=== PATIENT | male | born 1970 | race Caucasian/White ===

== ENCOUNTER 2022-01-27 13:01 | Outpatient (CLI) | payer OTHER, SELFPAY ==
--- NOTE | ~2022-01-27 | US_ITS ---
EXAMINATION:US venous doppler LE BI INDICATION:Bilateral leg swelling TECHNIQUE: Multiple grayscale, color flow and Doppler images of the right and left lower extremity de ep venous systems were obtained and reviewed. COMPARISON:No prior studies for comparison. FINDINGS: The common femoral, superficial femoral and popliteal veins demonstrate normal respiratory variation, augmentation and compressibility. Color flow is also seen within the posterior tibial, pe roneal, greater saphenous and profunda veins. IMPRESSION: 1: No lower extremity deep venous thrombosis. Reviewed, dictated and finalized at location A.
== END 2022-01-27 13:02 | disposition home or self-care (01) ==
PROVIDERS: PCP Internal Medicine Infectious Disease; Visit Provider Internal Medicine Infectious Disease
DX: M79.89 Other specified soft tissue disorders (principal)
CPT/HCPCS: 93970

== ENCOUNTER 2024-08-10 22:43 | Emergency (ER) | payer OTHER, SELFPAY ==
--- OUTSIDE RECORDS SUMMARY | 2024-08-10 22:46 | XMS_ITS | Clinical Summary ---
Author Organization [facility] Address [address] [place] [address] Care Team Providers Care Console Manager Name Role Phone Дмитрий Hennessy MD Primary Care Provider Stefano Sheikh MD Unavailable [phone] Source Comments [facility],non-owned Affiliates and Associated Physician Practices is amultiple site organization consisting of ambulatory clinics and hospital sitesin [place], [place], [place] and [place]. This disclosure is being madepursuant to the Care Everywhere program and may not contain all information available regarding this patient. Last updated 18.[facility] Allergies No known active allergies Medications * Be aware that medications may not be up to date on this document. Alwaysverify current medications with the patient. Medication Sig Dispensed Refills Start Date End Date Status Acetaminophen (TYLENOL EXTRA STRENGTH PO) Take 3 tablets by mouth once daily Active cetirizine (ZYRTEC) 10 MG tablet Take 1 (one) tablet by mouth once daily as needed for Allergies Active busPIRone (BUSPAR) 15 MG tablet Take 10 mg by mouth 2 times daily 02/23/2021 Active lamoTRIgine (LAMICTAL) 100 MG tablet Take 1 (one) tablet by mouth at bedtime 10/15/2020 Active omeprazole (PRILOSEC) 20 MG capsule Take 1 (one) capsule by mouth once daily As Directed. 05/25/2021 Active gemfibrozil (Lopid) 600 MG tablet Take 1 (one) tablet by mouth 2 times daily, before breakfast and supper Active chlorproMAZINE (Thorazine) 50 MG tablet Take 1 (one) tablet by mouth at bedtime Active traZODone (Desyrel) 100 MG tablet Take 1 (one) tablet by mouth at bedtime Active melatonin 3 MG tablet Take 10 mg by mouth at bedtime Active lactobacillus extra strength (Florajen) capsule Take 1 (one) capsule by mouth once daily Active DULoxetine (Cymbalta) 60 MG capsule Take 1 (one) capsule by mouth once daily Active glecaprevir-pibre ntasvir (Mavyret) 100-40 MG tablet Take 3 (three) tablets by mouth daily with food 84 tablet 1 05/20/2024 Active carvedilol (Coreg) 3.125 MG tablet Take 1 (one) tablet by mouth 2 times daily with morning and evening meal 05/16/2024 Active Magnesium Oxide -Mg Supplement 400 (240 Mg) MG Take 1 (one) tablet by mouth 2 times daily 05/17/2024 Active Invega Sustenna 234 MG/1.5ML injection Inject 234 (two hundred thirty four) mg into muscle every 30 days 06/20/2024 Active digoxin (LANOXIN) 0.125 MG tablet Take 0.125 mg by mouth once daily 07/18/2024 Discontinued (List Clean-Up) Active Problems Problem Noted Date Diagnosed Date Stage 2 chronic kidney disease 05/08/2024 Cellulitis of left lower limb 01/18/2024 Cellulitis of right lower limb 01/18/2024 Clostridioides difficile infection 01/18/2024 Colitis 01/18/2024 Diarrhea 01/18/2024 Edema 01/18/2024 History of total left hip replacement 10/22/2023 Erectile dysfunction 09/12/2023 Sensorineural hearing loss, bilateral 06/12/2023 Arthritis of hip 05/09/2023 Chronic depression 05/09/2023 Disorder of lipid metabolism 05/08/2023 Chest pain 03/16/2023 Cocaine adverse reaction 03/16/2023 Essential hypertension 03/16/2023 Gastroesophageal reflux disease 03/16/2023 Generalized anxiety disorder 03/16/2023 Intestinal obstruction 03/16/2023 Recurrent major depression 03/16/2023 Schizoaffective disorder, bipolar type 3 Suicidal thoughts 03/16/2023 Type 2 diabetes mellitus 03/16/2023 Head and neck cancer 02/10/2022 Lesion of tongue 02/07/2022 COVID-19 01/04/2022 Influenza due to unidentifie d influenza virus with other respiratory manifestations 01/04/2022 Solitary pulmonary nodule 01/04/2022 Oral cancer 12/02/2021 Overview (07/18/2024): Added automatically from request for surgery [id number] Paresis of lower extremity 02/24/2021 Exposure to SARS-associated coronavirus 12/09/19 21 Prediabetes 11/04/2020 Encounter for health-related screening Overview (07/18/2024): did not want breann socre, eng psa Psychostimulant dependence in remission 11/03/19 21 Primary osteoarthritis of left hip 10/28/2020 Overview (03/03/2021): Added automatically from request for surgery [id number] Fatty liver 10/09/2020 Renal cyst 10/09/2020 Hypotension 2020 Chronic obstructive pulmonary disease 09/02/2020 Methamphetamine abuse 08/06/2020 Obesity 08/05/2020 Overweight 08/05/2020 Degeneration of lumbar intervertebral disc 02/10 Chronic hepatitis C without hepatic coma 020 Overview (05/13/2024): Genotype 1 a Hepatitis B core antibody reactive No immunity to hepatitis B 06/21/21 Fibroscan CAP 314, LSM 8.3 kPa 05/13/24 Fibroscan CAP 285, LSM 6.6 kPa Impaired fasting glucose 12/17/2019 Poor short-term memory 12/17/2019 Anemia, iron deficiency 12/16/2019 Overview (07/18/2024): nml b12 Left foot drop 09/24/2019 Tobacco dependence in remission 09/24/2019 Hypertriglyceridemia 09/03/2019 Congestive heart failure 02/28/2016 Systolic CHF, chronic 12/02/2010 Personal history of nicotine dependence 01/22/20 09 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 08/13/2008 Overview (03/03/2021): Biotronik Lumax 340 Model # [id number] SER# [id number] implanted 08-12-08 in [place] per Dr. Abreu for dilated CM RV lead Biotronik Linox 65-18 SER# [id number] Biotronik Lumax 340 Model # [id number] SER# [id number] implanted 08-12-08 [address] [place] per Dr. Abreu for dilated CM RV lead Biotronik Linox 65-18 SER# [id number] Supraventricular tachycardia 05/18/2008 Other primary cardiomyopathies 12/20/1993 Overview (03/03/2021): lowest 20 no cad or ai lowest 20 no cad or ai Resolved Problems Problem Noted Date Diagnosed Date Resolved Date Dehydration 01/18/2024 08/01/2024 Acute upper respiratory infection 09/18/2023 08/01/2024 Encounters Date Type Department Care Team Description 07/21/2024 Telephone [facility] [address] [place] [phone] Pam Rain APRN-CNP Results 07/18/2024 2:00 PM RUBBER GOODS SUPERVISOR [facility] [address] [place] [phone] Pam Rain APRN-STAFF NURSE MIDWIFE Chronic hepatitis C without hepatic coma (HCC) (Primary Dx) 07/18/2024 Travel 07/07/2024 Orders Only [facility] [address] [place] [address] Pam Rain APRN-STAFF NURSE MIDWIFE Chronic hepatitis C without hepatic coma (HCC) 05/13/2024 1:35 PM RUBBER GOODS SUPERVISOR - 05/13/2024 11:59 PM RUBBER GOODS SUPERVISOR Hospital Encounter [facility] [address] [place] [address] Discharge Disposition: Home or Self Care 05/13/2024 1:00 PM RUBBER GOODS SUPERVISOR Office Visit [facility] - [address] [phone] Jason Willingham MD Campbell, Shirley M, MARKETING SUMMER INTERN-STAFF NURSE MIDWIFE Chronic hepatitis C without hepatic coma (HCC) (Primary Dx) 05/13/2024 11:30 AM RUBBER GOODS SUPERVISOR Procedure visit [facility] - [address] [phone] Jason Willingham MD Chronic hepatitis C without hepatic coma (HCC) 05/13/2024 Travel from Last 3 Months Family History Medical History Relation Name Comments CAD (Coronary Artery Disease) Father Bipolar Disorder Mother High Blood Pressure Mother Relation Name Status Comments Father Alive Mother Alive Social History Tobacco Use Types Packs/Day Years Used Date Smoking Tobacco: Never Smokeless Tobacco: Current Chew Tobacco Cessation:Ready to Q uit: Not Asked; Counseling Given: Not Answered Alcohol Use Standard Drinks/Week Comments Never 0 (1 standard drink = 0.6 oz pur e alcohol) Sex and Gender Information Value Date Recorded Sex Assigned at Male 06/27/2021 3:16 PM RU[employer]ER GOODS SUPERVISOR Gender Identity Male 06/27/2021 3:16 PM RU[employer]ER [employer] SUPERVISOR Sexual Orientation Not on file Last Filed Vital Signs Vital Sign Reading Time Taken Comments Blood Pressure 112/73 07/18/2024 2:34 PM RU[employer]ER [employer] SUPERVISOR Pulse 99 07/18/2024 2:34 PM RU[employer]ER [employer] SUPERVISOR Temperature 36.7 C (98 F) 07/18/2024 2:34 PM RU[employer]ER GOODS SUPERVISOR Respiratory Rate - - Oxygen Saturation 96% 07/18/2024 2:34 PM RUBBER GOODS SUPERVISOR Inhaled Oxygen Concentration - - Weight 92.8 kg (204 lb 9.6 oz) 07/18/2024 2:34 P M [employer]ER [employer] SUPERVISOR Height 175.3 cm (5' 9 ) 07/18/2024 2:34 PM RUBBER GOODS SUPERVISOR Body Mass Index 30.21 07/18/2024 2:34 PM RUBBER GOODS SUPERVISOR Plan of Treatment Health Maintenance Due Date Last Done Comments COLOGUARD (AGES 45-75) - COLON CA SCREENING 1971 COLON MONITORING 1971 COLONOSCOPY - COLON CA SCREENING 1971 CT COLONOGRAPHY - COLON CA SCREENING 1971 Colorectal Cancer Screening 1971 FIT - COLON CA SCREENING 1971 FLEX SIG - COLON CA SCREENING 1971 DTAP/TDAP/TD VACCINES (1 - Tdap) 10/07/1990 HEPATITIS B VACCINE (1 of 3 - 19+ 3-dose series) 10/07/1990 PNEUMOCOCCAL VACCINE 50+ (1 of 2 - PCV) 10/07/1990 PNEUMOCOCCAL VACCINE (1 of 2 - PCV) 10/07/1990 DIABETES-STATIN 2011 ZOSTER VACCINE (1 of 2) 10/07/2021 COVID-19 VACCINE (2 - season) 2024 09/07/2020 INFLUENZA VACCINE (#1) 2024 , 04/03/2023, 05/14/2022, Additional history exists DIABETES - URINE PROTEIN SCREENING 07/02/2024 DIABETES RETINOPATHY SCREENING 07/18/2024 DIABETES-FOOT EXAM WITH MONOFILAMENT 07/18/2024 DIABETES-HGB A1C 07/18/2024 08/06/2023 DIABETES-SERUM CREATININE 07/17/20252024, 07/17/2024, 05/13/2024, Additional history exists HIV SCREENING Completed 03/03/2021 HEPATITIS C SCREENING Completed 07/18/2024 , 07/17/2024, 07/17/2024, Additional history exists HIB VACCINE Aged Out No longer eligi ble based on patient's age to complete this topic HPV VACCINE Aged Out No longer eligi ble based on patient's age to complete this topic MENINGOCOCCAL (Group B) VACCINE Aged Out No longer eligible based on patient's age to complete this topic MENINGOCOCCAL VACCINE Aged Out No itz juan manuel eligible based on patient's age to complete this topic Goals Goal Patient Goal Type Associated Problems Recent Progress Patient-Stated? Author Medication Management General On track( 025 3:15 PM RUBBER GOODS SUPERVISOR) Jessica Young, RN Note: Expected end date: ongoing Interventions: Take all medications as prescribed Procedures Procedure Name Priority Date/Time Associated Diagnosis Comments HEPATITIS C RNA QUANTITATIVE Routine 07/17/2024 1:44 PM RU[employer]ER [employer] SUPERVISOR Chronic hepatitis C without hepatic coma (HCC) COMPREHENSIVE METABOLIC PANEL Routine 07/17/2024 1:44 PM RU[employer]ER [employer] SUPERVISOR Chronic hepatitis C without hepatic coma (HCC) CBC W AUTO DIFFERENTIAL Routine 07/17/2024 1:44 PM RU[employer]ER [employer] SUPERVISOR Chronic hepatitis C without hepatic coma (HCC) HEPATITIS C RNA QUANTITATIVE Routine 07/17/2024 1:44 PM RU[employer]ER [employer] SUPERVISOR Chronic hepatitis C without hepatic coma (HCC) COMPREHENSIVE METABOLIC PANEL Routine 07/17/2024 1:44 PM RU[employer]ER [employer] SUPERVISOR Chronic hepatitis C without hepatic coma (HCC) CBC W AUTO DIFFERENTIAL Routine 07/17/2024 1:44 PM RU[employer]ER [employer] SUPERVISOR Chronic hepatitis C without hepatic coma (HCC) HEPATITIS C RNA QUANTITATIVE Routine 05/13/2024 2:53 PM RU[employer]ER [employer] SUPERVISOR Chronic hepatitis C without hepatic coma (HCC) COMPREHENSIVE METABOLIC PANEL Routine 05/13/2024 2:53 PM RU[employer]ER [employer] SUPERVISOR Chronic hepatitis C without hepatic coma (HCC) CBC W AUTO DIFFERENTIAL Routine 05/13/2024 2:53 PM RU[employer]ER [employer] SUPERVISOR Chronic hepatitis C without hepatic coma (HCC) DIGOXIN LEVEL Routine 05/13/2024 2:53 PM RUBBER GOODS SUPERVISOR Chronic hepatitis C without hepatic coma (HCC) MN LIVER ELASTOGRAPHY Routine 05/13/2024 11:26 AM RU[employer]ER GOODS SUPERVISOR Chronic hepatitis C without hepatic coma (HCC) HIV-1 HIV-2 ANTIBODY + HIV P24 AG PANEL Routine 03/03/2021 1:12 PM CDT Chronic hepatitis C without hepatic coma (HCC) from Last 3 Months or Most Recently Relevant to Health Maintenance Results * HEPATITIS C RNA QUANTITATIVE (07/17/2024 1:44 PM RUBBER GOODS SUPERVISOR) Only the most recent of2 resultswithin the time period is included. Pathologist [facility] Hepatitis C Virus RNA, Quantitative Real Time PCR <15 NOT DETECTED NOT DETECTED IU/mL [facility] Hepatitis C Virus RNA, Quantitative Real Time PCR <1.18 NOT DETECTED NOT DETECTED Log IU/mL [facility] Comment: For additional information, please refer to [email or web address].[email or web address]/faq/[email or web address] (This link is being provided for informational/ educational purposes only.) Test Performed at: [facility] [address] [place] [address] TARIK NICHOLSON MD Blood BLOOD SPECIMEN / Unknown 07/17/2024 1:44 PM RUBBER GOODS SUPERVISOR 07/17/2024 1:44 PM RUBBER [employer] SUPERVISOR Pam Rain MARKETING SUMMER INTERN-STAFF NURSE MIDWIFE LAB - CHEMIS TRY ORDERABLES [facility] [address] [place] [address] * (ABNORMAL) CBC WITH DIFFERENTIAL (07/17/2024 1:44 PM RUBBER GOODS SUPERVISOR) Only the most recent of3 resultswithin the time period is included. [facility] White Blood Cell Count 8.0 3.8 - 10.8 Thousand/u L [facility] RBC 4.36 4.20 - 5.80 Million/uL [facility] Hemoglobin 13.1(L) 13.2 - 17.1 g/dL [facility] Hematocrit 39.6 38.5 - 50.0 % [facility] MCV 90.8 80.0 - 100.0 fL [facility] MCH 30.0 27.0 - 33.0 pg [facility] MCHC 33.1 32.0 - 36.0 g/dL [facility] Comment: For adults, a slight decrease in the calculated MCHC value (in the range of 30 to 32 g/dL) is most likely not clinically significant; however, it should be interpreted with caution in correlation with other red cell parameters and the patient's clinical condition. RDW 12.5 11.0 - 15.0 % [facility] Platelet Count 326 140 - 400 Thousand/u L [facility] MPV 9.2 7.5 - 12.5 fL [facility] Neutrophil Absolute 5928 1500 - 7800 cells/uL [facility] Lymphocytes Absolute 1352 850 - 3900 cells/uL [facility] Absolute Monocytes 472 200 - 950 cells/uL [facility] Eosinophils Absolute 208 15 - 500 cells/uL [facility] Basophils Absolute 40 0 - 200 cells/uL [facility] Granulocytes % 74.1 % [facility] Lymphocytes % 16.9 % [facility] Monocytes % 5.9 % [facility] Eosinophils % 2.6 % [facility] Basophils % 0.5 % [facility] Comment: Test Performed at: [facility] [address] [facility] [address] TARIK NICHOLSON MD Blood BLOOD SPECIMEN / Unknown 07/17/2024 1:44 PM RUBBER GOODS SUPERVISOR 07/17/2024 1:44 PM RUBBER GOODS SUPERVISOR Pam Rain MARKETING SUMMER INTERN-STAFF NURSE MIDWIFE LAB - HEMATO LOGY ORDERABLES [facility] [address] [place] [address] * (ABNORMAL) COMPREHENSIVE METABOLIC PANEL (07/17/2024 1:44 PM RUBBER GOODS SUPERVISOR) Only the most recent of3 resultswithin the time period is included. Glucose 118(H) 65 - 99 mg/dL [facility] Comment: Fasting reference interval For someone without known diabetes, a glucose value between 100 and 125 mg/dL is consistent with prediabetes and should be confirmed with a follow-up test. BUN 17 7 - 25 mg/dL [facility] Creatinine 1.16 0.70 - 1.30 mg/dL [facility] eGFR by Cystatin C 76 > OR = 60 mL/min/1. 73m2 [facility] BUN/Creatinine Ratio SEE NOTE: 6 - 22 (calc) [facility] Comment: Not Reported: BUN and Creatinine are within reference range. Sodium 135 135 - 146 mmol/L [facility] Potassium 4.2 3.5 - 5.3 mmol/L [facility] Chloride 101 98 - 110 mmol/L [facility] CO2 24 20 - 32 mmol/L [facility] Calcium 9.2 8.6 - 10.3 mg/dL [facility] Protein Total 7.5 6.1 - 8.1 g/dL [facility] Albumin 4.5 3.6 - 5.1 g/dL [facility] Globulin Total 3.0 1.9 - 3.7 g/dL (calc) [facility] Albumin/Globulin Ratio 1.5 1.0 - 2.5 (calc) [facility] Bilirubin Total 0.7 0.2 - 1.2 mg/dL [facility] Alkaline Phosphatase 98 35 - 144 U/L [facility] AST 17 10 - 35 U/L [facility] ALT 14 9 - 46 U/L [facility] Comment: Test Performed at: [facility] [address] [place] [address] TARIK NICHOLSON MD Blood BLOOD SPECIMEN / Unknown 07/17/2024 1:44 PM RUBBER GOODS SUPERVISOR 07/17/2024 1:44 PM RUBBER GOODS SUPERVISOR Pam Rain MARKETING SUMMER INTERN-STAFF NURSE MIDWIFE LAB - CHEMIS TRY ORDERABLES Performing Organization Address [facility] de Phone Number [facility] [address] [place] [address] * DIGOXIN LEVEL (05/13/2024 2:53 PM RUBBER GOODS SUPERVISOR) Digoxin 0.8 0.5 - 1.2 ng/mL 05/13/2024 3:36 PM RUBBER GOODS SUPERVISOR [facility] Blood BLOOD SPECIMEN / Unknown Lab Venipuncture / Unknown 05/13/2024 2:53 PM RUBBER GOODS SUPERVISOR 05/13/2024 3:23 PM RUBBER GOODS SUPERVISOR Narrative [facility] - 05/13/2024 3:36 PM RUBBER GOODS SUPERVISOR Therapeutic reference range for heart failure is 0.5-0.9 ng/mL. For atrial fibrillation, it is 0.8-1.2 ng/mL. The inspector packer of Digoxin Immune Jayesh has stated that no immunoassay technique is suitable for quantitating digoxin in plasma/serum from patients on antibody fragment therapy. Pam Rain APRN-STAFF NURSE MIDWIFE LAB - [place] [employer] TRY ORDERABLES Performing Organization Address [facility] de Phone Number [facility] [address] [place] [address], [facility] [phone] * [place] LIVER ELASTOGRAPHY (05/13/2024 11:26 AM RUBBER GOODS SUPERVISOR) Narrative Jason Gómez MD - 05/13/2024 11:26 AM RUBBER GOODS SUPERVISOR Jason Gómez MD 05/13/2024 12:12 PM Diagnosis: Chronic hepatitis C without hepatic coma (HCC) Patient confirms NPO 3 hours prior to procedure. Procedure explained. Date of Exam: 05/13/2024 Liver Stiffness: (LSM, kPa) median: 6.6 IQR/Median% (ideally < 30%): 5% CAP (controlled attenuation parameter): 285 Technical Difficulty: None Ordering Provider: Pam Rain APRN Fibroscan interpretation: I have personally reviewed the Fibroscan report and associated tracings. The calculated Liver Stiffness Measurement (LSM, kPa) indicates that: The probability of advanced liver fibrosis is: low. The loss of ultrasound signal, (controlled attenuation parameter, CAP [dB/m]), indicates that the probability of hepatic steatosis is: high. Jason Garrett MD The following criteria are used to indicate the probability of advanced (stage 3-4) fibrosis: < 7.0 kPa: low 7.0-8.9 kPa: low to moderate 9.0-14.9 kPa: moderate 15-20 kPa: high > 20 kPa: very high Liver stiffness > 20 kPa is also associated with a high probability of complications of portal hypertension including varices and ascites. Liver stiffness > 50 kPa is associated with a high risk of variceal bleeding. These interpretations are based on the following published data: Dafne PJ, Myla M, Lyla M, et al. Accuracy of FibroScan controlled attenuation parameter and liver stiffness measurement in assessing steatosis and fibrosis in patients with nonalcoholic fatty liver disease. Gastroenterology 2019;156:8103-1314. Alen MS, Jarad R, Van Natta ML, et al. Vibration-controlled transient elastography to assess fibrosis and steatosis in patients with nonalcoholic fatty liver disease. Clin Gastroenterol Hepatol 2019;17:156-163. Note that scores have been developed that incorporate the Fibroscan liver stiffness measurement from large cohorts of patients with liver biopsies to further refine the ability of Fibroscan to identify patients with MASH and advanced fibrosis. These include the FAST (Fibroscan-AST) score (Julio, 202) and the Agile3+ and Agile4 scores (Heather, 202). Julio TA, Van Natta ML, Kavya M, Lane A, et al. Validation of the accuracy of the FAST score for detecting patients with at-risk nonalcoholic steatohepatitis (JI) in a [place] cohort and comparison to other non-invasive algorithms. PLoS ONE (2021) 17: [id number]. Heather BUTTS, Nathalie J, Jack WINSTON, et al. Enhanced diagnosis of advanced fibrosis and cirrhosis in individuals with NAFLD using FibroScan-based Agile scores. J Hepatol (2022) 78: 247-259. Fibroscan LSM can also be used with laboratory parameters without formulas to assess prognosis. According to the Baveno-VII criteria (Moreno, 202), Fibroscan LSM <=15 kPa plus a platelet count of >=[id number]/L rules out clinically significant portal hypertension (sensitivity and negative predictive value >90%) in patients with compensated advanced chronic liver disease. Moreno R, Janak J, Riki G, Brody T, Mayda Hernandez on behalf of the Baveno VII Faculty. Baveno VII--Renewing consensus in portal hypertension. J Hepatol (2021) 76: 959-974 Assessing the likelihood of advanced fibrosis in patients with intermediate liver stiffness measurement (LSM) by Fibroscan (e.g., 8-15 kPa) can be improved by also calculating the FIB-4 score (Tim et al. Hepatology Communications 2019;3:6701-7813) or NAFLD Fibrosis score (Moya et al. Clinical Gastroenterology and Hepatology 2019;17:7301-6838 using routine clinical data. Note: 1. Fibroscan cannot reliably identify earlier stages of fibrosis (ie distinguish F0 from F1 and F2) and thus a histologic stage cannot be predicted from the Fibroscan reading. 2. Liver stiffness can be increased by factors other than fibrosis including passive congestion, infiltrative processes, active alcoholism, recent moderate alcohol consumption in the 2 weeks before the exam, biliary obstruction and marked inflammation. The interpretation of the Fibroscan result provided above may not have taken such clinical factors into account. Disease etiology also influences Fibroscan cutoff values for fibrosis stages and the following cutoffs have been proposed (Uriel et al, Clin Gastro Hepatol 2015; 13:27-36): Cutoffs for Stage 3 and Stage 4 fibrosis respectively: Hepatitis B: >9 and >11.7 kPa Hepatitis C: >9.5 and >12.5 kPa HCV-HIV: >11 and >14 kPa Cholestatic liver diseases: >10 and >17.9 kPa MASLD/MASH: >10 and >14 kPa CAP estimates of steatosis: normal <200 dB/m mild 200 to 250 dB/m moderate 250-290 dB/m substantial > 290 dB/m (Note that Fibroscan is not a quantitative measure of liver fat.) These criteria are estimates and may change as additional supporting data becomes available. (This additional interpretive data was last updated 11/04/22.) [email or web address] Pam Rain APRN-STAFF NURSE MIDWIFE PROCEDURE/KS NOR SURGICAL ORDERABLES * HIV-1 HIV-2 ANTIBODY + HIV P24 AG PANEL (03/03/2021 1:12 PM CDT) HIV Antigen/Antibod y 1 & 2 Non-reacti ve Non-react paris 03/03/2021 5:02 PM CDT [facility] Comment:Neither HIV-1 p24 An tigen nor HIV-1/HIV-2 Antibodies are detected. Blood BLOOD SPECIMEN / Unknown Lab Venipuncture / Unknown 03/03/2021 1:12 PM CDT 03/03/2021 1:39 PM CDT Pam Rain MARKETING SUMMER INTERN-STAFF NURSE MIDWIFE LAB - CHEMIS TRY ORDERABLES Performing Organization Address City/State/[facility] Co de Phone Number [facility] [address] [place] [address], [facility] [phone] from Last 3 Months or Most Recently Relevant to Health Maintenance Care Teams Console Manager Relationship Specialty Start Date End Date Дмитрий Hennessy MD [address] [place], [place] [id number] PCP - General 03/03/21 Stefano Sheikh MD [address] [facility] [address] [place] [address] [facility] 05/13/24
--- OUTSIDE RECORDS SUMMARY | 2024-08-10 22:46 | XMS_ITS ---
Author Organization [facility] Address [address] [place] [address] Support Name Relationship Address Phone [facility] Contact [address] [place] [address] Aashish Darby Guarantor Unknown [phone] Care Team Providers Care Appliance Assembler Name Role Phone Vikash Dodd Primary Care Provider [phone] REASON FOR VISIT Trazodone Social History Sex Assigned At : Social History Observation Description Sex Assigned At Male Encounters Encounter Location Date Provider Diagnosis [address], [place] [address] 08/05/2024 Vikash Dodd Plan Of Treatment Next Appt Details Provider Name:Vikash page, 08/29/2024 01:00:00 PM, [address] [facility] , [place], [address], Progress Notes * Talia DARBYOB:1970 (53 yo M)Acc No.[id number]:08/05/2024 Patient: Aashish AGUILERA :1970 A ge:53 Y S ex:Male Address:[address] [place] [address] * true * Date: Generated for Sanai min/Alexandra/eTransmitting on: 0 08/10/2024 10:45 PM PROGRAM ARCHITECT
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
--- OUTSIDE RECORDS SUMMARY | 2024-08-10 22:46 | XMS_ITS | Clinical Summary ---
Author Organization [facility] Address [address] [place] [address] Care Team Providers Care Derrick Hand Name Role Phone Дмитрий Hennessy MD Primary Care Provider Allergies No known active allergies Medications aspirin 325 MG PO TABS Take 81 Tabs by mouth daily. Active carvedilol 12.5 MG PO TABS Take 1 Tab by mouth 2 times daily. Active busPIRone (BUSPAR) 15 MG Tablet Take 15 mg by mouth 3 times daily. Active cyclobenzaprine (FLEXERIL) 5 MG Tablet Take 5 mg by mouth 3 times daily. Active gemfibrozil (LOPID) 600 MG Tablet Take 600 mg by mouth 2 times daily. Active lamoTRIgine (LAMICTAL) 100 MG Tablet Take 150 mg by mouth daily. Active lisinopril (PRINIVIL, ZESTRIL) 10 MG Tablet Take 10 mg by mouth daily. Active Active Problems Problem Noted Date Diagnosed Date Systolic CHF, chronic 12/02/2010 Cardiomyopathy, nonischemic 12/02/2010 Single implantable cardioverter-defibrillator (I CD) in situ 11/10/2010 Overview (11/10/2010): Biotronik Lumax 340 Model # [id number] SER# [id number] implanted 08-12-08 in [place] per Dr. Abreu for dilated CM RV lead Biotronik Linox 65-18 SER# [id number] Family History Medical History Relation Name Comments Heart Disease Father Heart Disease Paternal Grandmother Relation Name Status Comments Father Paternal Grandmother Social History Tobacco Use Types Packs/Day Years Used Date Smoking Tobacco: Former Cigarettes 0.5 15 0 07/04/1994 - 07/04/2009 Smokeless Tobacco: Current Alcohol Use Standard Drinks/Week Comments Not Currently 0 (1 standard drink = 0.6 oz pur e alcohol) Sex and Gender Information Value Date Recorded Sex Assigned at Not on file Legal Sex Male 3:58 AM NAIL PULLER Gender Identity Not on file Sexual Orientation Not on file Last Filed Vital Signs Vital Sign Reading Time Taken Comments Blood Pressure 116/76 07/19/2020 1:01 PM NAIL PULLER Pulse 105 07/19/2020 1:01 PM NAIL PULLER Temperature 36.1 C (97 F) 07/19/2020 1:01 PM NAIL PULLER Respiratory Rate 18 07/19/2020 1:01 PM NAIL PULLER Oxygen Saturation 95% 07/19/2020 1:01 PM NAIL PULLER Inhaled Oxygen Concentration - - Weight 99.5 kg (219 lb 6.4 oz) 07/19/2020 1:01 P M NAIL PULLER Height 175.3 cm (5' 9 ) 07/19/2020 1:01 PM NAIL PULLER Body Mass Index 32.4 07/19/2020 1:01 PM NAIL PULLER Plan of Treatment Health Maintenance Due Date Last Done Comments Pneumococcal Immunization Combined (1 of 2 - PCV) 10/07/1977 Hepatitis B Immunization (1 of 3 - 19+ 3-dose series) 10/07/1990 Pneumococcal Immunization (5 0+ years) (1 of 2 - PCV) 10/07/1990 Colonoscopy 10/07/2016 Colorectal Cancer Screening 10/07/2016 Cologuard 10/07/2021 Immunochemical Fecal Occult Blood 10/07/2021 Zoster Immunization (1 of 2) 10/07/2021 Influenza Immunization (#1) 2024 04/01/2019 SARS-COV-2 Immunization (3 - 2023- season) 2024 05/01/2021, 09/07/2020 Respiratory Syncytial Virus (RSV) Immunization (Adult) (1 - 1-dose 75+ series) 10/07/2046 DTaP/Tdap/Td Immunization Discontinued 09/24/2019 TdaP Immunization Completed 09/24/2019 Meningococcal Immunization (ACWY) Aged Out No longer eligible based on patient's age to complete this topic Rotavirus Immunization Aged Out No lo nger eligible based on patient's age to complete this topic Insurance MEDICAID [employer] [facility] Care Teams Derrick Hand Relationship Specialty Start Date End Date Дмитрий Hennessy MD [address] [place] [address] PCP - General Internal Medicine 01/09/20
--- OUTSIDE RECORDS SUMMARY | 2024-08-10 22:46 | XMS_ITS | Encounter Summary ---
Author Organization [facility] Address [address] [facility] [address] [place] [address] Phone Care Team Providers Care Project Manager Name Role Phone Дмитрий Hennessy MD Primary Care Provider Mireya Rubi NP Unavailable [phone] Vignesh Hoffmann MD Unavailable [phone] Encounter Details Date Type Department Care Team (Late st Contact Info) Description 01/30/2024 Telephone [facility] Otolaryngology [address] [place] [address] Juju Badillo MS Social History Tobacco Use Types Packs/Day Years Used Date Smoking Tobacco: Former Cigarettes 0.1 37 0 07/04/1986 - 07/04/2023 Smokeless Tobacco: Former Chew Quit: 07/10/2023 OASIS D0700: Social Isolation Answer Da te Recorded Frequency of experiencing loneliness or isolatio n Never 09/10/2023 OASIS A1250: Transportation Answer Date Recorded Lack of Transportation (Medical) No 09/10/2023 Lack of Transportation (Non-Medical) No 09/10/2023 Patient Unable or Declines to Respond No 09/10/2023 OASIS B1300: Health Literacy Answer Rex e Recorded Frequency of needing help to read materials from doctor or pharmacy Rarely 09/10/2023 AUDIT-C Answer Date Recorded Q1: How often do you have a drink containing alcohol? Never 08/21/2023 Q2: How many drinks containi ng alcohol do you have on a typical day when you are drinking? Patient does not drink Q3: How often do you have si x or more drinks on one occasion? Never 08/21/2023 Personal Safety Answer Date Recorded Have you ever been in or are you currently in a harmful physical or emotional relationship or is someone making you feel afraid or unsafe? Denies 08/21/2023 Sex and Gender Information Value Date Recorded Sex Assigned at Not on file Legal Sex Male 11:03 PM COOKER SUL[employer]ATE Gender Identity Male 05/12/2022 9:05 AM COOKER SULFATE Sexual Orientation Straight 10/27/2020 7: 55 PM CDT documented as of this encounter Plan of Treatment Not on file documented as of this encounter Visit Diagnoses Not on filedocumented in this encounter Care Teams Project Manager Relationship Specialty Start Date End Date Дмитрий Hennessy MD [address] [address] PCP - General Internal Medicine 08/11/20 Mireya Rubi NP [address] [place] [address] Nurse Practitioner Nurse Practitioner 03/15/22 Vignesh Hoffmann MD [address] [place] [address] Radiation Oncologist Radiation Oncology 03/30/22 documented as of this encounter
--- OUTSIDE RECORDS SUMMARY | 2024-08-10 22:46 | XMS_ITS | Data Portability ---
Author Organization [facility] Shoshana Knight Address [address] [place] [address] Care Team Providers Care Afternoon Nanny Name Role Phone KYLIE JUAREZ Manager Image [phone] [facility] Psychiatrist NICOLE CASTRO Orthopedic Surgeon Assessment Encounter Date Assessment Date Assessment LastModified by Organization Details LastModified Time 10/22/2023 10/22/2023 His TIMO may be from his recent surgery, but that would not explain the melanotic stools oajao Not available 10/22/2023 09:40:46 Plan of Treatment Reminders Order Date Submit Date Provider Last Modified By Organization Details Last Modified Time Details Appointments ANY 15 2024 02:15P Maite Hennessy MD Not available Not available Not available ANY 15 2024 02:00P Maite Hennessy MD Not available Not available Not available Lab urinalysi s, dipstick 2022 023 [facility]INO Gage, [address], [address], [place], [address], 04/19/2023 07:17:33 CBC w/ auto diff 2022 023 CHINO Gage, [address], [address], [place], [address], 04/19/2023 07:17:33 CMP, serum or plasma 2022 023 CHINO Gage, [address], [address], [place], [address], 04/19/2023 07:17:31 lipid panel, serum 2022 023 CHINO Gage, [address], [address], [place], [address], 04/19/2023 07:17:30 digoxin, serum 2022 [facility]23 [facility], [address], [place], [address], 05/10/2023 16:34:45 HbA1c (hemoglob in A1c), blood 2022 023 CHINO Gage, [address], [address], [place], [address], 04/19/2023 07:17:32 PSA, total, serum or plasma 2022 023 CHINO Gage, [address], [address], [place], [address], 08/01/2023 15:56:20 HbA1c (hemoglob in A1c), blood 2023 024 CHINO Gage, [address], [address], [place], [address], 10/24/2023 06:17:34 CBC w/ auto diff 2023 024 CHINO Gage, [address], [address], [place], [address], 10/24/2023 06:17:38 CMP, serum or plasma 2023 024 CHINO Gage, [address], [address], [place], [address], 10/24/2023 06:17:38 lipid panel, serum 2023 024 CHINO Gage, [address], [address], [place], [address], 10/24/2023 06:17:37 iron + TIBC + ferritin, serum 2023 024 [facility], [address], [address], [place], [address], 10/24/2023 06:17:35 C diff toxin A+B, qual IA, stool 2023 024 CHINO [facility], [address], [address], [place], [address], 01/28/2024 18:51:58 HbA1c (hemoglob in A1c), blood 2023 024 [facility], [address], [address], [place], [address], 05/08/2024 06:42:19 PSA, total, serum or plasma 2023 024 [facility], [address], [address], [place], [address], 05/08/2024 06:41:57 lipid panel, serum 2023 025 [email or web address] [facility], [address], [address], [place], [address], 08/01/2024 09:25:50 Referral nutrition ist/dieti kam referral 2022 023 [facility] Junior Marketing Associate Nutrition Dietitian, [address], [place], [address], 10/19/2023 11:52:58 gastroent erologist referral - Hx of Melana and TIMO 2023 024 CHINO Gómez MD, [address], [address], [place], [address], 01/22/2024 15:13:48 Procedures None recorded. Surgeries None recorded. Imaging CT, kidney, w/wo contrast - L. renal cystic lesion on the CT of the chest, abdomen and pelvis done at [facility] on 03/25/2022 . Approved [id number] for code [id number], expires 08/22/20222022 023 [facility] ([facility]), [address] [place], [address], 04/30/2023 16:50:20 Medication Orders None recorded. Patient TargetsNo targets recorded. Patient Instructions Encounter Date Encounter Id Patient Instructions Last Modified By Organization Details Last Modified Time 04/16/2023 [id number] A healthy lifestyle: care instructions oajao Not available 04/16/2023 13:56:39 hip arthritis: care instructions oajao Not available 04/16/2023 13:14:04 osteoarthritis: care instructions oajao Not available 04/16/2023 13:14:03 prediabetes: car e instructions oajao Not available 04/16/2023 13:21:06 Lab results from [facility] CT as previously ordered D/C summary from [facility] Gaspar as previously ordered Labs Follow up in 4 weeks Addendum PSA, Dig oajao Not available 04/16/2023 13:59:25 I am not willing to prescribe him controlled drugs oajao Not available 04/16/2023 13:59:11 05/09/2023 [id number] hip arthritis: care instructions oajao Not available 05/09/2023 14:32:28 osteoarthritis: care instructions oajao Not available 05/09/2023 14:32:28 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 Low CHO, low fat diet Avoid soda Follow up in 6 months and PRN oajao Not available 05/09/2023 14:53:54 10/22/2023 [id number] prediabetes: car e instructions oajao Not available 10/22/2023 09:42:37 high cholesterol : care instructions oajao Not available 10/22/2023 09:41:37 iron deficiency anemia: care instructions oajao Not available 10/22/2023 09:38:16 Labs GI EGD report D/C summary from [facility] Seasonal COVID vaccine Follow up as scheduled on 11/29/2023 oajao Not available 10/22/2023 09:44:20 01/22/2024 [id number] prediabetes: car e instructions oajao Not available 01/22/2024 15:26:19 diarrhea: care instructions oajao Not available 01/22/2024 15:17:19 Labs 12/04/2023, lab results from [place] Pt education on diarrhea Avoid caffeinated beverages and dairy products Conservative management of the diarrhea. GI as referred for possible capsule study Follow up in 6 weeks oajao Not available 01/22/2024 15:31:53 04/30/2024 [id number] prediabetes: car e instructions oajao Not available 04/30/2024 13:31:49 Pain management regarding Tramadol Stop chewing Tobacco Labs in July, Follow up in 6 month s and PRN oajao Not available 04/30/2024 14:11:33 Reason for Referral 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/dietitian Refer ral for Impaired fasting glycemia Referring Physician: Дмитрий Hennessy, Internal Medicine, Encounter Date: 05/09/2023 Neurosurgery Research Director Referral for History of melena Hx of Melana and TIMO Hx of Melana and TIMO Referring Physician: Дмитрий Hennessy Internal Medicine, Encounter Date: 10/22/2023 Results Created Date Observation Date Name Description Value Unit Range Abnormal Flag Note LastModifiedBy Organization Detail LastModifiedTime 03/14/2003/14/2023 COLOG UARD cologuard result CANCEL LED - ORDER D not applic able Not Available [facility] (Cologuard Orders Only) [address], [place], [address], 03/14/2023 10:36:12 04/18/2004/19/2023 LIPID PANEL cholesterol, total 184 mg/dL 100-19 9 Not Available [facility] ([facility]) [address] [facility], [place], [address], 04/19/2023 07:17:30 04/18/2004/19/2023 LIPID PANEL triglyceride s 752 mg/dL 0-149 alert high Not Available [facility] ([facility]) [address] [place], [address], 04/19/2023 07:17:30 04/18/2004/19/2023 LIPID PANEL HDL cholesterol 27 mg/dL >39 below low normal Not Available [facility] ([facility]) [address] [place], [address], 04/19/2023 07:17:30 04/18/20 23 04/19/2023 LIPID PANEL VLDL cholesterol breann 108 mg/dL 5-40 above high normal Not Available [facility] ([facility]) [address] [place], [address], 04/19/2023 07:17:30 04/18/2004/19/2023 LIPID PANEL LDL chol calc ([facility]) 49 mg/dL 0-99 Not Available [facility] ([facility]) [address] [place], [address], 04/19/2023 07:17:30 04/18/20 23 04/19/2023 COMP. METAB OLIC PANEL (14) glucose 108 mg/dL 70-99 above high normal Not Available [facility] ([facility]) [address] [place], [address], 04/19/2023 07:17:31 04/18/20 23 04/19/2023 COMP. METAB OLIC PANEL (14) BUN 11 mg/dL 6-24 Not Available [facility] ([facility]) [address] [place], [address], 04/19/2023 07:17:31 04/18/20 23 04/19/2023 COMP. METAB OLIC PANEL (14) creatinine 1.14 mg/dL 0.76-1 .27 Not Available [facility] ([facility]) [address] [place], [address], 04/19/2023 07:17:31 04/18/20 23 04/19/2023 COMP. METAB OLIC PANEL (14) eGFR 78 mL/mi n/1.7 3 >59 Not Available [facility] ([facility]) [address] [facility], [place], [address], 04/19/2023 07:17:31 04/18/20 23 04/19/2023 COMP. METAB OLIC PANEL (14) BUN/creatini ne ratio 10 9-20 Not Available [facility] ([facility]) [address] [facility], [place], [address], 04/19/2023 07:17:31 04/18/2004/19/2023 COMP. METAB OLIC PANEL (14) sodium 140 mmol/ L 134-14 4 Not Available [facility] ([facility]) [address] [facility], [place], [address], 04/19/2023 07:17:31 04/18/20 23 04/19/2023 COMP. METAB OLIC PANEL (14) potassium 4.4 mmol/ L 3.5-5. 2 Not Available [facility] ([facility]) [address] [facility], [place], [address], 04/19/2023 07:17:31 04/18/20 23 04/19/2023 COMP. METAB OLIC PANEL (14) chloride 101 mmol/ L 96-106 Not Available [facility] ([facility]) [address] [facility], [place], [address], 04/19/2023 07:17:31 04/18/20 23 04/19/2023 COMP. METAB OLIC PANEL (14) carbon dioxide, total 22 mmol/ L 20-29 Not Available [facility] ([facility]) [address] [facility], [place], [address], 04/19/2023 07:17:31 04/18/20 23 04/19/2023 COMP. METAB OLIC PANEL (14) calcium 9.4 mg/dL 8.7-10 .2 Not Available [facility] ([facility]) [address], [place], [address], 04/19/2023 07:17:31 04/18/20 23 04/19/2023 COMP. METAB OLIC PANEL (14) protein, total 7.4 g/dL 6.0-8. 5 Not Available [facility] ([facility]) [address] [place], [address], 04/19/2023 07:17:31 04/18/20 23 04/19/2023 COMP. METAB OLIC PANEL (14) albumin 4.3 g/dL 3.8-4. 9 Not Available [facility] ([facility]) [address] [place], [address], 04/19/2023 07:17:31 04/18/20 23 04/19/2023 COMP. METAB OLIC PANEL (14) globulin, total 3.1 g/dL 1.5-4. 5 Not Available [facility] ([facility]) [address] [place], [address], 04/19/2023 07:17:31 04/18/20 23 04/19/2023 COMP. METAB OLIC PANEL (14) A/G ratio 1.4 1.2-2. 2 Not Available [facility] ([facility]) [address] [place], [address], 04/19/2023 07:17:31 04/18/20 23 04/19/2023 COMP. METAB OLIC PANEL (14) bilirubin, total 0.5 mg/dL 0.0-1. 2 Not Available [facility] ([facility]) [address] [facility] [place], [address], 04/19/2023 07:17:31 04/18/20 23 04/19/2023 COMP. METAB OLIC PANEL (14) alkaline phosphatase 98 IU/L 44-121 Not Available [facility] ([facility]) [address] [facility], [place], [address], 04/19/2023 07:17:31 04/18/20 23 04/19/2023 COMP. METAB OLIC PANEL (14) AST (SGOT) 47 IU/L 0-40 above high normal Not Available [facility] ([facility]) [address] [facility], [place], [address], 04/19/2023 07:17:31 04/18/2004/19/2023 COMP. METAB OLIC PANEL (14) ALT (SGPT) 49 IU/L 0-44 above high normal Not Available [facility] ([facility]) [address] [facility], [place], [address], 04/19/2023 07:17:31 04/18/2004/19/2023 URINA LYSIS , ROUTI NE specific gravity 1.021 1.005- 1.030 Not Available [facility] ([facility]) [address] [facility], [place], [address], 04/19/2023 07:17:32 04/18/2004/19/2023 URINA LYSIS , ROUTI NE pH 5.5 5.0-7. 5 Not Available [facility] ([facility]) [address] [facility], [place], [address], 04/19/2023 07:17:32 04/18/2004/19/2023 URINA LYSIS , ROUTI NE urine-color YELLOW yellow Not Available [facility] ([facility]) [address] [facility], [place], [address], 04/19/2023 07:17:32 04/18/2004/19/2023 URINA LYSIS , ROUTI NE appearance CLEAR clear Not Available [facility] ([facility]) [address] [facility], [place], [address], 04/19/2023 07:17:32 04/18/2004/19/2023 URINA LYSIS , ROUTI NE WBC esterase NEGATI VE negati ve Not Available [facility] ([facility]) [address] [facility], [place], [address], 04/19/2023 07:17:32 04/18/2004/19/2023 URINA LYSIS , ROUTI NE protein NEGATI VE negati ve/tra ce Not Available [facility] ([facility]) [address] [place], [address], 04/19/2023 07:17:32 04/18/2004/19/2023 URINA LYSIS , ROUTI NE glucose NEGATI VE negati ve Not Available [facility] ([facility]) [address] [place], [address], 04/19/2023 07:17:32 04/18/2004/19/2023 URINA LYSIS , ROUTI NE ketones NEGATI VE negati ve Not Available [facility] ([facility]) [address] [place], [address], 04/19/2023 07:17:32 04/18/2004/19/2023 URINA LYSIS , ROUTI NE occult blood NEGATI VE negati ve Not Available [facility] ([facility]) [address] [place], [address], 04/19/2023 07:17:32 04/18/2004/19/2023 URINA LYSIS , ROUTI NE bilirubin NEGATI VE negati ve Not Available [facility] ([facility]) [address] [place], [address], 04/19/2023 07:17:32 04/18/2004/19/2023 URINA LYSIS , ROUTI NE urobilinogen ,semi-qn 0.2 mg/dL 0.2-1. 0 Not Available [facility] ([facility]) [address] [place], [address], 04/19/2023 07:17:32 04/18/2004/19/2023 URINA LYSIS , ROUTI NE nitrite, urine NEGATI VE negati ve Not Available [facility] ([facility]) [address] [facility], [place], [address], 04/19/2023 07:17:32 04/18/2004/19/2023 URINA LYSIS , ROUTI NE microscopic examination COMMEN T Micro scopi c not indic ated and not perfo rmed. Not Available [facility] ([facility]) [address] [facility], [place], [address], 04/19/2023 07:17:32 04/18/2004/19/2023 CBC WITH DIFFE RENTI AL/PL ATELE T WBC 6.0 x10e3 /uL 3.4-10 .8 Not Available [facility] ([facility]) [address] [facility], [place], [address], 04/19/2023 07:17:33 04/18/2004/19/2023 CBC WITH DIFFE RENTI AL/PL ATELE T RBC 4.60 x10e6 /uL 4.14-5 .80 Not Available [facility] ([facility]) [address] [facility], [place], [address], 04/19/2023 07:17:33 04/18/2004/19/2023 CBC WITH DIFFE RENTI AL/PL ATELE T hemoglobin 13.9 g/dL 13.0-1 7.7 Not Available [facility] ([facility]) [address] [place], [address], 04/19/2023 07:17:33 04/18/2004/19/2023 CBC WITH DIFFE RENTI AL/PL ATELE T hematocrit 41.9 % 37.5-5 1.0 Not Available [facility] ([facility]) [address] [place], [address], 04/19/2023 07:17:33 04/18/2004/19/2023 CBC WITH DIFFE RENTI AL/PL ATELE T MCV 91 fL 79-97 Not Available [facility] ([facility]) [address] [facility], [place], [address], 04/19/2023 07:17:33 04/18/2004/19/2023 CBC WITH DIFFE RENTI AL/PL ATELE T MCH 30.2 pg 26.6-3 3.0 Not Available [facility] ([facility]) [address] [facility], [place], [address], 04/19/2023 07:17:33 04/18/2004/19/2023 CBC WITH DIFFE RENTI AL/PL ATELE T MCHC 33.2 g/dL 31.5-3 5.7 Not Available [facility] ([facility]) [address] [facility], [place], [address], 04/19/2023 07:17:33 04/18/2004/19/2023 CBC WITH DIFFE RENTI AL/PL ATELE T RDW 13.0 % 11.6-1 5.4 Not Available [facility] ([facility]) [address] [facility], [place], [address], 04/19/2023 07:17:33 04/18/2004/19/2023 CBC WITH DIFFE RENTI AL/PL ATELE T platelets 290 x10e3 /uL 150-45 0 Not Available [facility] ([facility]) [address] [facility], [place], [address], 04/19/2023 07:17:33 04/18/2004/19/2023 CBC WITH DIFFE RENTI AL/PL ATELE T neutrophils 63 % notest ab. Not Available [facility] ([facility]) [address] [facility], [place], [address], 04/19/2023 07:17:33 04/18/20 23 04/19/2023 CBC WITH DIFFE RENTI AL/PL ATELE T lymphs 21 % notest ab. Not Available [facility] ([facility]) [address] [facility], [place], [address], 04/19/2023 07:17:33 04/18/20 23 04/19/2023 CBC WITH DIFFE RENTI AL/PL ATELE T monocytes 12 % notest ab. Not Available [facility] ([facility]) [address] [facility], [place], [address], 04/19/2023 07:17:33 04/18/2004/19/2023 CBC WITH DIFFE RENTI AL/PL ATELE T eos 3 % notest ab. Not Available [facility] ([facility]) [address] [facility], [place], [address], 04/19/2023 07:17:33 04/18/2004/19/2023 CBC WITH DIFFE RENTI AL/PL ATELE T basos 1 % notest ab. Not Available [facility] ([facility]) [address] [facility], [place], [address], 04/19/2023 07:17:33 04/18/2004/19/2023 CBC WITH DIFFE RENTI AL/PL ATELE T neutrophils (absolute) 3.8 x10e3 /uL 1.4-7. 0 Not Available [facility] ([facility]) [address] [facility], [place], [address], 04/19/2023 07:17:33 04/18/2004/19/2023 CBC WITH DIFFE RENTI AL/PL ATELE T lymphs (absolute) 1.2 x10e3 /uL 0.7-3. 1 Not Available [facility] ([facility]) [address] [facility], [place], [address], 04/19/2023 07:17:33 04/18/2004/19/2023 CBC WITH DIFFE RENTI AL/PL ATELE T monocytes(ab solute) 0.7 x10e3 /uL 0.1-0. 9 Not Available [facility] ([facility]) [address] [facility], [place], [address], 04/19/2023 07:17:33 04/18/20 23 04/19/2023 CBC WITH DIFFE RENTI AL/PL ATELE T eos (absolute) 0.2 x10e3 /uL 0.0-0. 4 Not Available [facility] ([facility]) [address] [facility], [place], [address], 04/19/2023 07:17:33 04/18/2004/19/2023 CBC WITH DIFFE RENTI AL/PL ATELE T baso (absolute) 0.1 x10e3 /uL 0.0-0. 2 Not Available [facility] ([facility]) [address] [facility], [place], [address], 04/19/2023 07:17:33 04/18/2004/19/2023 CBC WITH DIFFE RENTI AL/PL ATELE T immature granulocytes 0 % notest ab. Not Available [facility] ([facility]) [address] [facility], [place], [address], 04/19/2023 07:17:33 04/18/2004/19/2023 CBC WITH DIFFE RENTI AL/PL ATELE T immature grans (abs) 0.0 x10e3 /uL 0.0-0. 1 Not Available [facility] ([facility]) [address] [place], [address], 04/19/2023 07:17:33 04/18/2004/19/2023 HEMOG LOBIN A1C hemoglobin A1C 5.8 % 4.8-5. 6 above high normal Predi abete s: 5.7 - 6.4 Diabe wilfrido: >6.4 Glyce ciro contr ol for adult s with diabe wilfrido: <7.0 Not Available [facility] ([facility]) [address] [facility], [place], [address], 04/19/2023 07:17:32 04/27/2004/28/2023 LIPID PANEL cholesterol, total 129 mg/dL 100-19 9 Not Available [facility] ([facility]) [address] [facility], [place], [address], 04/28/2023 06:14:38 04/27/2004/28/2023 LIPID PANEL triglyceride s 310 mg/dL 0-149 above high normal Not Available [facility] ([facility]) [address] [facility], [place], [address], 04/28/2023 06:14:38 04/27/2004/28/2023 LIPID PANEL HDL cholesterol 28 mg/dL >39 below low normal Not Available [facility] ([facility]) [address] [facility], [place], [address], 04/28/2023 06:14:38 04/27/2004/28/2023 LIPID PANEL VLDL cholesterol breann 48 mg/dL 5-40 above high normal Not Available [facility] ([facility]) [address] [facility], [place], [address], 04/28/2023 06:14:38 04/27/2004/28/2023 LIPID PANEL LDL chol calc ([facility]) 53 mg/dL 0-99 Not Available [facility] ([facility]) [address] [place], [address], 04/28/2023 06:14:38 09/02/19 24 09/02/2023 COLOG UARD cologuard result reportable NEGATI VE negati ve normal NEGAT GEOFF TEST RESUL T. A negat geoff Colog uard resul t indic ates a low likel ihood that a color ectal cance r (CRC) or advan jodee adeno ma (piper omato us polyp s with more advan jodee pre-m align ant featu res) is prese nt. The [facility] e that a perso n with a negat geoff Colog uard test has a color ectal cance r is less than 1 in 1500 (nega tive predi ctive value >99.9 %) or has an advan jodee adeno ma is less than 5.3% (nega tive predi ctive value 94.7% ). These data are based on a prosp ectiv e cross -sect ional study of 10,00 0 indiv idual s at [place] ge risk for color ectal cance r who were scree anton with both Colog uard and colon oscop y. (Impe vic T. et al, N Engl J Med 2014; 370(1 4):12 86-12 97) The bethayn l value (refe rence range ) for this assay is negat geoff. COLOG UARD RE-SC REENI NG RECOM MENDA TION: Perio dic color ectal cance r scree santy is an impor tant part of preve ntive healt hcare for asymp tomat ic indiv idual s at [place] ge risk for color ectal cance r. Follo wing a negat geoff Colog uard resul t, the Ameri can Cance r Socie ty and U.S. Multi -Soci ety Task Force scree santy guide lines recom mend a Colog uard re-sc reeni ng inter barbara of 3 years . Refer ences : Ameri can Cance r Socie ty Guide line for Color ectal Cance r Scree santy: https ://donna w.can cer.o rg/ca ncer/ colon -rect al-ca ncer/ detec tion- diagn osis- stagi ng/ac s-rec ommen datio ns.ht ml.; Olaf LINARES, Tomas dupree CR, Camacho WHITING, Color ectal Cance r Scree santy: Recom menda tions for Physi cians and Patie nts from the U.S. Multi -Soci ety Task Force on Color ectal Cance r Scree santy , Jam Love oente rolog y 2017; 112:1 016-1 030. TEST DESCR IPTIO N: [place] site algor ithmi c caryl sis of stool DNA-b iofadumo kers with hemog lobin immun oassa y. Quant itati ve value s of indiv idual bioma rkers are not repor table and are not assoc iated with indiv idual bioma rker resul t refer ence range s. Colog uard is inten ded for color ectal cance r scree santy of adult s of eithe r sex, 45 years or older , who are at [facility] for color ectal cance r (CRC) . Colog uard has been appro masood for use by the U.[place]. FDA. The perfo rmanc e of Colog uard was estab lishe d in a cross secti onal study of [facility] adult s aged 50-84 . Colog uard perfo rmanc e in patie nts ages 45 to 49 years was estim ated by sub-g roup caryl sis of near- age group s. Colon oscop ies perfo rmed for a posit geoff resul t may find as the most clini darío signi fican t lesio n: color ectal cance r [4.0% ], advan jodee adeno ma (incl uding sessi le natalie anusha polyp s great er than or equal to 1cm diame ter) [20%] or non- advan jodee adeno ma [31%] ; or no color ectal neopl aidan [45%] . These estim ates are deriv ed from a prosp ectiv e cross -sect ional scree santy study of 10,00 0 indiv idual s at [facility] risk for color ectal cance r who were scree anton with both Colog uard and colon oscop y. (Joseph Macias et al, N Engl J Med 2014; 370(1 4):12 86-12 97.) Colog uard may produ ce a false negat geoff or false posit geoff resul t (no color ectal cance r or preca ncero us polyp prese nt at colon oscop y follo w up). A negat geoff Colog uard test resul t does not guara ntee the absen ce of CRC or advan jodee adeno ma (pre- cance r). The curre nt Colog uard scree santy inter barbara is every 3 years . ([employer] r Socie ty and [employer] Multi -Soci ety Task Force ). Colog uard perfo rmanc e data in a 10,00 0 patie nt pivot al study using colon oscop y as the refer ence metho d can be acces sed at the follo wing locat ion: www.e xactl abs.c om/re sults . Addit ional descr iptio n of the Colog uard test proce ss, warni ngs and preca ution s can be found at www.c ologu maura.c om. Not Available [facility] (Cologuard Orders Only) [address], [place], [address], 09/07/2023 20:50:23 10/23/19 24 10/23/2023 HEMOG LOBIN A1C hemoglobin A1C 5.3 % 4.8-5. 6 Predi abete s: 5.7 - 6.4 Diabe wilfrido: >6.4 Glyce ciro contr ol for adult s with diabe wilfrido: <7.0 Not Available [facility] ([facility]) [address] [place], [address], 10/24/2023 06:17:34 10/23/19 24 10/24/2023 FE+TI BC+FE R iron bind.cap.(TI BC) 481 ug/dL 250-45 0 above high normal Not Available [facility] ([facility]) [address] [facility], [place], [address], 10/24/2023 06:17:35 10/23/19 24 10/24/2023 FE+TI BC+FE R UIBC 451 ug/dL 111-34 3 above high normal Not Available [facility] ([facility]) [address] [place], [address], 10/24/2023 06:17:35 10/23/19 24 10/24/2023 FE+TI BC+FE R iron 30 ug/dL 38-169 below low normal Not Available [facility] ([facility]) [address] [place], [address], 10/24/2023 06:17:35 10/23/19 24 10/24/2023 FE+TI BC+FE R iron saturation 6 % 15-55 alert low Not Available [facility] ([facility]) [address] [place], [address], 10/24/2023 06:17:35 10/23/19 24 10/24/2023 FE+TI BC+FE R ferritin 34 NG/mL 30-400 Not Available [facility] ([facility]) [address] [place], [address], 10/24/2023 06:17:35 10/23/19 24 10/24/2023 LIPID PANEL cholesterol, total 143 mg/dL 100-19 9 Not Available [facility] ([facility]) [address] [place], [address], 10/24/2023 06:17:37 10/23/19 24 10/24/2023 LIPID PANEL triglyceride s 135 mg/dL 0-149 Not Available [facility] ([facility]) [address] [place], [address], 10/24/2023 06:17:37 10/23/1910/24/2023 LIPID PANEL HDL cholesterol 29 mg/dL >39 below low normal Not Available [facility] ([facility]) [address] [place], [address], 10/24/2023 06:17:37 10/23/19 24 10/24/2023 LIPID PANEL VLDL cholesterol breann 24 mg/dL 5-40 Not Available [facility] ([facility]) [address] [place], [address], 10/24/2023 06:17:37 10/23/19 24 10/24/2023 LIPID PANEL LDL chol calc ([facility]) 90 mg/dL 0-99 Not Available [facility] ([facility]) [address] [place], [address], 10/24/2023 06:17:37 10/23/19 24 10/24/2023 COMP. METAB OLIC PANEL (14) glucose 110 mg/dL 70-99 above high normal Not Available [facility] ([facility]) [address] [place], [address], 10/24/2023 06:17:37 10/23/19 24 10/24/2023 COMP. METAB OLIC PANEL (14) BUN 14 mg/dL 6-24 Not Available [facility] ([facility]) [address] [place], [address], 10/24/2023 06:17:37 10/23/19 24 10/24/2023 COMP. METAB OLIC PANEL (14) creatinine 1.14 mg/dL 0.76-1 .27 Not Available [facility] ([facility]) [address] [place], [address], 10/24/2023 06:17:37 10/23/19 24 10/24/2023 COMP. METAB OLIC PANEL (14) eGFR 77 mL/mi n/1.7 3 >59 Not Available [facility] ([facility]) [address] [place], [address], 10/24/2023 06:17:37 10/23/19 24 10/24/2023 COMP. METAB OLIC PANEL (14) BUN/creatini ne ratio 12 9-20 Not Available [facility] ([facility]) [address] [place], [address], 10/24/2023 06:17:37 10/23/19 24 10/24/2023 COMP. METAB OLIC PANEL (14) sodium 138 mmol/ L 134-14 4 Not Available [facility] ([facility]) [address] [place], [address], 10/24/2023 06:17:37 10/23/19 24 10/24/2023 COMP. METAB OLIC PANEL (14) potassium 4.4 mmol/ L 3.5-5. 2 Not Available [facility] ([facility]) [address] [facility], [place], [address], 10/24/2023 06:17:37 10/23/1910/24/2023 COMP. METAB OLIC PANEL (14) chloride 102 mmol/ L 96-106 Not Available [facility] ([facility]) [address] [facility], [place], [address], 10/24/2023 06:17:37 10/23/19 24 10/24/2023 COMP. METAB OLIC PANEL (14) carbon dioxide, total 20 mmol/ L 20-29 Not Available [facility] ([facility]) [address] [facility], [place], [address], 10/24/2023 06:17:37 10/23/19 24 10/24/2023 COMP. METAB OLIC PANEL (14) calcium 9.4 mg/dL 8.7-10 .2 Not Available [facility] ([facility]) [address] [facility], [place], [address], 10/24/2023 06:17:37 10/23/1910/24/2023 COMP. METAB OLIC PANEL (14) protein, total 7.3 g/dL 6.0-8. 5 Not Available [facility] ([facility]) [address] [facility] [place], [address], 10/24/2023 06:17:37 10/23/1910/24/2023 COMP. METAB OLIC PANEL (14) albumin 4.2 g/dL 3.8-4. 9 Not Available [facility] ([facility]) [address] [facility] [place], [address], 10/24/2023 06:17:37 10/23/19 24 10/24/2023 COMP. METAB OLIC PANEL (14) globulin, total 3.1 g/dL 1.5-4. 5 Not Available [facility] ([facility]) [address] [facility] [place], [address], 10/24/2023 06:17:37 10/23/19 24 10/24/2023 COMP. METAB OLIC PANEL (14) A/G ratio 1.4 1.2-2. 2 Not Available [facility] ([facility]) [address] [facility] [place], [address], 10/24/2023 06:17:37 10/23/19 24 10/24/2023 COMP. METAB OLIC PANEL (14) bilirubin, total 0.3 mg/dL 0.0-1. 2 Not Available [facility] ([facility]) [address] [facility] [place], [address], 10/24/2023 06:17:37 10/23/19 24 10/24/2023 COMP. METAB OLIC PANEL (14) alkaline phosphatase 129 IU/L 44-121 above high normal Not Available [facility] ([facility]) [address] [facility] [place], [address], 10/24/2023 06:17:37 10/23/19 24 10/24/2023 COMP. METAB OLIC PANEL (14) AST (SGOT) 51 IU/L 0-40 above high normal Not Available [facility] ([facility]) [address] [facility] [place], [address], 10/24/2023 06:17:37 10/23/19 24 10/24/2023 COMP. METAB OLIC PANEL (14) ALT (SGPT) 38 IU/L 0-44 Not Available [facility] ([facility]) [address] [facility] [place], [address], 10/24/2023 06:17:37 10/23/19 24 10/23/2023 CBC WITH DIFFE RENTI AL/PL ATELE T WBC 5.9 x10e3 /uL 3.4-10 .8 Not Available [facility] ([facility]) [address] [place], [address], 10/24/2023 06:17:38 10/23/19 24 10/23/2023 CBC WITH DIFFE RENTI AL/PL ATELE T RBC 4.35 x10e6 /uL 4.14-5 .80 Not Available [facility] ([facility]) [address] [place], [address], 10/24/2023 06:17:38 10/23/1910/23/2023 CBC WITH DIFFE RENTI AL/PL ATELE T hemoglobin 11.6 g/dL 13.0-1 7.7 below low normal Not Available [facility] ([facility]) [address] [place], [address], 10/24/2023 06:17:38 10/23/1910/23/2023 CBC WITH DIFFE RENTI AL/PL ATELE T hematocrit 36.7 % 37.5-5 1.0 below low normal Not Available [facility] ([facility]) [address] [place], [address], 10/24/2023 06:17:38 10/23/1910/23/2023 CBC WITH DIFFE RENTI AL/PL ATELE T MCV 84 fL 79-97 Not Available [facility] ([facility]) [address] [place], [address], 10/24/2023 06:17:38 10/23/1910/23/2023 CBC WITH DIFFE RENTI AL/PL ATELE T MCH 26.7 pg 26.6-3 3.0 Not Available [facility] ([facility]) [address] [place], [address], 10/24/2023 06:17:38 10/23/19 24 10/23/2023 CBC WITH DIFFE RENTI AL/PL ATELE T MCHC 31.6 g/dL 31.5-3 5.7 Not Available [facility] ([facility]) [address] [facility], [place], [address], 10/24/2023 06:17:38 10/23/19 24 10/23/2023 CBC WITH DIFFE RENTI AL/PL ATELE T RDW 13.2 % 11.6-1 5.4 Not Available [facility] ([facility]) [address] [facility], [place], [address], 10/24/2023 06:17:38 10/23/19 24 10/23/2023 CBC WITH DIFFE RENTI AL/PL ATELE T platelets 427 x10e3 /uL 150-45 0 Not Available [facility] ([facility]) [address] [facility], [place], [address], 10/24/2023 06:17:38 10/23/19 24 10/23/2023 CBC WITH DIFFE RENTI AL/PL ATELE T neutrophils 59 % notest ab. Not Available [facility] ([facility]) [address] [facility], [place], [address], 10/24/2023 06:17:38 10/23/19 24 10/23/2023 CBC WITH DIFFE RENTI AL/PL ATELE T lymphs 21 % notest ab. Not Available [facility] ([facility]) [address] [facility], [place], [address], 10/24/2023 06:17:38 10/23/19 24 10/23/2023 CBC WITH DIFFE RENTI AL/PL ATELE T monocytes 15 % notest ab. Not Available [facility] ([facility]) [address] [facility], [place], [address], 10/24/2023 06:17:38 10/23/19 24 10/23/2023 CBC WITH DIFFE RENTI AL/PL ATELE T eos 4 % notest ab. Not Available [facility] ([facility]) [address] [facility], [place], [address], 10/24/2023 06:17:38 10/23/19 24 10/23/2023 CBC WITH DIFFE RENTI AL/PL ATELE T basos 1 % notest ab. Not Available [facility] ([facility]) [address] [facility], [place], [address], 10/24/2023 06:17:38 10/23/19 24 10/23/2023 CBC WITH DIFFE RENTI AL/PL ATELE T neutrophils (absolute) 3.5 x10e3 /uL 1.4-7. 0 Not Available [facility] ([facility]) [address] [facility], [place], [address], 10/24/2023 06:17:38 10/23/19 24 10/23/2023 CBC WITH DIFFE RENTI AL/PL ATELE T lymphs (absolute) 1.2 x10e3 /uL 0.7-3. 1 Not Available [facility] ([facility]) [address] [place], [address], 10/24/2023 06:17:38 10/23/19 24 10/23/2023 CBC WITH DIFFE RENTI AL/PL ATELE T monocytes(ab solute) 0.9 x10e3 /uL 0.1-0. 9 Not Available [facility] ([facility]) [address] [place], [address], 10/24/2023 06:17:38 10/23/19 24 10/23/2023 CBC WITH DIFFE RENTI AL/PL ATELE T eos (absolute) 0.2 x10e3 /uL 0.0-0. 4 Not Available [facility] ([facility]) [address] [place], [address], 10/24/2023 06:17:38 10/23/19 24 10/23/2023 CBC WITH DIFFE RENTI AL/PL ATELE T baso (absolute) 0.0 x10e3 /uL 0.0-0. 2 Not Available [facility] ([facility]) [address] [facility], [place], [address], 10/24/2023 06:17:38 10/23/19 24 10/23/2023 CBC WITH DIFFE RENTI AL/PL ATELE T immature granulocytes 0 % notest ab. Not Available [facility] ([facility]) [address] [facility], [place], [address], 10/24/2023 06:17:38 10/23/19 24 10/23/2023 CBC WITH DIFFE RENTI AL/PL ATELE T immature grans (abs) 0.0 x10e3 /uL 0.0-0. 1 Not Available [facility] ([facility]) [address] [facility], [place], [address], 10/24/2023 06:17:38 04/27/20 23 04/27/2023 CT, kidne y, w/wo contr ast No observ ation record ed. [facility] [address] [place], [address], 05/09/2023 14:19:20 05/15/20 23 05/10/2023 rhyth m strip * No observ ation record ed. [facility] [address], [place], [address], 10/22/2023 09:22:47 02/27/20 24 02/27/2024 trans -thor acic echoc ardio gram (TTE) (PROC ) No observ ation record ed. [facility] [address], [place], [address], 04/30/2024 13:27:15 Result Notes None recorded. Problems Name Problem SNOMED Code Status Onset Date Resolution Date Notes Provider Name and Address Organization Details Recorded Time Tobacco dependence in remission 412429617 Active 2019 Дмитрий Hennessy MD Attn: Stephaniemikayla magaña,[address] [facility], [place], [address], [place] [facility] 3 13:56:49 Chronic hepatitis C 204677339 Active 2019 Дмитрий Hennessy MD Attn: Stephaniemikayla magaña,[address] [facility], [place], [address], [place] [facility] 3 13:56:49 History of supraventri cular tachycardia 9186753577951 4101 Active 2019 Дмитрий Hennessy MD Attn: Accountmikayla g,[address] [facility], [place], [address], [place] [facility] 3 13:56:49 History of atrial fibrillatio n 511220296 Active 2019 Дмитрий Hennessy MD Attn: Venkat gómez,[address] [place], [address], [place] [facility] 3 13:56:50 Left foot drop 6424527008668 05 Active 2019 Дмитрий Hennessy MD Attn: Stephaniemikayla magaña,[address] [place], [address], [place] [facility] 3 13:56:50 Hyperlipide ollie 64950223 Active 2019 Дмитрйи Hennessy MD Attn: Stephaniemikayla magaña,[address] [place], [address], [place] [facility] 3 13:56:50 Impaired fasting glycemia 661859777 Active 2019 Дмитрий Hennessy MD Attn: Venkat g,[address] [place], [address], [place] [facility] 3 13:56:50 Poor short-term memory 730976580 Active 2019 Дмитрий Hennessy MD Attn: Venkat g,[address] [place], [address], [place] [facility] 3 13:56:50 Degeneratio n of lumbar interverteb ral disc 56164887 Active 2019 Дмитрий Hennessy MD Attn: Stephaniein g,[address] [facility], [place], [address], [place] [facility] 3 13:56:50 Body mass index 30+ - obesity 880045264 Active 2020 Дмитрий Hennessy MD Attn: Accountin g,[address] [facility], [place], [address], [place] [facility] 3 13:56:49 Amphetamine or psychostimu lant dependence in remission 430493591 Active 2020 Дмитрий Hennessy MD Attn: Accountin g,[address] [facility], [place], [address], [place] [facility] 3 13:56:49 Steatosis of liver 621858483 Active 2020 Дмитрий Hennessy MD Attn: Accountin g,[address] [facility], [place], [address], [place] [facility] 3 13:56:49 Chronic obstructive pulmonary disease 80525116 Active 2020 Дмитрий Hennessy MD Attn: Venkat g,[address] [facility], [place], [address], [place] [facility] 3 13:56:49 Congestive heart failure 56462909 Active 2020 Дмитрий Hennessy MD Attn: Stephaniein g,[address] [facility], [place], [address], [place] [facility] 3 13:56:50 Paresis of lower extremity 018949353 Active 2020 Дмитрий Hennessy MD Attn: Venkat g,[address] [place], [address], [place] [facility] 13:56:49 Intestinal obstruction 46069430 Active Дмитрий Hennessy MD Attn: Venkat magaña,[address] [facility], [place], [address], [place] [facility] 3 13:56:50 Suicidal thoughts 2974157 Active Дмитрий Hennessy MD Attn: Stephaniemikayla g,[address] [facility], [place], [address], [place] [facility] 3 13:56:50 Recurrent major depression 95522528 Active Дмитрий Hennessy MD Attn: Venkat g,[address] [facility], [place], [address], [place] [facility] 3 13:56:50 COVID-19 911163827 Active Дмитрий Hennessy MD Attn: Venkat g,[address] [facility], [place], [place], [address] [place] [address], [place] [facility] 3 13:56:50 Schizoaffec tive disorder 72001723 Active Дмитрий Hennessy MD Attn: Venkat g,[address] [facility], [place], [place], [address] [place] [address] 2, [place] [facility] 3 13:56:50 Viral hepatitis C 80958252 Active Дмитрий Hennessy MD Attn: Venkat g,[address] [facility], [place], [place], [address] [place] [address], [place] [facility] 3 13:56:50 Substance abuse 42832557 Active Дмитрий Hennessy MD Attn: Venkat g,[address] [facility], [place], [place], [address] [place] [address] 2, [place] [facility] 3 13:56:50 Atrial fibrillatio n 03607013 Active Дмитрий Hennessy MD Attn: Venkat g,[address] [facility], [place], [address], [place] [facility] 3 13:56:50 Major depressive disorder 358940582 Active Дмитрий Hennessy MD Attn: Venkat g,[address] [facility], [place], [place], [address] [place] [address] 2, [place] [facility] 3 13:56:50 Systolic heart failure 386963019 Active Дмитрий Hennessy MD Attn: Accountin g,[address] [facility], [place], [address], [place] [facility] 13:56:50 Chest pain 89598333 Active Дмитрий Hennessy MD Attn: Accountin g,[address] [facility], [place], [address], [place] [facility] 3 13:56:50 Cocaine adverse reaction 397450653 Active Дмитрий Hennessy MD Attn: Accountin g,[address] [facility], [place], [address], [place] [facility] 3 13:56:50 Generalized anxiety disorder 35710673 Active Дмитрий Hennessy MD Attn: Accountin g,[address] [facility], [place], [address], [place] [facility] 3 13:56:49 Schizoaffec tive disorder, bipolar type 37389742 Active Дмитрий Hennessy MD Attn: Accountin g,[address] [facility], [place], [address], [place] [facility] 3 13:56:50 Lesion of tongue 435023473 Active 2021 Дмитрий Hennessy MD Attn: Accountin g,[address] [facility], [place], [address], [place] [facility] 3 13:56:50 Squamous cell carcinoma of tongue 172530843 Active 2021 Дмитрий Hennessy MD Attn: Accountin g,[address] [facility], [place], [address], [place] [facility] 3 13:56:50 Osteoarthri tis of hip 950271545 Active 2022 Дмитрий Hennessy MD Attn: Accountin g,[address] [facility], [place], [address], [place] [facility] 3 13:56:50 Acute upper respiratory infection 82301018 Active Дмитрий Hennessy MD Attn: Accountin g,[address] [facility], [place], [address], [place] [facility] 3 13:56:50 Disorder of lipid metabolism 106087149 Active 3 Дмитрий Hennessy MD Attn: Accountin g,[address] [facility], [place], [address], [place] [facility] 3 14:19:43 Clostridioi jose cruz difficile infection 812336658 Active Дмитрий Hennessy MD Attn: Accountin g,[address] [facility], [place], [address], [place] [facility] 4 09:19:41 Dehydration 12994422 Active Дмитрий Hennessy MD Attn: Accountin g,[address] [facility], [place], [address], [place] [facility] 4 09:19:41 Diarrhea 25167193 Active Дмитрий Hennessy MD Attn: Accountin g,[address] [facility], [place], [address], [place] [facility] 4 09:19:41 Colitis 55364953 Active Дмитрий Hennessy MD Attn: Accountin g,[address] [facility], [place], [address], [place] [facility] 4 09:19:41 Cellulitis of left lower limb 1456711385594 9109 Active Дмитрий Hennessy MD Attn: Accountin g,[address] [facility], [place], [address], [place] [facility] 4 09:20:19 Cellulitis of right lower limb 6933733262133 9104 Active Дмитрий Hennessy MD Attn: Accountin g,[address] [facility], [place], [address], [place] [facility] 4 09:20:19 Edema 208174621 Active Дмитрий Hennessy MD Attn: Accountin g,[address] [facility], [place], [address], [place] [facility] 4 09:20:19 History of total replacement of left hip joint 9194575825291 105 Active 2023 Дмитрий Hennessy MD Attn: Venkat magaña,[address] [facility], [place], [address], [place] [facility] 4 09:50:46 Pain in right hip joint 3543113329748 02 Active 2023 Дмитрий Hennessy MD Attn: Venkat magaña,[address] [facility], [place], [address], [place] [facility] 4 14:09:51 Notes:Some problems listed i n Document: #[id number] could not be added to this patient's chart. Please review this document and add these problems to the patient's chart manually as needed. Problem Notes None recorded. Procedures Surgical History Date Name Laterality Status Provider Name and Address Organization Details Recorded Time 10/02/19 24 colonoscopy completed Дмитрий Hennessy MD Attn: Accounting,[address] [facility], [place], [address], [place] [facility] 10/05/2023 12:34:44 08/21/19 24 total replacement of hip completed Дмитрий Hennessy MD Attn: Accounting,[address] [facility], [place], [address], [place] [facility] 08/22/2023 17:30:46 02/11/20 20 Generic Procedure completed Дмитрий Hennessy MD Attn: Accounting,[address] [facility], [place], [address], [place] [facility] 02/11/2020 15:29:13 07/02/18 91 Appendectomy completed [place] Turcios [place] [facility] 09/24/2019 14:11:43 Pacemaker completed [place] Turcios [place] [facility] 09/24/2019 14:12:45 automatic defibrillator procedure completed Дмитрий Hennessy MD Attn: Accounting,[address] [facility], [place], [address], [place] [facility] 09/24/2019 14:18:05 excision of bunion completed Дмитрий Hennessy MD Attn: Accounting,[address], [place], [address], [facility] - [facility] 09/24/2019 14:25:35 Imaging Results Imaging Date Name Status LastModified by Organization Details LastModified Time 04/27/2023 CT, kidney, w/wo contrast completed [facility] [address], [place], [address], 05/09/2023 14:19:20 05/10/2023 rhythm strip* completed [facility] [address], [place], [address], 10/22/2023 09:22:47 02/27/2024 trans-thoracic echocardiogram (TTE) (PROC) completed [facility] [address], [place], [address], 04/30/2024 13:27:15 Procedure Notes None recorded. Medical Equipment None Reported. Allergies Allergen ID Allergen Name Allergen Category Reaction Reaction Severity Criticality Documentation Date Start Date Code Code System Note Provider Name and Address Organization Details Recorded Time 859493 No known allergy (situatio n) Not available Not available Not available Not available 01/27/2022 10150 6003 SNOMED Not Available Not Available Not Available No known drug allergies Medications Name Sig Start Date Stop Date Status Note LastModified by Organization Details LastModified Time lidocaine 2%/antacid/ diphen 111 SWISH AND SPIT FOR 2 MINUTES 5ML FOUR TO SIX TIMES A DAY 06/19 completed Not Available Not Available Not Available celecoxib 200 mg capsule 06/19 completed Not Available Not Available Not Available cyclobenzap rine 10 mg tablet TAKE 1 TABLET BY MOUTH THREE TIMES DAILY FOR 14 DAYS NEEDED 06/19 completed Not Available Not Available Not Available amoxicillin 500 mg capsule TAKE ONE CAPSULE BY MOUTH EVERY 8 HOURS UNTIL ALL TAKEN 06/19 completed Not Available Not Available Not Available atorvastati n 40 mg tablet 40 mg by oral route. active Not Available Not Available No t Available lamotrigine 150 mg tablet TAKE 1 TABLET BY MOUTH DAILY AT BEDTIME active Not Available Not Available No t Available diphenhydra mine 12.5 mg/5 mL oral liquid 06/19 completed Not Available Not Available Not Available bupropion HCl SR 150 mg tablet,12 hr sustained-r elease 150 mg by oral route. active Not Available Not Available No t Available carvedilol 25 mg tablet TAKE 1 TABLET BY MOUTH AT BEDTIME 04/16 completed Not Available Not Available Not Available carvedilol 12.5 mg tablet TAKE 1 TABLET BY MOUTH TWICE DAILY 04/30 completed Not Available Not Available Not Available trazodone 50 mg tablet 50 mg by oral route. 11/05 completed Not Available Not Available Not Available Lidocaine Viscous 2 % mucosal solution APPLY SMALL AMOUNT TO THE AFFECTED AREA DIRECTED 04/16 completed Not Available Not Available Not Available benzonatate 200 mg capsule TAKE ONE CAPSULE BY MOUTH UP TO THREE TIMES DAILY NEEDED FOR COUGH 06/19 completed Not Available Not Available Not Available hydrocodone 5 mg-acetamin ophen 325 mg tablet TAKE 1 TO 2 TABLETS BY MOUTH EVERY 4 TO 6 HOURS NEEDED FOR PAIN 10/21 completed Not Available Not Available Not Available chlorpromaz ine 100 mg tablet 04/30 completed Not Available Not Available Not Available lorazepam 2 mg/mL injection solution 2 mg by injection route. 01/28 completed Not Available Not Available Not Available meloxicam 15 mg tablet 10/21 completed Not Available Not Available Not Available prednisone 20 mg tablet TAKE 2 TABLETS BY MOUTH EVERY DAY FOR 5 DAYS 02/07 completed Not Available Not Available Not Available olanzapine 5 mg tablet TAKE 1 TABLET BY MOUTH AT BEDTIME 04/16 completed Not Available Not Available Not Available Milk of Magnesia 400 mg/5 mL oral suspension 2400 mg by oral route. 11/05 completed Not Available Not Available Not Available permethrin 5 % topical cream APPLY (THOROUGH LY MASSAGE INTO SKIN FROM HEAD TO SOLES OF FEET) BY TOPICAL ROUTE ONCE LEAVE ON FOR 8-14 HR, THEN REMOVE BY THOROUGH WASHING 04/16 completed Not Available Not Available Not Available olanzapine 10 mg tablet TAKE 1 TABLET BY MOUTH ONCE A DAY AT BEDTIME FOR 16 DAYS 01/21 completed Not Available Not Available Not Available Zyrtec 10 mg tablet Take 1 tablet every day by oral route as needed. active Not Available Not Available No t Available sulfamethox azole 800 mg-trimetho prim 160 mg tablet TAKE 1 TABLET BY MOUTH TWICE DAILY FOR 10 DAYS 02/07 completed Not Available Not Available Not Available olanzapine 2.5 mg tablet TAKE 1 TABLET BY MOUTH TWICE DAILY 06/19 completed Not Available Not Available Not Available aspirin 81 mg tablet,leah yed release Take 1 tablet every day by oral route as directed for 30 days. 10/21 completed Not Available Not Available Not Available tramadol 50 mg tablet 10/21 completed Not Available Not Available Not Available digoxin 250 mcg/mL (0.25 mg/mL) injection solution 0.5 mg by injection route. 01/28 completed Not Available Not Available Not Available acetaminoph en 500 mg tablet active Not Available Not Available Not Available spironolact one 25 mg tablet 25 mg by oral route. active Not Available Not Available No t Available vancomycin 125 mg capsule TAKE 1 CAPSULE BY MOUTH FOUR TIMES DAILY FOR 10 DAYS 06/19 completed Not Available Not Available Not Available simvastatin 40 mg tablet TAKE 1 TABLET BY MOUTH EVERY DAY 04/16 completed Not Available Not Available Not Available lamotrigine 25 mg tablet TAKE 1 TABLET BY MOUTH EVERY DAY 11/02 completed Not Available Not Available Not Available oxycodone 15 mg tablet 04/16 completed Not Available Not Available Not Available cefadroxil 500 mg capsule 10/21 completed Not Available Not Available Not Available risperidone 2 mg tablet 10/21 completed Not Available Not Available Not Available magnesium oxide 400 mg (241.3 mg magnesium) tablet TAKE 1 TABLET BY MOUTH TWICE DAILY 06/19 completed Not Available Not Available Not Available Protonix 40 mg intravenous solution 40 mg by intraven. route. 01/29 completed Not Available Not Available Not Available PreviDent 1.1 % gel APPLY A RIBBON OF PASTE IN THE TRAY AND APPLY FOR 5 MINUTES TWICE DAILY FOR 30 DAYS active Not Available Not Available No t Available trazodone 100 mg tablet TAKE 1 TABLET BY MOUTH EVERY NIGHT AT BEDTIME active Not Available Not Available No t Available nicotine (polacrilex ) 4 mg gum 04/30 completed Not Available Not Available Not Available Ear Wax Removal Drops 6.5 % INSTILL 5 DROPS INTO AFFECTED EAR(S) BY OTIC ROUTE 2 TIMES PER DAY 04/30 completed Not Available Not Available Not Available piperacilli n-tazobacta m 3.375 gram intravenous solution 3.375 g by intraven. route. 07/14 completed Not Available Not Available Not Available benzonatate 100 mg capsule TAKE 1 CAPSULE BY MOUTH EVERY 8 HOURS NEEDED 06/19 completed Not Available Not Available Not Available gemfibrozil 600 mg tablet TAKE 1 TABLET BY MOUTH TWICE DAILY active Not Available Not Available No t Available pantoprazol e 40 mg tablet,leah yed release Take 40 mg by oral route. 04/30 completed Not Available Not Available Not Available chlorpromaz ine 25 mg tablet 04/30 completed Not Available Not Available Not Available buspirone 10 mg tablet 04/30 completed Not Available Not Available Not Available lisinopril 10 mg tablet TAKE 1 TABLET BY MOUTH EVERY DAY 11/02 completed Not Available Not Available Not Available lidocaine 5 % topical patch 06/19 completed Not Available Not Available Not Available promethazin e 25 mg tablet 06/19 completed Not Available Not Available Not Available bupropion HCl 75 mg tablet TAKE 1 TABLET BY MOUTH EVERY DAY 10/21 completed Not Available Not Available Not Available nicotine 21 mg/24 hr daily transdermal patch UNWRAP AND APPLY 1 PATCH TO DRY INTACT SKIN ONCE A DAY 04/30 completed Not Available Not Available Not Available Mapap (acetaminop hen) 325 mg tablet 650 mg by oral route. 11/05 completed Not Available Not Available Not Available omeprazole 20 mg capsule,del ayed release TAKE 1 CAPSULE BY MOUTH EVERY DAY DIRECTED active Not Available Not Available No t Available aspirin 81 mg chewable tablet 81 mg by oral route. active Not Available Not Available No t Available olanzapine 15 mg tablet TAKE 1 TABLET BY MOUTH AT BEDTIME 01/21 completed Not Available Not Available Not Available lisinopril 5 mg tablet TAKE 1 TABLET BY MOUTH DAILY 02/24 completed Not Available Not Available Not Available mupirocin 2 % topical ointment APPLY TOPICALLY TO NOSTRILS TWICE DAILY FOR 5 DAYS PRIOR TO SURGERY 10/21 completed Not Available Not Available Not Available digoxin 125 mcg (0.125 mg) tablet TAKE 1 TABLET BY MOUTH EVERY DAY active Not Available Not Available No t Available sodium chloride 0.9 % intravenous solution 1000 mL by intraven. route. 07/14 completed Not Available Not Available Not Available clobetasol 0.05 % topical ointment APPLY SPARINGLY TO AFFECTED AREA FOR 4-6 TIMES A DAY 06/19 completed Not Available Not Available Not Available lorazepam 1 mg tablet TAKE 1 TABLET BY MOUTH DIRECTED PRIOR TO RADIATION TREATMENT S 04/16 completed Not Available Not Available Not Available ibuprofen 600 mg tablet TAKE 1 TABLET BY MOUTH EVERY 6 HOURS NEEDED FOR PAIN 06/19 completed Not Available Not Available Not Available fluoxetine 20 mg capsule TAKE 3 CAPSULES BY MOUTH EVERY DAY 04/16 completed Not Available Not Available Not Available olanzapine 20 mg tablet TAKE 1 TABLET BY MOUTH EVERY NIGHT AT BEDTIME 10/21 completed Not Available Not Available Not Available lamotrigine 100 mg tablet TAKE 1 TABLET BY MOUTH DAILY AT BEDTIME active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 14:54:52 10/22/2023 text/html Here with his au nt He had his hip replaced, August 21 He is anemic, they say he had hemorrhagic anemia Recent use of Meloxicam and Aspirin after his hip replacement. Admitted ~ 10/01/2023 to the psychiatric unit where he developed hematochezia. He was transferred to the medical kwon where he had an EGD and a colonoscopy that were reported to be negative. Labs suggest TIMO and he remains asymptomatic with no further black stools. Дмитрий Hennessy MD Attn: Accounting,[address] [facility], [place], [address], [facility] 10/22/2023 10:05:00 01/22/2024 text/html DiarrheaReported bypatient.Quality:freq uent;watery Severity:severe Duration:present for 1-2 weeks Onset/Timing:no nocturnal symptoms; 1-3 times a day;worse with meals Context:no one else with similar symptoms; no recent camping; no recent picnic; no possible food sources; no recent travel Aggravating Factors:eating Associated Symptoms:no abdominal pain; no excess gas; no fever; no rash; no joint pain; no weight loss; no nausea; no vomiting; no heartburn; no blood in stool; no mucus in stool; no black or tarry stools; no weakness; no nutrient deficiency; no fecal incontinence Before I forget, I need something for diarrhea Blood work that I had from where I live I was told that I need to see a upper GI doctor, they won't take my insurance He had labs done at [place] on 12/05/2023 with a Hb of 11.7, AST of 56, ALT 45 and a HBA1C of 6..0%.'He presents with watery stools for the last few weeks, they are not bloody, he did not complain of a fever or abdominal pain, he has not had any foreign travel and he does not wake up at night. He thinks that the diarrhea is worsened by dairy products and coffee. In the interim, he was readmitted to [facility] and he also had a relapse. He has since stopped using Cocaine and he is attending sessions with his mental health provider. He has had an EGD and colonoscopy and he was referred to GI, apparently the provider is out of network. 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 I had surgery on my left, I need surgery on my left I have Hepatitis C, I need treatment Mr Darby returns, he needs treatment of his chronic Hep C before he will be able to get his right hip replaced. Дмитрий Hennessy MD Attn: Accounting, [facility], [place], [address], [facility] 04/30/2024 14:11:51
--- OUTSIDE RECORDS SUMMARY | 2024-08-10 22:46 | XMS_ITS | Clinical Summary ---
Author Organization [facility] Address [address] [place] [address] Care Team Providers Care Manager Helpdesk Name Role Phone Suresh Gay MD Unavailable Unavailable Дмитрий Hennessy MD Primary Care Provider [phone] Allergies No known active allergies Medications aspirin 325 MG tablet Aspirin 325 mg; 1 by mouth every day ; 0; 0; 31-Oct-2006; Active 7 Active ATENOLOL OR Atenolol 25 mg; 1 by mouth twice a day ; 60; 0; 31-Oct-2006; Active 7 Active DIGOXIN OR Digoxin 0.125 mg; 1 by mouth every day ; 30; 0; 31-Oct-2006; Active 7 Active lisinopril 5 MG tablet Lisinopril 5 mg; 1 by mouth every day ; 30; 2; 26-Oct-2006; Active 7 Active Active Problems Problem Noted Date Diagnosed Date Nonischemic cardiomyopathy ([facility]) Atrial fibrillation ([facility]) Family History Medical History Relation Comments No heart disease Father Hypertension Mother CVA Paternal Grandfather Heart Disease Paternal Grandfather CABG Paternal Grandmother Relation Status Comments Father Mother Paternal Grandfather (Age 79) Paternal Grandmother (Age 64) Social History Tobacco Use Types Packs/Day Years Used Date Smoking Tobacco: Every Day Cigarettes Comments:21+ year history of smoking Alcohol Use Standard Drinks/Week Comments No 0 (1 standard drink = 0.6 oz pure alcohol) Previous ETOH abuse, 3+ years since last drink Sex and Gender Information Value Date Recorded Sex Assigned at Not on file Legal Sex Male 9:34 PM CDT Gender Identity Not on file Sexual Orientation Not on file 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 Not on file Not on file Last Filed Vital Signs Vital Sign Reading Time Taken Comments Blood Pressure 134/83 03/26/2022 2:00 AM CDT Pulse 96 03/26/2022 2:00 AM CDT Temperature 37.1 C (98.8 F) 03/25/2022 8:01 PM CDT Respiratory Rate 19 03/26/2022 2:00 AM CDT Oxygen Saturation 98% 03/26/2022 2:00 AM CDT Inhaled Oxygen Concentration - - Weight 93 kg (205 lb 0.4 oz) 03/25/2022 8:01 PM CDT Height 175.3 cm (5' 9 ) 03/25/2022 8:01 PM CDT Body Mass Index 30.28 03/25/2022 8:01 PM CDT Plan of Treatment Health Maintenance Due Date Last Done Comments Colorectal Cancer Screening Colonoscopy (10 Years) 1971 Annual Physical 10/07/1974 Pneumococcal Vaccine: Pediatrics (0 to 5 Years) and At-Risk Patients (6 to 64 Years) (1 of 2 - PCV) 10/07/1977 Hepatitis C 10/07/1989 Hepatitis B Vaccines (1 of 3 - 19+ 3-dose series) 10/07/1990 Zoster Vaccines (1 of 2) 10/07/2021 COVID-19 Vaccine ( - 2023-2 5 season) 2024 05/01/2021, 09/07/2020, 08/31/2020 Influenza Adult (#1) 2024 04/20/2021, 05/03/2020, 04/01/2019 DTaP, Tdap and Td Vaccines ( 2 - Td or Tdap) 09/23/2029 09/24/2019 Meningococcal B Vaccine Aged Out No l onger eligible based on patient's age to complete this topic Meningococcal Vaccine Aged Out No itz juan manuel eligible based on patient's age to complete this topic RSV Immunizations Under 20 Months Aged Out No longer eligible b ased on patient's age to complete this topic Insurance [employer] MEDICAID [employer] Care Teams Manager Helpdesk Relationship Specialty Start Date End Date Дмитрий Hennessy MD [address] [place] [address] [phone] PCP - General INTERNAL MEDICINE 03/25/22 Suresh Gay MD [employer] Black Belt Engineer CARDIOVASCULAR DISEASE 12/01/15
--- OUTSIDE RECORDS SUMMARY | 2024-08-10 22:47 | XMS_ITS | Patient Health Summary ---
Author Organization [facility] Address [address] [place] [address] Care Team Providers Care Laser Printing Operator Name Role Phone Дмитрий Hennessy MD Primary Care Provider Stefano Sheikh MD Unavailable [phone] Note from [facility],non-owned Affiliates and Associated Physician Practices is amultiple site organization consisting of ambulatory clinics and hospital sitesin [place], [place], [place] and [place]. This disclosure is being madepursuant to the Care Everywhere program and may not contain all information available regarding this patient. Last updated 18.[facility] Allergies No known active allergies Medications * Be aware that medications may not be up to date on this document. Alwaysverify current medications with the patient. * Acetaminophen (TYLENOL EXTRA STRENGTH PO) Take 3 tablets by mouth once daily * cetirizine (ZYRTEC) 10 MG tablet Take 1 (one) tablet by mouth once daily as needed for Allergies * busPIRone (BUSPAR) 15 MG tablet(Started 02/23/2021) Take 10 mg by mouth 2 times daily * lamoTRIgine (LAMICTAL) 100 MG tablet(Started 10/15/2020) Take 1 (one) tablet by mouth at bedtime * omeprazole (PRILOSEC) 20 MG capsule(Started 05/25/2021) Take 1 (one) capsule by mouth once daily As Directed. * gemfibrozil (Lopid) 600 MG tablet Take 1 (one) tablet by mouth 2 times daily, before breakfast and supper * chlorproMAZINE (Thorazine) 50 MG tablet Take 1 (one) tablet by mouth at bedtime * traZODone (Desyrel) 100 MG tablet Take 1 (one) tablet by mouth at bedtime * melatonin 3 MG tablet Take 10 mg by mouth at bedtime * lactobacillus extra strength (Florajen) capsule Take 1 (one) capsule by mouth once daily * DULoxetine (Cymbalta) 60 MG capsule Take 1 (one) capsule by mouth once daily * glecaprevir-pibrentasvir (Mavyret) 100-40 MG tablet(Started 05/20/2024) Take 3 (three) tablets by mouth daily with food 1 refill by 05/20/2025 * carvedilol (Coreg) 3.125 MG tablet(Started 05/16/2024) Take 1 (one) tablet by mouth 2 times daily with morning and evening meal * Magnesium Oxide -Mg Supplement 400 (240 Mg) MG(Started 05/17/2024) Take 1 (one) tablet by mouth 2 times daily * Invega Sustenna 234 MG/1.5ML injection(Started 06/20/2024) Inject 234 (two hundred thirty four) mg into muscle every 30 days Ended Medications* digoxin (LANOXIN) 0.125 MG tablet(Discontinued) Take 0.125 mg by mouth once daily Active Problems Problem Noted Date Diagnosed Date [...] major depression 03/16/2023 Schizoaffective disorder, bipolar type Suicidal thoughts 03/16/2023 Type 2 diabetes mellitus 03/16/2023 Head and neck cancer 02/10/2022 Lesion of tongue 02/07/2022 COVID-19 01/04/2022 Influenza due to unidentifie d influenza virus with other respiratory manifestations 01/04/2022 Solitary pulmonary nodule 01/04/2022 Oral cancer 12/02/2021 Paresis of lower extremity 02/24/2021 Exposure to SARS-associated coronavirus 12/09/19 Prediabetes 11/04/2020 Encounter for health-related screening Psychostimulant dependence in remission 11/03/19 Primary osteoarthritis of left hip 10/28/2020 Fatty liver 10/09/2020 Renal cyst 10/09/2020 Hypotension 2020 Chronic obstructive pulmonary disease 09/02/2020 Methamphetamine abuse 08/06/2020 Obesity 08/05/2020 Overweight 08/05/2020 Degeneration of lumbar intervertebral disc 02/10 Chronic hepatitis C without hepatic coma 020 Impaired fasting glucose 12/17/2019 Poor short-term memory 12/17/2019 Anemia, iron deficiency 12/16/2019 Left foot drop 09/24/2019 Tobacco dependence in remission 09/24/2019 Hypertriglyceridemia 09/03/2019 Congestive heart failure 02/28/2016 Systolic CHF, chronic 12/02/2010 Personal history of nicotine dependence 01/22/20 09 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 08/13/2008 Supraventricular tachycardia 05/18/2008 Other primary cardiomyopathies 12/20/1993 Resolved Problems Problem Noted Date Diagnosed Date Resolved Date Dehydration 01/18/2024 08/01/2024 Acute upper respiratory infection 09/18/2023 08/01/2024 Social History Tobacco Use Types Packs/Day Years Used Date Smoking Tobacco: Never Smokeless Tobacco: Current Chew Tobacco Cessation:Ready to Q uit: Not Asked; Counseling Given: Not Answered Alcohol Use Standard Drinks/Week Comments Never 0 (1 standard drink = 0.6 oz pur e alcohol) Sex and Gender Information Value Date Recorded Sex Assigned at Male 06/27/2021 3:16 PM PIT HOIST OPERATOR Gender Identity Male 06/27/2021 3:16 PM PIT HOIST OPERATOR Sexual Orientation Not on file Last Filed Vital Signs Vital Sign Reading Time Taken Comments Blood Pressure 112/73 07/18/2024 2:34 PM PIT HOIST OPERATOR Pulse 99 07/18/2024 2:34 PM PIT HOIST OPERATOR Temperature 36.7 C (98 F) 07/18/2024 2:34 PM PIT HOIST OPERATOR Respiratory Rate - - Oxygen Saturation 96% 07/18/2024 2:34 PM PIT HOIST OPERATOR Inhaled Oxygen Concentration - - Weight 92.8 kg (204 lb 9.6 oz) 07/18/2024 2:34 P M PIT HOIST OPERATOR Height 175.3 cm (5' 9 ) 07/18/2024 2:34 PM PIT HOIST OPERATOR Body Mass Index 30.21 07/18/2024 2:34 PM PIT HOIST OPERATOR Procedures * HEPATITIS C RNA QUANTITATIVE(Performed 07/17/2024) Performed for Chronic hepatitis C without hepatic coma (HCC) * COMPREHENSIVE METABOLIC PANEL(Performed 07/17/2024) Performed for Chronic hepatitis C without hepatic coma (HCC) * CBC W AUTO DIFFERENTIAL(Performed 07/17/2024) Performed for Chronic hepatitis C without hepatic coma (HCC) * HEPATITIS C RNA QUANTITATIVE(Performed 07/17/2024) Performed for Chronic hepatitis C without hepatic coma (HCC) * COMPREHENSIVE METABOLIC PANEL(Performed 07/17/2024) Performed for Chronic hepatitis C without hepatic coma (HCC) * CBC W AUTO DIFFERENTIAL(Performed 07/17/2024) Performed for Chronic hepatitis C without hepatic coma (HCC) * HEPATITIS C RNA QUANTITATIVE(Performed 05/13/2024) Performed for Chronic hepatitis C without hepatic coma (HCC) * COMPREHENSIVE METABOLIC PANEL(Performed 05/13/2024) Performed for Chronic hepatitis C without hepatic coma (HCC) * CBC W AUTO DIFFERENTIAL(Performed 05/13/2024) Performed for Chronic hepatitis C without hepatic coma (HCC) * DIGOXIN LEVEL(Performed 05/13/2024) Performed for Chronic hepatitis C without hepatic coma (HCC) * MO LIVER ELASTOGRAPHY(Performed 05/13/2024) Performed for Chronic hepatitis C without hepatic coma (HCC) * LIPID PROFILE (EXTERAL RESULT ENTRY)(Performed 05/07/2024) * CHEM PROFILE (EXTERNAL RESULT ENTRY)(Performed 05/07/2024) * CBC W DIFF (EXTERNAL RESULT ENTRY)(Performed 05/07/2024) * LIPID PROFILE (EXTERAL RESULT ENTRY)(Performed 05/07/2024) * MO LIVER ELASTOGRAPHY(Performed 06/23/2021) Performed for Chronic hepatitis C without hepatic coma (HCC) * HIV-1 HIV-2 ANTIBODY + HIV P24 AG PANEL(Performed 03/03/2021) Performed for Chronic hepatitis C without hepatic coma (HCC) * HEPATITIS B SURFACE ANTIGEN W RFLX CONFIRMATION(Performed 03/03/2021) Performed for Chronic hepatitis C without hepatic coma (HCC) * HEPATITIS B SURFACE ANTIBODY(Performed 03/03/2021) Performed for Chronic hepatitis C without hepatic coma (HCC) * HEPATITIS B CORE ANTIBODY TOTAL(Performed 03/03/2021) Performed for Chronic hepatitis C without hepatic coma (HCC) * HEPATITIS C RNA QUANTITATIVE(Performed 03/03/2021) Performed for Chronic hepatitis C without hepatic coma (HCC) * PT-INR [facility](Performed 03/03/2021) Performed for Chronic hepatitis C without hepatic coma (HCC) * COMPREHENSIVE METABOLIC PANEL(Performed 03/03/2021) Performed for Chronic hepatitis C without hepatic coma (HCC) * CBC W AUTO DIFFERENTIAL(Performed 03/03/2021) Performed for Chronic hepatitis C without hepatic coma (HCC) Results * HEPATITIS C RNA QUANTITATIVE (07/17/2024 1:44 PM PIT HOIST OPERATOR) Only the most recent of3 resultswithin the time period is included. Hepatitis C Virus RNA, Quantitative Real Time PCR <15 NOT DETECTED NOT DETECTED IU/mL [employer] Hepatitis C Virus RNA, Quantitative Real Time PCR <1.18 NOT DETECTED NOT DETECTED Log IU/mL [employer] Comment: For additional information, please refer to http://education.[employer]/faq/SER12v3 (This link is being provided for informational/ educational purposes only.) Test Performed at: [facility] [address] [facility] [address] TARIK NICHOLSON MD Blood BLOOD SPECIMEN / Unknown 07/17/2024 1:44 PM PIT HOIST OPERATOR 07/17/2024 1:44 PM PIT HOIST OPERATOR Pam Rain BUZZSAW OPERATOR HELPER-STRINGED INSTRUMENT REPAIRER LAB - CHEMIS TRY ORDERABLES [facility] [address] [place] [address] * (ABNORMAL) CBC WITH DIFFERENTIAL (07/17/2024 1:44 PM PIT HOIST OPERATOR) Only the most recent of4 resultswithin the time period is included. White Blood Cell Count 8.0 3.8 - [...] 0.5 % [facility] Comment: Test Performed at: [facility] [address] [place] [address] TARIK NICHOLSON MD Blood BLOOD SPECIMEN / Unknown 07/17/2024 1:44 PM PIT HOIST OPERATOR 07/17/2024 1:44 PM PIT HOIST OPERATOR Pam Rain BUZZSAW OPERATOR HELPER-STRINGED INSTRUMENT REPAIRER LAB - HEMATO LOGY ORDERABLES [facility] [address] [place] [address] * (ABNORMAL) COMPREHENSIVE METABOLIC PANEL (07/17/2024 1:44 PM PIT HOIST OPERATOR) Only the most recent of4 resultswithin the time period is included. Glucose [...] [facility] BUN/Creatinine Ratio SEE NOTE: 6 - (calc) [facility] Comment: Not Reported: BUN and [...] 46 U/L [facility] Comment: Test Performed at: [facility] [address] [place] [address] TARIK NICHOLSON MD Blood BLOOD SPECIMEN / Unknown 07/17/2024 1:44 PM PIT HOIST OPERATOR 07/17/2024 1:44 PM PIT HOIST OPERATOR Pam Rain BUZZSAW OPERATOR HELPER-STRINGED INSTRUMENT REPAIRER LAB - CHEMIS TRY ORDERABLES [facility] [address] [place] [address] * DIGOXIN LEVEL (05/13/2024 2:53 PM PIT HOIST OPERATOR) Pathologist [facility] Digoxin 0.8 0.5 - 1.2 ng/mL 05/13/2024 3:36 PM PIT HOIST OPERATOR [facility] Blood BLOOD SPECIMEN / Unknown Lab Venipuncture / Unknown 05/13/2024 2:53 PM PIT HOIST OPERATOR 05/13/2024 3:23 PM PIT HOIST OPERATOR Narrative [facility] - 05/13/2024 3:36 PM PIT HOIST OPERATOR Therapeutic reference range for heart failure is 0.5-0.9 ng/mL. For atrial fibrillation, it is 0.8-1.2 ng/mL. The bridge inspector of Digoxin Immune Jayesh has stated that no immunoassay technique is suitable for quantitating digoxin in plasma/serum from patients on antibody fragment therapy. Pam Rain APRN-STRINGED INSTRUMENT REPAIRER LAB - CHEMIS TRY ORDERABLES [facility] [address] [place] [address], [facility] [phone] * [place] LIVER ELASTOGRAPHY (05/13/2024 11:26 AM PIT HOIST OPERATOR) Narrative Jason Gómez MD - 05/13/2024 11:26 AM PIT HOIST OPERATOR Jason Gómez MD 05/13/2024 12:12 PM Diagnosis: [...] patients with nonalcoholic fatty liver disease. Gastroenterology 2019;156:6144-9054. Aeln MS, Jarad R, Van Natta ML, et [...] These include the FAST (Fibroscan-AST) score (Julio, 2021) and the Agile3+ and Agile4 scores (Heather, 202). Julio TA, Van Natta ML, Kavya Arora, Lane A, et al. Validation of the accuracy of the FAST score for detecting patients with at-risk nonalcoholic steatohepatitis (JI) in a [facility] cohort and comparison to other non-invasive algorithms. PLoS ONE (2021) 17: [id number]. Heather AJ, Nathalie J, Younnery ZM, et al. Enhanced diagnosis of advanced fibrosis and cirrhosis in individuals with NAFLD using FibroScan-based Agile scores. J Hepatol (2022) 78: 247-259. Fibroscan LSM can also be used with laboratory parameters without formulas to assess prognosis. According to the Baveno-VII criteria (Moreno, 2021), Fibroscan LSM <=15 kPa plus a platelet count of >=275d575/L rules out clinically significant portal hypertension (sensitivity and negative predictive value >90%) in patients with compensated advanced chronic liver disease. Moreno R, Janak J, Leland-Manda G, Remaxwell T, Mayda C on behalf of the Baveno VII Faculty. Baveno VII--Renewing consensus in portal hypertension. J Hepatol (2021) 76: 959-974 Assessing the likelihood of advanced fibrosis in patients with intermediate liver stiffness measurement (LSM) by Fibroscan (e.g., 8-15 kPa) can be improved by also calculating the FIB-4 score (Tim et al. Hepatology Communications 2019;3:8148-4626) or NAFLD Fibrosis score (Moya et al. Clinical Gastroenterology and Hepatology 2019;17:6748-2226 using routine clinical data. Note: 1. Fibroscan [...] additional interpretive data was last updated 11/04/22.) [email or web address] Pam Rain BUZZSAW OPERATOR HELPER-STRINGED INSTRUMENT REPAIRER PROCEDURE/VT NOR SURGICAL ORDERABLES * CBC W DIFF (EXTERNAL RESULT ENTRY) (05/07/2024) WBC (EXTERNAL RESULT) 4.6 10^3/ul Hemoglobin (EXTERNAL RESULT) 14.2 g/dl Hematocrit (EXTERNAL RESULT) 42.9 % Platelets (EXTERNAL RESULT) 314 10^3/ul Neutrophil Absolute (EXTERNAL RESULT) 2.91 10^3/ul Blood BLOOD SPECIMEN / Unknown 05/07/2024 Historical Provider LAB - HEMATOLOGY ORDERABLES * CHEM PROFILE (EXTERNAL RESULT ENTRY) (05/07/2024) Glucose (EXTERNAL RESULT) 106 mg/dl BUN (EXTERNAL RESULT) 17 mg/dl Creatinine (EXTERNAL RESULT) 1.18 mg/dl Sodium (EXTERNAL RESULT) 141 mmol/L Potassium (EXTERNAL RESULT) 4.2 mmol/L Chloride (EXTERNAL RESULT) 102 mmol/L Carbon Dioxide (EXTERNAL RESULT) 27 mmol/L Calcium (EXTERNAL RESULT) 9.8 mg/dl Phosphorus (EXTERNAL RESULT) Total Protein (EXTERNAL RESULT) Albumin (EXTERNAL RESULT) Alkaline Phosphatase (EXTERNAL RESULT) ALT (EXTERNAL RESULT) AST (EXTERNAL RESULT) Bilirubin Total (EXTERNAL RESULT) Bilirubin Direct (EXTERNAL RESULT) Bilirubin Indirect (EXTERNAL RESULT) Magnesium (EXTERNAL RESULT) Blood BLOOD SPECIMEN / Unknown 05/07/2024 Historical Provider LAB - CHEMISTRY O RDERABLES * LIPID PROFILE (EXTERAL RESULT ENTRY) (05/07/2024) Only the most recent of2 resultswithin the time period is included. Cholesterol (EXTERNAL RESULT) 241 mg/dL Triglycerides (EXTERNAL RESULT) 179 mg/dL HDL (EXTERNAL RESULT) 45 mg/dL LDL (EXTERNAL RESULT) 160 mg/dL VLDL (EXTERNAL RESULT) Chol HDL Ratio (External Result) Blood BLOOD SPECIMEN / Unknown 05/07/2024 Historical Provider LAB - CHEMISTRY O RDERABLES * [place] LIVER ELASTOGRAPHY (06/23/2021 1:09 PM PIT HOIST OPERATOR) Narrative Jason Garrett MD - 06/23/2021 1:09 PM PIT HOIST OPERATOR Jason Garrett MD 06/27/2021 1:49 PM Diagnosis: Hepatitis C RN verified patient has a pacemaker and defibrillator and is OK to proceed per Dr. Garrett and NPO for prior 3 hours. Procedure explained and consent signed. Date of Exam: 06/23/2021 Liver Stiffness: (LSM, kPa) median: 8.3 IQR (interquartile range): 0.6 IQR/Median% (ideally < 30%): 7 CAP (controlled attenuation parameter): 314 Technical Difficulty: None Ordering Provider: Pam Rain PLASTICS PLATER Phone Fax Fibroscan interpretation: I have personally reviewed the Fibroscan report and associated tracings. The calculated Liver Stiffness Measurement (LSM, kPa) indicates that: The probability of advanced liver fibrosis is: low to moderate. The loss of ultrasound signal, (controlled attenuation [...] based on the following published data: [place] PARMAR, Myla M, Lyla M, et al. Accuracy of FibroScan controlled attenuation parameter and liver stiffness measurement in assessing steatosis and fibrosis in patients with nonalcoholic fatty liver disease. Gastroenterology 2019;156:7302-9460. Alen MS, Jarad R, Van Sydnee ML, et al. Vibration-controlled transient elastography to assess fibrosis and steatosis in patients with nonalcoholic fatty liver disease. Clin Gastroenterol Hepatol 2019;17:156-163. Note: 1. Fibroscan cannot reliably identify earlier stages of fibrosis (ie distinguish F0 from F1 and F2) and thus a histologic stage cannot be predicted from the Fibroscan reading. 2. Assessing the likelihood of advanced fibrosis in patients with indeterminate liver stiffness measurement (LSM) by Fibroscan (e.g., 8-15 kPa) can be improved by also calculating the FIB4 score (Pjyduke et al. Hepatology Communications 2019;3:7213-0186) or NAFLD Fibrosis score (Moya et al. Clinical Gastroenterology and Hepatology 2019;17:9895-9410. from routine clinical data. 3. Liver stiffness can be increased by factors other than fibrosis including passive congestion, infiltrative processes, active alcoholism, biliary obstruction and marked inflammation. The interpretation [...] Cholestatic liver diseases: >10 and >17.9 kPa NAFLD/JI: >10 and >14 kPa CAP estimates of steatosis: normal <200 dB/m mild 200 to 250 dB/m moderate 250-290 dB/m substantial > 290 dB/m (Note that Fibroscan is not a quantitative measure of liver fat.) These criteria are estimates and may change as additional supporting data becomes available. http://[email or web address].com/[email or web address] Pam SALES PROCEDURE/VT NOR SURGICAL ORDERABLES * PT-INR [facility] (03/03/2021 1:12 PM CDT) PT 12.1 12.1 - 14.8 Seconds 03/03/2021 2:00 PM CDT [facility] INR 0.9 See Comment 03/03/2021 2:00 PM CDT [facility] Comment:The suggested therap eutic range for standard coumadin (warfarin) therapy is an INR of 2.0-3.0. For high-risk patients (Mechanical Mitral Valve Prosthesis, etc.), the suggested prophylactic therapeutic range is an INR of 2.5-3.5. Blood BLOOD SPECIMEN / Unknown Lab Venipuncture / Unknown 03/03/2021 1:12 PM CDT 03/03/2021 1:39 PM CDT Pam Rain APRN-STRINGED INSTRUMENT REPAIRER LAB - COAGUL ATION ORDERABLES [facility] [address] [place] [phone], [facility] [phone] * HIV-1 HIV-2 ANTIBODY + HIV P24 AG PANEL (03/03/2021 1:12 PM CDT) HIV Antigen/Antibod y 1 & 2 Non-reacti ve Non-react paris 03/03/2021 5:02 PM CDT [facility] Comment:Neither HIV-1 p24 An tigen nor HIV-1/HIV-2 Antibodies are detected. Blood BLOOD SPECIMEN / Unknown Lab Venipuncture / Unknown 03/03/2021 1:12 PM CDT 03/03/2021 1:39 PM CDT Pam Rain BUZZSAW OPERATOR HELPER-STRINGED INSTRUMENT REPAIRER LAB - CHEMIS TRY ORDERABLES Performing Organization Address [facility]/ZIP Co de Phone Number [address] [address], [facility] [phone] * HEPATITIS B SURFACE ANTIBODY (03/03/2021 1:12 PM CDT) Hepatitis B Virus Surface Antibody Non-react paris Non-react paris 03/03/2021 5:02 PM CDT [facility] Comment: < 8 mIU/mL Hepatitis B surface Antibody (HBsAb). Nonreactive for HBsAb - individual is considered not immune to Hepatitis B Virus infection. Hepatitis B Surface Antibody Quantitative 1.8 <8.0 mIU/mL 03/03/2021 5:02 PM CDT [facility] Comment: Hepatitis B Surface Antibody Numeric Result Interpretation: Nonreactive: <8.0 mIU/mL Indeterminate: 8.0 - 12.0 mIU/mL Reactive: >12.0 mIU/mL Blood BLOOD SPECIMEN / Unknown Lab Venipuncture / Unknown 03/03/2021 1:12 PM CDT 03/03/2021 1:39 PM CDT Pam Rain BUZZSAW OPERATOR HELPER-STRINGED INSTRUMENT REPAIRER LAB - [place] TRY ORDERABLES Performing Organization Address City/[facility]/ZIP Co de Phone Number [address] [address], [facility] [phone] * (ABNORMAL) HEPATITIS B CORE ANTIBODY (03/03/2021 1:12 PM CDT) HBc Antibody Total Reactive(A ) Non-reacti ve 03/03/2021 4:06 PM CDT [facility] Blood BLOOD SPECIMEN / Unknown Lab Venipuncture / Unknown 03/03/2021 1:12 PM CDT 03/03/2021 1:39 PM CDT Pam Rain BUZZSAW OPERATOR HELPER-STRINGED INSTRUMENT REPAIRER LAB - CHEMIS TRY ORDERABLES Performing Organization Address City/[facility]/ZIP Co de Phone Number [address] [address], [place] [phone] * HEPATITIS B SURFACE ANTIGEN W RFLX CONFIRMATION (03/03/2021 1:12 PM CDT) Hepatitis B Virus Surface Antigen Non-reacti ve Non-reacti ve 03/03/2021 5:02 PM CDT [facility] Blood BLOOD SPECIMEN / Unknown Lab Venipuncture / Unknown 03/03/2021 1:12 PM CDT 03/03/2021 1:39 PM CDT Pam Rain APRN-STRINGED INSTRUMENT REPAIRER LAB - CHEMIS TRY ORDERABLES Performing Organization Address City/[facility]/ZIP Co de Phone Number [address] [address], [place] [phone] Care Teams Laser Printing Operator Relationship Specialty Start Date End Date Дмитрий Hennessy MD [address] [place], [place] [phone] PCP - General 03/03/21 Stefano Sheikh MD [address] [address] Automatic Cigar Wrapper Tender Cardiology 05/13/24
--- OUTSIDE RECORDS SUMMARY | 2024-08-10 22:47 | XMS_ITS | Clinical Summary ---
Author Organization [facility] Address [address] [place] [address] Care Team Providers Care Salesforce Administrator Name Role Phone Дмитрий Hennessy MD Primary Care Provider Mireya Rubi NP Unavailable [phone] Vignesh Hoffmann MD Unavailable [phone] Allergies No known active allergies Medications busPIRone (BUSPAR) 15 mg tabletIndications: Generalized Anxiety Disorder Take 1 tablet (15 mg total) by mouth 2 (two) times a day 10/28/19 21 Active cetirizine (ZyrTEC) 10 mg tabletIndications: Allergic Conjunctivitis Take 1 tablet (10 mg total) by mouth every morning Active digoxin (LANOXIN) 125 mcg (0.125 mg) tabletIndications: chronic heart failure Take 1 tablet (125 mcg total) by mouth every morning 10/16/19 21 Active lamoTRIgine (LaMICtal) 100 mg tabletIndications: Bipolar Disorder in Remission Take 1 tablet (100 mg total) by mouth nightly 10/16/19 21 Active omeprazole (PriLOSEC) 20 mg capsuleIndications :Treatment of Non-Bleeding Gastric Disorder Take 1 capsule (20 mg total) by mouth nightly as needed 04/28/20 21 Active gemfibroziL (LOPID) 600 mg tabletIndications: hypertriglyceridem ia Take 1 tablet (600 mg total) by mouth 2 (two) times a day before breakfast and lunch Active DULoxetine DR (CYMBALTA) 60 mg capsule Take 1 capsule (60 mg total) by mouth every morning 07/19/19 24 Active PreviDent 1.1 % gel Take 1 Application by mouth daily as needed 06/01/20 23 Active Invega Sustenna 156 mg/mL syringeIndications :Schizoaffective Disorder Inject 1 mL (156 mg total) into the muscle as instructed every 30 (thirty) days 08/06/19 24 Active acetaminophen 500 mg capsuleIndications :Pain Take 2 capsules (1,000 mg total) by mouth every 8 (eight) hours 90 tablet 08/22/19 24 Active carvediloL (Coreg) 12.5 mg tablet 09/12/19 24 Active sotagliflozin (Inpefa) 200 mg tablet 09/14/19 24 Active OLANZapine (ZyPREXA) 10 mg tablet TAKE 1 TABLET BY MOUTH ONCE A DAY AT BEDTIME 09/18/19 24 Active FeroSuL 325 mg (65 mg iron) tablet Take 1 tablet (325 mg total) by mouth 2 (two) times a day 10/24/19 24 Active tadalafiL (CIALIS) 20 mg tablet Take 1 tablet (20 mg total) by mouth daily 10/19/19 24 Active rosuvastatin (CRESTOR) 20 mg tablet 11/19/19 24 Active nicotine polacrilex (NICORETTE) 4 mg gum 11/14/19 24 Active nicotine (NICODERM CQ) 21 mg 01/02/20 24 Active Ear Wax Removal Drops 6.5 % otic solution 11/14/19 24 Active buPROPion XL (WELLBUTRIN XL) 150 mg 24 hr tablet 11/27/19 24 Active chlorproMAZINE (THORAZINE) 50 mg tablet 01/14/20 24 Active Active Problems Problem Noted Date Diagnosed Date Edema 01/18/2024 Diarrhea 01/18/2024 Dehydration 01/18/2024 Colitis 01/18/2024 Clostridioides difficile infection 01/18/2024 Cellulitis of right lower limb 01/18/2024 Cellulitis of left lower limb 01/18/2024 History of total left hip replacement 10/22/2023 Acute upper respiratory infection 09/18/2023 Erectile dysfunction 09/12/2023 Osteoarthritis of left hip, unspecified osteoart hritis type 08/21/2023 Sensorineural hearing loss, bilateral 06/12/2023 Arthritis of hip 05/09/2023 Chronic depression 05/09/2023 Disorder of lipid metabolism 05/08/2023 Chest pain 03/16/2023 Cocaine adverse reaction 03/16/2023 Essential hypertension 03/16/2023 Gastroesophageal reflux disease 03/16/2023 Generalized anxiety disorder 03/16/2023 Intestinal obstruction (CMS/HCC) 03/16/2023 Recurrent major depression 03/16/2023 Schizoaffective disorder, bipolar type (CMS/HCC) 03/16/2023 Type 2 diabetes mellitus 03/16/2023 Substance abuse (CMS/HCC) 03/16/2023 Suicidal thoughts 03/16/2023 Head and neck cancer 02/10/2022 Lesion of tongue 02/07/2022 COVID-19 01/04/2022 Solitary pulmonary nodule 01/04/2022 Influenza due to unidentifie d influenza virus with other respiratory manifestations 01/04/2022 Squamous cell carcinoma of ventral tongue 2021 Cancer Staging:Pathologic stage from 02/10/2022: pT2, pN0 - Signed by Mireya Rubi NP on 03/15/2022 Oral cancer 12/02/2021 Overview (12/27/2021): Added automatically from request for surgery [id number] Paresis of lower extremity (CMS/HCC) 02/24/2021 Contact with and (suspected) exposure to other communicable diseases 12/08/2020 Encounter for health-related screening Prediabetes 11/04/2020 Psychostimulant dependence in remission 11/03/19 21 Obesity with body mass index 30 or greater 11/02 Primary osteoarthritis of left hip 10/28/2020 Overview (10/28/2020): Added automatically from request for surgery [id number] Renal cyst 10/09/2020 Fatty liver 10/09/2020 Hypotension 2020 Chronic obstructive pulmonary disease 09/02/2020 Methamphetamine abuse (CMS/HCC) 08/06/2020 Obesity 08/05/2020 Overweight 08/05/2020 Ventricular tachycardia 07/30/2020 Degeneration of lumbar intervertebral disc 02/10 Hepatitis C 01/19/2020 Impaired fasting glucose 12/17/2019 Poor short-term memory 12/17/2019 Left foot drop 09/24/2019 Tobacco dependence in remission 09/24/2019 Hypertriglyceridemia 09/03/2019 Hyperlipidemia 09/03/2019 Congestive heart failure ([facility]) 02/28/2016 Systolic CHF, chronic ([facility]) 12/02/2010 Single implantable cardioverter-defibrillator (I CD) in situ 11/10/2010 Overview (10/28/2020): Biotronik Lumax 340 Model # [id number] SER# [id number] implanted 08-12-[address] [place] per Dr. Abreu for dilated CM RV lead Biotronik Linox 65-18 SER# [id number] Supraventricular tachycardia 06/03/2009 Personal history of nicotine dependence 01/22/20 09 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 08/13/2008 Unspecified atrial fibrillation 05/18/2008 Cardiomyopathy 12/20/1993 Overview (10/28/2020): lowest 20 no cad or ai Resolved Problems Problem Noted Date Diagnosed Date Resolved Date Oral cancer 12/02/2021 12/13/2021 Overview (12/02/2021): Added automatically from request for surgery [id number] Encounters Date Type Department Care Team Description 06/09/2024 12:45 PM EMBROIDERER Office Visit [facility] [address] [facility] [address] [place] [phone] Brijesh Vizcaino MD Encounter for post surgical wound check (Primary Dx); Basal cell carcinoma of skin of nose from Last 3 Months Immunizations Name Administration Dates Next Due Influenza, Quadrivalent, Spl it, Intramuscular 04/20/2021,05/03/2020,04/01/2019 Influenza, Quadrivalent, Spl it, Preservative Free, Intramuscular 06/26/2023,04/03/2023,05/14/2022 Resonergy (J&J) SARS-CoV-2 Vaccination 09/07/2020 Tdap 04/03/2023,09/24/2019 ZOSTER Recombinant 04/03/2023 Surgical History Surgery Date Site/Laterality Comments INSERT / REPLACE AICD LEAD 07/02/2008 - 07/01/2009 Biotronik Lumax 340 VR-T with serial #[id number]. COLECTOMY 07/02/1990 - 07/01/1991 Colon resection for Crohn's TENDON REPAIR 07/02/1990 - 07/01/1991 Right hand SUBDURAL HEMATOMA EVACUATION VIA CRANIOTOMY 01/30/1990 - 03/01/1990 Evacuation of subdural hematoma FOOT SURGERY CARDIAC DEFIBRILLATOR PLACEMENT 07/02/2013 - 07/01/2014 Jiankongbao ICD E141 BIOPSY 10/30/2021 - 11/29/2021 Tongue APPENDECTOMY 07/02/1990 - 07/01/1991 Medical History Medical History Date Comments Obesity Tongue cancer (HCC) SCCA Tongue dxd 10/2021 Chewing tobacco use History of hepatitis C Dxd 2003- - Followed by [facility] hepatology History of methamphetamine use l ast smoked/snorted meth 04/2021 History of Crohn's disease Dxd 1 991 s/p colectomy-- pt denies any further flare ups Heart failure (HCC) s/p Biotroni k ICD 2008 and changed to Jiankongbao ICD 2013 Allergic rhinitis GERD (gastroesophageal reflux disease) 2,yr Coronary artery disease Hypertension 5 yr ? COPD (chronic obstructive pu lmonary disease) (HCC) Influenza due to unidentifie d influenza virus with other respiratory manifestations 01/04/2022 Family History Medical History Relation Name Comments Hypertension Father Enmanuel Cancer Maternal Grandmother Bess Anesthesia problems Neg Hx Relation Name Status Comments Father Enmanuel Alive Pacemaker / AIC D, CAD Maternal Grandmother Bess Mother Other HTN Social History Tobacco Use Types Packs/Day Years Used Date Smoking Tobacco: Former Cigarettes 0.1 37 0 07/04/1986 - 07/04/2023 Smokeless Tobacco: Former Chew Quit: 07/10/2023 Tobacco Cessation:Counseling Given: Not Answered OASIS D0700: Social Isolation Answer Da te [...] on file Legal Sex Male 11:03 PM EMBROIDERER Gender Identity Male 05/12/2022 9:05 AM EMBROIDERER Sexual Orientation Straight 10/27/2020 7: 55 PM CDT Obstetrics History Last Filed Vital Signs Vital Sign Reading Time Taken Comments Blood Pressure 110/89 09/10/2023 3:21 PM CDT Pulse 123 09/10/2023 3:21 PM CDT Temperature 35.9 C (96.7 F) 09/10/2023 3:21 PM CDT Respiratory Rate 18 09/10/2023 3:21 PM CDT Oxygen Saturation 96% 09/10/2023 3:21 PM CDT Inhaled Oxygen Concentration - - Weight 88.6 kg (195 lb 6.4 oz) 05/07/2024 1:55 P M EMBROIDERER Height 175.3 cm (5' 9 ) 08/29/2023 10:33 AM EMBROIDERER Body Mass Index 28.86 08/29/2023 10:33 AM EMBROIDERER Plan of Treatment Health Maintenance Due Date Last Done Comments Albumin Creatinine Ratio, Urine 1971 Colon Cancer Screening-Colonoscopy 1971 Depression Screening 1971 Prostate Cancer Screening-PSA 1971 Dilated Eye Exam 1971 Foot Exam 1971 Lipid Panel 1971 Pneumococcal vaccine <65 (1 of 2 - PCV) 10/07/1977 Hepatitis B Screening 10/07/1989 Regular Well Visit/Exam 18-64 10/07/1989 Zoster Vaccine (2 of 2) 05/29/2023 04/03/2023 Hemoglobin A1C 02/04/2024 08/06/2023, 11/02/2020 Covid-19 Vaccine ( - 2023-2 5 season) 2024 05/01/2021, 09/07/2020, 08/31/2020 Influenza Vaccine (#1) 2024 , 04/03/2023, 05/14/2022, Additional history exists eGFR 08/21/2024 08/21/2023, 0210/2023, 12/23/2021 DTaP/Tdap/Td Vaccine (3 - Td or Tdap) 04/03/2033 04/03/2023, 09/24/2019 Hepatitis C Screening Completed 01/19/2020 Medical Devices Implanted Type Area Edi Analyst Device Identifier Shelf Expiration Date Model / Serial / Lot Icd Implanted:10/22 by Matthew Hoffmann MD (Quantity not on file) Pacemaker Heart [employer] [employer] [id number] / [id number] / [employer] Graft Tissue Accelular Matrix Dermis Regn Medium Alloderm Select 4x7cm Rtu [id number] - [id number] Implanted:Qty: 1 on 02/10/2022 by Roland Christensen MD PhD at [facility] Right: Neck [employer] 10/30/2023 [id number] / / [id number] Depuy Orthopaed[employer] Cup 55mm Acetabular Bi Mentum Femoral Proximal Press Fit [id number] - [id number] Implanted:Qty: 1 on 08/21/2023 by Lalit Orta MD at [facility] Left: Hip [employer]opaed[employer] 08/29/2024 [id number] / / [id number] Dep[employer] Liner Acet Hip Size 28 Poly Bi Mentum Altrx 55mm [id number] - [id number] Implanted:Qty: 1 on 08/21/2023 by Lalit Orta MD at [facility] Left: Hip [employer] [id number] 09/29/2026 [id number] / / [id number] Depuy [employer] Actis Collar Hip 4 High Offset Stem Femoral [id number] - [id number] Implanted:Qty: 1 on 08/21/2023 by Lalit Orta MD at [facility] Left: Hip [employer] [id number] 03/31/2033 [id number] / / [id number] [employer] Articul/Cameron 28mm Cementless Hip +8.5mm 06/14 Taper Head Femoral Latex Free [id number] - [id number] Implanted:Qty: 1 on 08/21/2023 by Lalit Orta MD at [facility] Left: Hip [employer] [id number] 01/30/2028 [id number] / / [id number] Procedures Procedure Name Priority Date/Time Associated Diagnosis Comments EGFR Timed 08/21/2023 2:42 PM EMBROIDERER POCT HEMOGLOBIN A1C Routine 08/06/2023 2 :12 PM EMBROIDERER from Last 3 Months or Most Recently Relevant to Health Maintenance Results * eGFR (08/21/2023 2:42 PM EMBROIDERER) eGFR 77 >=60 mL/min/1. 73 m2 [facility] Comment: Interpretive Data Reference Interval Normal >/= 90 mL/min/1.73m2 Mildly decreased* 60 - 89 mL/min/1.73m2 Mildly to moderately decreased 45 - 59 mL/min/1.73m2 Moderately to severely decreased 30 - 44 mL/min/1.73m2 Severely decreased 15 - 29 mL/min/1.73m2 Kidney Failure < 15 mL/min/1.73m2 *Relative to young adult level Estimated glomerular filtration rate is determined by the 2020 CKD-EPI equation recommended by the National Kidney Foundation (A Unifying Approach to GFR Estimation: Recommendations of the NKF-ASK Task Force on Reassessing the Inclusion of Race in Diagnosing Kidney Disease, JASN 2020). The CKD-EPI equation should not be used for patients with unstable renal function and has not been validated in children and those over 70. Current interpretive data was last reviewed 2021. Blood 08/21/2023 2:42 PM EMBROIDERER 08/21/2023 2:59 PM EMBROIDERER Garfield Bowman MD LAB BLOOD ORDERABLES Erika l Result [facility] [place] [address] * (ABNORMAL) POCT hemoglobin A1c (08/06/2023 2:12 PM EMBROIDERER) Hgb A1C, POC 5.9(H) 4.0 - 5.6 % [facility] Est Average Gluc POC 123 mg/dL [facility] Comment: The ADA recommends reporting an estimated Average Glucose (eAG) with all Hemoglobin A1c results using the equation derived from a study of 507 normal and diabetic adults. Minority populations were underrepresented and children were not included. (Diabetes Care 31:0456-5683, 2008). The eAG is not equivalent to a fasting glucose. Blood 08/06/2023 2:12 PM EMBROIDERER 08/06/2023 2:12 PM EMBROIDERER Lalit Orta MD POINT OF CARE TEST ORDERABLES nal Result [facility] Department [place] [address] from Last 3 Months or Most Recently Relevant to [place] [address] [facility] UHC CHOICE PLUS [facility] Advance Directives For more information, please contact: [phone] Documents on File Type Date Recorded Patient Litigation Legal Secretary Expl anation ADVANCE DIRECTIVE 02/10/2022 1:24 PM Power of Storage Battery Inspector And Tester-Medical ADVANCE DIRECTIVE 11/05/2020 10:02 AM Power of Storage Battery Inspector And Tester-Medical * Full Code (Latest Code Status on File) Date Activated Date Inactivated Comments 08/21/2023 11:18 AM 08/22/2023 6:04 PM * Full Code Date Activated Date Inactivated Comments 02/10/2022 5:21 PM 02/11/2022 7:46 PM Care Teams Salesforce Administrator Relationship Specialty Start Date End Date Дмитрий Hennessy MD [address] [address] PCP - General Internal Medicine 08/11/20 Mireya Rubi NP [address] [facility] [address] [place] [address] Nurse Practitioner Nurse Practitioner 03/15/22 Vignesh Hoffmann MD [address] [facility] [address] [place] [address] Radiation Oncologist Radiation Oncology 03/30/22
--- OUTSIDE RECORDS SUMMARY | 2024-08-10 22:47 | XMS_ITS | Referral Summary ---
Author Organization [facility] Address [address] [place] [address] Care Team Providers Care Field Scout Name Role Phone Дмитрий Hennessy MD Primary Care Provider Mireya Rubi NP Unavailable [phone] Vignesh Hoffmann MD Unavailable [phone] Encounters Date Type Department Care Team Description 06/09/2024 12:45 PM MENTAL TELEPATHIST Office Visit [facility] [address] [place] [phone] Brijesh Vizcaino MD Encounter for post surgical wound check (Primary Dx); Basal cell carcinoma of skin of nose from Last 3 Months Allergies No known active allergies Medications busPIRone [...] major depression 03/16/2023 Schizoaffective disorder, bipolar type ([facility]/HCC) 03/16/2023 Type 2 diabetes mellitus 03/16/2023 Substance abuse ([facility]) 03/16/2023 Suicidal thoughts 03/16/2023 Head and neck [...] (12/27/2021): Added automatically from request for surgery [id number] Paresis of lower extremity (CMS/HCC) 02/24/2021 Contact with and (suspected) exposure to other communicable diseases 12/08/2020 Encounter for health-related screening Prediabetes 11/04/2020 Psychostimulant dependence in remission 11/03/19 21 Obesity with body mass index 30 or greater 11/02 Primary osteoarthritis of left hip 10/28/2020 Overview (10/28/2020): Added automatically from request for surgery [id number] Renal cyst 10/09/2020 Fatty liver 10/09/2020 Hypotension 2020 Chronic obstructive pulmonary disease 09/02/2020 Methamphetamine abuse ([facility]) 08/06/2020 Obesity 08/05/2020 Overweight 08/05/2020 Ventricular tachycardia 07/30/2020 Degeneration of lumbar intervertebral disc 02/10 Hepatitis C 01/19/2020 Impaired fasting glucose 12/17/2019 Poor short-term memory 12/17/2019 Left foot drop 09/24/2019 Tobacco dependence in remission 09/24/2019 Hypertriglyceridemia 09/03/2019 Hyperlipidemia 09/03/2019 Congestive heart failure ([facility]) 02/28/2016 Systolic CHF, chronic ([facility]) 12/02/2010 Single implantable cardioverter-defibrillator (I CD) in situ 11/10/2010 Overview (10/28/2020): Biotronik Lumax 340 Model # [id number] SER# [id number] implanted 08-12-[address] [place] [address] Abreu for dilated CM RV lead Biotronik Linox 65-18 SER# [id number] Supraventricular tachycardia 06/03/2009 Personal history of nicotine dependence 01/22/20 09 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 08/13/2008 Unspecified atrial fibrillation 05/18/2008 Cardiomyopathy 12/20/1993 Overview (10/28/2020): lowest 20 no cad or ai Resolved Problems Problem Noted Date Diagnosed Date Resolved Date Oral cancer 12/02/2021 12/13/2021 Overview (12/02/2021): Added automatically from request for surgery [id number] Immunizations Name Administration Dates Next Due Influenza, Quadrivalent, Spl it, Intramuscular 04/20/2021,05/03/2020,04/01/2019 Influenza, Quadrivalent, Spl it, Preservative Free, Intramuscular 06/26/2023,04/03/2023,05/14/2022 Pipefish (J&J) SARS-CoV-2 Vaccination 09/07/2020 Tdap 04/03/2023,09/24/2019 ZOSTER Recombinant 04/03/2023 Social History Tobacco Use Types Packs/Day Years [...] on file Legal Sex Male 11:03 PM MENTAL TELEPATHIST Gender Identity Male 05/12/2022 9:05 AM MENTAL TELEPATHIST Sexual Orientation Straight 10/27/2020 7: 55 PM CDT Last Filed Vital Signs Vital Sign Reading Time Taken Comments Blood Pressure 110/89 09/10/2023 3:21 PM CDT Pulse 123 09/10/2023 3:21 PM CDT Temperature 35.9 C (96.7 F) 09/10/2023 3:21 PM CDT Respiratory Rate 18 09/10/2023 3:21 PM CDT Oxygen Saturation 96% 09/10/2023 3:21 PM CDT Inhaled Oxygen Concentration - - Weight 88.6 kg (195 lb 6.4 oz) 05/07/2024 1:55 P M MENTAL TELEPATHIST Height 175.3 cm (5' 9 ) 08/29/2023 10:33 AM MENTAL TELEPATHIST Body Mass Index 28.86 08/29/2023 10:33 AM MENTAL TELEPATHIST Plan of Treatment Not on file Medical Devices Implanted Type Area Hand Miter Operator Device Identifier Shelf Expiration Date Model / Serial / Lot Icd Implanted:10/22 by Matthew Hoffmann MD (Quantity not on file) Pacemaker Heart [place] [employer] [id number] / [id number] / [employer] Graft Tissue Accelular Matrix Dermis Regn Medium Alloderm Select 4x7cm Rtu [id number] - [id number] Implanted:Qty: 1 on 02/10/2022 by Roland Christensen MD PhD at [facility] Right: Neck [employer] 10/30/2023 [id number] / / [id number] Depuy Orthopa[employer] Cup 55mm Acetabular Bi Mentum Femoral Proximal Press Fit [id number] - [id number] Implanted:Qty: 1 on 08/21/2023 by Lalit Orta MD at [facility] Left: Hip [employer] 08/29/2024 [id number] / / [id number] [employer] Liner Acet Hip Size 28 Poly Bi Mentum Altrx 55mm [id number] - [id number] Implanted:Qty: 1 on 08/21/2023 by Lalit Orta MD at [facility] Left: Hip [employer] [id number] 09/29/2026 [id number] / / [id number] Dep[employer] Actis Collar Hip 4 High Offset Stem Femoral [id number] - [id number] Implanted:Qty: 1 on 08/21/2023 by Lalit Orta MD at [facility] Left: Hip [employer] [id number] 03/31/2033 [id number] / / [id number] [employer] Articul/Cameron 28mm Cementless Hip +8.5mm 06/14 Taper Head Femoral Latex Free [id number] - [id number] Implanted:Qty: 1 on 08/21/2023 by Lalit Orta MD at [facility] Left: Hip [employer] [id number] 01/30/2028 [id number] / / [id number] Procedures Procedure Name Priority Date/Time Associated Diagnosis Comments EGFR Timed 08/21/2023 2:42 PM MENTAL TELEPATHIST POCT HEMOGLOBIN A1C Routine 08/06/2023 2 :12 PM MENTAL TELEPATHIST from Last 3 Months or Most Recently Relevant to Health Maintenance Results * eGFR (08/21/2023 2:42 PM MENTAL TELEPATHIST) eGFR 77 >=60 mL/min/1. 73 m2 [facility] Comment: Interpretive Data Reference Interval Normal >/= [...] last reviewed 2021. Blood 08/21/2023 2:42 PM MENTAL TELEPATHIST 08/21/2023 2:59 PM MENTAL TELEPATHIST Garfield Bowman MD LAB BLOOD ORDERABLES Erika guajardo Result [facility] [address] [facility] Department [place] [address] * (ABNORMAL) POCT hemoglobin A1c (08/06/2023 2:12 PM MENTAL TELEPATHIST) Hgb A1C, POC 5.9(H) 4.0 - 5.6 % [facility] Est Average Gluc POC 123 mg/dL [facility] Comment: The ADA recommends reporting an estimated Average Glucose (eAG) with all Hemoglobin A1c results using the equation derived from a study of 507 normal and diabetic adults. Minority populations were underrepresented and children were not included. (Diabetes Care 31:7304-3548, 2008). The eAG is not equivalent to a fasting glucose. Blood 08/06/2023 2:12 PM MENTAL TELEPATHIST 08/06/2023 2:12 PM MENTAL TELEPATHIST us Lalit Orta MD POINT OF CARE TEST ORDERABLES Fi nal Result [facility] [address] [facility] Department [place] [address] from Last 3 Months or Most Recently Relevant to Health Maintenance Insurance [facility] [place]ICE [place] [address] [facility] Advance Directives For more information, please contact: [phone] Documents on File Type Date Recorded Patient Mail Censor Expl anation ADVANCE DIRECTIVE 02/10/2022 1:24 PM Power of Career Placement Specialist-Medical ADVANCE DIRECTIVE 11/05/2020 10:02 AM Power of Career Placement Specialist-Medical * Full Code (Latest Code Status on File) Date Activated Date Inactivated Comments 08/21/2023 11:18 AM 08/22/2023 6:04 PM * Full Code Date Activated Date Inactivated Comments 02/10/2022 5:21 PM 02/11/2022 7:46 PM Care Teams Field Scout Relationship Specialty Start Date End Date Дмитрий Hennessy MD [address] [address] PCP - General Internal Medicine 08/11/20 Mireya Rubi NP [address] [facility] [address] [place] [address] Nurse Practitioner Nurse Practitioner 9/14/22 Vignesh Hoffmann MD [address] [facility] [address] [place] [address] Radiation Oncologist Radiation Oncology 03/30/22
--- OUTSIDE RECORDS SUMMARY | 2024-08-10 22:47 | XMS_ITS | Referral Summary ---
Author Organization [facility] Address [address] [place] [address] Care Team Providers Care Site Safety Coordinator Name Role Phone Дмитрий Hennessy MD Primary Care Provider Stefano Shekih MD Unavailable Source Comments [facility],non-owned Affiliates and Associated Physician Practices is amultiple site organization consisting of ambulatory clinics and hospital sitesin [place], [place], [place] and [place]. This disclosure is being madepursuant to the Care Everywhere program and may not contain all information available regarding this patient. Last updated 18.[facility] Encounters Date Type Department Care Team Description 07/21/2024 Telephone [facility] [address] [place] [address] Pam Rain, SALAD BAR CLERK-ELECTRONIC FIELD SERVICE ENGINEER Results 07/18/2024 Travel 07/18/2024 2:00 PM COMPRESSION MOLDING MACHINE OPERATOR Office Visit [facility] [address] [place] [address] Pam Rain, SALAD BAR CLERK-ELECTRONIC FIELD SERVICE ENGINEER Chronic hepatitis C without hepatic coma (HCC) (Primary Dx) 07/07/2024 Orders Only [facility] [address] [place] [address] Pam Rain, SALAD BAR CLERK-ELECTRONIC FIELD SERVICE ENGINEER Chronic hepatitis C without hepatic coma (HCC) 05/13/2024 1:35 PM COMPRESSION MOLDING MACHINE OPERATOR - 05/13/2024 11:59 PM COMPRESSION MOLDING MACHINE OPERATOR Hospital Encounter [facility] [address] [place] [address] Discharge Disposition: Home or Self Care 05/13/2024 Travel 05/13/2024 11:30 AM COMPRESSION MOLDING MACHINE OPERATOR Procedure visit [facility] - [address] [address] Jason Willingham MD Chronic hepatitis C without hepatic coma (HCC) 05/13/2024 1:00 PM COMPRESSION MOLDING MACHINE OPERATOR Office Visit [facility] - [address] [address] Jason Willingham MD Campbell, Shirley M, SALAD BAR CLERK-ELECTRONIC FIELD SERVICE ENGINEER Chronic hepatitis C without hepatic coma (HCC) (Primary Dx) from Last 3 Months Allergies No known active allergies Medications * [...] (07/18/2024): Added automatically from request for surgery [id number] Paresis of lower extremity 02/24/2021 Exposure to SARS-associated coronavirus 12/09/19 Prediabetes 11/04/2020 Encounter for health-related screening Overview (07/18/2024): did not want breann socre, eng psa Psychostimulant dependence in remission 11/03/19 Primary osteoarthritis of left hip 10/28/2020 Overview (03/03/2021): Added automatically from request for surgery [id number] Fatty liver 10/09/2020 Renal cyst 10/09/2020 Hypotension [...] (implantable) cardiac defi brillator 08/13/2008 Overview (03/03/2021): Urbitaronik Lumax 340 Model # [id number] SER# [id number] implanted 08-12-08 in [place] per Dr. Abreu for dilated CM RV lead Biotronik Linox 65-18 SER# [id number] Biotronik Lumax 340 Model # [id number] SER# [id number] implanted 08-12-08 in [place] per Dr. Abreu for dilated CM RV lead Biotronik Linox 65-18 SER# [id number] Supraventricular tachycardia 05/18/2008 Other primary cardiomyopathies 12/20/1993 [...] Sex Assigned at Male 06/27/2021 3:16 PM COMPRESSION MOLDING MACHINE OPERATOR Gender Identity Male 06/27/2021 3:16 PM COMPRESSION MOLDING MACHINE OPERATOR Sexual Orientation Not on file Last Filed Vital Signs Vital Sign Reading Time Taken Comments Blood Pressure 112/73 07/18/2024 2:34 PM COMPRESSION MOLDING MACHINE OPERATOR Pulse 99 07/18/2024 2:34 PM COMPRESSION MOLDING MACHINE OPERATOR Temperature 36.7 C (98 F) 07/18/2024 2:34 PM COMPRESSION MOLDING MACHINE OPERATOR Respiratory Rate - - Oxygen Saturation 96% 07/18/2024 2:34 PM COMPRESSION MOLDING MACHINE OPERATOR Inhaled Oxygen Concentration - - Weight 92.8 kg (204 lb 9.6 oz) 07/18/2024 2:34 P M COMPRESSION MOLDING MACHINE OPERATOR Height 175.3 cm (5' 9 ) 07/18/2024 2:34 PM COMPRESSION MOLDING MACHINE OPERATOR Body Mass Index 30.21 07/18/2024 2:34 PM COMPRESSION MOLDING MACHINE OPERATOR Plan of Treatment Not on file Goals Goal Patient Goal Type Associated Problems Recent Progress Patient-Stated? Author Medication Management General On track( 025 3:15 PM COMPRESSION MOLDING MACHINE OPERATOR) No Fanning, Jessica D., RN Note: Expected end date: ongoing Interventions: Take all medications as prescribed Procedures Procedure Name Priority Date/Time Associated Diagnosis Comments HEPATITIS C RNA QUANTITATIVE Routine 07/17/2024 1:44 PM COMPRESSION MOLDING MACHINE OPERATOR Chronic hepatitis C without hepatic coma (HCC) COMPREHENSIVE METABOLIC PANEL Routine 07/17/2024 1:44 PM COMPRESSION MOLDING MACHINE OPERATOR Chronic hepatitis C without hepatic coma (HCC) CBC W AUTO DIFFERENTIAL Routine 07/17/2024 1:44 PM COMPRESSION MOLDING MACHINE OPERATOR Chronic hepatitis C without hepatic coma (HCC) HEPATITIS C RNA QUANTITATIVE Routine 07/17/2024 1:44 PM COMPRESSION MOLDING MACHINE OPERATOR Chronic hepatitis C without hepatic coma (HCC) COMPREHENSIVE METABOLIC PANEL Routine 07/17/2024 1:44 PM COMPRESSION MOLDING MACHINE OPERATOR Chronic hepatitis C without hepatic coma (HCC) CBC W AUTO DIFFERENTIAL Routine 07/17/2024 1:44 PM COMPRESSION MOLDING MACHINE OPERATOR Chronic hepatitis C without hepatic coma (HCC) HEPATITIS C RNA QUANTITATIVE Routine 05/13/2024 2:53 PM COMPRESSION MOLDING MACHINE OPERATOR Chronic hepatitis C without hepatic coma (HCC) COMPREHENSIVE METABOLIC PANEL Routine 05/13/2024 2:53 PM COMPRESSION MOLDING MACHINE OPERATOR Chronic hepatitis C without hepatic coma (HCC) CBC W AUTO DIFFERENTIAL Routine 05/13/2024 2:53 PM COMPRESSION MOLDING MACHINE OPERATOR Chronic hepatitis C without hepatic coma (HCC) DIGOXIN LEVEL Routine 05/13/2024 2:53 PM COMPRESSION MOLDING MACHINE OPERATOR Chronic hepatitis C without hepatic coma (HCC) ND LIVER ELASTOGRAPHY Routine 05/13/2024 11:26 AM COMPRESSION MOLDING MACHINE OPERATOR Chronic hepatitis C without hepatic coma (HCC) HIV-1 HIV-2 ANTIBODY + HIV P24 AG PANEL Routine 03/03/2021 1:12 PM CDT Chronic hepatitis C without hepatic coma (HCC) from Last 3 Months or Most Recently Relevant to Health Maintenance Results * HEPATITIS C RNA QUANTITATIVE (07/17/2024 1:44 PM COMPRESSION MOLDING MACHINE OPERATOR) Only the most recent of2 resultswithin the time period is included. [facility] Hepatitis C Virus RNA, Quantitative Real Time PCR <15 NOT DETECTED NOT DETECTED IU/mL [facility] Hepatitis C Virus RNA, Quantitative Real Time PCR <1.18 NOT DETECTED NOT DETECTED Log IU/mL [facility] Comment: For additional information, please refer to http://education.[employer]/faq/NEM49o9 (This link is being provided for informational/ educational purposes only.) Test Performed at: [facility] [id number] [place] [address] TARIK NICHOLSON MD Blood BLOOD SPECIMEN / Unknown 07/17/2024 1:44 PM COMPRESSION MOLDING MACHINE OPERATOR 07/17/2024 1:44 PM COMPRESSION MOLDING MACHINE OPERATOR Pam Rain SALAD BAR CLERK-ELECTRONIC FIELD SERVICE ENGINEER LAB - CHEMIS TRY ORDERABLES Performing Organization Address City/State/[facility] Co de Phone Number [facility] [address] [place] [address] * (ABNORMAL) CBC WITH DIFFERENTIAL (07/17/2024 1:44 PM COMPRESSION MOLDING MACHINE OPERATOR) Only the most recent of3 resultswithin the time period is included. [facility] White Blood Cell Count 8.0 3.8 - [...] 0.5 % [facility] Comment: Test Performed at: [facility] [id number] [place] [address] TARIK NICHOLSON MD Blood BLOOD SPECIMEN / Unknown 07/17/2024 1:44 PM COMPRESSION MOLDING MACHINE OPERATOR 07/17/2024 1:44 PM COMPRESSION MOLDING MACHINE OPERATOR Pam Rain SALAD BAR CLERK-ELECTRONIC FIELD SERVICE ENGINEER LAB - HEMATO LOGY ORDERABLES [facility] [address] [place] [address] * (ABNORMAL) COMPREHENSIVE METABOLIC PANEL (07/17/2024 1:44 PM COMPRESSION MOLDING MACHINE OPERATOR) Only the most recent of3 resultswithin [...] 46 U/L [facility] Comment: Test Performed at: [facility] [address] [place] [address] TARIK NICHOLSON MD Blood BLOOD SPECIMEN / Unknown 07/17/2024 1:44 PM COMPRESSION MOLDING MACHINE OPERATOR 07/17/2024 1:44 PM COMPRESSION MOLDING MACHINE OPERATOR Pam Rain SALAD BAR CLERK-ELECTRONIC FIELD SERVICE ENGINEER LAB - CHEMIS TRY ORDERABLES Performing Organization Address [facility] Co de Phone Number [facility] [id number] [place] [phone] * DIGOXIN LEVEL (05/13/2024 2:53 PM COMPRESSION MOLDING MACHINE OPERATOR) Digoxin 0.8 0.5 - 1.2 ng/mL 05/13/2024 3:36 PM COMPRESSION MOLDING MACHINE OPERATOR [facility] Blood BLOOD SPECIMEN / Unknown Lab Venipuncture / Unknown 05/13/2024 2:53 PM COMPRESSION MOLDING MACHINE OPERATOR 05/13/2024 3:23 PM COMPRESSION MOLDING MACHINE OPERATOR Narrative [facility] - 05/13/2024 3:36 PM COMPRESSION MOLDING MACHINE OPERATOR Therapeutic reference range for heart failure is 0.5-0.9 ng/mL. For atrial fibrillation, it is 0.8-1.2 ng/mL. The field artillery radar operator of Digoxin Immune Jayesh has stated that no immunoassay technique is suitable for quantitating digoxin in plasma/serum from patients on antibody fragment therapy. Pam Rain SALAD BAR CLERK-ELECTRONIC FIELD SERVICE ENGINEER LAB - CHEMIS TRY ORDERABLES Performing Organization Address City/[facility]/ZIP Co de Phone Number [facility] [address] [place] [address], [facility] [phone] * ND LIVER ELASTOGRAPHY (05/13/2024 11:26 AM COMPRESSION MOLDING MACHINE OPERATOR) Narrative Jason Gómez MD - 05/13/2024 11:26 AM COMPRESSION MOLDING MACHINE OPERATOR Jason Gómez MD 05/13/2024 12:12 PM [...] patients with nonalcoholic fatty liver disease. Gastroenterology 2019;156:2629-4473. Alen SNYDER, Jarad R, Miguel MONTERROSO, et al. Vibration-controlled transient elastography to assess [...] These include the FAST (Fibroscan-AST) score (Julio, 2022) and the Agile3+ and Agile4 scores (Heather, 202). Julio HATCH, Miguel MONTERROSO, Kavya Arora, Lane Delatorre, et al. Validation of the accuracy of the FAST score for detecting patients with at-risk nonalcoholic steatohepatitis (JI) in a [place] cohort and comparison to other non-invasive algorithms. PLoS ONE (2022) 17: a0853377. Heather AJ, Nathalie J, Jack ZM, et al. Enhanced diagnosis of advanced fibrosis and cirrhosis in individuals with NAFLD using FibroScan-based Agile scores. J Hepatol (2022) 78: 247-259. Fibroscan LSM can also be used with laboratory parameters without formulas to assess prognosis. According to the Baveno-VII criteria (Moreno, 2021), Fibroscan LSM <=15 kPa plus a platelet count of >=300p189/L rules out clinically significant portal hypertension (sensitivity and negative predictive value >90%) in patients with compensated advanced chronic liver disease. Moreno R, Janak J, Leland-Manda G, Brody T, Mayda C on behalf of the Baveno VII Faculty. Baveno VII--Renewing consensus in portal hypertension. J Hepatol (2021) 76: 959-974 Assessing the likelihood of advanced fibrosis in patients with intermediate liver stiffness measurement (LSM) by Fibroscan (e.g., 8-15 kPa) can be improved by also calculating the FIB-4 score (Tim et al. Hepatology Communications 2019;3:5209-2258) or NAFLD Fibrosis score (Moya et al. Clinical Gastroenterology and Hepatology 2019;17:4961-0096 using routine clinical data. Note: 1. Fibroscan [...] additional interpretive data was last updated 11/04/22.) http://www.saint luke's health systemAgilys/rec-jvhfnxxc-ddftxsvtex Pam Rain SALAD BAR CLERK-ELECTRONIC FIELD SERVICE ENGINEER PROCEDURE/TX NOR SURGICAL ORDERABLES * HIV-1 HIV-2 ANTIBODY + HIV P24 AG PANEL (03/03/2021 1:12 PM CDT) HIV Antigen/Antibod y 1 & 2 Non-reacti ve Non-react paris 03/03/2021 5:[address] [facility] Comment:Neither HIV-1 p24 An tigen nor HIV-1/HIV-2 Antibodies are detected. Blood BLOOD SPECIMEN / Unknown Lab Venipuncture / Unknown 03/03/2021 1:12 PM CDT 03/03/2021 1:39 PM CDT Pam Rain SALAD BAR CLERK-ELECTRONIC FIELD SERVICE ENGINEER LAB - CHEMIS TRY ORDERABLES [facility] [address] [place] [address], [facility] [phone] from Last 3 Months or Most Recently Relevant to Health Maintenance Care Teams Site Safety Coordinator Relationship Specialty Start Date End Date Дмитрий Hennessy MD [address] [place], [place] [id number] PCP - General 03/03/21 Stefano Sheikh MD [address] [facility] [address] [place] [address] Rib Trim Separator Cardiology 05/13/24
--- OUTSIDE RECORDS SUMMARY | 2024-08-10 22:47 | XMS_ITS ---
Author Organization [facility] Address [address] [place] [address] Support Name Relationship Address Phone [facility] [address] [place] [address] Aashish Darby Guarantor Unknown [phone] Care Team Providers Care Mammography Tech Name Role Phone Vikash Dodd Primary Care Provider [phone] REASON FOR VISIT r/s injection Social History Sex Assigned At : Social History Observation Description Sex Assigned At Male Encounters Encounter Location Date Provider Diagnosis [facility] [address] [address] 08/01/2024 Vikash Dodd Plan Of Treatment Next Appt Details Provider Name:Vikash page, 08/29/2024 01:00:00 PM, [address] [facility] , [place], [address], Progress Notes * Talia DARBYOB:1970 (53 yo M)Acc No.[id number]:08/01/2024 Patient: Aashish AGUILERA :1970 A ge:53 Y S ex:Male Address:[address] [place] [address] * true * Date: Generated for Sanai min/Faannabelg/eTransmitting on: 0 08/10/2024 10:46 PM PROFESSIONAL SERVICES SPECIALIST
--- OUTSIDE RECORDS SUMMARY | 2024-08-10 22:47 | XMS_ITS ---
Author Organization [facility] Address [address] [place] [address] Care Team Providers Care Vacuum Conditioner Operator Name Role Phone Дмитрий Hennessy MD Primary Care Provider Mireya Rubi DOCK SUPERVISOR Unavailable [phone] Vignesh Hoffmann MD Unavailable [phone] Active Problems Problem Noted Date Diagnosed Date [...] (12/27/2021): Added automatically from request for surgery [id number] Paresis of lower extremity (CMS/HCC) 02/24/2021 Contact with and (suspected) exposure to other communicable diseases 12/08/2020 Encounter for health-related screening Prediabetes 11/04/2020 Psychostimulant dependence in remission 11/03/19 21 Obesity with body mass index 30 or greater 11/02 Primary osteoarthritis of left hip 10/28/2020 Overview (10/28/2020): Added automatically from request for surgery [id number] Renal cyst 10/09/2020 Fatty liver 10/09/2020 Hypotension 2020 Chronic obstructive pulmonary disease 09/02/2020 Methamphetamine abuse (CMS/HCC) 08/06/2020 Obesity 08/05/2020 Overweight 08/05/2020 Ventricular tachycardia 07/30/2020 Degeneration of lumbar intervertebral disc 02/10 Hepatitis C 01/19/2020 Impaired fasting glucose 12/17/2019 Poor short-term memory 12/17/2019 Left foot drop 09/24/2019 Tobacco dependence in remission 09/24/2019 Hypertriglyceridemia 09/03/2019 Hyperlipidemia 09/03/2019 Congestive heart failure (CMS/HCC) 02/28/2016 Systolic CHF, chronic (CMS/HCC) 12/02/2010 Single implantable cardioverter-defibrillator (I CD) in situ 11/10/2010 Overview (10/28/2020): SentiOne Lumax 340 Model # [id number] SER# [id number] implanted 08-12-08 in [place] per Dr. 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 Past Plans No past plan information found. Radiation Treatments * Plan Last Treated On Elapsed Days Fractions Treated Prescribed Fraction Dose Prescribed Total Dose HEAD_NECK 06/02/2022 49 33 200 cGy 6,600 cGy Reference Point Last Treated On Elapsed Days Session Dose Total Dose [id number] 06/02/2022 49 200 cGy 6,600 cGy Lifetime Dose Tracking * Chemical Lifetime Dose Automatic Entry Manual Entr y DLP 1,807 mGycm 1,807 mGycm 0 mGycm Resolved Problems Problem Noted Date Diagnosed Date Resolved Date Oral cancer 12/02/2021 12/13/2021 Overview (12/02/2021): Added automatically from request for surgery [id number]
--- OUTSIDE RECORDS SUMMARY | 2024-08-10 22:47 | XMS_ITS | CONTINUITY OF CARE DOCUMENT ---
Author Name amanda amanda Address Unknown Organization [facility] Address [address] [place] [address] Phone [phone] Care Team Providers Care Land Measurer Name Role Phone Aguilar OWENS, Stefano Unavailable GILBERTO GEORGE MD Unavailable GILBERTO GEORGE MD Unavailable PROBLEMS Condition Status Date Provider Notes Lacunar stroke active Stefano Sheikh MD PREDIABETES active Stefano Sheikh MD Renal cyst active Stefano Sheikh MD fatty liver active Stefano Sheikh MD Diastolic CHF;did not want rpm active Stefano Sheikh MD lowest 20, no cad, canont afford entresto and verquov, or inpdfa Shortness of breath completed - Stefano Sheikh MD RBBB active Stefano Sheikh MD Pulmonary nodules active Stefano Sheikh MD Renal disease, chronic, mild completed 10/10/06 - Stefano Sheikh MD Ventricular tachycardia, unspecified active Stefano Sheikh MD Sinus tachycardia completed - Stefano Sheikh MD Erectile dysfunction active Shiela Parada NP S/P ICD Gen change [employer] 10/22/13 ( NOT MRI SAFE/ [employer]otronik Lead) active Stefano Sheikh MD Depression, chronic active Stefano Sheikh MD Arthritis of hip active Stefano Sheikh MD Pre op cardiovascular exam completed 12/14 - Stefano Sheikh MD covid 19;22 after vaccine active Stefano swenson MD Tongue cancer active Shiela Parada [employer]INE[employer] 2021 Exposure to SARS-associated coronavirus;had vaccine and neg swab completed - Stefano Sheikh MD Screening active Stefano Sheikh MD did not want breann socre, Hypotension completed - Stefano Sheikh MD COPD active Stefano Sheikh MD did notw atn pft Dyspnea on exertion completed - Stefano Sheikh MD Abnormal liver function tests completed 22/08/04 - Stefano Sheikh MD Methamphetamine abuse completed - Stefano Sheikh MD Overweight active Stefano Sheikh MD did not watn zeptound Mitral insufficiency, mild completed 08/05 - Stefano Sheikh MD Ventricular tachycardia completed - Stefano Sheikh MD Preop exam completed - Stefano Sheikh MD Chest pain completed - Nikolas Sernaberg Anemia, iron deficiency active Stefano duncan MD nml b12 Hepatitis C active Stefano Sheikh MD cured b y rx Hypertriglyceridemia active Misael Sanford MD Hyperlipidemia;with high crp and low lpa active Stefano Sheikh MD CAD;NEG ANGIO 07 completed - Misael Sanford MD SVT;DURING A BRAWL 05/10 active Stefano guzman MD Tobacco use chewing. Stopped smoking. active Maryann Hoffmann MITRAL VALVE PROLAPSE active - Stefano Sheikh MD CARDIOMYOPATHY completed - Stefano Sheikh MD lowest 20 no cad or ai HTN completed - Stefano Sheikh MD CARDIOMYOPATHY-10/06 ECHO SEV DECREASE GLOBAL LVF active - Stefano Sheikh MD ATRIAL FIB PAROXSMAL:AFRAID OF COUMIDIN, NML T7 active Stefano Sheikh MD ENCOUNTERS Date Type Provider Location Encounter Diag nosis - In-person encounter Office Visit Stefano Sheikh MD [facility] Hepatitis COverweightScreeningS/P ICD Gen change [employer] 10/22/13 ( NOT MRI SAFE/ [employer] Lead)Renal disease, chronic, mildSinus tachycardiaVentricular tachycardia, unspecified - In-person encounter Office Visit Coral Fernando MD [facility] - In-person encounter Office Visit Coral Fernando MD [facility] - In-person encounter Office Visit Stefano Sheikh MD [facility] - In-person encounter Office Visit Stefano Sheikh MD [facility] Diastolic CHF;did not want rpm - In-person encounter Office Visit Stefano Sheikh MD [facility] Erectile dysfunction - In-person encounter Office Visit Stefano Sheikh MD [facility] ScreeningExposure to SARS-associated coronavirus;had vaccine and neg swabcovid 19;22 after vaccine - In-person encounter Office Visit Stefano Sheikh MD [facility] Hyperlipidemia;with high crp and low lpaVentricular tachycardiaPre op cardiovascular examArthritis of hipDepression, chronic - In-person encounter Office Visit Stefano Sheikh MD [facility] Tongue cancer - In-person encounter Office Visit Stefano Sheikh MD [facility] Diastolic CHF;did not want rpmHyperlipidemia;with high crp and low lpa - In-person encounter Office Visit Stefano Sheikh MD [facility] Diastolic CHF;did not want rpmScreening - In-person encounter Office Visit Stefano Sheikh MD [facility] CARDIOMYOPATHYOverweightCOPDExposure to SARS-associated coronavirus;had vaccine and neg swabcovid 19;22 after vaccinePulmonary nodules - In-person encounter Office Visit Stefano Sheikh MD [facility] Methamphetamine abuseRBBB - In-person encounter Office Visit Stefano Sheikh MD [facility] Office - In-person encounter Office Visit Stefano Sheikh MD [facility] - In-person encounter Office Visit Stefano Sheikh MD [facility] Office - In-person encounter Office Visit Stefano Sheikh MD [facility] - In-person encounter Office Visit Stefano Sheikh MD [facility] Hepatitis CHypotensionExposure to SARS-associated coronavirus;had vaccine and neg swab - In-person encounter Office Visit Stefano Sheikh MD [facility] - In-person encounter Office Visit Juancarlos Mcduffie MD [facility] - In-person encounter Office Visit Stefano Sheikh MD [facility] Hyperlipidemia;with high crp and low lpaPreop examMitral insufficiency, mildAbnormal liver function testsDyspnea on exertionCOPD - In-person encounter Office Visit Coral Fernando MD [facility] - In-person encounter Office Visit Stefano Sheikh MD [facility] HTNHyperlipidemia;with high crp and low lpaShortness of breathAnemia, iron deficiencyOverweight - In-person encounter Office Visit Coral Fernando MD [facility] Tobacco use chewing. Stopped smoking. - In-person encounter Office Visit Misael Sanford MD [facility] Chest pain - In-person encounter Office Visit Misael Sanford MD [facility] Hepatitis C - In-person encounter Office Visit Misael Sanford MD [facility] Hypertriglyceridemia - In-person encounter Office Visit Misael Sanford MD [facility] - In-person encounter Office Visit Misael Sanford MD [facility] CARDIOMYOPATHYTobacco use chewing. Stopped smoking.CAD;NEG ANGIO 07Diastolic CHF;did not want rpm - In-person encounter Office Visit Stefano Sheikh MD [facility] HTNTobacco use chewing. Stopped smoking.SVT;DURING A BRAWL 05/10 - In-person encounter Office Visit Stefano Sheikh MD [facility] ATRIAL FIB PAROXSMAL:AFRAID OF COUMIDIN, NML T7SVT;DURING A BRAWL 05/10 - In-person encounter Office Visit Stefano Sheikh MD [facility] ATRIAL FIB PAROXSMAL:AFRAID OF COUMIDIN, NML [id number] VALVE PROLAPSETobacco use chewing. Stopped smoking. - In-person encounter Office Visit Stefano Sheikh MD [facility] CARDIOMYOPATHY-10/06 ECHO SEV DECREASE GLOBAL LVFCARDIOMYOPATHY - In-person encounter Office Visit Stefano Sheikh MD [facility] ATRIAL FIB PAROXSMAL:AFRAID OF COUMIDIN, NML T7 VITAL SIGNS Date Observation Value Provider Body Mass Index (Ratio) 29.55 kg/m2 Juan Daniel Sheikh MD blood pressure, diastolic 87 mm[Hg] Lynn Damon blood pressure, systolic 118 mm[Hg] Nazia Damon oxygen saturation, oximetry 96 % Genesis Damon pulse rate 88 /min Genesis Damon respiratory rate E&M 12 /min Genesis Damon weight E&M 206 [lb_av] [facility] [in_i] [facility] blood [facility], cuff size regular Lynn narayan Damon Body Mass Index (Ratio) 28.84 kg/m2 Patricio as Shahid blood pressure, cuff size regular Ke rri Gruenenfelder blood pressure, diastolic 84 mm[Hg] Ke rri Gruenenfelder blood pressure, systolic 130 mm[Hg] Ker ri Gruenenfelder pulse rate 98 /min Katy Gruenenfe lder oxygen saturation, oximetry 96 % Katy Gruenenfelder weight E&M 201 [lb_av] Katy Gruenenfe lder height E&M 70 [in_i] Katy Gruenenfe lder Body Mass Index (Ratio) 28.41 kg/m2 Moisés Butcher blood pressure, cuff size regular Ke rri Gruenenfelder blood pressure, diastolic 86 mm[Hg] Ke rri Gruenenfelder blood pressure, systolic 114 mm[Hg] Ker ri Gruenenfelder oxygen saturation, oximetry 95 % Katy Gruenenfelder pulse rate 99 /min Katy Gruenenfe lder weight E&M 198 [lb_av] Katy Gruenenfe lder height E&M 70 [in_i] Katy Gruenenfe lder Body Mass Index (Ratio) 28.12 kg/m2 Juan Daniel Sheikh MD blood pressure, cuff size regular Amol Garza blood pressure, diastolic 81 mm[Hg] [facility], systolic 107 mm[Hg] [facility], oximetry 95 % [facility] pulse rate 100 /min [facility] weight E&M 196 [lb_av] Mikayla [facility] height E&M 70 [in_i] Mikayla [facility] Body Mass Index (Ratio) 28.64 kg/m2 Juan Daniel Sheikh MD blood pressure, cuff size regular [facility], diastolic 84 mm[Hg] Ta [facility]El[facility] blood pressure, systolic 116 mm[Hg] Tab brennona [place] oxygen saturation, oximetry 96 % Reena [place] pulse rate 85 /min Reena [place] weight E&M 199.6 [lb_av] Reena [place] respiratory rate E&M 12 /min Reena [place] height E&M 70 [in_i] Reena [place] blood pressure, diastolic 64 mm[Hg] nkLog blood pressure, systolic 94 mm[Hg] Lenore kLog pulse rate 130 /min [facility] blood pressure, cuff size regular [facility] blood pressure, diastolic 64 mm[Hg] [facility] blood pressure, systolic 94 mm[Hg] [facility] oxygen saturation, oximetry 97 % [facility] respiratory rate E&M 14 /min Maty connorr Body Mass Index (Ratio) 27.26 kg/m2 [facility] weight in kilograms E&M 86.18 kg [facility]&M 190 [lb_av] Maty [place] height E&M 70 [in_i] Maty [place] height in centimeters E&M 177.80 cm Harley brennon Graham Body Mass Index (Ratio) 28.98 kg/m2 Juan Daniel Sheikh MD blood pressure, cuff size regular Ja rret blood pressure, diastolic 93 mm[Hg] Ja rret blood pressure, systolic 135 mm[Hg] Jar ret pulse rate 94 /min Deshaun respiratory rate E&M 12 /min oxygen saturation, oximetry 98 % weight E&M 202 [lb_av] Deshaun height E&M 70 [in_i] Deshaun y Body Mass Index (Ratio) 29.27 kg/m2 Juan Daniel Sheikh MD blood pressure, diastolic 86 mm[Hg] Any nkLogic blood pressure, systolic 118 mm[Hg] Lenore kLogic pulse rate 98 /min Deshaun blood pressure, cuff size regular Ja rret blood pressure, diastolic 86 mm[Hg] Ja rr blood pressure, systolic 118 mm[Hg] Jar respiratory rate E&M 12 /min oxygen saturation, oximetry 97 % weight E&M 204 [lb_av] Deshaun y height E&M 70 [in_i] Deshaun y Body Mass Index (Ratio) 27.98 kg/m2 Juan Daniel Sheikh MD blood pressure, cuff size regular Ke rri Gruenenfeldbalwinder blood pressure, diastolic 80 mm[Hg] Ke rri Gruenenfeldbalwinder blood pressure, systolic 140 mm[Hg] Ker ri Gruenenfeldbalwinder oxygen saturation, oximetry 96 % Katy Casealaner respiratory rate E&M 12 /min Katy ariaser pulse rate 72 /min Katy Crowley lder weight E&M 195 [lb_av] Katy Casee lder height E&M 70 [in_i] Katy Crowley lder Body Mass Index (Ratio) 26.54 kg/m2 Juan Daniel Sheikh MD weight E&M 185 [lb_av] Stefano Arora D Body Mass Index (Ratio) 29.27 kg/m2 Juan Daniel Sheikh MD blood pressure, diastolic 69 mm[Hg] Ri nestor Schneider blood pressure, systolic 118 mm[Hg] Jerson hossein Schneider blood pressure, cuff size large Ri nestor Schneider oxygen saturation, oximetry 98 % Danay Schneider pulse rate 86 /min Danay Fuentes son respiratory rate E&M 14 /min Charis Schneider weight E&M 204 [lb_av] Danay Fuentes son height E&M 70 [in_i] Danay Fuentes son Body Mass Index (Ratio) 29.41 kg/m2 Juan Daniel Sheikh MD blood pressure, diastolic 66 mm[Hg] Ca therine Delta blood pressure, systolic 111 mm[Hg] Cat herine Valders oxygen saturation, oximetry 95 % Elba Valders respiratory rate E&M 16 /min Catheri ne Delta pulse rate 85 /min Elba Delta weight E&M 205 [lb_av] Elba Delta blood pressure, cuff size regular Ca therine Valders height E&M 70 [in_i] Elba Otis Body Mass Index (Ratio) 31.85 kg/m2 Juan Daniel Sheikh MD blood pressure, diastolic 75 mm[Hg] Any nkLogic blood pressure, systolic 125 mm[Hg] Lenore kLogjareth blood pressure, diastolic 75 mm[Hg] Tamar Neal blood pressure, systolic 125 mm[Hg] Peg Neal respiratory rate E&M 18 /min Monik Neal blood pressure, cuff size regular Tamar Neal oxygen saturation, oximetry 98 % Jesse Neal pulse rate 73 /min Jesse bedoya weight E&M 222 [lb_av] Jesse bedoya height E&M 70 [in_i] Jesse bedoya Body Mass Index (Ratio) 30.13 kg/m2 Juan Daniel Sheikh MD pulse rate 74 /min Stefano Monae weight E&M 210 [lb_av] Stefano Monae blood pressure, diastolic 71 mm[Hg] Caprice Sheikh MD blood pressure, systolic 97 mm[Hg] Howard Sheikh MD Body Mass Index (Ratio) 31.13 kg/m2 Juan Daniel Sheikh MD blood pressure, cuff size regular Pa ris [place] blood pressure, diastolic 87 mm[Hg] Pa ris Oli blood pressure, systolic 132 mm[Hg] Par is [place] oxygen saturation, oximetry 98 % Elisha Oli respiratory rate E&M 18 /min Elisha H latisha pulse rate 107 /min Elisha Oli weight E&M 217 [lb_av] Elisha [place] height E&M 70 [in_i] Elisha [place] Body Mass Index (Ratio) 31.56 kg/m2 Juan Daniel Sheikh MD blood pressure, resting Yes [place] blood pressure, diastolic 70 mm[Hg] Carrie Paredes blood pressure, systolic 114 mm[Hg] She jenaro Paredes pulse rate 80 /min Deborah momin oxygen saturation, oximetry 96 % Deborah Paredes respiratory rate E&M 18 /min Wilber Paredes weight E&M 220 [lb_av] Deborah nanced height E&M 70 [in_i] Deborah momin height E&M 70 [in_i] Cordelia Pitts Body Mass Index (Ratio) 31.42 kg/m2 Juan Daniel Sheikh MD blood pressure, cuff size regular Cy nthia Rain blood pressure, diastolic 82 mm[Hg] Cy nthia Rain blood pressure, systolic 128 mm[Hg] Yris arianna Rain pulse rate 86 /min Demetrice Campbel l oxygen saturation, oximetry 95 % Demetrice Rain respiratory rate E&M 16 /min Demetrice Rain weight E&M 219 [lb_av] Demetrice Campbel l height E&M 70 [in_i] Demetrice Campbel l Body Mass Index (Ratio) 31.13 kg/m2 Juan Daniel Sheikh MD blood pressure, cuff size large Ke rri Shengnesara blood pressure, diastolic 80 mm[Hg] Ke rri Rohithuenenfeldbalwinder blood pressure, systolic 140 mm[Hg] Ting Roche oxygen saturation, oximetry 97 % Katy Roche respiratory rate E&M 16 /min Katy G ruenenfelder pulse rate 100 /min Katy Gruenenfe lder weight E&M 217 [lb_av] Ktay Gruenenfe lder height E&M 70 [in_i] Katy Gruenenfe lder Body Mass Index (Ratio) 31.13 kg/m2 Hugh Mcduffie MD blood pressure, cuff size large Ke rri Gruenenfelder blood pressure, diastolic 60 mm[Hg] Ke rri Gruenenfelder blood pressure, systolic 96 mm[Hg] Ker ri Gruenenfelder oxygen saturation, oximetry 99 % Katy Gruenenfelder respiratory rate E&M 16 /min Katy G ruenenfelder pulse rate 78 /min Katy Gruenenfe lder weight E&M 217 [lb_av] Katy Gruenenfe lder height E&M 70 [in_i] Katy Gruenenfe lder Body Mass Index (Ratio) 32.14 kg/m2 Juan Daniel Sheikh MD blood pressure, cuff size large Ke rri Gruenenfelder blood pressure, diastolic 80 mm[Hg] Ke rri Gruenenfelder blood pressure, systolic 130 mm[Hg] Ker ri Gruenenfelder oxygen saturation, oximetry 96 % Katy Gruenenfelder respiratory rate E&M 16 /min Katy G ruenenfelder pulse rate 86 /min Katy Gruenenfe lder weight E&M 224 [lb_av] Katy Gruenenfe lder height E&M 70 [in_i] Katy Gruenenfe lder Body Mass Index (Ratio) 32.28 kg/m2 Juan Daniel Sheikh MD blood pressure, cuff size large Ke rri Gruenenfelder blood pressure, diastolic 70 mm[Hg] Ke rri Gruenenfelder blood pressure, systolic 104 mm[Hg] Ting ri Gruenenfelder oxygen saturation, oximetry 96 % Katy Gruenenfelder respiratory rate E&M 16 /min Katy G ruenenfelder pulse rate 114 /min Katy Gruenenfe [facility] weight E&M 225 [lb_av] Katy Gruenenfe [facility] height E&M 70 [in_i] Katy Gruenenfe [facility] Body Mass Index (Ratio) 31.99 kg/m2 Taraleigh anna marie Hoffmann blood pressure, cuff size large Ke rri Gruenenfelder blood pressure, diastolic 80 mm[Hg] Ke rri Gruenenfelder blood pressure, systolic 102 mm[Hg] Ker ri Gruenenfelder oxygen saturation, oximetry 97 % Katy Grueneyolandaelder respiratory rate E&M 16 /min Katy G ruenenfelder pulse rate 94 /min Katy Grrolannenfe [facility] weight E&M 223 [lb_av] Katy Gruenenfe [facility] height E&M 70 [in_i] Katy Gruenenfe [facility] Body Mass Index (Ratio) 31.42 kg/m2 Leocnio Johnson blood pressure, resting Yes Leoncio Johnson blood pressure, cuff size regular Durga Garza RN blood pressure, diastolic 74 mm[Hg] Durga Garza RN blood pressure, systolic 101 mm[Hg] Tanner Garza RN oxygen saturation, oximetry 97 % Tanner Garza RN respiratory rate E&M 20 /min Tanner Mckeon jenny RN pulse rate 102 /min Tanner Garza RN weight E&M 219 [lb_av] Tanner Garza RN Body Mass Index (Ratio) 29.70 kg/m2 Leoncio Sernaberg blood pressure, diastolic, left arm 81 mm [Hg] Tonsha Valle blood pressure, systolic, left arm 117 mm [Hg] Tonsha Valle blood pressure, diastolic, right arm 75 m m[Hg] Tonsha Valle blood pressure, systolic, right arm 114 m m[Hg] Tonsha Valle blood pressure, diastolic 81 mm[Hg] To nsha Valle blood pressure, systolic 117 mm[Hg] Ton sha Valle oxygen saturation, oximetry 98 % Tonsha Valle respiratory rate E&M 18 /min Tonsha Valle pulse rate 93 /min Tonsha Valle weight E&M 207 [lb_av] Tonsha Valle height E&M 70 [in_i] Tonsha Valle Body Mass Index (Ratio) 30.56 kg/m2 Leoncio grullon [facility] blood pressure, diastolic, left arm 81 mm [Hg] Tonsha Valle blood pressure, systolic, left arm 118 mm [Hg] Tonsha Valle blood pressure, diastolic, right arm 79 m m[Hg] Tonsha Valle blood pressure, systolic, right arm 113 m m[Hg] Tonsha Valle blood pressure, diastolic 81 mm[Hg] To nsha Valle blood pressure, systolic 118 mm[Hg] Ton sha Valle oxygen saturation, oximetry 97 % Tonsha Valle respiratory rate E&M 16 /min Tonsha Valle pulse rate 90 /min Tonsha Valle weight E&M 213 [lb_av] Tonsha Valle height E&M 70 [in_i] Tonsha Valle Body Mass Index (Ratio) 3.64 kg/m2 Alfredo Maguirejay blood pressure, diastolic, left arm 86 mm [Hg] [facility] blood pressure, systolic, left arm 130 mm [Hg] [facility] blood pressure, diastolic, right arm 89 m m[Hg] [facility] blood pressure, systolic, right arm 117 m m[Hg] [facility] blood pressure, diastolic 86 mm[Hg] To [facility] blood pressure, systolic 130 mm[Hg] Ton [facility] oxygen saturation, oximetry 97 % [facility] respiratory rate E&M 18 /min [facility] pulse rate 76 /min [facility] weight E&M 25.38 [lb_av] [facility] blood pressure, resting Yes [facility] height E&M 70 [in_i] [facility] blood pressure, diastolic 64 mm[Hg] Tawnya Martinezshaun Tong blood pressure, systolic 104 mm[Hg] Amelia Albameenu Tong pulse rate 89 /min Jamey kwan oxygen saturation, oximetry 98 % Jamey Tong respiratory rate E&M 16 /min Marc Tong Body Mass Index (Ratio) 27.86 kg/m2 Reena Tong weight E&M 194.2 [lb_av] Jamey barajas height E&M 70 [in_i] Jamey kwan blood pressure, diastolic, left arm 68 mm [Hg] Tanner Garza RN blood pressure, systolic, left arm 124 mm [Hg] Tanner Garza RN blood pressure, diastolic, right arm 65 m m[Hg] Tanner Garza RN blood pressure, systolic, right arm 118 m m[Hg] Tanner Garza RN blood pressure, diastolic 68 mm[Hg] Durga Garza RN blood pressure, systolic 124 mm[Hg] Tanner Sorensons RN pulse rate 72 /min Tanner Sorensons RN oxygen saturation, oximetry 97 % Tanner Sorensons RN respiratory rate E&M 18 /min Tanner Linda alvarado RN weight E&M 176 [lb_av] Tanner Garza RN blood pressure, diastolic, left arm 71 mm [Hg] Lázaro [place] blood pressure, systolic, left arm 105 mm [Hg] Lázaro [place] blood pressure, diastolic, right arm 65 m m[Hg] Lázaro [place] blood pressure, systolic, right arm 100 m m[Hg] Lázaro [place] blood pressure, diastolic 65 mm[Hg] Ramona seph [place] blood pressure, systolic 100 mm[Hg] Masoud eph [place] pulse rate 87 /min Lázaro [place] oxygen saturation, oximetry 98 % Lázaro [place] respiratory rate E&M 16 /min Lázaro [place] weight E&M 177 [lb_av] Lázaro [place] blood pressure, diastolic 84 mm[Hg] Iam Hauseron blood pressure, systolic 113 mm[Hg] Sandra Hauseron pulse rate 94 /min Yvrose Jimenez oxygen saturation, oximetry 99 % Yvrose Jimenez respiratory rate E&M 16 /min Yvrose D ixon weight E&M 171 [lb_av] Yvrose Jimenez blood pressure, diastolic 68 mm[Hg] Ramona seph [place] blood pressure, systolic 110 mm[Hg] Masoud eph [place] pulse rate 84 /min Lázaro [place] oxygen saturation, oximetry 98 % Lázaro [place] respiratory rate E&M 16 /min Lázaro [place] weight E&M 175 [lb_av] Lázaro [place] blood pressure, diastolic 86 mm[Hg] Ramona seph [place] blood pressure, systolic 102 mm[Hg] Masoud samaniego [facility] pulse rate 60 /min [facility] oxygen saturation, oximetry 96 % [facility] respiratory rate E&M 16 /min [facility] weight E&M 183 [lb_av] [facility] ALLERGIES No Known Drug Allergies RESULTS Date Observation Value Provider Reference Range Interpretation Location c-reactive protein, quantitative, serum 5.96 mg/L [facility] 0.00-3.00 High lipoprotein, beta, serum, point, quantitative, calculated 134 mg/dL [facility] 0-99 High HDL cholesterol, serum 36 mg/dL [facility] >39 Low triglyceride, serum, random 254 mg/dL [facility] 0-149 High cholesterol, serum 216 mg/dL [facility] 100-199 High c-reactive protein, quantitative, serum 3.36 mg/L [facility] 0.00-3.00 High pro brain natriuretic peptide 103 pg/mL [facility] 0-121 free thyroxine index 2.3 [facility] 1.2-4.9 triiodothyronine resin uptake 22 % [facility] 24-39 Low thyroxine, serum, total 10.3 ug/dL [facility] 4.5-12.0 thyroid stimulating hormone, serum 1.190 u[IU]/mL [facility] 0.450-4.500 lipoprotein, beta, serum, point, quantitative, calculated 90 mg/dL [facility] 0-99 HDL cholesterol, serum 36 mg/dL [facility] >39 Low triglyceride, serum, random 185 mg/dL [facility] 0-149 High cholesterol, serum 158 mg/dL [facility] [phone]/01/ 30 platelet count 329 X10E3/UL [facility] 091-222 7861/01/ 30 red blood cell distribution width 12.2 % [facility] 11.6-15.4 mean corpuscular hemoglobin concentration, RBC 34.7 G/DL [facility] 31.5-35.7 mean corpuscular hemoglobin, RBC 32.2 pg [facility] 26.6-33.0 mean corpuscular volume, RBC 93 fL [facility] 79-97 hematocrit, blood 42.6 % [facility] 37.5-51.0 hemoglobin, blood 14.8 g/dL [facility] 13.0-17.7 erythrocyte (RBC) count 4.59 X10E6/UL [facility] 4.14-5.80 leukocyte count, blood 5.8 X10E3/UL [facility] 3.4-10.8 alanine aminotransferase (SGPT), serum 74 1/L [facility] 0-44 High aspartate aminotransferase (SGOT), serum 72 1/L [facility] 0-40 High alkaline phosphatase, serum 96 1/L [facility] 39-117 bilirubin, serum, total 0.8 mg/dL [facility] 0.0-1.2 albumin/globulin ratio, serum 1.3 [facility] 1.2-2.2 globulin, serum 3.6 [facility] 1.5-4.5 albumin, serum 4.5 g/dL [facility] 4.0-5.0 protein, total, serum 8.1 g/dL [facility] 6.0-8.5 calcium, serum 10.0 mg/dL [facility] 8.7-10.2 carbon dioxide, venous blood 25 mmol/L [facility] 20-29 chloride, serum 101 mmol/L [facility] 96-106 potassium, serum 5.2 mmol/L [facility] 3.5-5.2 sodium, serum 142 mmol/L [facility] [phone]/01/ 30 urea nitrogen/creatinine ratio, serum 9 [facility] e[facility] if 62 mL/min/{1 .73_m2} [facility] e[facility] if not 54 mL/min/{1 .73_m2} [facility]59 Low creatinine, serum 1.51 mg/dL Link[facility] 0.76-1.27 High urea nitrogen, blood 14 mg/dL [facility] 6-24 blood glucose, random 57 mg/dL [facility] 65-99 Low ferritin, serum 612 ng/mL [facility] 30-400 High pro brain natriuretic peptide 187 pg/mL [facility] 0-121 High iron saturation percent, serum 43 % [facility] 15-55 iron, serum 191 ug/dL [facility] 38-169 High iron binding capacity, unsaturated 250 ug/dL [facility] [phone]/07/ 25 iron binding capacity, total 441 ug/dL [facility] [phone]/06/ 16 LDL cholesterol, serum 75 mg/dL [facility] LDL cholesterol, serum 94 mg/dL [facility] lipoprotein, beta, serum, point, quantitative, calculated 94 mg/dL [facility] 0-99 very low density lipoproteins 52 mg/dL [facility] 5-40 High [facility], [facility] Low triglyceride, serum, random 258 mg/dL [facility] 0-149 High cholesterol, serum 181 mg/dL [facility] [phone]/02/ 29 LDL cholesterol, serum 103 mg/dL [facility] pro brain natriuretic peptide 104 pg/mL [facility] 0-121 digoxin level, serum 1.7 ng/mL [facility] 0.5-0.9 High lipoprotein, beta, serum, point, quantitative, calculated 103 mg/dL [facility] 0-99 High very low density lipoproteins 28 mg/dL [facility] 5-40 HDL cholesterol, serum 32 mg/dL [facility] >39 Low triglyceride, serum, random 138 mg/dL [facility] 0-149 cholesterol, serum 163 mg/dL [facility] [phone]/02/ 29 basophil count, absolute 0.0 x10E3/uL [facility] 0.0-0.2 Eosinophil Absolute Count 0.2 X10E3/UL [facility] 0.0-0.4 monocyte count, blood, automated 0.9 X10E3/UL [facility] 0.1-0.9 lymphocyte count, blood, automated 2.6 X10E3/UL [facility] 0.7-3.1 Absolute Neutrophils 4.8 X10E3/UL [facility] 1.4-7.0 basophils as percent of blood leukocytes 1 % [facility] Not Estab. eosinophils as percent of blood leukocytes 2 % [facility] Not Estab. monocytes as percent of blood leukocytes 11 % [facility] Not Estab. lymphocytes as percent of blood leukocytes 30 % [facility] Not Estab. neutrophils as percent of blood leukocytes 56 % [facility] Not Estab. platelet count 312 X10E3/UL [facility] [phone]/02/ 29 red blood cell distribution width 12.6 % [facility] 11.6-15.4 mean corpuscular hemoglobin concentration, RBC 34.4 G/DL [facility] 31.5-35.7 mean corpuscular hemoglobin, RBC 31.3 pg [facility] 26.6-33.0 mean corpuscular volume, RBC 91 fL [facility] 79-97 hematocrit, blood 41.0 % [facility] 37.5-51.0 hemoglobin, blood 14.1 g/dL [facility] 13.0-17.7 erythrocyte (RBC) count 4.51 X10E6/UL [facility] 4.14-5.80 leukocyte count, blood 8.5 X10E3/UL [facility] 3.4-10.8 HISTORY OF MEDICATION USE Medication Status Instructions Dates Provider Indications Com ments omeprazole 20 mg capsule,delayed release(/EC) active TAKE 1 CAPSULE BY MOUTH EVERY DAY Sherrie Dowell Altace 1.25 mg capsule completed 1 capsule by mouth once a day - Stefano Sheikh MD Jardiance 10 mg tablet completed TAKE 1 TABLET BY MOUTH DAILY - Stefano Sheikh MD magnesium oxide 400 mg magnesium tablet active Take 1 tablet by mouth twice a day Moisés Butcher carvedilol 3.125 mg tablet active TAKE 1 TABLET BY MOUTH TWICE DAILY Moisés Butcher carvedilol 12.5 mg tablet completed TAKE 1 TABLET BY MOUTH TWICE DAILY - Moisés Butcher gemfibrozil 600 mg tablet active TAKE 1 TABLET BY MOUTH TWICE DAILY Carina Biswas Coreg 12.5 mg tablet completed Take 1/2 tablet by mouth twice a day - Tanner Garza RN lamotrigine 100 mg tablet completed - Moisés Butcher olanzapine 15 mg tablet active Mela Ventimiglia [employer] chlorpromazine 50 mg tablet active take one tab PO BID Reena Graham FeroSul 325 mg (65 mg iron) tablet active TAKE 1 TABLET BY MOUTH EVERY DAY Stefano Sheikh MD Cialis 20 mg tablet active TAKE 1 TABLET BY MOUTH DAILY Stefano Sheikh MD Coreg 12.5 mg tablet completed Take 1 tablet by mouth twice a day - Mela SALASP Inpefa 200 mg tablet completed Take 1 tablet by mouth once a day - Tanner Garza RN Cialis 5 mg tablet completed TAKE 1 TABLET BY MOUTH DAILY - Stefano Sheikh MD Coreg 12.5 mg tablet completed Take 1 tablet by mouth twice a day - Stefano Sheikh MD Invega Sustenna 156 mg/mL syringe active Shiela Parada NP duloxetine 60 mg capsule,delayed release(DR/EC) active Shiela Parada NP aspirin 81 mg tablet,delayed release (DR/EC) completed Take 1 tablet by mouth once daily - Mela Shaikh [employer] Lopid 600 mg tablet completed 1 tablet by mouth twice a day - Carina Biswas hydrocodone-aceta minophen 5-325 mg tablet completed TAKE 1 TO 2 TABLETS BY MOUTH EVERY 4 TO 6 HOURS NEEDED FOR PAIN - Stefano Sheikh MD rosuvastatin 20 mg tablet completed Take 1 tablet by mouth every evening TAKE 1 TABLET BY MOUTH EVERY DAY - Stefano Sheikh MD carvedilol 25 mg tablet completed TAKE 1 TABLET BY MOUTH AT BEDTIME - Stefano Sheikh MD rosuvastatin 20 mg tablet completed TAKE 1 TABLET BY MOUTH EVERY DAY - Shiela Parada NP Verquvo 10 mg tablet completed Take 1 tablet by mouth once a day TAKE 1 TABLET BY MOUTH DAILY - Sherrie Dowell Verquvo 10 mg tablet completed TAKE 1 TABLET BY MOUTH DAILY - Sisi Burdick simvastatin 40 mg tablet completed tablet once a day - Stefano Sheikh MD Zocor 40 mg tablet completed TAKE 1 TABLET BY MOUTH ONCE A DAY - Stefano Sheikh MD Corlanor 5 mg tablet completed TAKE 1 TABLET BY MOUTH TWICE DAILY - Stefano Sheikh MD digoxin 125 mcg (0.125 mg) tablet completed TAKE 1 TABLET BY MOUTH EVERY DAY - Moisés Butcher bupropion HCl 150 mg tablet extended release 24 hr completed TAKE 1 TABLET BY MOUTH EVERY DAY - Shiela Parada NP cyclobenzaprine 10 mg tablet completed TAKE 1 TABLET BY MOUTH UP TO THREE TIMES DAILY NEEDED - Stefano Sheikh MD trazodone 100 mg tablet completed TAKE 1 TABLET BY MOUTH AT BEDTIME - Stefano Sheikh MD lamotrigine 100 mg tablet active TAKE 1 TABLET BY MOUTH EVERY DAY Stefano Sheikh MD omeprazole 20 mg capsule,delayed release(DR/EC) completed TAKE 1 CAPSULE BY MOUTH EVERY DAY DIRECTED - Sherrie Dowell olanzapine 5 mg tablet completed - Shiela Parada NP Crestor 20 mg tablet completed TAKE 1 TABLET BY MOUTH EVERY DAY - Stefano Sheikh MD Entresto 49-51 mg tablet completed TAKE 1 TABLET TWICE A DAY - Stefano Sheikh MD Farxiga 10 mg tablet completed TAKE 1 TABLET BY MOUTH ONCE A DAY DIRECTED (REDUCES CARDIOVASCULAR AND HEART FAILURE HOSPITALIZATIONS ) - Stefano Sheikh MD magnesium oxide 400 mg (241.3 mg magnesium) tablet completed TAKE 1 TABLET BY MOUTH TWICE DAILY - Stefano Sheikh MD Verquvo 10 mg tablet completed Take 1 tablet by mouth once a day - Stefano Sheikh MD Crestor 20 mg tablet completed 1 tablet by mouth once a day - Stefano Sheikh MD Verquvo 10 mg tablet completed not paid by insurance, can't afford - Karmen Suazo NP Corlanor 5 mg tablet completed 1 tablet by mouth twice a day - Katy Roche refill sent per faxed request from pharmacy Entresto 49-51 mg tablet completed 1 tablet by mouth twice a day - Stefano Sheikh MD spironolactone 25 mg tablet completed Take 1 tablet by mouth once a day - Stefano Sheikh MD Farxiga 10 mg tablet completed 1 tablet by mouth once a day - Stefano Sheikh MD SPIRONOLACTONE 25 MG ORAL TABLET completed ONE TAB. DAILY - Katy Roche magnesium oxide 400 mg (241.3 mg magnesium) tablet completed 1 tablet by mouth twice a day - Maryann Shun digoxin 125 mcg (0.125 mg) tablet completed Take 1 tablet by mouth once a day - Elba Sorenson ATORVASTATIN CALCIUM 40 MG ORAL TABLET completed one tab daily - Coral Fernando MD TRAZODONE HCL TABLET completed one pill at bedtime - Katy Roche cyclobenzaprine 10 mg tablet completed Take 1 tablet by mouth as needed - Tanner Garza RN LOPID 600 MG ORAL TABLET completed one tab twice daily - Katy Roche Lamictal XR 100 mg tablet extended release 24hr completed tablet by mouth once a day - Tanner Garza RN buspirone 15 mg tablet active 1 tablet by mouth twice a day Tanner Garza RN CORLANOR 5 MG ORAL TABLET completed one tab by mouth twice daily - Katy Roche DIGOXIN 250 MCG ORAL TABLET completed one tab daily - Tonsha Valle LISINOPRIL 5 MG ORAL TABLET completed ONE TAB. DAILY - Stefano Sheikh MD Coreg 25 mg tablet completed 1/2 tablet by mouth at bedtime - Meseret Griffith WELLBUTRIN TABLET completed 100mg one tab. three times daily - Lázaro Young ATENOLOL 25 MG ORAL TABLET completed ONE TAB. TWICE DAILY - Lázaro Young LISINOPRIL 5 MG ORAL TABLET completed ONE TAB. DAILY - Lázaro Young ASPIRIN ADULT LOW DOSE 81 MG ORAL TABLET DELAYED RELEASE completed One Tab By Mouth Daily - Stefano Sheikh MD SOCIAL HISTORY Date Observation Value Provider personal history of marijuana use no Stefano Sheikh MD drug use no Stefano Monae alcohol use no Stefano Monae smoking/tobacco cess ation, patient education and counseling yes Stefano Sheikh MD chewing tobacco use Current Stefano reza MD smoking status Former smoker Stefano duncan MD personal history of marijuana use no Gomez Lutzty drug use no Gomez Key alcohol use no Gomez Key smoking/tobacco cess ation, patient education and counseling yes Gomez Key chewing tobacco use Current Gomez soriabrent smoking status Former smoker Gomez Phan y personal history of marijuana use no Moisés Astudillozai drug use no Moisés Wellsmedzai alcohol use no Moisés Ahmedzai smoking/tobacco cess ation, patient education and counseling yes Moisés Astudillozai chewing tobacco use Current Moisés Wellstod hebertzaimelda smoking status Former smoker Moisés Astudilloza i personal history of marijuana use no Tanner Garza RN drug use no Tanner Garza RN alcohol use no Tanner Garza RN smoking/tobacco cess ation, patient education and counseling yes Tanner Garza RN chewing tobacco use Current Tanner aranda RN smoking status Former smoker Tanner Johnson N personal history of marijuana use no Mela Ventimiglia [facility] drug use no Mela Ventimig adams [employer] alcohol use no Mela Ventimig adams [employer] smoking/tobacco cess ation, patient education and counseling yes Mela Ventimiglia [facility] chewing tobacco use Current Mela avelargljose [facility] smoking status Former smoker Mela mckenzie [facility] personal history of marijuana use no Shiela Henrykings [employer] drug use no [facility] alcohol use no [facility] smoking/tobacco cess ation, patient education and counseling yes [facility] chewing tobacco use Current [facility] smoking status Former smoker [facility] drug use yes Stefano Monae alcohol use no Stefano Monae smoking/tobacco cess ation, patient education and counseling yes Stefano Sheikh MD chewing tobacco use Current Stefano reza MD smoking status Former smoker Stefano duncan MD quit smoking, stage quit Stefano reza MD social history reviewed E&M revi ewed - no changes required Stefano Sheikh MD social history reviewed E&M revi ewed - no changes required Shiela Parada NP social history E&M Marital Statu s: Single L josias with family/friends E thnicity: Smoking History: P atberonica is a former smoker. Shiela Parada NP alcohol use no Shiela Parada NP smoking status Former smoker Phunatasha Alfredito farnsworth NP social history reviewed E&M revi ewed - no changes required Stefano Sheihk MD social history E&M Marital Statu s: Single L josias with family/friends E thnicity: Smoking History: P atient is a former smoker. Stefano Sheikh MD social history reviewed E&M revi ewed - no changes required Stefano Sheikh MD Exercise counseling yes Danay Schneider caffeine use, averag e drinks per day yes Danay Schneider chewing tobacco use Current Danay Schneider smoking status Former smoker Danay cline social history E&M Marital Statu s: Single L josias with family/friends E thnicity: Smoking History: P tiera is a former smoker. Stefano Sheikh MD social history reviewed E&M revi ewed - no changes required Stefano Sheikh MD caffeine use, averag e drinks per day yes Elba Valders chewing tobacco use Current [place] smoking status Former smoker Elba Ot is social history reviewed E&M revi ewed - no changes required Stefano Sheikh MD Exercise counseling yes Deejay Neal social history reviewed E&M revi ewed - no changes required Stefano Sheikh MD smoking/tobacco cess ation, patient education and counseling yes Karmen Suazo NP caffeine use, averag e drinks per day yes Elisha Baird chewing tobacco use Current Elisha bangura smoking status Former smoker Elisha Barid social history reviewed E&M revi ewed - no changes required Pema Luis NP caffeine use, averag e drinks per day yes Deborah Paredes chewing tobacco use Current [place] caprice Paredes smoking status Former smoker Deborah David daniel caffeine use, averag e drinks per day yes Cordelia O'Flavio smoking/tobacco cess ation, patient education and counseling yes Cordelia O'Flavio chewing tobacco use Current Cordelia O 'Flavio smoking status Former smoker Cordelia Storm'Yamilka casandra social history E&M Marital Statu s: Single L josias with family/friends E thnicity: Smoking History: Juanis mott is a former smoker. Stefano Sheikh MD social history reviewed E&M revi ewed - no changes required Stefano Sheikh MD quit smoking, stage quit Stefano reza MD caffeine use, averag e drinks per day yes [place] Rain chewing tobacco use Current Demetrice Rain smoking status Former smoker Demetrice Major andres number of grandchildren Stefano Luis NP social history reviewed E&M revi ewed - no changes required Pema Luis NP caffeine use, averag e drinks per day yes Katy Kaley chewing tobacco use Current Katy Gr kadienenfhany smoking status Former smoker Katy Perkins nfelder number of grandchildren Juancarlos Mcduffie MD drug use yes Juancarlos Mcduffie MD social history E&M Marital Statu s: Single L josias with family/friends E thnicity: Smoking History: P atient is a former smoker. Juancarlos Mcduffie MD social history reviewed E&M revi ewed - no changes required Juancalros Mcduffie MD caffeine use, averag e drinks per day yes Katy Kaley chewing tobacco use Current Katy Gr kadienenfhany smoking status Former smoker Katy Perkins nfelder social history E&M Marital Statu s: Single L josias with family/friends E thnicity: Smoking History: P atient is a former smoker. Stefano Sheikh MD social history reviewed E&M revi ewed - no changes required Stefano Sheikh MD caffeine use, averag e drinks per day yes Katy Shengnesara chewing tobacco use Current Katy Gr kadienenfhany smoking status Former smoker Katy Maddie nfelder number of grandchildren Coral Hoffmann caffeine use, averag e drinks per day yes Maryann Shun chewing tobacco use Current Maryann Casandra sweet smoking status Former smoker Maryann Shun social history reviewed E&M revi ewed - no changes required Ayazraleighanna marie Hoffmann quit smoking, stage quit Stefano reza MD drug use yes Katy Crowley lder chewing tobacco use Current Katy ortegaer social history E&M Marital Statu s: Single L josias with family/friends E thnicity: Smoking History: P tiera is a former smoker. Maryann Hoffmann social history reviewed E&M revi ewed - no changes required Maryann Hoffmann caffeine use, averag e drinks per day yes Katy Caseeldbalwinder chewing tobacco use Current Katy saavedra smoking status Former smoker Katy Perkins nfelder caffeine use, averag e drinks per day yes Nikolas Johnson smoking/tobacco cess ation, patient education and counseling yes Nikolas Johnson chewing tobacco use Current Elda Johnson smoking status Former smoker Nikolas phelps social history reviewed E&M revi ewed - no changes required Nikolas Johnson social history reviewed E&M revi ewed - no changes required Nikolas Johnson caffeine use, averag e drinks per day yes Tonsha Valle chewing tobacco use Current Tonsha M oss smoking status Former smoker Tonsha Valle social history reviewed E&M revi ewed - no changes required Nikolas Johnson social history E&M Marital Statu s: Single L josias with family/friends E thnicity: Smoking History: P atberonica is a former smoker. Nikolas Johnson Underweight no Nikolas gomez caffeine use, averag e drinks per day yes Tonsha Valle chewing tobacco use Current Tonsha M oss smoking status Former smoker Tonsha Valle Underweight yes Julio russell social history E&M Marital Statu s: Single L josias with family/friends E thnicity: S moking History: S moking History: Juanis mott is a former smoker. Misael Sanford MD social history reviewed E&M revimelda ewed - no changes required Misael Sanford MD number of grandchildren Misael Sanford MD caffeine use, averag e drinks per day yes Tonsha Valle chewing tobacco use Current Tonsha M oss smoking status Former smoker Tonsha Valle social history reviewed E&M yemi storeyed - no changes required Misael Sanford MD social history E&M Marital Statu s: Single L josias with family/friends E thnicity: Smoking History: Patient is a former smoker. Misael Sanford MD chewing tobacco use Current Yossi Tong alcohol use, average drinks per day social basis only Jamey Tong caffeine use, averag e drinks per day yes Jamey Tong smoking status Former smoker Misael Sanford MD quit smoking, stage quit Stefano reza MD social history reviewed E&M reviewed Stefano Sheikh MD smoking/tobacco cess ation, patient education and counseling yes Tanner Garza RN social history reviewed E&M reviewed Tanner Garza RN smoking/tobacco cess ation, patient education and counseling yes Stefano Sheikh MD social history reviewed E&M reviewed Stefano Sheikh MD social history reviewed E&M reviewed Tanner Garza RN social history E&M Marital Statu s: Single L josias with family/friends E thnicity: Tanner Garza RN social history reviewed E&M reviewed Tanner Garza RN caffeine use, averag e drinks per day yes [facility] alcohol use, average drinks per day social basis only [facility] number of years as a smoker 10 years or m ore [facility] smoking status Quit [facility] MENTAL STATUS Date Observation Value Provider assessment of judgme nt and insight E&M Alert and oriented to time, place and person. Mood and affect are normal. Stefano Sheikh MD assessment of judgme nt and insight E&M Alert and oriented to time, place and person. Mood and affect are normal. Tanner Garza RN assessment of judgme nt and insight E&M Alert and oriented to time, place and person. Mood and affect are normal. Stefano Sheikh MD assessment of judgme nt and insight E&M Alert and oriented to time, place and person. Mood and affect are normal. Tanner Garza RN assessment of judgme nt and insight E&M Alert and oriented to time, place and person. Mood and affect are normal. Tanner Garza RN FAMILY HISTORY Family Member Condition Mother Family History of Hy pertension: Mother Family History of Hy pertension: Mother Family History of Hy pertension: Father Family History of Co ronary Artery Disease: INSURANCE PROVIDERS Payer name Policy type / Coverage type [place] republic[employer] [place] [employer] MED[place] Medicaid [id number] ADVANCE DIRECTIVES Name Date DISCUSSED - NO DECISION MADE TREATMENT PLAN Date Name Performer [id number],C,elevated lft Stefano Sheikh MD [id number],C,5.8 Stefano aguirre MD [id number],B, h ad surgery and rad rx Stefano Sheikh MD [id number],C,stable Stefano Sheikh MD [id number],S, p ro 103, ef 55% Stefano Sheikh MD [id number],S, L ast A1c 5.9. Will recheck A1c. Stefano Sheikh MD [id number],B, Stefano duncan MD [id number],S, Stefanoriley Olivares dakota OWENS [id number],B, Stefanoriley Olivares dakota OWENS [id number],S, e fgr 85 n eg carotid n eg b 12 n eg rpr, nml d n eg vd n ormal coronaries cath 2008 Stefano Sheikh MD [id number],S, Stefano duncan MD [id number],S, Stefano Marshall duncan MD [id number],S, N ormal functioning v vi 40 Stefano Sheikh MD [id number],SJuan Danieley Marshall duncan MD [id number],C,P atient is set to get L hip replacement. He is cleared for [facility] surgery. Phunatasha Tal SILVA [id number],C,P atient states strugglin to quit tobacco chewing T he patient is between 55-77 years old and has smoked at least 30 pack years. The patient is either a current smoker or has quit within the past 15 years. T he patient is between 55-77 years old and has smoked at least 30 pack years. The patient is either a current smoker or has quit within the past 15 years. Shiela Parada NP [id number],C,S sanam for low dose CT lung this weeekend at [place]. Shiela Parada NP [id number],C, L ast A1c 5.9. Will recheck A1c. Shiela Parada NP [id number],C, H is updated medication list for this problem includes: Rosuvastatin 20 Mg Tablet (Rosuvastatin) ..... Take 1 tablet by mouth every day Shiela Parada NP [id number],C, H is updated medication list for this problem includes: Digoxin 125 Mcg (0.125 Mg) Tablet (Digoxin) ..... Take 1 tablet by mouth every day Carvedilol 25 Mg Tablet (Carvedilol) ..... Take 1 tablet by mouth at bedtime Shiela Parada RICARDO [id number],C,Normal functi oning Shiela Parada RICARDO [id number],C, p ro 103, ef 55% H ad repeat echo today. Will follow up on results. H is updated medication list for this problem includes: Carvedilol 25 Mg Tablet (Carvedilol) ..... Take 1 tablet by mouth at bedtime Digoxin 125 Mcg (0.125 Mg) Tablet (Digoxin) ..... Take 1 tablet by mouth every day Shiela Henrykings SILVA [id number],S, Stefano duncan MD [id number],S, Stefano duncan MD [id number],S, T he patient is between 55-77 years old and has smoked at least 30 pack years. The patient is either a current smoker or has quit within the past 15 years. T he patient is recommended to have low dose CT scan for lung cancer screening. Has been counseled regarding the importance of tobacco cessation and abstinence. Shared decision making during this office visit included discussion of the benefits and harms of screening, possible future recommendations of follow-up diagnostic testing, and total amount of radiation exposure. The patient was recommended to have annual low dose CT scan for lung cancer screening and is willing to undergo diagnosis and treatment. Stefano Sheikh MD [id number],S, h ad surgery and rad rx Stefano Sheikh MD [id number],S, Stefano duncan MD [id number],S, 5 .9 Stefano Sheikh MD [id number],B, Stefano duncan MD [id number],S, H is updated medication list for this problem includes: Simvastatin 40 Mg Tablet (Simvastatin) C HOL: 216 (01/14/2021) HDL: 36 (01/14/2021) Stefano Sheikh MD [id number],S, p ro 103, ef 55% Stefano Sheikh MD [id number],S,e fgr 84 n eg carotid n eg b 12 n eg rpr, nml d n eg vd n ormal coronaries cath 2008 Stefano Sheikh MD [id number],S, w as shocked severl jaleesa n ot pacing vvi Stefano Sheikh MD [id number],B, Stefano Sheikh MD [id number],S, T he patient is between 55-77 years old and has smoked at least 30 pack years. The patient is either a current smoker or has quit within the past 15 years. T he patient is recommended to have low dose CT scan for lung cancer screening. Has been counseled regarding the importance of tobacco cessation and abstinence. Shared decision making during this office visit included discussion of the benefits and harms of screening, possible future recommendations of follow-up diagnostic testing, and total amount of radiation exposure. The patient was recommended to have annual low dose CT scan for lung cancer screening and is willing to undergo diagnosis and treatment. Stefano Sheikh MD [id number],BStefano MD [id number],S, H is updated medication list for this problem includes: Simvastatin 40 Mg Tablet (Simvastatin) C HOL: 216 (01/14/2021) HDL: 36 (01/14/2021) Stefano Sheikh MD [id number],SStefano MD [id number],SStefano MD [id number],S, h ad surgery and rad rx Stefano Sheikh MD [id number],SStefano MD [id number],S, 5 .9 Stefano Sheikh MD [id number],S, p ro 103, ef 55% Stefano Serota [id number],S, Stefano Serota [id number],S,e fgr 85 n eg carotid n eg b 12 n eg rpr, nml d n eg vd n ormal coronaries cath 2008 Stefano Serota [id number],S, w as shocked severl jaleesa n ot pacing vvi Stefano Serota [id number],S, Stefano Serot a [id number],S, Stefano Serot a [id number],B, Stefano Serot a [id number],S, Stefano Serot a [id number],S, 5 .9 Stefano Serota [id number],S, Stefano Serot a [id number],C,w as shocked severl jaleesa n ot pacing vvi Stefano Serota [id number],S, p ro 103, ef 55% Stefano Serota [id number],S, n eg carotid n eg b 12 n eg rpr, nml d n eg vd n ormal coronaries cath 2008 Stefano Serota [id number],S, Stefano Serot a [id number],S,had surgery t o get rad rx Stefano Serota [id number],C,not treated y et Stefano Serota [id number],B, Stefano Serot a [id number],S, Stefano Serot a [id number],S,T he patient is between 55-77 years old and has smoked at least 30 pack years. The patient is either a current smoker or has quit within the past 15 years. T he patient is recommended to have low dose CT scan for lung cancer screening. Has been counseled regarding the importance of tobacco cessation and abstinence. Shared decision making during this office visit included discussion of the benefits and harms of screening, possible future recommendations of follow-up diagnostic testing, and total amount of radiation exposure. The patient was recommended to have annual low dose CT scan for lung cancer screening and is willing to undergo diagnosis and treatment. Stefano Sheikh MD [id number],S, n eg carotid n eg b 12 n eg rpr, nml d normal coronaries cath 2008 Stefano Sheikh MD [id number],SStefano MD [id number],SStefano MD [id number],S, Stefano duncan MD [id number],B, p ro 103, ef 55% Stefano Sheikh MD [id number],S,not pacing Vasques alexis Sheikh MD [id number],C,pro 103, ef 5 5% Stefano Sheikh MD [id number],S, BNP 103 2 0 on echo 08/2020, s /p AICD Stefano Sheikh MD [id number],SStefano MD [id number],BStefano MD [id number],SStefano MD [id number],B, H is updated medication list for this problem includes: Crestor 20 Mg Tablet (Rosuvastatin) ..... Take 1 tablet by mouth every day C HOL: 216 (01/14/2021) HDL: 36 (01/14/2021) Stefano Sheikh MD [id number],SStefano MD [id number],S, Stefano Serot a [id number],S, 5 .9 Stefano Serota [id number],S, n eg carotid n eg rpr, nml d n ml b12 n ormal coronaries cath 2008 Stefano Sheikh MD [id number],S, Stefano Serot a [id number],S, 1 03 Stefano Serotdakota OWENS [id number],N, Stefano Serot a [id number],S, Steafno Serot a [id number],B, Stefano Serot a [id number],B, Stefano Serot a [id number],B, l ast remote ICD check: 04/27/21 chowed 04/26/21 VT at 221 with ATP x1. 04/20/21 NSVT at 202. no shocks. continue bb and digoxin Stefano Sheikh MD [id number],S, Stefano Serot a [id number],S,103 Stefano Se rota [id number],S, BNP 103 2 0 on echo 08/2020, was up to 40% in 2019 s /p AICD Stefano Sheikh MD [id number],S, Stefano Serot a [id number],C,5.9 Stefano Se rota [id number],S, n eg carotid n eg rpr, nml d n ml b12 n ormal coronaries cath 2008 Stefano Sheikh MD [id number],B,C HOL: 216 (01/14/2021) HDL: 36 (01/14/2021) H is updated medication list for this problem includes: Crestor 20 Mg Tablet (Rosuvastatin) ..... Take 1 tablet by mouth every day Stefano Sheikh MD [id number],S, 1 1 VF zone event ( duration 20sec - Ventricular rate 221bpm/ ATP x 1 was successful) 1 1 NS -V events ( longest duration 15sec - fastest Ventricular rate 202bpm) , 3 E GM available Respiratory rate is stable at 17rpm b [id number] and 6 months. 6 years remaining 1 1 NSVT epiosdes, ICM stable 0 % pacing Stefano Sheikh MD [id number],C,1 1 VF zone event ( duration 20sec - Ventricular rate 221bpm/ ATP x 1 was successful) 1 1 NS -V events ( longest duration 15sec - fastest Ventricular rate 202bpm) , 3 E GM available Respiratory rate is stable at 17rpm b [id number] and 6 months. 6 years remaining 1 1 NSVT epiosdes, ICM stable 0 % pacing Karmen Lakeisha SILVA [id number],C, E CHO 08/2020 EF 20%m NICMP, normal coronaries cath 2008. has ICD. Karmen Lakeisha SILVA [id number],C,l ast remote ICD check: 04/27/21 chowed 04/26/21 VT at 221 with ATP x1. 04/20/21 NSVT at 202. no shocks. continue bb and digoxin Karmen Suazo NP [id number],C, o n crestor, cannot afford calcium score, normal coronaries on cath 2008 Karmen Suazo NP [id number],S, n ot on statin, cannot afford calcium score, normal coronaries on cath 2008 Pema Luis NP [id number],S,no Afib on de vice interrogation Pema Luis NP [id number],S,6 years remaining 1 1 NSVT epiosdes, ICM stable 0 % pacing Pema Luis NP [id number],S,1 1 NSVT on device interrogation, ICM trend stable continue BB, digoxin Pema Luis LEAD PROJECT ENGINEER [id number],S, BNP 103 2 0 on echo 08/2020, was up to 40% in 2019 s /p AICD r ecently started on verquvo, continue corlanor, entrsto, farxiga, aldactone, coreg Pema Luis LEAD PROJECT ENGINEER [id number],S, n eg carotid n eg rpr, nml d n ml b12 n ormal coronaries cath 2008 Pema Luis LEAD PROJECT ENGINEER [id number],S,n eg carotid n eg rpr, nml d n ml b12 n ormal coronaries cath 2008 Stfeano Sheikh MD Cardiology Stefano Sheikh MD Cardiology Stefano Sheikh MD Cardiology: s table Stefano Sheikh MD Cardiology Stefano Sheikh MD Cardiology:iron stil l low but not anemiac had colon Stefano Sheikh MD Cardiology:pro 65 e f 50 Stefano Sheikh MD Cardiology: n eg urac and egfr n eg carotid n eg b 12 n eg psa n eg rpr, nml d n eg vd n ormal coronaries cath 2008 Stefano Sheikh MD Cardiology:50 Stefano Sheikh MD Cardiology Stefano Sheikh MD Cardiology Stefano Sheikh MD Cardiology Stefano Sheikh MD Electrophysiology:im proved with BB His updated medication list for this problem includes: Carvedilol 3.125 Mg Tablet (Carvedilol) ..... Take 1 tablet by mouth twice daily Gomez Key Electrophysiology:He is essentially having sinus tach with pacs and pvcs, has not recieved any shocks, will send in coreg 3.125 mg BID and Magnesium 400 mg BID, will follow up in one month. Moisés Butcher Electrophysiology Moisés Aranda Electrophysiology:He is to undergo treatment for this, was advised to stop Digoxin, we will stop this for now. Moisés Butcher Electrophysiology:Ec ho 01/2024 C ONCLUSIONS: 1 . Left ventricular systolic function is lower limits of normal. Normal left ventricular size. Normal left ventricular wall t hickness. There is E to A wave reversal consistent with impaired LV relaxation. E/E': 6.8 Left ventricular ejection fraction is m easured at 50 %. 2 . Normal right ventricular size. Normal right ventricular systolic function. Linear artifact seen in the right ventricle is s uggestive of a catheter, pacer lead, or ICD lead. 3 . The right atrium is normal in size. Linear artifact in right atrium suggestive of catheter, pacer lead, or ICD lead. 4 . No significant valvular abnormalities. Moisés Butcher Electrophysiology: His updated medication list for this problem includes: Carvedilol 3.125 Mg Tablet (Carvedilol) ..... Take 1 tablet by mouth twice daily Moisés Butcher Electrophysiology: H is updated medication list for this problem includes: Carvedilol 3.125 Mg Tablet (Carvedilol) ..... Take 1 tablet by mouth twice daily Moisés Butcher :ef 50, neg pro Stefano Sheikh MD Cardiology: H is updated medication list for this problem includes: Gemfibrozil 600 Mg Tablet (Gemfibrozil) ..... Take 1 tablet by mouth twice daily Tanner Garza RN Cardiology:cessation of chewing encouraged Tanner Garza RN Cardiology:will upda te iron studies e ncouraged him to resume treatment Tanner Garza RN Cardiology:EF 50% w ill update pBNP I f normal will hold no Inpefa T he following medications were removed from the medication list: Coreg 12.5 Mg Tablet (Carvedilol) ..... Take 1/2 tablet by mouth twice a day His updated medication list for this problem includes: Digoxin 125 Mcg (0.125 Mg) Tablet (Digoxin) ..... Take 1 tablet by mouth every day Tanner Garza RN Cardiology:rate regu lar on exam today W ill interrogate device H e cannot tolerate BB d/t dizziness and hypotension O n digoxin w ill update iron studies as concern may be contributing to elevated HR T he following medications were removed from the medication list: Coreg 12.5 Mg Tablet (Carvedilol) ..... Take 1/2 tablet by mouth twice a day His updated medication list for this problem includes: Digoxin 125 Mcg (0.125 Mg) Tablet (Digoxin) ..... Take 1 tablet by mouth every day Tanner Garza RN :ef 50, pro 82 Stefano Sheikh MD Cardiology:[address] albs H is updated medication list for this problem includes: Lopid 600 Mg Tablet (Gemfibrozil) ..... 1 tablet by mouth twice a day [facility] Cardiology:device ch patrizia will be done in office today l ow afib burden on previous checks not on AC o n low dose BB and digoxin W ill decrase BB as dizziness and orthostatic changes on exam today. BP 118/62 sitting and 110/60 standing T he following medications were removed from the medication list: Coreg 12.5 Mg Tablet (Carvedilol) ..... Take 1 tablet by mouth twice a day Aspirin 81 Mg Tablet,delayed Release (dr/ec) (Aspirin) ..... Take 1 tablet by mouth once daily His updated medication list for this problem includes: Coreg 12.5 Mg Tablet (Carvedilol) ..... Take 1/2 tablet by mouth twice a day Digoxin 125 Mcg (0.125 Mg) Tablet (Digoxin) ..... Take 1 tablet by mouth every day [facility] Cardiology:LDL 90 on last labs H is updated medication list for this problem includes: Lopid 600 Mg Tablet (Gemfibrozil) ..... 1 tablet by mouth twice a day [facility] Cardiology:Last know n EF normal. No new chest pain or SOB f ollow up echo pending as vetricular arrhythmia on last device check T he following medications were removed from the medication list: Coreg 12.5 Mg Tablet (Carvedilol) ..... Take 1 tablet by mouth twice a day Aspirin 81 Mg Tablet,delayed Release (dr/ec) (Aspirin) ..... Take 1 tablet by mouth once daily His updated medication list for this problem includes: Coreg 12.5 Mg Tablet (Carvedilol) ..... Take 1/2 tablet by mouth twice a day Digoxin 125 Mcg (0.125 Mg) Tablet (Digoxin) ..... Take 1 tablet by mouth every day [facility] Cardiology:up to armaan e on upper and lower GI c ontinues on oral replacement therapy [facility] :nml b12 Stefano Sheikh MD Cardiology: W ill start Cialis Shiela Parada NP Cardiology: S T on EKG today W ill restart Coreg. Shiela Parada NP Cardiology Shiela Mandujano P Cardiology: L ast A1C 5.8 Shiela Parada NP Cardiology: p ro 82, ef 55 c linically appears compensated w ill trial inpefa Shiela Parada NP Cardiology: H is updated medication list for this problem includes: Lopid 600 Mg Tablet (Gemfibrozil) ..... 1 tablet by mouth twice a day Shiela Parada NP Cardiology Stefano Sheikh MD Cardiology Stefano Sheikh MD Cardiology:to be treated Stefano Sheikh MD Cardiology Stefano Sheikh MD Cardiology: h ad surgery and rad rx Stefano Sheikh MD Cardiology: e fgr 84 neg uacr n eg carotid n eg b 12 n eg rpr, nml d n eg vd n ormal coronaries cath 2009 Stefano Sheikh MD Cardiology: r o 82, ef 55 Stefano Sheikh MD Cardiology: H is updated medication list for this problem includes: Lopid 600 Mg Tablet (Gemfibrozil) ..... 1 tablet by mouth twice a day C HOL: 216 (01/14/2021) LDL: 134 (01/14/2021) HDL: 36 (01/14/2021) T (01/14/2021) Steafno Sheikh MD Cardiology Stefano Sheikh MD Cardiology: s table Stefano Sheikh MD Cardiology Stefano Sheikh MD Cardiology Stefano Sheikh MD Cardiology Stefano Sheikh MD :ro 82, ef 55 Stefano Sheikh MD :elevated lft Stefano Sheikh MD :5.8 Stefano Sheikh MD Cardiology: h ad surgery and rad rx Stefano Sheikh MD Cardiology:stable Stefano Sheikh MD Cardiology: p ro 103, ef 55% Stefano Sheikh MD Cardiology: L ast A1c 5.9. Will recheck A1c. Stefano Sheikh MD Cardiology Stefano Sheikh MD Cardiology Stefano Sheikh MD Cardiology Stefano Sheikh MD Cardiology: e fgr 84 n eg carotid n eg b 12 n eg rpr, nml d n eg vd n ormal coronaries cath 2008 Stefano Sheikh MD Cardiology Stefano Sheikh MD Cardiology Stefano Sheikh MD Cardiology: N ormal functioning v vi 40 Stefano Sheikh MD Cardiology Stefano Sheikh MD Cardiology-seen with LEAD PROJECT ENGINEER:Patient is set to get L hip replacement. He is cleared for nathalia surgery. Shiela Parada NP Cardiology-seen with LEAD PROJECT ENGINEER:Patient states strugglin to quit tobacco chewing T he patient is between 55-78 years old and has smoked at least 30 pack years. The patient is either a current smoker or has quit within the past 15 years. T he patient is between [age] years old and has smoked at least 30 pack years. The patient is either a current smoker or has quit within the past 15 years. Shiela Glaserjavad SILVA Cardiology-seen with LEAD PROJECT ENGINEER:Schedule for low dose CT lung this weeekend at [place]. Shiela Glaserjavad SILVA Cardiology-seen with LEAD PROJECT ENGINEER: L ast A1c 5.9. Will recheck A1c. Shiela Parada RICARDO Cardiology-seen with LEAD PROJECT ENGINEER: H is updated medication list for this problem includes: Rosuvastatin 20 Mg Tablet (Rosuvastatin) ..... Take 1 tablet by mouth every day Shiela Parada RICARDO Cardiology-seen with LEAD PROJECT ENGINEER: H is updated medication list for this problem includes: Digoxin 125 Mcg (0.125 Mg) Tablet (Digoxin) ..... Take 1 tablet by mouth every day Carvedilol 25 Mg Tablet (Carvedilol) ..... Take 1 tablet by mouth at bedtime Shiela Glaserks RICARDO Cardiology-seen with LEAD PROJECT ENGINEER:Normal f unctioning Shiela Glaserks RICARDO Cardiology-seen with LEAD PROJECT ENGINEER: p ro 103, ef 55% H ad repeat echo today. Will follow up on results. H is updated medication list for this problem includes: Carvedilol 25 Mg Tablet (Carvedilol) ..... Take 1 tablet by mouth at bedtime Digoxin 125 Mcg (0.125 Mg) Tablet (Digoxin) ..... Take 1 tablet by mouth every day Shiela Henrykings SILVA TeleHealth;call malou aguirre MD TeleHealth;call malou aguirre MD TeleHealth;call late re: T he patient is between 55-78 years old and has smoked at least 30 pack years. The patient is either a current smoker or has quit within the past 15 years. T he patient is recommended to have low dose CT scan for lung cancer screening. Has been counseled regarding the importance of tobacco cessation and abstinence. Shared decision making during this office visit included discussion of the benefits and harms of screening, possible future recommendations of follow-up diagnostic testing, and total amount of radiation exposure. The patient was recommended to have annual low dose CT scan for lung cancer screening and is willing to undergo diagnosis and treatment. Stefano Sheikh MD TeleHealth;call late re: h ad surgery and rad rx Stefano Sheikh MD TeleHealth;call malou aguirre MD TeleHealth;call late re: 5 .9 Stefano Sheikh MD TeleHealth;call malou aguirre MD TeleHealth;call late re: H is updated medication list for this problem includes: Simvastatin 40 Mg Tablet (Simvastatin) C HOL: 216 (01/14/2021) HDL: 36 (01/14/2021) Stefano Sheikh MD TeleHealth;call late re: p ro 103, ef 55% Stefano Sheikh MD TeleHealth;call late re:efgr 84 n eg carotid n eg b 12 n eg rpr, nml d n eg vd n ormal coronaries cath 2008 Stefano Sheikh MD TeleHealth;call late re: w as shocked severl jaleesa n ot pacing vvi Stefano Sheikh MD TeleHealth;call laterbrittany aguirre MD TeleHealth;call late re: T he patient is between 55-77 years old and has smoked at least 30 pack years. The patient is either a current smoker or has quit within the past 15 years. T he patient is recommended to have low dose CT scan for lung cancer screening. Has been counseled regarding the importance of tobacco cessation and abstinence. Shared decision making during this office visit included discussion of the benefits and harms of screening, possible future recommendations of follow-up diagnostic testing, and total amount of radiation exposure. The patient was recommended to have annual low dose CT scan for lung cancer screening and is willing to undergo diagnosis and treatment. Stefano Sheikh MD TeleHealth;call malou aguirre MD TeleHealth;call late re: H is updated medication list for this problem includes: Simvastatin 40 Mg Tablet (Simvastatin) C HOL: 216 (01/14/2021) HDL: 36 (01/14/2021) Stefano Sheikh MD TeleHealth;call laterbrittany aguirre MD TeleHealth;call laterbrittany aguirre MD TeleHealth;call late re: h ad surgery and rad rx Stefano Sheikh MD TeleHealth;call latere Stefano aguirre MD TeleHealth;call late re: 5 .9 Stefano Sheikh MD TeleHealth;call late re: p ro 103, ef 55% Stefano Sheikh MD TeleHealth;call latere Stefano aguirre MD TeleHealth;call late re:efgr 84 n eg carotid n eg b 12 n eg rpr, nml d n eg vd n ormal coronaries cath 2008 Stefano Sheikh MD TeleHealth;call late re: w as shocked severl jaleesa n ot pacing vvi Stefano Sheikh MD Cardiology Stefano Sheikh MD Cardiology Stefano Sheikh MD Cardiology Stefano Sheikh MD Cardiology Stefano Sheikh MD Cardiology: 5 .9 Stefano Sheikh MD Cardiology Stefano Sheikh MD Cardiology:was shock ed severl jaleesa n ot pacing vvi Stefano Sheikh MD Cardiology: p ro 103, ef 55% Stefano Sheikh MD Cardiology: n eg carotid n eg b 12 n eg rpr, nml d n eg vd n ormal coronaries cath 2008 Stefano Sheikh MD Cardiology Stefano Sheikh MD Cardiology:had surgery to get ra d rx Stefano Sheikh MD Cardiology:not treated yet Mykel Sheikh MD Cardiology Stefano Sheikh MD Cardiology Stefano Sheikh MD Cardiology:The patie nt is between 55-77 years old and has smoked at least 30 pack years. The patient is either a current smoker or has quit within the past 15 years. T he patient is recommended to have low dose CT scan for lung cancer screening. Has been counseled regarding the importance of tobacco cessation and abstinence. Shared decision making during this office visit included discussion of the benefits and harms of screening, possible future recommendations of follow-up diagnostic testing, and total amount of radiation exposure. The patient was recommended to have annual low dose CT scan for lung cancer screening and is willing to undergo diagnosis and treatment. Stefano Sheikh MD Cardiology: n eg carotid n eg b 12 n eg rpr, nml d normal coronaries cath 2008 Stefano Sheikh MD Cardiology Stefano Sheikh MD Cardiology Stefano Sheikh MD Cardiology Stefano Sheikh MD Cardiology: p ro 103, ef 55% Stefano Sheikh MD Cardiology:not pacing Stefano swenson MD :pro 103, ef 55% Stefano Monae Cardiology;holer félix nding: BNP 103 2 0 on echo 08/2020, s /p AICD Stefano Sheikh MD Cardiology;brannon peigrazyna Sheikh MD Cardiology;aaliyahr peichadwicking Stefano Sheikh MD Cardiology;aaliyahr peigrazyna Sheikh MD Cardiology;holer félix nding: H is updated medication list for this problem includes: Crestor 20 Mg Tablet (Rosuvastatin) ..... Take 1 tablet by mouth every day C HOL: 216 (01/14/2021) HDL: 36 (01/14/2021) Stefano Sheikh MD Cardiology;brannon peigrazyna Sheikh MD Cardiology;aaliyahr peigrazyna Sheikh MD Cardiology;holer félix ndin .9 Stefano Sheikh MD Cardiology;holer félix nding: n eg carotid n eg rpr, nml d n ml b12 n ormal coronaries cath 2008 Stefano Sheikh MD Cardiology;brannon Sheikh MD Cardiology;holer félix ndin 03 Stefano Sheikh MD Cardiology;brannon Sheikh MD TeleHealth Stefano Sheikh MD TeleHealth Stefano Sheikh MD TeleHealth Stefano Sheikh MD TeleHealth: l ast remote ICD check: 04/27/21 chowed 04/26/21 VT at 221 with ATP x1. 04/20/21 NSVT at 202. no shocks. continue bb and digoxin Stefano Sheikh MD TeleHealth Stefano Sheikh MD TeleHealth:103 Stefano Sheikh MD TeleHealth: BNP 103 2 0 on echo 08/2020, was up to 40% in 2019 s /p AICD Stefano Sheikh MD TeleHealth Stefano Sheikh MD TeleHealth:5.9 Stefano Sheikh MD TeleHealth: n eg carotid n eg rpr, nml d n ml b12 n ormal coronaries cath 2008 Stefano Sheikh MD TeleHealth:CHOL: 216 (01/14/2021) HDL: 36 (01/14/2021) H is updated medication list for this problem includes: Crestor 20 Mg Tablet (Rosuvastatin) ..... Take 1 tablet by mouth every day Stefano Sheikh MD TeleHealth: 1 1 VF zone event ( duration 20sec - Ventricular rate 221bpm/ ATP x 1 was successful) 1 1 NS -V events ( longest duration 15sec - fastest Ventricular rate 202bpm) , 3 E GM available Respiratory rate is stable at 17rpm b [id number] and 6 months. 6 years remaining 1 1 NSVT epiosdes, ICM stable 0 % pacing Stefano Sheikh MD Cardiology:04/27/21 1 VF zone event ( duration 20sec - Ventricular rate 221bpm/ ATP x 1 was successful) 1 1 NS -V events ( longest duration 15sec - fastest Ventricular rate 202bpm) , 3 E GM available Respiratory rate is stable at 17rpm b [id number] and 6 months. 6 years remaining 1 1 NSVT epiosdes, ICM stable 0 % pacing Karmen Suazo NP Cardiology: E CHO 08/2020 EF 20%m NICMP, normal coronaries cath 2008. has ICD. Karmen De La Cruzmoo LEAD PROJECT ENGINEER Cardiology:last mirza te ICD check: 04/27/21 chowed 04/26/21 VT at 221 with ATP x1. 04/20/21 NSVT at 202. no shocks. continue bb and digoxin Karmen De La Cruzmoo LEAD PROJECT ENGINEER Cardiology: o n crestor, cannot afford calcium score, normal coronaries on cath 2008 Karmen Caputocarl LEAD PROJECT ENGINEER Cardiology: n ot on statin, cannot afford calcium score, normal coronaries on cath 2008 Pematerrance Ruizwv LEAD PROJECT ENGINEER Cardiology:no Afib on device int errogation Pema Sarawv LEAD PROJECT ENGINEER Cardiology:6 years r emaining 1 1 NSVT epiosdes, ICM stable 0 % pacing Pema Sarawv LEAD PROJECT ENGINEER Cardiology:11 NSVT o n device interrogation, ICM trend stable continue BB, digoxin Pema Sarawv LEAD PROJECT ENGINEER Cardiology: BNP 103 2 0 on echo 08/2020, was up to 40% in 2019 s /p AICD r ecently started on verquvo, continue corlanor, entrsto, farxiga, aldactone, coreg Pema Sarawv LEAD PROJECT ENGINEER Cardiology: n eg carotid n eg rpr, nml d n ml b12 n ormal coronaries cath 2008 Pema Sarawv LEAD PROJECT ENGINEER Cardiology:neg carot id n eg rpr, nml d n ml b12 n ormal coronaries cath 2008 Stefano Sheikh MD Cardiology follow up :neg rpr, nml d n ml b12 n ormal coronaries cath 2008 Stefano Sheikh MD Cardiology follow up Stefano guzman MD Cardiology follow up Stefano guzman MD Cardiology follow up :CHOL: 158 (07/31/2020) HDL: 36 (07/31/2020) Stefano Sheikh MD Cardiology follow up Stefano guzman MD Cardiology follow up Stefano guzman MD Cardiology follow up Stefano guzman MD Cardiology follow up :neg rpr n ml b12 n ormal coronaries cath 2008 Stefano Sheikh MD Cardiology follow up Stefano guzman MD Cardiology follow up :cannot zach coreg higher B N 103 2 0 on echo 08/2020, was up to 40% in 2019 Stefano Sheikh MD Cardiology follow up : N SVT on device interrogation, frequent o n Mag oxide, digoxin, BB Stefano Sheikh MD Cardiology follow up : 5 .9 Stefano Sheikh MD Cardiology follow up :not pacint v vi 40 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 Stefano Sheikh MD Cardiology Follow up :NSVT on device interrogation, frequent o n Mag oxide, digoxin, BB Pema Luis NP Cardiology Follow up : C HOL: 158 (07/31/2020) HDL: 36 (07/31/2020) Pema Luis NP Cardiology Follow up : v vi 40 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 Pema Luis NP Cardiology Follow up :BN 103 2 0 on echo 08/2020, was up to 40% in 2019 a dd entresto and corlanor c ontinue coreg, farxiga, aldactone A ICD Pema Luis NP Cardiology Follow up : n ml b12 n ormal coronaries cath 2008 Pema Luis NP :nml b12 Stefano Sheikh MD :5.9 Stefano Sheikh MD Cardiology Follow up :Reduced lisinopril from 10mg to 5mg per day as he is experiencing lightheadedness and dizziness Juancarlos Mcduffie MD Cardiology Follow up Stefano guzman MD Cardiology Follow up Stefano guzman MD Cardiology Follow up Stefano guzman MD Cardiology Follow up Stefano guzman MD Cardiology Follow up :CHOL: 158 (07/31/2020) HDL: 36 (07/31/2020) Stefano Sheikh MD Cardiology Follow up :20 Stefano Sheikh MD Cardiology Follow up Stefano guzman MD Cardiology Follow up :vvi 40 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 after meth Stefano Sheikh MD TeleHealth - rx sent :PFT: T he FVC, FEV1, FEV1/FVC ratio and BTO99-43% are reduced indicating airway obstruction. The MVV is reduced.Following administration of bronchodilators, there is no significant response. The reduced diffusing capacity indicates a minimal loss of functional alveolar capillary surface. Order Note: Order Note: Conclusions: Moderate airway obstruction is present. The low normal lung volumes, in combination with significant obstruction suggest a probable concurrent restrictive process. Order Note: Order Note: Pulmonary Function Diagnosis: Order Note: Moderate Obstructive Airways Disease [facility] - rx sent : CONCLUSIONS: 1 . Abnormal septal motion consistent with pacemaker or ICD implant . Severe global left ventricular systolic hypokinesis. Normal left ventricular size. Normal left ventricular wall thickness. Unable to determine diastolic function due to cardiac arrhythmia. E/E': 4.7. Left ventricular ejection fraction is measured at 20 %. 2 . Normal right ventricular size. Normal right ventricular systolic function. Linear artifact seen in the right ventricle is s uggestive of a catheter, pacer lead, or ICD lead. 3 . No significant valvular abnormalities. previous EF 40%. s/p icd. His updated medication list for this problem includes: Spironolactone 25 Mg Oral Tablet (Spironolactone) ..... One tab. daily Digoxin 125 Mcg Oral Tablet (Digoxin) ..... One tab. once a day except on sundays. do not take on sunday. Coreg 12.5 Mg Oral Tablet (Carvedilol) ..... One tab. twice daily Lisinopril 10mg Tablets (Lisinopril) ..... Take 1 tablet by mouth every day [facility] - rx sent : VT event on 08/04/2020 @ 02:44 AM,duration 16 min 22 sec treated with ATP x 1 unsuccessful, 8 shocks @ 41 Joules. VF alert for 08/04/2020 @ 06:39 AM ATP x1, unsuccessful 1 shock @ 41 joules - duration of event 48 sec - avg ventricular rate 263 bpm. S amaya remote on 07/29/2020 patient has had 46 VT events, no therapy (longest duration 1 hour 4 minues on 08/04/2020 @11:08 AM), and 57 NS-VT events. reviewed risks of illicit drug use and patient strongly encouraged to stop, resources reviewed. His updated medication list for this problem includes: Coreg 12.5 Mg Oral Tablet (Carvedilol) ..... One tab. twice daily Lisinopril 10mg Tablets (Lisinopril) ..... Take 1 tablet by mouth every day [facility] - rx sent : AST 72 ALT 74 s topped lipitor, lopid [facility] - rx sent [facility] follow up ;.echopieng s:does not want rx Stefano Sheikh MD Cardiology follow up ;.echopiengs:did meth and aicd wnet off Stefano Sheikh MD Cardiology follow up ;.echopieng s:40 Stefano Sheikh MD Cardiology follow up ;.echopieng s:nml pro Stefano Sheikh MD Electrophysiology: O rders: T obacco cessation counseling, 3-10minutes ([id number]) [facility]: O rders: F VC - 71349 ([id number]) F RC - 23174 ([id number]) D LCO - 59096 ([id number]) His updated medication list for this problem includes: Digoxin 125 Mcg Oral Tablet (Digoxin) ..... One tab. once a day except on sundays. do not take on sunday. Coreg 12.5 Mg Oral Tablet (Carvedilol) ..... One tab. twice daily Lisinopril 10mg Tablets (Lisinopril) ..... Take 1 tablet by mouth every day Aspirin Adult Low Dose 81 Mg Oral Tablet Delayed Release (Aspirin) ..... One tab by mouth daily [facility] Electrophysiology: H is updated medication list for this problem includes: Digoxin 125 Mcg Oral Tablet (Digoxin) ..... One tab. once a day except on sundays. do not take on sunday. Coreg 12.5 Mg Oral Tablet (Carvedilol) ..... One tab. twice daily Lisinopril 10mg Tablets (Lisinopril) ..... Take 1 tablet by mouth every day Aspirin Adult Low Dose 81 Mg Oral Tablet Delayed Release (Aspirin) ..... One tab by mouth daily Orders: C omplete Echo (CPT-45013) P ISAI, N TERMINAL ([id number]) [facility] Electrophysiology: H is updated medication list for this problem includes: Coreg 12.5 Mg Oral Tablet (Carvedilol) ..... One tab. twice daily Lisinopril 10mg Tablets (Lisinopril) ..... Take 1 tablet by mouth every day Aspirin Adult Low Dose 81 Mg Oral Tablet Delayed Release (Aspirin) ..... One tab by mouth daily [facility] Electrophysiology: H is updated medication list for this problem includes: Digoxin 125 Mcg Oral Tablet (Digoxin) ..... One tab. once a day except on sundays. do not take on sunday. Coreg 12.5 Mg Oral Tablet (Carvedilol) ..... One tab. twice daily Lisinopril 10mg Tablets (Lisinopril) ..... Take 1 tablet by mouth every day Aspirin Adult Low Dose 81 Mg Oral Tablet Delayed Release (Aspirin) ..... One tab by mouth daily Orders: C omplete Echo (CPT-23234) P ISAI, N TERMINAL (79549) C OMPREHENSIVE METABOLIC PANEL, W/EGFR (16449) C BC (H/H, RBC, INDICES, WBC, PLT) (4356) 9 9215 HIGH 40-54min (CPT-16411) Echo 08/2019: C ONCLUSIONS: 1 . Frequent premature ventricular contractions. Mild global left ventricular systolic hypokinesis. Normal left ventricular size. N ormal left ventricular wall thickness. There is E to A wave reversal consistent with impaired LV relaxation. E/E': 6.0. Left v entricular ejection fraction is measured at 40 %. 2 . Normal right ventricular size. Normal right ventricular systolic function. Linear artifact seen in the right ventricle is s uggestive of a catheter, pacer lead, or ICD lead. 3 . There is non-specific thickening of the mitral valve leaflets. Mild mitral valve regurgitation. [facility]: H is updated medication list for this problem includes: Digoxin 125 Mcg Oral Tablet (Digoxin) ..... One tab. once a day except on sundays. do not take on sunday. Coreg 12.5 Mg Oral Tablet (Carvedilol) ..... One tab. twice daily Lisinopril 10mg Tablets (Lisinopril) ..... Take 1 tablet by mouth every day Aspirin Adult Low Dose 81 Mg Oral Tablet Delayed Release (Aspirin) ..... One tab by mouth daily Hgb: 14.1 (08/30/2019) HCT: 41.0 (08/30/2019) Platelets: 312 X10E3/UL (08/30/2019) R BC: 4.51 X10E6/UL (08/30/2019) WBC: 8.5 X10E3/UL (08/30/2019) [facility]ann Shun [facility]iology:Being mon itored remotely. His updated medication list for this problem includes: Coreg 12.5 Mg Oral Tablet (Carvedilol) ..... One tab. twice daily Aspirin Adult Low Dose 81 Mg Oral Tablet Delayed Release (Aspirin) ..... One tab by mouth daily [facility] Cardiology:His updat ed medication list for this problem includes: Lopid 600 Mg Oral Tablet (Gemfibrozil) ..... One tab twice daily [facility] Cardiology:His updat ed medication list for this problem includes: Lopid 600 Mg Oral Tablet (Gemfibrozil) ..... One tab twice daily [facility] Cardiology:BP today: 101/74 P rior BP: 117/81 (01/19/2020) His updated medication list for this problem includes: Coreg 12.5 Mg Oral Tablet (Carvedilol) ..... One tab. twice daily Lisinopril 10mg Tablets (Lisinopril) ..... Take 1 tablet by mouth every day [facility] Cardiology:Being monitored [place]. [facility] Cardiology:Pt is a c andidate for hip surgery. His last echo in August 2019 showed EF of 40%. Overall feeling well now. He can proceed to surgery from cardiovascular perspective. [facility]olas [facility] Cardiology:His last echo in August 2019 showed EF of 40%. Overall feeling well now. Labwork showed proBNP of 187 and iron was not low. His updated medication list for this problem includes: Coreg 12.5 Mg Oral Tablet (Carvedilol) ..... One tab. twice daily Lisinopril 10mg Tablets (Lisinopril) ..... Take 1 tablet by mouth every day Corlanor 5 Mg Oral Tablet (Ivabradine hcl) .... One tab by mouth twice daily [facility] Cardiology:His last echo in August 2019 showed EF of 40%. Overall feeling well now. Labwork showed proBNP of 187 and iron was not low. He felt better with Corlanor but his insurance would not cover it. We will provide him with more samples. His updated medication list for this problem includes: Coreg 12.5 Mg Oral Tablet (Carvedilol) ..... One tab. twice daily Lisinopril 10mg Tablets (Lisinopril) ..... Take 1 tablet by mouth every day Corlanor 5 Mg Oral Tablet (Ivabradine hcl) .... One tab by mouth twice daily [facility] Cardiology:Most rece nt triglycerides from [facility] in November were 91. [facility] Cardiology:CHOL: 137 (12/16/2019) HDL: 44 (12/16/2019) LDL: 75 (12/16/2019) TRI (12/16/2019) [facility] Cardiology:He had an admission to [facility] last month for chest pain related to methamphetamine use. [facility] Cardiology:He says h e got shocked last month. We will schedule a device check and re-connect his home monitoring. [facility] Cardiology:He compla ins of dizziness upon standing up (BP today is 117/81). HR is 93. We will keep him on the current doses of Coreg and Lisinopril. BP today: 117/81 P rior BP: 118/81 (09/03/2019) His updated medication list for this problem includes: Coreg 12.5 Mg Oral Tablet (Carvedilol) ..... One tab. twice daily Lisinopril 10mg Tablets (Lisinopril) ..... Take 1 tablet by mouth every day [facility] Cardiology:Orders: F ERRITIN (457) I MO AND TOTAL IRON BINDING CAPACITY (7573) [facility] Cardiology:Pt compla ins of SOB. HR is 93. We will keep him on the current doses of Coreg and Lisinopril and start Corlanor 5mg BID. Will check proBNP, iron studies and PFT's. His updated medication list for this problem includes: Coreg 12.5 Mg Oral Tablet (Carvedilol) ..... One tab. twice daily Lisinopril 10mg Tablets (Lisinopril) ..... Take 1 tablet by mouth every day Corlanor 5 Mg Oral Tablet (Ivabradine hcl) .... One tab by mouth twice daily [facility] Cardiology:Pt compla ins of SOB. He also says he got shocked last month. We will schedule a device check and re-connect his home monitoring. He also had an admission to [facility] last month for chest pain related to methamphetamine use. He complains of dizziness upon standing up (BP today is 117/81). HR is 93. We will keep him on the current doses of Coreg and Lisinopril and start Corlanor 5mg BID. Will check proBNP, iron studies and PFT's. His updated medication list for this problem includes: Coreg 12.5 Mg Oral Tablet (Carvedilol) ..... One tab. twice daily Lisinopril 10mg Tablets (Lisinopril) ..... Take 1 tablet by mouth every day Corlanor 5 Mg Oral Tablet (Ivabradine hcl) .... One tab by mouth twice daily [facility] Cardiology:Pt compla ins of SOB. He also says he got shocked last month. He also had an admission to [facility] last month for chest pain related to methamphetamine use. He complains of dizziness upon standing up (BP today is 117/81). HR is 93. We will keep him on the current doses of Coreg and Lisinopril and start Corlanor 5mg BID. Will check proBNP, iron studies and PFT's. [facility] Cardiology:BP today: 118/81 P rior BP: 130/86 (08/18/2019) His updated medication list for this problem includes: Coreg 12.5 Mg Oral Tablet (Carvedilol) ..... One tab. twice daily Lisinopril 10 Mg Oral Tablet (Lisinopril) ..... One tab. daily [facility] Cardiology:Triglycer ides were down to 138 however pt states they used to be >700 and used to be on Lopid which was stopped just before the bloodwork. Recommending to check lipid panel in a month. C HOL: 163 (08/30/2019) HDL: 32 (08/30/2019) LDL: 103 (08/30/2019) TRI (08/30/2019) [facility] Cardiology:Triglycer ides were down to 138 however pt states they used to be >700 and used to be on Lopid which was stopped just before the bloodwork. Recommending to check lipid panel in a month. [facility] Cardiology:Echo show ed EF of 40%. The following medications were stopped: Digoxin 250 Mcg Oral Tablet (Digoxin) ..... One tab daily His updated medication list for this problem includes: Coreg 12.5 Mg Oral Tablet (Carvedilol) ..... One tab. twice daily Lisinopril 10 Mg Oral Tablet (Lisinopril) ..... One tab. daily [facility] Cardiology:Continues to have SOB with minimal exertion, CHF Class 3. Echo showed EF of 40%. The following medications were stopped: Digoxin 250 Mcg Oral Tablet (Digoxin) ..... One tab daily His updated medication list for this problem includes: Coreg 12.5 Mg Oral Tablet (Carvedilol) ..... One tab. twice daily Lisinopril 10 Mg Oral Tablet (Lisinopril) ..... One tab. daily Nikolas [facility] Cardiology:Pt will n eed to be set up with home monitoring, but per pt he would like to wait until he solidifies his living situation, states he is currently in a half way house. [facility]io Maguirejay Cardiology: B P today: 130/86 P rior BP: 104/64 (02/28/2016) His updated medication list for this problem includes: Coreg 12.5 Mg Oral Tablet (Carvedilol) ..... One tab. twice daily Lisinopril 10 Mg Oral Tablet (Lisinopril) ..... One tab. daily Aspirin Adult Low Dose 81 Mg Oral Tablet Delayed Release (Aspirin) ..... One tab by mouth daily Julio Lambjay Cardiology:The pt vasques s a hx of non-ischemic cardiomyopathy. He has a [employer] AICD. Echo in 06/2011 showed EF of 50%. Julio Garay Cardiology:The patie nt was not under medical care with our group since he was incarcerated. Reports ELLISON with mild exertion no Sx at rest. His lisinopril was stopped, unsure why, will resume at 10 mg daily. Will obtain an echo, CBC, fasting lipid panel, pro BNP, and dig level. The patient comes in today for CONGESTIVE HEART FAILURE EVALUATION. The patient complains of exertional dyspnea, but denies dyspnea at rest, peripheral edema, orthopnea, PND, cough, wheezing, fatigue, chest pain, palpitations, dizziness, syncope, near-syncope, headache, abdominal swelling and side effect from medications. The patient is performing ADL's without symptoms. Since the last visit the patient notes worsening of symptoms. Review of recent evaluations shows the patients last LV EF is 20%. Based on current evaluation, the patient meets the criteria for NYHA Class III. His updated medication list for this problem includes: Coreg 12.5 Mg Oral Tablet (Carvedilol) ..... One tab. twice daily Lisinopril 10 Mg Oral Tablet (Lisinopril) ..... One tab. daily Aspirin Adult Low Dose 81 Mg Oral Tablet Delayed Release (Aspirin) ..... One tab by mouth daily Digoxin 250 Mcg Oral Tablet (Digoxin) ..... One tab daily [facility]io Garay [facility]iology:BP today: 104/64 P rior BP: 124/68 (06/01/2011) His updated medication list for this problem includes: Coreg 12.5 Mg Tabs (Carvedilol) ..... One tab. twice daily Lisinopril 10 Mg Tabs (Lisinopril) ..... One tab. daily Aspirin Adult Low Dose 81 Mg Oral Tbec (Aspirin) ..... One tab by mouth daily Misael Sanford MD Cardiology:History of paroxysmal Afib. Not on AC. Misael Sanford MD Cardiology:The pt vasques s a hx of non-ischemic cardiomyopathy. He has SOB only with unusual exertion. Class 2. Misael Sanford MD Cardiology:The pt vasques s a hx of non-ischemic cardiomyopathy. He has a [employer] AICD. Echo in 2010 showed EF of 50%. Misael Sanford MD : O rders: C omplete Echo (CPT-88627) H olter Monitor 24 Hr (CPT-16098) Stefano Sheikh MD : H is updated medication list for this problem includes: Coreg 12.5 Mg Tabs (Carvedilol) ..... One tab. twice daily Vasotec 5 Mg Tabs (Enalapril maleate) ..... One tab.twice daily Aspirin 325 Mg Tabs (Aspirin) ..... One tab daily Digoxin 0.25 Mg Tabs (Digoxin) ..... One tab daily Orders: C omplete Echo (CPT-43202) H olter Monitor 24 Hr (CPT-79622) Stefano Sheikh MD : H is updated medication list for this problem includes: Coreg 12.5 Mg Tabs (Carvedilol) ..... One tab. twice daily Vasotec 5 Mg Tabs (Enalapril maleate) ..... One tab.twice daily Aspirin 325 Mg Tabs (Aspirin) ..... One tab daily Orders: C omplete Echo (CPT-88895) H olter Monitor 24 Hr (CPT-54960) Stefano Sheikh MD : H is updated medication list for this problem includes: Coreg 12.5 Mg Tabs (Carvedilol) ..... One tab. twice daily Vasotec 5 Mg Tabs (Enalapril maleate) ..... One tab.twice daily Aspirin 325 Mg Tabs (Aspirin) ..... One tab daily Digoxin 0.25 Mg Tabs (Digoxin) ..... One tab daily Orders: C omplete Echo (CPT-92842) H olter Monitor 24 Hr (CPT-81200) Stefano Sheikh MD : H is updated medication list for this problem includes: Coreg 12.5 Mg Tabs (Carvedilol) ..... One tab. twice daily Vasotec 5 Mg Tabs (Enalapril maleate) ..... One tab.twice daily Aspirin 325 Mg Tabs (Aspirin) ..... One tab daily Orders: C omplete Echo (CPT-21477) H olter Monitor 24 Hr (CPT-89641) Stefano Sheikh MD : O rders: C omplete Echo (CPT-93215) H olter Monitor 24 Hr (CPT-61502) Stefano Sheikh MD stable nicm: H is updated medication list for this problem includes: Coreg 12.5 Mg Tabs (Carvedilol) ..... (higher dose) one tab. twice daily Vasotec 5 Mg Tabs (Enalapril maleate) ..... One tab.twice daily Aspirin 325 Mg Tabs (Aspirin) ..... One tab daily Digitek 0.25 Mg Tabs (Digoxin) ..... One tab. daily BP today: 100/65 Prior BP: 113/84 (01/21/2009) E chocardiogram: The left ventricular chamber size is normal. Normal left ventricular wall thickness.LV EF is estimated at 30%. T he right ventricle is normal in size. N ormal left atrium. Normal right atrium. T he mitral valve leaflets appear (sclerotic) thickened. T he aortic valve appears structurally normal. T he tricuspid valve is structurally normal. The right ventricular systolic pressure (RSVP) is estimated to be less than 3 0 mmHg and is within normal limits. N ormal pulmonic valve. N ormal pericardium with no significant pericardial effusion. No pleural effusion noted. Normal aortic root. M inimal mitral regurgitation. N o evidence of aortic valve regurgitation. M inimal tricuspid regurgitation. M inimal pulmonic regurgitation. [facility] (07/16/2008) C ardiac Cath: EF - 20% N ormal coronary arteries. N ormal aorta without regurgitation. N ormal left heart hemodynamics. M itral valve prolapse without regurgitation. S evere nonischemic cardiiomyopathy. [facility] (08/06/2008) Orders: S pirometry (CPT-71289) Stefano Sheikh MD stable nicm Stefano Sheikh MD stable nicm: H is updated medication list for this problem includes: Coreg 12.5 Mg Tabs (Carvedilol) ..... (higher dose) one tab. twice daily Vasotec 5 Mg Tabs (Enalapril maleate) ..... One tab.twice daily Aspirin 325 Mg Tabs (Aspirin) ..... One tab daily BP today: 100/65 P rior BP: 113/84 (01/21/2009) Orders: C omplete Echo (CPT-26235) S pirometry (CPT-68566) Stefano Sheikh MD stable nicm: O rders: C omplete Echo (CPT-99136) S pirometry (CPT-54524) Stefano Sheikh MD stable nicm: H is updated medication list for this problem includes: Coreg 12.5 Mg Tabs (Carvedilol) ..... (higher dose) one tab. twice daily Vasotec 5 Mg Tabs (Enalapril maleate) ..... One tab.twice daily Aspirin 325 Mg Tabs (Aspirin) ..... One tab daily Digitek 0.25 Mg Tabs (Digoxin) ..... One tab. daily BP today: 100/65 Prior BP: 113/84 (01/21/2009) C ardiac Cath: EF - 20% N ormal coronary arteries. N ormal aorta without regurgitation. N ormal left heart hemodynamics. M itral valve prolapse without regurgitation. S evere nonischemic cardiiomyopathy. [facility] (08/06/2008) Orders: C omplete Echo (CPT-09290) S pirometry (CPT-63171) Stefano Sheikh MD wiil increase coref for cm, no cad: H is updated medication list for this problem includes: Coreg 12.5 Mg Tabs (Carvedilol) ..... (higher dose) one tab. twice daily Vasotec 5 Mg Tabs (Enalapril maleate) ..... One tab.twice daily Aspirin 325 Mg Tabs (Aspirin) ..... One tab daily BP today: 113/84 P rior BP: 110/68 (09/17/2008) Stefano Sheikh MD wiil increase coref for cm, no c ad Stefano Sheikh MD wiil increase coref for cm, no cad: H is updated medication list for this problem includes: Coreg 12.5 Mg Tabs (Carvedilol) ..... (higher dose) one tab. twice daily Vasotec 5 Mg Tabs (Enalapril maleate) ..... One tab.twice daily Aspirin 325 Mg Tabs (Aspirin) ..... One tab daily Digitek 0.25 Mg Tabs (Digoxin) ..... One tab. daily Orders: C omplete Echo (CPT-09703) BP today: 113/84 Prior BP: 110/68 (09/17/2008) C ardiac Cath: EF - 20% N ormal coronary arteries. N ormal aorta without regurgitation. N ormal left heart hemodynamics. M itral valve prolapse without regurgitation. S evere nonischemic cardiiomyopathy. [facility] (08/06/2008) Stefano Sheikh MD severe nicm, coreg i ncreased: H is updated medication list for this problem includes: Coreg 6.25 Mg Tabs (Carvedilol) ..... One tab. twice daily (higher dose) Vasotec 5 Mg Tabs (Enalapril maleate) ..... One tab.twice daily instead of calan Digitek 0.25 Mg Tabs (Digoxin) ..... One tab. daily BP today: 110/68 Prior BP: 102/86 (07/16/2008) C ardiac Cath: EF - 20% N ormal coronary arteries. N ormal aorta without regurgitation. N ormal left heart hemodynamics. M itral valve prolapse without regurgitation. S evere nonischemic cardiiomyopathy. [facility] (08/06/2008) Stefano Sheikh MD severe nicm, coreg i ncreased: H is updated medication list for this problem includes: Coreg 6.25 Mg Tabs (Carvedilol) ..... One tab. twice daily (higher dose) Vasotec 5 Mg Tabs (Enalapril maleate) ..... One tab.twice daily instead of calan Aspirin 325 Mg Tabs (Aspirin) ..... One tab daily BP today: 110/68 P rior BP: 102/86 (07/16/2008) Stefano Sheikh MD severe nicm, coreg increased Howard Sheikh MD severe nicm, coreg i ncreased: H is updated medication list for this problem includes: Coreg 6.25 Mg Tabs (Carvedilol) ..... One tab. twice daily (higher dose) Vasotec 5 Mg Tabs (Enalapril maleate) ..... One tab.twice daily instead of calan Aspirin 325 Mg Tabs (Aspirin) ..... One tab daily Digitek 0.25 Mg Tabs (Digoxin) ..... One tab. daily BP today: 110/68 Prior BP: 102/86 (07/16/2008) C ardiac Cath: EF - 20% N ormal coronary arteries. N ormal aorta without regurgitation. N ormal left heart hemodynamics. M itral valve prolapse without regurgitation. S evere nonischemic cardiiomyopathy. [facility] (08/06/2008) Stefano Sheikh MD routine follow-up\: T he following medications were removed from the medication list: Atenolol 25 Mg Tabs (Atenolol) ..... One tab. twice daily His updated medication list for this problem includes: Coreg 3.125 Mg Tabs (Carvedilol) ..... 1 tablet by mouth once daily Aspirin 325 Mg Tabs (Aspirin) ..... One tab daily BP today: 102/86 Prior BP: / () E chocardiogram: Severely decreased global left ventricular function. M oderately reduced global right ventricular function. T race mitral regurgitation. T race tricuspid regurgitation. (10/24/2006) Stefano Sheikh MD routine follow-up\: T he following medications were removed from the medication list: Lisinopril 5 Mg Tabs (Lisinopril) ..... One tab. daily Atenolol 25 Mg Tabs (Atenolol) ..... One tab. twice daily His updated medication list for this problem includes: Coreg 3.125 Mg Tabs (Carvedilol) ..... 1 tablet by mouth once daily Verapamil Hcl 120 Mg Tabs (Verapamil hcl) ..... 1 tablet by mouth twice daily Aspirin 325 Mg Tabs (Aspirin) ..... One tab daily BP today: 102/86 Prior BP: / () Stefano Sheikh MD Date Name BASIC METABOLIC PANE L W/EGFR TSH, free T4, total T3 IRON AND TOTAL IRON BINDING CAPACITY FERRITIN CBC (INCLUDES DIFF/P LT) PROBNP, N TERMINAL Complete Echo Complete Echo Holter Monitor 24 Hr Holter Monitor 24 Hr Lipoprotein (a) BASIC METABOLIC PANE L W/EGFR PROBNP, N TERMINAL HEMOGLOBIN A1c Microalb/Creatinine Urine, Random Complete Echo Complete Echo HEMOGLOBIN A1c Microalb/Creatinine Urine, Random PROBNP, N TERMINAL BASIC METABOLIC PANE L W/EGFR Lipoprotein (a) LIPID PANEL HEMOGLOBIN A1c Low Dose Lung CT Complete Echo Holter Monitor 24 Hr Complete Echo Low Dose Lung CT Low Dose Lung CT CT, Coronary Calcium Score Complete Echo RPM (remote patient monitoring) DLCO - 61277 FRC - 37943 FVC - [address], Coronary Calcium Score CT, Coronary Calcium Score DLCO - 26944 FRC - 73687 FVC - 46094 Holter Monitor 24 Hr Complete Echo Complete Echo PROBNP, N TERMINAL BASIC METABOLIC PANE L W/EGFR Carotid Duplex Bilat eral CT, Coronary Calcium Score DLCO - 47458 FRC - 71891 FVC - 13302 Complete Echo Holter Monitor 24 Hr Holter Monitor 24 Hr Complete Echo C-REACTIVE PROTEIN C-REACTIVE PROTEIN LIPID PANEL Abdominal US Holter Monitor [address], Coronary Calcium Score Complete Echo DLCO - 27123 FRC - 62587 FVC - 15487 CT, Coronary Calcium Score HEPATIC FUNCTION DEVI EL DLCO - 95243 FRC - 33529 FVC - 57793 LIPID PANEL TSH, free T4, total T3 CBC (H/H, RBC, INDIC ES, WBC, PLT) COMPREHENSIVE METABO LIC PANEL, W/EGFR PROBNP, N TERMINAL Complete Echo DLCO - 27354 FRC - 92902 FVC - 85853 IRON AND TOTAL IRON BINDING CAPACITY FERRITIN PROBNP, N TERMINAL LIPID PANEL CBC (INCLUDES DIFF/P LT) PROBNP, N TERMINAL LIPID PANEL DIGOXIN Digoxin, Serum PROBNP, N TERMINAL CBC (INCLUDES DIFF/P LT) LIPID PANEL Complete Echo Complete Echo Complete Echo Spirometry Complete Echo Complete Echo Complete Echo Cardiac Cath - GC HISTORY OF PROCEDURES Procedure Date Procedure Name Provider Procedure Notes S tatus Complex e/m visit ad d on Stefano Sheikh MD completed Complex e/m visit ad d on Coral Fernando MD completed EKG Coral russell MD completed EKG Stefano Sheikh MD complete d Counseling LDCT Stefano Sheikh MD november pleted Counseling LDCT Stefano Sheikh MD november pleted Counseling LDCT Stefano Sheikh MD mona com pleted EKG Stefano Sheikh MD complete d Holter, 24 or 48 Stefano Sheikh MD co mpleted FVC / MVV with bronchodilator - 48230 Coral Fernando MD completed BLOOD COUNT HEMOGLOBIN Coral barnes MD completed FRC - 29823 Coral russell MD completed SpO2 w/o 6min walk/titration Coral Fernando MD completed DLCO - 30993 Coral russell MD completed Schedule Followup ulius Dylan chawla MD s/p testing completed EKG Coral russell MD completed EKG Misael Sanford MD completed EKG Misael Sanford MD completed EKG Misael Sanford MD completed AICD Interrogation, Remote (Tech) Misael Sanford MD INTERROGATION REMOTE </90 D 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 completed AICD Interrogation, Remote (Prof) Misael Sanford MD INTERROGATION EVAL REMOTE </90 D 1/2/> LD CVDFB completed AICD Interrogation, Remote (Tech) Misael Sanford MD INTERROGATION REMOTE </90 D 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 completed AICD Interrogation, Remote (Prof) Misael Sanford MD INTERROGATION EVAL REMOTE </90 D 1/2/> LD CVDFB completed AICD Interrogation, Remote (Tech) Misael Sanford MD INTERROGATION REMOTE </90 D 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 completed AICD Interrogation, Remote (Prof) Misael Sanford MD INTERROGATION EVAL REMOTE </90 D 1/2/> LD CVDFB completed Schedule ICD Check Misael Sanford MD co mpleted EKG Misael Sanford MD completed SNOMED-CT: [id number] Current Medications Documented Misael Sanford MD completed EKG Stefano Sheikh MD complete d
[2024-08-10 22:50] VITALS: BP 136/90; PULSE 80; RESP 20; TEMP 36.9; O2SAT 97
--- NOTE | 2024-08-10 23:01 | ED_ITS ---
HPI - General Adult General Chief complaint: Unspecified Stated complaint: needs drug test Time Seen by Provider: 08/10/24 22:55 History of Present Illness HPI narrative: 53-year-old male presents with friend at bedside for a urine drug screen. Patient states he lives at [facility] [facility] and had a random drug test today which was positive for fentanyl. Patient adamantly states he does not use final and her house in his life. He presents today so he can have his repeat drug test repeated to prove to the [place] [facility] that he is not using fentanyl. No other complaints. Related Data Home Medications ?Medication ?Instructions ?Recorded ?Confirmed ?Last Taken ?Type acetaminophen 325 mg tablet 325 mg PO ONCE 08/09/20 08/09/20 Unknown History (Tylenol) buspirone 15 mg tablet 15 mg PO BID 08/09/20 08/09/20 Unknown History carvedilol 12.5 mg tablet 12.5 mg PO BID 08/09/20 08/09/20 Unknown History cyclobenzaprine 10 mg tablet 10 mg PO HS 08/09/20 08/09/20 Unknown History digoxin 125 mcg (0.125 mg) tablet 125 mcg PO DAILY 08/09/20 08/09/20 Unknown History lamotrigine 100 mg tablet 100 mg PO DAILY 08/09/20 08/09/20 Unknown History (Lamictal) lisinopril 10 mg tablet 10 mg PO DAILY 08/09/20 08/09/20 Unknown History magnesium 200 mg tablet 400 mg PO DAILY 08/09/20 08/09/20 Unknown History spironolactone 25 mg tablet 25 mg PO DAILY 08/09/20 08/09/20 Unknown History (Aldactone) trazodone 50 mg tablet 50 mg PO HS PRN Pain 08/09/20 08/09/20 Unknown History Allergies Allergy/AdvReac Type Severity Reaction Status Date / Time No Known Allergies Allergy Verified 08/10/24 22:54 Review of Systems Review of Systems: All systems reviewed & are unremarkable except as noted in HPI and below PMFSH Past Medical History Medical History Pacemaker Cardiomyopathy HTN (hypertension) Bipolar 1 disorder Schizophrenia Family History Family History Father Heart disease Hypertension Social History Social History Smokeless tobacco user: chewing tobacco Additional smoking assessment comments: 1 can per day Alcohol intake: current Substance use type: methamphetamine Spiritual care concerns: No Exam Narrative: GENERAL: Well-appearing, well-nourished, and in no acute distress. HEAD: Normocephalic, atraumatic. ENT: Nares clear NECK: Supple. CHEST: Clear to auscultation. No respiratory distress. HEART: Regular rate and rhythm. No murmur heard. Normal peripheral pulses. EXTREMITIES: Normal range of motion. No edema. SKIN: Warm, dry, no rash. NEURO: No focal deficits. Alert and oriented x3 Course Vital Signs Vital signs: Vital Signs Temperature 98.4 F 08/10/24 22:50 Pulse Rate 80 08/10/24 22:50 Respiratory Rate 20 08/10/24 22:50 Blood Pressure 136/90 08/10/24 22:50 Pulse Oximetry 97 08/10/24 22:50 Oxygen Delivery Room Air 08/10/24 22:50 Temperature 98.4 F 08/10/24 22:50 Pulse Rate 80 08/10/24 22:50 Respiratory Rate 20 08/10/24 22:50 Blood Pressure 136/90 08/10/24 22:50 Pulse Oximetry 97 08/10/24 22:50 Oxygen Delivery Room Air 08/10/24 22:50 Medical Decision Making MDM Narrative Medical decision making narrative: 53 y/o old male presents to the ED with friend at bedside for a urine drug screen. Patient lives in [facility] and had a random drug screening today which tested positive for final. Patient denies use of fentanyl and would like a drug screen in the ER to prove to the [place] [facility] that he is not been using it. His vitals are stable. He has no other complaints. I discussed with the patient that we do not typically perform electove drug screens in the ED, additionally our drug screens are not sensitive to synthetic opioids and therefore could not be used to test for fentanyl. Advised him to follow-up with his [place] [facility] facility or obtain [id number] screen as needed. Return precautions provided. Vital Signs Vital Signs: Vital Signs Temperature 98.4 F 08/10/24 22:50 Pulse Rate 80 08/10/24 22:50 Respiratory Rate 20 08/10/24 22:50 Blood Pressure 136/90 08/10/24 22:50 Pulse Oximetry 97 08/10/24 22:50 Oxygen Delivery Room Air 08/10/24 22:50 Temperature 98.4 F 08/10/24 22:50 Pulse Rate 80 08/10/24 22:50 Respiratory Rate 20 08/10/24 22:50 Blood Pressure 136/90 08/10/24 22:50 Pulse Oximetry 97 08/10/24 22:50 Oxygen Delivery Room Air 08/10/24 22:50 Discharge Plan Discharge Clinical Impression: Encounter for drug screening Patient Disposition: Home, Self-Care Condition: Stable Instructions: Antibiotic Form, Normal Exam (ED) Additional Instructions: as discussed, we do not perform drug screens for fentanyl in the ER. Return to the emergency department if develop chest pain, shortness of breath or other concerning symptoms. Patient Language: Panamanian Prescriptions: No Action cyclobenzaprine [Flexeril] 10 mg Tablet 10 mg PO HS acetaminophen [Tylenol] 325 mg Tablet 325 mg PO ONCE carvedilol 12.5 mg Tablet 12.5 mg PO BID trazodone 50 mg Tablet 50 mg PO HS PRN (Reason: Pain) spironolactone [Aldactone] 25 mg Tablet 25 mg PO DAILY lisinopril 10 mg Tablet 10 mg PO DAILY lamotrigine [Lamictal] 100 mg Tablet 100 mg PO DAILY buspirone [BuSpar] 15 mg Tablet 15 mg PO BID magnesium 200 mg Tablet 400 mg PO DAILY digoxin 125 mcg (0.125 mg) Tablet 125 mcg PO DAILY Follow-up/Referrals: Gerhard,Pastora Choe [Primary Care Provider] -
--- OUTSIDE RECORDS SUMMARY | 2024-08-10 23:21 | XMS_ITS | Clinical Summary ---
Author Organization [facility] Address [address] [place] [address] Care Team Providers Care Produce Team Lead Name Role Phone Дмитрий Hennessy MD Primary [...] Overview (11/10/2010): Biotronik Lumax 340 Model # [id number] SER# [id number] implanted 08-12-08 in [place] per Dr. Abreu for dilated CM RV lead Biotronik Linox 65-18 SER# [id number] Family History Medical History Relation Name Comments [...] on file Legal Sex Male 3:58 AM WAX CUTTER Gender Identity Not on file Sexual Orientation Not on file Last Filed Vital Signs Vital Sign Reading Time Taken Comments Blood Pressure 116/76 07/19/2020 1:01 PM WAX CUTTER Pulse 105 07/19/2020 1:01 PM WAX CUTTER Temperature 36.1 C (97 F) 07/19/2020 1:01 PM WAX CUTTER Respiratory Rate 18 07/19/2020 1:01 PM WAX CUTTER Oxygen Saturation 95% 07/19/2020 1:01 PM WAX CUTTER Inhaled Oxygen Concentration - - Weight 99.5 kg (219 lb 6.4 oz) 07/19/2020 1:01 P M WAX CUTTER Height 175.3 cm (5' 9 ) 07/19/2020 1:01 PM WAX CUTTER Body Mass Index 32.4 07/19/2020 1:01 PM WAX CUTTER Plan of Treatment Health Maintenance Due Date [...] to complete this topic Insurance MEDICAID [place] [facility] Care Teams Produce Team Lead Relationship Specialty Start Date End Date Дмитрий Hennessy MD [address] [place] [address] PCP - General Internal Medicine 01/09/20
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
--- OUTSIDE RECORDS SUMMARY | 2024-08-10 23:22 | XMS_ITS | Referral Summary ---
Author Organization [facility] Address [address] [place] [address] Care Team Providers Care Watch Manufacturing Supervisor Name Role Phone Дмитрий Hennessy MD Primary Care Provider Stefano Sheikh MD Unavailable [phone] Source Comments [facility],non-owned Affiliates and Associated Physician Practices is amultiple site organization consisting of ambulatory clinics and hospital sitesin [place], [place], [place] and [place]. This disclosure is being madepursuant to the Care Everywhere program and may not contain all information available regarding this patient. Last updated 18.[facility] Encounters Date Type Department Care Team Description 07/21/2024 Telephone [facility] [address] [place] [address] Pam Rain, HIGH SCHOOL ASSISTANT FOOTBALL COACH-MEDICAL MANAGEMENT TRAINER Results 07/18/2024 Travel 07/18/2024 2:00 PM ALUMNI RELATIONS OFFICER Office Visit [facility] [address] [place] [address] Pam Rain, HIGH SCHOOL ASSISTANT FOOTBALL COACH-MEDICAL MANAGEMENT TRAINER Chronic hepatitis C without hepatic coma (HCC) (Primary Dx) 07/07/2024 Orders Only [facility] [address] [place] [address] Pam Rain, HIGH SCHOOL ASSISTANT FOOTBALL COACH-MEDICAL MANAGEMENT TRAINER Chronic hepatitis C without hepatic coma (HCC) 05/13/2024 1:35 PM ALUMNI RELATIONS OFFICER - 05/13/2024 11:59 PM ALUMNI RELATIONS OFFICER Hospital Encounter [facility] [address] [place] [address] Discharge Disposition: Home or Self Care 05/13/2024 Travel 05/13/2024 11:30 AM ALUMNI RELATIONS OFFICER Procedure visit [facility] - [address] [address] Jason Willingham MD Chronic hepatitis C without hepatic coma (HCC) 05/13/2024 1:00 PM ALUMNI RELATIONS OFFICER Office Visit [facility] - [address] [address] Jason Willingham MD Campbell, Shirley M, HIGH SCHOOL ASSISTANT FOOTBALL COACH-MEDICAL MANAGEMENT TRAINER Chronic hepatitis C without hepatic coma (HCC) [...] (07/18/2024): Added automatically from request for surgery [id number] Paresis of lower extremity 02/24/2021 Exposure to SARS-associated coronavirus 12/09/19 Prediabetes 11/04/2020 Encounter for health-related screening Overview (07/18/2024): did not want breann socre, eng psa Psychostimulant dependence in remission 11/03/19 Primary osteoarthritis of left hip 10/28/2020 Overview (03/03/2021): Added automatically from request for surgery [id number] Fatty liver 10/09/2020 Renal cyst 10/09/2020 Hypotension [...] (implantable) cardiac defi brillator 08/13/2008 Overview (03/03/2021): [employer] Swedenronik Lumax 340 Model # [id number] SER# [id number] implanted 08-12-08 in [place] per Dr. Abreu for dilated CM RV lead Biotronik Linox 65-18 SER# [id number] Biotronik Lumax 340 Model # [id number] SER# [id number] implanted 08-12-08 in [place] per Dr. Abreu for dilated CM RV lead Biotronik Linox 65-18 SER# [id number] Supraventricular tachycardia 05/18/2008 Other primary cardiomyopathies 12/20/1993 [...] Sex Assigned at Male 06/27/2021 3:16 PM ALUMNI RELATIONS OFFICER Gender Identity Male 06/27/2021 3:16 PM ALUMNI RELATIONS OFFICER Sexual Orientation Not on file Last Filed Vital Signs Vital Sign Reading Time Taken Comments Blood Pressure 112/73 07/18/2024 2:34 PM ALUMNI RELATIONS OFFICER Pulse 99 07/18/2024 2:34 PM ALUMNI RELATIONS OFFICER Temperature 36.7 C (98 F) 07/18/2024 2:34 PM ALUMNI RELATIONS OFFICER Respiratory Rate - - Oxygen Saturation 96% 07/18/2024 2:34 PM ALUMNI RELATIONS OFFICER Inhaled Oxygen Concentration - - Weight 92.8 kg (204 lb 9.6 oz) 07/18/2024 2:34 P M ALUMNI RELATIONS OFFICER Height 175.3 cm (5' 9 ) 07/18/2024 2:34 PM ALUMNI RELATIONS OFFICER Body Mass Index 30.21 07/18/2024 2:34 PM ALUMNI RELATIONS OFFICER Plan of Treatment Not on file Goals Goal Patient Goal Type Associated Problems Recent Progress Patient-Stated? Author Medication Management General On track( 025 3:15 PM ALUMNI RELATIONS OFFICER) No Fanning, Jessica D., RN Note: Expected end date: ongoing Interventions: Take all medications as prescribed Procedures Procedure Name Priority Date/Time Associated Diagnosis Comments HEPATITIS C RNA QUANTITATIVE Routine 07/17/2024 1:44 PM ALUMNI RELATIONS OFFICER Chronic hepatitis C without hepatic coma (HCC) COMPREHENSIVE METABOLIC PANEL Routine 07/17/2024 1:44 PM ALUMNI RELATIONS OFFICER Chronic hepatitis C without hepatic coma (HCC) CBC W AUTO DIFFERENTIAL Routine 07/17/2024 1:44 PM ALUMNI RELATIONS OFFICER Chronic hepatitis C without hepatic coma (HCC) HEPATITIS C RNA QUANTITATIVE Routine 07/17/2024 1:44 PM ALUMNI RELATIONS OFFICER Chronic hepatitis C without hepatic coma (HCC) COMPREHENSIVE METABOLIC PANEL Routine 07/17/2024 1:44 PM ALUMNI RELATIONS OFFICER Chronic hepatitis C without hepatic coma (HCC) CBC W AUTO DIFFERENTIAL Routine 07/17/2024 1:44 PM ALUMNI RELATIONS OFFICER Chronic hepatitis C without hepatic coma (HCC) HEPATITIS C RNA QUANTITATIVE Routine 05/13/2024 2:53 PM ALUMNI RELATIONS OFFICER Chronic hepatitis C without hepatic coma (HCC) COMPREHENSIVE METABOLIC PANEL Routine 05/13/2024 2:53 PM ALUMNI RELATIONS OFFICER Chronic hepatitis C without hepatic coma (HCC) CBC W AUTO DIFFERENTIAL Routine 05/13/2024 2:53 PM ALUMNI RELATIONS OFFICER Chronic hepatitis C without hepatic coma (HCC) DIGOXIN LEVEL Routine 05/13/2024 2:53 PM ALUMNI RELATIONS OFFICER Chronic hepatitis C without hepatic coma (HCC) ND LIVER ELASTOGRAPHY Routine 05/13/2024 11:26 AM ALUMNI RELATIONS OFFICER Chronic hepatitis C without hepatic coma (HCC) HIV-1 HIV-2 ANTIBODY + HIV P24 AG PANEL Routine 03/03/2021 1:12 PM CDT Chronic hepatitis C without hepatic coma (HCC) from Last 3 Months or Most Recently Relevant to Health Maintenance Results * HEPATITIS C RNA QUANTITATIVE (07/17/2024 1:44 PM ALUMNI RELATIONS OFFICER) Only the most recent of2 resultswithin the time period is included. [facility] Hepatitis C Virus RNA, Quantitative Real Time PCR <15 NOT DETECTED NOT DETECTED IU/mL [facility] Hepatitis C Virus RNA, Quantitative Real Time PCR <1.18 NOT DETECTED NOT DETECTED Log IU/mL [facility] Comment: For additional information, please refer to http://education.Disqus/faq/IAX35d2 (This link is being provided for informational/ educational purposes only.) Test Performed at: [facility] [id number] [place] [address] TARIK NICHOLSON MD Blood BLOOD SPECIMEN / Unknown 07/17/2024 1:44 PM ALUMNI RELATIONS OFFICER 07/17/2024 1:44 PM ALUMNI RELATIONS OFFICER Pam Rain HIGH SCHOOL ASSISTANT FOOTBALL COACH-MEDICAL MANAGEMENT TRAINER LAB - CHEMIS TRY ORDERABLES Performing Organization Address City/State/[facility] Co de Phone Number [facility] [address] [place] [address] * (ABNORMAL) CBC WITH DIFFERENTIAL (07/17/2024 1:44 PM ALUMNI RELATIONS OFFICER) Only the most recent of3 resultswithin the time period is included. [facility] White Blood Cell Count 8.0 3.8 [...] 0.5 % [facility] Comment: Test Performed at: [facility] [address] [place] [address] TARIK NICHOLSON MD Blood BLOOD SPECIMEN / Unknown 07/17/2024 1:44 PM ALUMNI RELATIONS OFFICER 07/17/2024 1:44 PM ALUMNI RELATIONS OFFICER Pam Rain HIGH SCHOOL ASSISTANT FOOTBALL COACH-MEDICAL MANAGEMENT TRAINER LAB - HEMATO LOGY ORDERABLES [facility] [address] [place] [address] * (ABNORMAL) COMPREHENSIVE METABOLIC PANEL (07/17/2024 1:44 PM ALUMNI RELATIONS OFFICER) Only the most recent of3 resultswithin the [...] 46 U/L [facility] Comment: Test Performed at: [facility] [address] [place] [address] TARIK NICHOLSON MD Blood BLOOD SPECIMEN / Unknown 07/17/2024 1:44 PM ALUMNI RELATIONS OFFICER 07/17/2024 1:44 PM ALUMNI RELATIONS OFFICER Pam Rain HIGH SCHOOL ASSISTANT FOOTBALL COACH-MEDICAL MANAGEMENT TRAINER LAB - CHEMIS TRY ORDERABLES Performing Organization Address [facility] Co de Phone Number [facility] [phone] [place] [address] * DIGOXIN LEVEL (05/13/2024 2:53 PM ALUMNI RELATIONS OFFICER) Digoxin 0.8 0.5 - 1.2 ng/mL 05/13/2024 3:36 PM ALUMNI RELATIONS OFFICER [facility] Blood BLOOD SPECIMEN / Unknown Lab Venipuncture / Unknown 05/13/2024 2:53 PM ALUMNI RELATIONS OFFICER 05/13/2024 3:23 PM ALUMNI RELATIONS OFFICER Narrative [facility] - 05/13/2024 3:36 PM ALUMNI RELATIONS OFFICER Therapeutic reference range for heart failure is 0.5-0.9 ng/mL. For atrial fibrillation, it is 0.8-1.2 ng/mL. The rolling up machine operator of Digoxin Immune Jayesh has stated that no immunoassay technique is suitable for quantitating digoxin in plasma/serum from patients on antibody fragment therapy. Pam Rain HIGH SCHOOL ASSISTANT FOOTBALL COACH-MEDICAL MANAGEMENT TRAINER LAB - CHEMIS TRY ORDERABLES Performing Organization Address City/[facility]/ZIP Co de Phone Number [facility] [address] [place] [address], [facility] [phone] * ND LIVER ELASTOGRAPHY (05/13/2024 11:26 AM ALUMNI RELATIONS OFFICER) Narrative Jason Gómez MD - 05/13/2024 11:26 AM ALUMNI RELATIONS OFFICER Jason Gómez MD 05/13/2024 12:12 PM Diagnosis: [...] patients with nonalcoholic fatty liver disease. Gastroenterology 2019;156:5937-3379. Alen SNYDER, Jarad R, Miguel MONTERROSO, et [...] at-risk nonalcoholic steatohepatitis (JI) in a [place] cohort and comparison to other non-invasive algorithms. PLoS ONE (2022) 17: r3715889. Heather AJ, Nathalie J, Jack ZM, et al. Enhanced diagnosis of advanced fibrosis and cirrhosis in individuals with NAFLD using FibroScan-based Agile scores. J Hepatol (2022) 78: 247-259. Fibroscan LSM can also be used with laboratory parameters without formulas to assess prognosis. According to the Baveno-VII criteria (Moreon, 2021), Fibroscan LSM <=15 kPa plus a platelet count of >=948l766/L rules out clinically significant portal hypertension (sensitivity [...] FIB-4 score (Tim et al. Hepatology Communications 2019;3:7699-8146) or NAFLD Fibrosis score (Moya et al. Clinical Gastroenterology and Hepatology 2019;17:4276-1521 using routine clinical data. Note: 1. Fibroscan [...] additional interpretive data was last updated 11/04/22.) [email or web address] county memorial hospitalAmicus Therapeutics/var-vgwixpdi-xgcrvlxaju Pam Rain HIGH SCHOOL ASSISTANT FOOTBALL COACH-MEDICAL MANAGEMENT TRAINER PROCEDURE/LA NOR SURGICAL ORDERABLES * HIV-1 HIV-2 ANTIBODY + HIV P24 AG PANEL (03/03/2021 1:12 PM CDT) HIV Antigen/Antibod y 1 & 2 Non-reacti ve Non-react paris 03/03/2021 5:02 PM CDT [facility] Comment:Neither HIV-1 p24 An tigen nor HIV-1/HIV-2 Antibodies are detected. Blood BLOOD SPECIMEN / Unknown Lab Venipuncture / Unknown 03/03/2021 1:12 PM CDT 03/03/2021 1:39 PM CDT Pam Rain HIGH SCHOOL ASSISTANT FOOTBALL COACH-MEDICAL MANAGEMENT TRAINER LAB - CHEMIS TRY ORDERABLES [facility] [address] [place] [address], [facility] [phone] from Last 3 Months or Most Recently Relevant to Health Maintenance Care Teams Watch Manufacturing Supervisor Relationship Specialty Start Date End Date Дмитрий Hennessy MD [address] [place], [place] [id number] PCP - General 03/03/21 Stefano Sheikh MD [address] [facility] [address] [place] [address] Sales Appointment Coordinator Cardiology 05/13/24
--- OUTSIDE RECORDS SUMMARY | 2024-08-10 23:22 | XMS_ITS | Referral Summary ---
Author Organization [facility] Address [address] [place] [address] Care Team Providers Care Bingo Attendant Name Role Phone Дмитрий Hennessy MD Primary Care Provider Mireya Rubi NP Unavailable [phone] Vignesh Hoffmann MD Unavailable [phone] Encounters Date Type Department Care Team Description 06/09/2024 12:45 PM BOWLING TEACHER Office Visit [facility] Dermatology [facility] [facility] [address] [place] [address] Brijesh Vizcaino MD Encounter for post surgical [...] major depression 03/16/2023 Schizoaffective disorder, bipolar type ([facility]/HCC) 03/16/2023 Type 2 diabetes mellitus 03/16/2023 Substance abuse ([facility]) 03/16/2023 Suicidal thoughts 03/16/2023 Head and [...] (12/27/2021): Added automatically from request for surgery [id number] Paresis of lower extremity (CMS/HCC) 02/24/2021 Contact with and (suspected) exposure to other communicable diseases 12/08/2020 Encounter for health-related screening Prediabetes 11/04/2020 Psychostimulant dependence in remission 11/03/19 21 Obesity with body mass index 30 or greater 11/02 Primary osteoarthritis of left hip 10/28/2020 Overview (10/28/2020): Added automatically from request for surgery [id number] Renal cyst 10/09/2020 Fatty liver 10/09/2020 Hypotension 2020 Chronic obstructive pulmonary disease 09/02/2020 Methamphetamine abuse ([facility]) 08/06/2020 Obesity 08/05/2020 Overweight 08/05/2020 Ventricular tachycardia 07/30/2020 Degeneration of lumbar intervertebral disc 02/10 Hepatitis C 01/19/2020 Impaired fasting glucose 12/17/2019 Poor short-term memory 12/17/2019 Left foot drop 09/24/2019 Tobacco dependence in remission 09/24/2019 Hypertriglyceridemia 09/03/2019 Hyperlipidemia 09/03/2019 Congestive heart failure ([facility]) 02/28/2016 Systolic CHF, chronic ([facility]) 12/02/2010 Single implantable cardioverter-defibrillator (I CD) in situ 11/10/2010 Overview (10/28/2020): Biotronik Lumax 340 Model # [id number] SER# [id number] implanted 08-12-08 in [place] per Dr. Abreu for dilated CM RV lead Biotronik Linox 65-18 SER# [id number] Supraventricular tachycardia 06/03/2009 Personal history of nicotine dependence 01/22/20 09 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 08/13/2008 Unspecified atrial fibrillation 05/18/2008 Cardiomyopathy 12/20/1993 Overview (10/28/2020): lowest 20 no cad or ai Resolved Problems Problem Noted Date Diagnosed Date Resolved Date Oral cancer 12/02/2021 12/13/2021 Overview (12/02/2021): Added automatically from request for surgery [id number] Immunizations Name Administration Dates Next Due Influenza, Quadrivalent, Spl it, Intramuscular 04/20/2021,05/03/2020,04/01/2019 Influenza, Quadrivalent, Spl it, Preservative Free, Intramuscular 06/26/2023,04/03/2023,05/14/2022 140Fire (J&J) SARS-CoV-2 Vaccination 09/07/2020 Tdap 04/03/2023,09/24/2019 ZOSTER [...] on file Legal Sex Male 11:03 PM BOWLING TEACHER Gender Identity Male 05/12/2022 9:05 AM BOWLING TEACHER Sexual Orientation Straight 10/27/2020 7: 55 PM [...] lb 6.4 oz) 05/07/2024 1:55 P M BOWLING TEACHER Height 175.3 cm (5' 9 ) 08/29/2023 10:33 AM BOWLING TEACHER Body Mass Index 28.86 08/29/2023 10:33 AM BOWLING TEACHER Plan of Treatment Not on file Medical Devices Implanted Type Area Advertising Agent Device Identifier Shelf Expiration Date Model / Serial / Lot Icd Implanted:10/22 by Matthew Hoffmann MD (Quantity not on file) Pacemaker Heart [employer] [id number] / [id number] / [employer] Graft Tissue Accelular Matrix Dermis Regn Medium Alloderm Select 4x7cm Rtu [id number] - [id number] Implanted:Qty: 1 on 02/10/2022 by Roland Christensen MD PhD at [facility] Right: Neck [employer] 10/30/2023 [id number] / / [id number] Depuy Orthopaed[employer] Cup 55mm Acetabular Bi Mentum Femoral Proximal Press Fit [id number] - [id number] Implanted:Qty: 1 on 08/21/2023 by Lalit Orta MD at [facility] Left: Hip [employer] Orthopaed[employer] Inc 08/29/2024 [id number] / / [id number] [employer] Liner Acet Hip Size 28 Poly Bi Mentum Altrx 55mm [id number] - [id number] Implanted:Qty: 1 on 08/21/2023 by Lalit Orta MD at [facility] Left: Hip [employer]opaed[employer] [id number] 09/29/2026 [id number] / / [id number] Dep[employer] Orth[employer] Actis Collar Hip 4 High Offset Stem Femoral [id number] - [id number] Implanted:Qty: 1 on 08/21/2023 by Lalit Orta MD at [facility] Left: Hip [employer] [id number] 03/31/2033 [id number] / / [id number] [employer] Articul/Cameron 28mm Cementless Hip +8.5mm 06/14 Taper Head Femoral Latex Free [id number] - [id number] Implanted:Qty: 1 on 08/21/2023 by Lalti Orta MD at [facility] Left: Hip [employer] [id number] 01/30/2028 [id number] / / [id number] Procedures Procedure Name Priority Date/Time Associated Diagnosis Comments EGFR Timed 08/21/2023 2:42 PM BOWLING TEACHER POCT HEMOGLOBIN A1C Routine 08/06/2023 2 :12 PM BOWLING TEACHER from Last 3 Months or Most Recently Relevant to Health Maintenance Results * eGFR (08/21/2023 2:42 PM BOWLING TEACHER) eGFR 77 >=60 mL/min/1. [address] [facility] Comment: Interpretive Data Reference Interval Normal >/= [...] last reviewed 2021. Blood 08/21/2023 2:42 PM BOWLING TEACHER 08/21/2023 2:59 PM BOWLING TEACHER Garfield Bowman MD LAB BLOOD ORDERABLES Erika guajardo Result [facility] Department [place] [address] * (ABNORMAL) POCT hemoglobin A1c (08/06/2023 2:12 PM BOWLING TEACHER) Hgb A1C, POC 5.9(H) 4.0 - 5.6 % [facility] Est Average Gluc POC 123 mg/dL [facility] Comment: The ADA recommends reporting an estimated Average Glucose (eAG) with all Hemoglobin A1c results using the equation derived from a study of 507 normal and diabetic adults. Minority populations were underrepresented and children were not included. (Diabetes Care 31:0836-4453, 2008). The eAG is not equivalent to a fasting glucose. Blood 08/06/2023 2:12 PM BOWLING TEACHER 08/06/2023 2:12 PM BOWLING TEACHER us Lalit Orta MD POINT OF CARE TEST ORDERABLES Fi nal Result [facility] Department [place] [address] from Last 3 Months or Most Recently Relevant to Health Maintenance Insurance [facility] CHOICE PLUS [facility] HMO/PPO Address: [facility] [address] [place] [address] [facility] [place] [address] [facility] Advance Directives For more information, please contact: [phone] Documents on File Type Date Recorded Patient Flying Teacher Expl anation ADVANCE DIRECTIVE 02/10/2022 1:24 PM Power of Attending Ambulatory Care-Medical ADVANCE DIRECTIVE 11/05/2020 10:02 AM Power of Attending Ambulatory Care-Medical * Full Code (Latest Code Status on File) Date Activated Date Inactivated Comments 08/21/2023 11:18 AM 08/22/2023 6:04 PM * Full Code Date Activated Date Inactivated Comments 02/10/2022 5:21 PM 02/11/2022 7:46 PM Care Teams Bingo Attendant Relationship Specialty Start Date End Date Дмитрий Hennessy MD [address] [address] PCP - General Internal Medicine 08/11/20 Mireya Rubi NP [address] [facility] [address] [place] [address] Nurse Practitioner Nurse Practitioner 9/14/22 Vignesh Hoffmann MD [address] [facility] [address] [place] [address] Radiation Oncologist Radiation Oncology 03/30/22
--- OUTSIDE RECORDS SUMMARY | 2024-08-10 23:22 | XMS_ITS ---
Author Organization [facility] Address [address] [place] [address] Support Name Relationship Address Phone [facility] [address] [place] [address] Aashish Darby Guarantor Unknown [phone] Care Team Providers Care Personal Health Coach Name Role Phone Vikash Dodd Primary Care Provider [phone] REASON FOR VISIT Trazodone Social History Sex Assigned At : Social History Observation Description Sex Assigned At Male Encounters Encounter Location Date Provider Diagnosis [facility] [address], [place] [address] 08/05/2024 Vikash Dodd Plan Of Treatment Next Appt Details Provider Name:Vikash page, 08/29/2024 01:00:00 PM, [address] [facility] , [place], [address], Progress Notes * Talia DARBYOB:1970 (53 yo M)Acc No.[id number]:08/05/2024 Patient: Aashish AGUILERA :1970 A ge:53 Y S ex:Male Address[address] [place] [address] * true * Date: Generated for Sanai min/Faannabelg/eTransmitting on: 0 08/10/2024 11:21 PM UNDERWRITING DIRECTOR
--- OUTSIDE RECORDS SUMMARY | 2024-08-10 23:22 | XMS_ITS | Encounter Summary ---
Author Organization [facility] Address [address] [facility] [address] [place] [address] Phone Care Team Providers Care Securities Attorney Name Role Phone Дмитрий Hennessy MD Primary Care Provider Mireya Rubi NP Unavailable [phone] Vignesh Hoffmann MD Unavailable [phone] Encounter Details Date Type Department Care Team (Late st Contact Info) Description 01/30/2024 Telephone [facility] Otolaryngology [address] [facility] [address] [place] [address] Juju Badillo MS Social History Tobacco Use [...] on file Legal Sex Male 11:03 PM CORPORATE CONCIERGE Gender Identity Male 05/12/2022 9:05 AM CORPORATE CONCIERGE Sexual Orientation Straight 10/27/2020 7: 55 PM CDT documented as of this encounter Plan of Treatment Not on file documented as of this encounter Visit Diagnoses Not on filedocumented in this encounter Care Teams Securities Attorney Relationship Specialty Start Date End Date Дмитрий Hennessy MD [address] [address] PCP - General Internal Medicine 08/11/20 Mireya Rubi NP [address] [place] [address] Nurse Practitioner Nurse Practitioner 03/15/22 Vignesh Hoffmann MD [address] [facility] [address] [place] [address] Radiation Oncologist Radiation Oncology 03/30/22 documented as of this encounter
--- OUTSIDE RECORDS SUMMARY | 2024-08-10 23:22 | XMS_ITS | Clinical Summary ---
Author Organization [facility] Address [address] [place] [address] Care Team Providers Care Solar Energy System Installer Helper Name Role Phone Дмитрий Hennessy MD Primary Care Provider Mireya Rubi NP Unavailable [phone] Vignseh Hoffmann MD Unavailable [phone] Allergies No known active allergies Medications [...] (12/27/2021): Added automatically from request for surgery [id number] Paresis of lower extremity (CMS/HCC) 02/24/2021 Contact with and (suspected) exposure to other communicable diseases 12/08/2020 Encounter for health-related screening Prediabetes 11/04/2020 Psychostimulant dependence in remission 11/03/19 21 Obesity with body mass index 30 or greater 11/02 Primary osteoarthritis of left hip 10/28/2020 Overview (10/28/2020): Added automatically from request for surgery [id number] Renal cyst 10/09/2020 Fatty liver 10/09/2020 Hypotension 2020 Chronic obstructive pulmonary disease 09/02/2020 Methamphetamine abuse (CMS/HCC) 08/06/2020 Obesity 08/05/2020 Overweight 08/05/2020 Ventricular tachycardia 07/30/2020 Degeneration of lumbar intervertebral disc 02/10 Hepatitis C 01/19/2020 Impaired fasting glucose 12/17/2019 Poor short-term memory 12/17/2019 Left foot drop 09/24/2019 Tobacco dependence in remission 09/24/2019 Hypertriglyceridemia 09/03/2019 Hyperlipidemia 09/03/2019 Congestive heart failure ([facility]) 02/28/2016 Systolic CHF, chronic ([facility]) 12/02/2010 Single implantable cardioverter-defibrillator (I CD) in situ 11/10/2010 Overview (10/28/2020): Biotronik Lumax 340 Model # [id number] SER# [id number] implanted 08-12-08 in [place] per Dr. Abreu for dilated CM RV lead Biotronik Linox 65-18 SER# [id number] Supraventricular tachycardia 06/03/2009 Personal history of nicotine dependence 01/22/20 09 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 08/13/2008 Unspecified atrial fibrillation 05/18/2008 Cardiomyopathy 12/20/1993 Overview (10/28/2020): lowest 20 no cad or ai Resolved Problems Problem Noted Date Diagnosed Date Resolved Date Oral cancer 12/02/2021 12/13/2021 Overview (12/02/2021): Added automatically from request for surgery [id number] Encounters Date Type Department Care Team Description 06/09/2024 12:45 PM TANNING WHEEL OPERATOR Office Visit [facility] [address] [facility] [address] [place] [phone] Brijesh Vizcaino MD Encounter for post surgical wound check (Primary Dx); Basal cell carcinoma of skin of nose from Last 3 Months Immunizations Name Administration Dates Next Due Influenza, Quadrivalent, Spl it, Intramuscular 04/20/2021,05/03/2020,04/01/2019 Influenza, Quadrivalent, Spl it, Preservative Free, Intramuscular 06/26/2023,04/03/2023,05/14/2022 Nolio (J&J) SARS-CoV-2 Vaccination 09/07/2020 Tdap 04/03/2023,09/24/2019 ZOSTER Recombinant 04/03/2023 Surgical History Surgery Date Site/Laterality Comments INSERT / REPLACE AICD LEAD 07/02/2008 - 07/01/2009 Biotronik Lumax 340 VR-T with serial #[id number]. COLECTOMY 07/02/1990 - 07/01/1991 Colon resection for Crohn's TENDON REPAIR 07/02/1990 - 07/01/1991 Right hand SUBDURAL HEMATOMA EVACUATION VIA CRANIOTOMY 01/30/1990 - 03/01/1990 Evacuation of subdural hematoma FOOT SURGERY CARDIAC DEFIBRILLATOR PLACEMENT 07/02/2013 - 07/01/2014 Stylewhile ICD E141 BIOPSY 10/30/2021 - 11/29/2021 Tongue APPENDECTOMY 07/02/1990 - 07/01/1991 Medical History Medical History Date Comments Obesity Tongue cancer (HCC) SCCA Tongue dxd 10/2021 Chewing tobacco use History of hepatitis C Dxd 2003- - Followed by [facility] hepatology History of methamphetamine use l ast smoked/snorted meth 04/2021 History of Crohn's disease Dxd 1 991 s/p colectomy-- pt denies any further flare ups Heart failure (HCC) s/p Biotroni k ICD 2008 and changed to Stylewhile ICD 2013 Allergic rhinitis GERD (gastroesophageal reflux [...] on file Legal Sex Male 11:03 PM TANNING WHEEL OPERATOR Gender Identity Male 05/12/2022 9:05 AM TANNING WHEEL OPERATOR Sexual Orientation Straight 10/27/2020 7: 55 PM [...] lb 6.4 oz) 05/07/2024 1:55 P M TANNING WHEEL OPERATOR Height 175.3 cm (5' 9 ) 08/29/2023 10:33 AM TANNING WHEEL OPERATOR Body Mass Index 28.86 08/29/2023 10:33 AM TANNING WHEEL OPERATOR Plan of Treatment Health Maintenance Due Date [...] Completed 01/19/2020 Medical Devices Implanted Type Area Converter Supervisor Device Identifier Shelf Expiration Date Model / Serial / Lot Icd Implanted:10/22 by Matthew Hoffmann MD (Quantity not on file) Pacemaker Heart [place] [employer] [id number] / [id number] / [employer] Graft Tissue Accelular Matrix Dermis Regn Medium Alloderm Select 4x7cm Rtu [id number] - [id number] Implanted:Qty: 1 on 02/10/2022 by Roland Christensen MD PhD at [facility] Right: Neck [employer]ergan [employer] 10/30/2023 [id number] / / [id number] Depuy Orthopaed[employer] Cup 55mm Acetabular Bi Mentum Femoral Proximal Press Fit [id number] - [id number] Implanted:Qty: 1 on 08/21/2023 by Lalit Orta MD at [facility] Left: Hip Depuy Orthopaedics Inc 08/29/2024 [id number] / / [id number] [employer]uy Orth[employer] Liner Acet Hip Size 28 Poly Bi Mentum Altrx 55mm [id number] - [id number] Implanted:Qty: 1 on 08/21/2023 by Lalit Orta MD at [facility] Left: Hip [employer] Orthopaed[employer] Inc [id number] 09/29/2026 [id number] / / [id number] Depuy Orthopaed[employer] Actis Collar Hip 4 High Offset Stem Femoral [id number] - [id number] Implanted:Qty: 1 on 08/21/2023 by Lalit Orta MD at [facility] Left: Hip [employer] Orthopaed[employer] Inc [id number] 03/31/2033 [id number] / / [id number] [employer]uy Orth[employer]ed[employer] Articul/Cameron 28mm Cementless Hip +8.5mm 06/14 Taper Head Femoral Latex Free [id number] - [id number] Implanted:Qty: 1 on 08/21/2023 by Lalit Orta MD at [facility] Left: Hip [employer]opa[employer] [id number] 01/30/2028 [id number] / / [id number] Procedures Procedure Name Priority Date/Time Associated Diagnosis Comments EGFR Timed 08/21/2023 2:42 PM TANNING WHEEL OPERATOR POCT HEMOGLOBIN A1C Routine 08/06/2023 2 :12 PM TANNING WHEEL OPERATOR from Last 3 Months or Most Recently Relevant to Health Maintenance Results * eGFR (08/21/2023 2:42 PM TANNING WHEEL OPERATOR) eGFR 77 >=60 mL/min/1. 73 m2 FADY [...] last reviewed 2021. Blood 08/21/2023 2:42 PM TANNING WHEEL OPERATOR 08/21/2023 2:59 PM TANNING WHEEL OPERATOR Garfield Bowman MD LAB BLOOD ORDERABLES Erika l Result [facility] [place] [address] * (ABNORMAL) POCT hemoglobin A1c (08/06/2023 2:12 PM TANNING WHEEL OPERATOR) Hgb A1C, POC 5.9(H) 4.0 - 5.6 % [facility] Est Average Gluc POC 123 mg/dL [facility] Comment: The ADA recommends reporting an estimated Average Glucose (eAG) with all Hemoglobin A1c results using the equation derived from a study of 507 normal and diabetic adults. Minority populations were underrepresented and children were not included. (Diabetes Care 31:0592-2575, 2008). The eAG is not equivalent to a fasting glucose. Blood 08/06/2023 2:12 PM TANNING WHEEL OPERATOR 08/06/2023 2:12 PM TANNING WHEEL OPERATOR Lalit Orta MD POINT OF CARE TEST ORDERABLES nal Result [facility] Department [place] [address] from Last 3 Months or Most Recently Relevant to Health [place] [address] [facility] UHC CHOICE PLUS [facility] H[facility]/PPO Address: [address] [address] [place] [address] [facility] Advance Directives For more information, please contact: [phone] Documents on File Type Date Recorded Patient Site Controller Expl anation ADVANCE DIRECTIVE 02/10/2022 1:24 PM Power of Equipment Technician-Medical ADVANCE DIRECTIVE 11/05/2020 10:02 AM Power of Equipment Technician-Medical * Full Code (Latest Code Status on File) Date Activated Date Inactivated Comments 08/21/2023 11:18 AM 08/22/2023 6:04 PM * Full Code Date Activated Date Inactivated Comments 02/10/2022 5:21 PM 02/11/2022 7:46 PM Care Teams Solar Energy System Installer Helper Relationship Specialty Start Date End Date Дмитрий Hennessy MD [address] [address] PCP - General Internal Medicine 08/11/20 Mireya Rubi NP [address] [facility] [address] [place] [address] Nurse Practitioner Nurse Practitioner 03/15/22 Vignesh Hoffmann MD [address] [facility] [address] [place] [address] Radiation Oncologist Radiation Oncology 03/30/22
--- OUTSIDE RECORDS SUMMARY | 2024-08-10 23:22 | XMS_ITS | Clinical Summary ---
Author Organization [facility] Address [address] [place] [address] Care Team Providers Care Library Manager Name Role Phone Suresh Gay MD Unavailable Unavailable Дмитрий Hennessy MD Primary Care Provider [phone] Allergies No known active allergies Medications aspirin [...] Problem Noted Date Diagnosed Date Nonischemic cardiomyopathy ([facility]) Atrial fibrillation ([facility]) Family History Medical History Relation Comments No [...] REIMBURSEMENTS OF [place] MED[employer] UHC Care Teams Library Manager Relationship Specialty Start Date End Date Дмитрий Hennessy MD [address] [place] [phone] PCP - General INTERNAL MEDICINE 03/25/22 Suresh Gay MD [place] Labour Market Economist CARDIOVASCULAR DISEASE 12/01/15
--- OUTSIDE RECORDS SUMMARY | 2024-08-10 23:22 | XMS_ITS | Clinical Summary ---
Author Organization [facility] Address [address] [place] [address] Care Team Providers Care Automatic Thread Winder Name Role Phone Дмитрий Hennessy MD Primary Care Provider Stefano Sheikh MD Unavailable [phone] Source Comments [facility],non-owned Affiliates and Associated Physician Practices is amultiple site organization consisting of ambulatory clinics and hospital sitesin [place], [place], [place] and [place]. This disclosure is being madepursuant to the Care Everywhere program and may not contain all information available regarding this patient. Last updated 18.[facility] Allergies No known active allergies Medications * [...] (07/18/2024): Added automatically from request for surgery [id number] Paresis of lower extremity 02/24/2021 Exposure to SARS-associated coronavirus 12/09/19 21 Prediabetes 11/04/2020 Encounter for health-related screening Overview (07/18/2024): did not want breann socre, eng psa Psychostimulant dependence in remission 11/03/19 21 Primary osteoarthritis of left hip 10/28/2020 Overview (03/03/2021): Added automatically from request for surgery [id number] Fatty liver 10/09/2020 Renal cyst 10/09/2020 Hypotension [...] Overview (03/03/2021): Biotronik Lumax 340 Model # [id number] SER# [id number] implanted 08-12-08 in [place] per Dr. Abreu for dilated CM RV lead Biotronik Linox 65-18 SER# [id number] Biotronik Lumax 340 Model # [id number] SER# [id number] implanted 08-12-08 in [place] per Dr. Abreu for dilated CM RV lead Biotronik Linox 65-18 SER# [id number] Supraventricular tachycardia 05/18/2008 Other primary cardiomyopathies 12/20/1993 Overview (03/03/2021): lowest 20 no cad or ai lowest 20 no cad or ai Resolved Problems Problem Noted Date Diagnosed Date Resolved Date Dehydration 01/18/2024 08/01/2024 Acute upper respiratory infection 09/18/2023 08/01/2024 Encounters Date Type Department Care Team Description 07/21/2024 Telephone [facility] [address] [place] [phone] Pam Rain APRN-CNP Results 07/18/2024 2:00 PM LOAN CLERK [facility] [address] [place] [phone] Pam Rain APRN-BAG FILLER MACHINE OPERATOR Chronic hepatitis C without hepatic coma (HCC) (Primary Dx) 07/18/2024 Travel 07/07/2024 Orders Only [facility] [address] [place] [address] Pam Rain APRN-BAG FILLER MACHINE OPERATOR Chronic hepatitis C without hepatic coma (HCC) 05/13/2024 1:35 PM LOAN CLERK - 05/13/2024 11:59 PM LOAN CLERK Hospital Encounter [facility] OP DRAW STATION [address] [place] [address] Discharge Disposition: Home or Self Care 05/13/2024 1:00 PM LOAN CLERK Office Visit [facility] - [address] [phone] Jason Willingham MD Campbell, Shirley M, TOOL MAINTENANCE TECHNICIAN-BAG FILLER MACHINE OPERATOR Chronic hepatitis C without hepatic coma (HCC) (Primary Dx) 05/13/2024 11:30 AM LOAN CLERK Procedure visit [facility] - [address] [phone] Jason Willingham MD Chronic hepatitis C without [...] Sex Assigned at Male 06/27/2021 3:16 PM LOAN CLERK Gender Identity Male 06/27/2021 3:16 PM LOAN CLERK Sexual Orientation Not on file Last Filed Vital Signs Vital Sign Reading Time Taken Comments Blood Pressure 112/73 07/18/2024 2:34 PM LOAN CLERK Pulse 99 07/18/2024 2:34 PM LOAN CLERK Temperature 36.7 C (98 F) 07/18/2024 2:34 PM LOAN CLERK Respiratory Rate - - Oxygen Saturation 96% 07/18/2024 2:34 PM LOAN CLERK Inhaled Oxygen Concentration - - Weight 92.8 kg (204 lb 9.6 oz) 07/18/2024 2:34 P M LOAN CLERK Height 175.3 cm (5' 9 ) 07/18/2024 2:34 PM LOAN CLERK Body Mass Index 30.21 07/18/2024 2:34 PM LOAN CLERK Plan of Treatment Health Maintenance Due Date [...] Management General On track( 025 3:15 PM LOAN CLERK) Jessica Young, RN Note: Expected end date: ongoing Interventions: Take all medications as prescribed Procedures Procedure Name Priority Date/Time Associated Diagnosis Comments HEPATITIS C RNA QUANTITATIVE Routine 07/17/2024 1:44 PM LOAN CLERK Chronic hepatitis C without hepatic coma (HCC) COMPREHENSIVE METABOLIC PANEL Routine 07/17/2024 1:44 PM LOAN CLERK Chronic hepatitis C without hepatic coma (HCC) CBC W AUTO DIFFERENTIAL Routine 07/17/2024 1:44 PM LOAN CLERK Chronic hepatitis C without hepatic coma (HCC) HEPATITIS C RNA QUANTITATIVE Routine 07/17/2024 1:44 PM LOAN CLERK Chronic hepatitis C without hepatic coma (HCC) COMPREHENSIVE METABOLIC PANEL Routine 07/17/2024 1:44 PM LOAN CLERK Chronic hepatitis C without hepatic coma (HCC) CBC W AUTO DIFFERENTIAL Routine 07/17/2024 1:44 PM LOAN CLERK Chronic hepatitis C without hepatic coma (HCC) HEPATITIS C RNA QUANTITATIVE Routine 05/13/2024 2:53 PM LOAN CLERK Chronic hepatitis C without hepatic coma (HCC) COMPREHENSIVE METABOLIC PANEL Routine 05/13/2024 2:53 PM LOAN CLERK Chronic hepatitis C without hepatic coma (HCC) CBC W AUTO DIFFERENTIAL Routine 05/13/2024 2:53 PM LOAN CLERK Chronic hepatitis C without hepatic coma (HCC) DIGOXIN LEVEL Routine 05/13/2024 2:53 PM LOAN CLERK Chronic hepatitis C without hepatic coma (HCC) WA LIVER ELASTOGRAPHY Routine 05/13/2024 11:26 AM LOAN CLERK Chronic hepatitis C without hepatic coma (HCC) HIV-1 HIV-2 ANTIBODY + HIV P24 AG PANEL Routine 03/03/2021 1:12 PM CDT Chronic hepatitis C without hepatic coma (HCC) from Last 3 Months or Most Recently Relevant to Health Maintenance Results * HEPATITIS C RNA QUANTITATIVE (07/17/2024 1:44 PM LOAN CLERK) Only the most recent of2 resultswithin the time period is included. Pathologist [facility] Hepatitis C Virus RNA, Quantitative Real Time PCR <15 NOT DETECTED NOT DETECTED IU/mL [facility] Hepatitis C Virus RNA, Quantitative Real Time PCR <1.18 NOT DETECTED NOT DETECTED Log IU/mL [facility] Comment: For additional information, please refer to http://education.[employer]/faq/TYW54i4 (This link is being provided for informational/ educational purposes only.) Test Performed at: [facility] [address] [place] [address] TARIK NICHOLSON MD Blood BLOOD SPECIMEN / Unknown 07/17/2024 1:44 PM LOAN CLERK 07/17/2024 1:44 PM LOAN CLERK Pam Rain TOOL MAINTENANCE TECHNICIAN-BAG FILLER MACHINE OPERATOR LAB - CHEMIS TRY ORDERABLES [facility] [address] [place] [address] * (ABNORMAL) CBC WITH DIFFERENTIAL (07/17/2024 1:44 PM LOAN CLERK) Only the most recent of3 resultswithin the time period is included. [facility] White Blood Cell Count 8.0 3.8 - [...] 0.5 % [facility] Comment: Test Performed at: [facility] [address] [facility] [place] [address] TARIK NICHOLSON MD Blood BLOOD SPECIMEN / Unknown 07/17/2024 1:44 PM LOAN CLERK 07/17/2024 1:44 PM LOAN CLERK Pam Rain TOOL MAINTENANCE TECHNICIAN-BAG FILLER MACHINE OPERATOR LAB - HEMATO LOGY ORDERABLES [facility] [address] [place] [address] * (ABNORMAL) COMPREHENSIVE METABOLIC PANEL (07/17/2024 1:44 PM LOAN CLERK) Only the most recent of3 resultswithin the [...] 46 U/L [facility] Comment: Test Performed at: [facility] [address] [place] [address] TARIK NICHOLSON MD Blood BLOOD SPECIMEN / Unknown 07/17/2024 1:44 PM LOAN CLERK 07/17/2024 1:44 PM LOAN CLERK Pam Rain TOOL MAINTENANCE TECHNICIAN-BAG FILLER MACHINE OPERATOR LAB - CHEMIS TRY ORDERABLES Performing Organization Address [facility] de Phone Number [facility] [address] [place] [address] * DIGOXIN LEVEL (05/13/2024 2:53 PM LOAN CLERK) Digoxin 0.8 0.5 - 1.2 ng/mL 05/13/2024 3:36 PM LOAN CLERK [facility] Blood BLOOD SPECIMEN / Unknown Lab Venipuncture / Unknown 05/13/2024 2:53 PM LOAN CLERK 05/13/2024 3:23 PM LOAN CLERK Narrative [facility] - 05/13/2024 3:36 PM LOAN CLERK Therapeutic reference range for heart failure is 0.5-0.9 ng/mL. For atrial fibrillation, it is 0.8-1.2 ng/mL. The gang mower operator of Digoxin Immune Jayesh has stated that no immunoassay technique is suitable for quantitating digoxin in plasma/serum from patients on antibody fragment therapy. Pam Rain APRN-BAG FILLER MACHINE OPERATOR LAB - CHEMPromosome TRY ORDERABLES Performing Organization Address [facility] de Phone Number [facility] [address] [place] [address], [facility] [phone] * [place] LIVER ELASTOGRAPHY (05/13/2024 11:26 AM LOAN CLERK) Narrative Jason Gómez MD - 05/13/2024 11:26 AM LOAN CLERK Jason Gómez MD 05/13/2024 12:12 PM Diagnosis: [...] patients with nonalcoholic fatty liver disease. Gastroenterology 2019;156:3598-1593. Alen MS, Jarad R, Van Natta ML, [...] at-risk nonalcoholic steatohepatitis (JI) in a [place] cohort and comparison to other non-invasive algorithms. PLoS ONE (2021) 17: o1135216. Heather BUTTS, Nathalie J, Jack WINSTON, et al. Enhanced diagnosis of advanced fibrosis and cirrhosis in individuals with NAFLD using FibroScan-based Agile scores. J Hepatol (2022) 78: 247-259. Fibroscan LSM can also be used with laboratory parameters without formulas to assess prognosis. According to the Baveno-VII criteria (Moreno, 202), Fibroscan LSM <=15 kPa plus a platelet count of >=721k959/L rules out clinically significant portal hypertension (sensitivity [...] FIB-4 score (Tim et al. Hepatology Communications 2019;3:3705-1863) or NAFLD Fibrosis score (Moya et al. Clinical Gastroenterology and Hepatology 2019;17:7018-4386 using routine clinical data. Note: 1. Fibroscan [...] additional interpretive data was last updated 11/04/22.) [email or web address] Pam Rain APRN-BAG FILLER MACHINE OPERATOR PROCEDURE/MT NOR SURGICAL ORDERABLES * HIV-1 HIV-2 ANTIBODY + HIV P24 AG PANEL (03/03/2021 1:12 PM CDT) HIV Antigen/Antibod y 1 & 2 Non-reacti ve Non-react paris 03/03/2021 5:02 PM CDT [facility] Comment:Neither HIV-1 p24 An tigen nor HIV-1/HIV-2 Antibodies are detected. Blood BLOOD SPECIMEN / Unknown Lab Venipuncture / Unknown 03/03/2021 1:12 PM CDT 03/03/2021 1:39 PM CDT Pam Rain TOOL MAINTENANCE TECHNICIAN-BAG FILLER MACHINE OPERATOR LAB - CHEMIS TRY ORDERABLES Performing Organization Address City/State/[facility] Co de Phone Number [facility] [address] [place] [address], [facility] [phone] from Last 3 Months or Most Recently Relevant to Health Maintenance Care Teams Automatic Thread Winder Relationship Specialty Start Date End Date Дмитрий Hennessy MD [address] [place], [place] [phone] PCP - General 03/03/21 Stefano Sheikh MD [address] [facility] [address] [place] [address] Antique Repairer Cardiology 05/13/24
--- OUTSIDE RECORDS SUMMARY | 2024-08-10 23:22 | XMS_ITS ---
Author Organization [facility] Address [address] [place] [address] Care Team Providers Care Hand Former Helper Name Role Phone Дмитрий Hennessy MD Primary Care Provider Mireya Rubi TUFT MACHINE OPERATOR Unavailable [phone] Vignesh Hoffmann MD Unavailable [phone] Active Problems Problem Noted Date Diagnosed [...] (12/27/2021): Added automatically from request for surgery [id number] Paresis of lower extremity (CMS/HCC) 02/24/2021 Contact with and (suspected) exposure to other communicable diseases 12/08/2020 Encounter for health-related screening Prediabetes 11/04/2020 Psychostimulant dependence in remission 11/03/19 21 Obesity with body mass index 30 or greater 11/02 Primary osteoarthritis of left hip 10/28/2020 Overview (10/28/2020): Added automatically from request for surgery [id number] Renal cyst 10/09/2020 Fatty liver 10/09/2020 Hypotension [...] (I CD) in situ 11/10/2010 Overview (10/28/2020): [email or web address] Lumax 340 Model # [id number] SER# [id number] implanted 08-12-08 [address] [place] per Dr. Abreu for dilated CM RV lead Biotronik Linox 65-18 SER# [id number] Supraventricular tachycardia 06/03/2009 Personal history of nicotine [...] (12/02/2021): Added automatically from request for surgery [id number]
--- OUTSIDE RECORDS SUMMARY | 2024-08-10 23:22 | XMS_ITS | Patient Health Summary ---
Author Organization [facility] Address [address] [place] [address] Care Team Providers Care Systems Integration Analyst Name Role Phone Дмитрий Hennessy MD Primary Care Provider Stefano Sheikh MD Unavailable [phone] Note from [facility],non-owned Affiliates and Associated Physician Practices is amultiple site organization consisting of ambulatory clinics and hospital sitesin [place], [place], [place] and [place]. This disclosure is being madepursuant to the Care Everywhere program and may not contain all information available regarding this patient. Last updated 18.[facility] Allergies No known active allergies Medications [...] Sex Assigned at Male 06/27/2021 3:16 PM P 3 ARMAMENT/ORDNANCE IMA TECHNICIAN Gender Identity Male 06/27/2021 3:16 PM P 3 ARMAMENT/ORDNANCE IMA TECHNICIAN Sexual Orientation Not on file Last Filed Vital Signs Vital Sign Reading Time Taken Comments Blood Pressure 112/73 07/18/2024 2:34 PM P 3 ARMAMENT/ORDNANCE IMA TECHNICIAN Pulse 99 07/18/2024 2:34 PM P 3 ARMAMENT/ORDNANCE IMA TECHNICIAN Temperature 36.7 C (98 F) 07/18/2024 2:34 PM P 3 ARMAMENT/ORDNANCE IMA TECHNICIAN Respiratory Rate - - Oxygen Saturation 96% 07/18/2024 2:34 PM P 3 ARMAMENT/ORDNANCE IMA TECHNICIAN Inhaled Oxygen Concentration - - Weight 92.8 kg (204 lb 9.6 oz) 07/18/2024 2:34 P M P 3 ARMAMENT/ORDNANCE IMA TECHNICIAN Height 175.3 cm (5' 9 ) 07/18/2024 2:34 PM P 3 ARMAMENT/ORDNANCE IMA TECHNICIAN Body Mass Index 30.21 07/18/2024 2:34 PM P 3 ARMAMENT/ORDNANCE IMA TECHNICIAN Procedures * HEPATITIS C RNA QUANTITATIVE(Performed 07/17/2024) [...] hepatitis C without hepatic coma (HCC) * ME LIVER ELASTOGRAPHY(Performed 05/13/2024) Performed for Chronic hepatitis C without hepatic coma (HCC) * LIPID PROFILE (EXTERAL RESULT ENTRY)(Performed 05/07/2024) * CHEM PROFILE (EXTERNAL RESULT ENTRY)(Performed 05/07/2024) * CBC W DIFF (EXTERNAL RESULT ENTRY)(Performed 05/07/2024) * LIPID PROFILE (EXTERAL RESULT ENTRY)(Performed 05/07/2024) * ME LIVER ELASTOGRAPHY(Performed 06/23/2021) Performed for Chronic hepatitis [...] HEPATITIS C RNA QUANTITATIVE (07/17/2024 1:44 PM P 3 ARMAMENT/ORDNANCE IMA TECHNICIAN) Only the most recent of3 resultswithin the time period is included. Hepatitis C Virus RNA, Quantitative Real Time PCR <15 NOT DETECTED NOT DETECTED IU/mL [facility] Hepatitis C Virus RNA, Quantitative Real Time PCR <1.18 NOT DETECTED NOT DETECTED Log IU/mL [facility] Comment: For additional information, please refer to http://education.dough/faq/RWV08m4 (This link is being provided for informational/ educational purposes only.) Test Performed at: [facility] [address] [facility] [address] TARIK NICHOLSON MD Blood BLOOD SPECIMEN / Unknown 07/17/2024 1:44 PM P 3 ARMAMENT/ORDNANCE IMA TECHNICIAN 07/17/2024 1:44 PM P 3 ARMAMENT/ORDNANCE IMA TECHNICIAN Pam Rain THEATRICAL VARIETY AGENT-WATER CARTER LAB - CHEMIS TRY ORDERABLES [facility] [address] [place] [address] * (ABNORMAL) CBC WITH DIFFERENTIAL (07/17/2024 1:44 PM P 3 ARMAMENT/ORDNANCE IMA TECHNICIAN) Only the most recent of4 resultswithin the [...] 0.5 % [facility] Comment: Test Performed at: [facility] [address] [place] [address] TARIK NICHOLSON MD Blood BLOOD SPECIMEN / Unknown 07/17/2024 1:44 PM P 3 ARMAMENT/ORDNANCE IMA TECHNICIAN 07/17/2024 1:44 PM P 3 ARMAMENT/ORDNANCE IMA TECHNICIAN Pam Rain THEATRICAL VARIETY AGENT-WATER CARTER LAB - HEMATO LOGY ORDERABLES [facility] [address] [place] [address] * (ABNORMAL) COMPREHENSIVE METABOLIC PANEL (07/17/2024 1:44 PM P 3 ARMAMENT/ORDNANCE IMA TECHNICIAN) Only the most recent of4 resultswithin the [...] 46 U/L [facility] Comment: Test Performed at: [facility] [address] [place] [address] TARIK NICHOLSON MD Blood BLOOD SPECIMEN / Unknown 07/17/2024 1:44 PM P 3 ARMAMENT/ORDNANCE IMA TECHNICIAN 07/17/2024 1:44 PM P 3 ARMAMENT/ORDNANCE IMA TECHNICIAN Pam Rain THEATRICAL VARIETY AGENT-WATER CARTER LAB - CHEMIS TRY ORDERABLES [facility] [address] [place] [address] * DIGOXIN LEVEL (05/13/2024 2:53 PM P 3 ARMAMENT/ORDNANCE IMA TECHNICIAN) Pathologist [facility] Digoxin 0.8 0.5 - 1.2 ng/mL 05/13/2024 3:36 PM P 3 ARMAMENT/ORDNANCE IMA TECHNICIAN [facility] Blood BLOOD SPECIMEN / Unknown Lab Venipuncture / Unknown 05/13/2024 2:53 PM P 3 ARMAMENT/ORDNANCE IMA TECHNICIAN 05/13/2024 3:23 PM P 3 ARMAMENT/ORDNANCE IMA TECHNICIAN Narrative [facility] - 05/13/2024 3:36 PM P 3 ARMAMENT/ORDNANCE IMA TECHNICIAN Therapeutic reference range for heart failure is 0.5-0.9 ng/mL. For atrial fibrillation, it is 0.8-1.2 ng/mL. The retail performance specialist of Digoxin Immune Jayesh has stated that no immunoassay technique is suitable for quantitating digoxin in plasma/serum from patients on antibody fragment therapy. Pam Rain APRN-WATER CARTER LAB - CHEMIS TRY ORDERABLES [facility] [address] [place] [address], [facility] [phone] * ME LIVER ELASTOGRAPHY (05/13/2024 11:26 AM P 3 ARMAMENT/ORDNANCE IMA TECHNICIAN) Narrative Jason Gómez MD - 05/13/2024 11:26 AM P 3 ARMAMENT/ORDNANCE IMA TECHNICIAN Jason Gómez MD 05/13/2024 12:12 PM Diagnosis: [...] patients with nonalcoholic fatty liver disease. Gastroenterology 2019;156:3863-6980. Alen MS, Jarad R, Van Natta ML, [...] with at-risk nonalcoholic steatohepatitis (JI) in a [facility] cohort and comparison to other non-invasive algorithms. PLoS ONE (2021) 17: y0738607. Heather AJ, Nathalie J, Younnery ZM, et al. Enhanced diagnosis of advanced fibrosis and cirrhosis in individuals with NAFLD using FibroScan-based Agile scores. J Hepatol (2022) 78: 247-259. Fibroscan LSM can also be used with laboratory parameters without formulas to assess prognosis. According to the Baveno-VII criteria (Moreno, 2021), Fibroscan LSM <=15 kPa plus a platelet count of >=155h006/L rules out clinically significant portal hypertension (sensitivity [...] FIB-4 score (Tim et al. Hepatology Communications 2019;3:3746-8751) or NAFLD Fibrosis score (Moya et al. Clinical Gastroenterology and Hepatology 2019;17:7651-7272 using routine clinical data. Note: 1. Fibroscan [...] additional interpretive data was last updated 11/04/22.) [email or web address]/[email or web address]-[email or web address]-oglzdnlxha Pam Rain THEATRICAL VARIETY AGENT-WATER CARTER PROCEDURE/TN NOR SURGICAL ORDERABLES * CBC W DIFF [...] Provider LAB - CHEMISTRY O RDERABLES * ME LIVER ELASTOGRAPHY (06/23/2021 1:09 PM P 3 ARMAMENT/ORDNANCE IMA TECHNICIAN) Narrative Jason Garrett MD - 06/23/2021 1:09 PM P 3 ARMAMENT/ORDNANCE IMA TECHNICIAN Jason Garrett MD 06/27/2021 1:49 PM Diagnosis: [...] Technical Difficulty: None Ordering Provider: Pam Rain MEMORY CARE PROGRAM RESIDENT Phone Fax Fibroscan interpretation: I have personally [...] patients with nonalcoholic fatty liver disease. Gastroenterology 2019;156:3770-4481. Alen MS, Jarad R, Van Sydnee ML, [...] FIB4 score (Pjyduke et al. Hepatology Communications 2019;3:7995-3377) or NAFLD Fibrosis score (Moya et al. Clinical Gastroenterology and Hepatology 2019;17:6665-9019. from routine clinical data. 3. Liver stiffness [...] change as additional supporting data becomes available. [email or web address]-lnmzitst-[email or web address] Pam SALES PROCEDURE/TN NOR SURGICAL ORDERABLES * PT-INR [facility] (03/03/2021 1:12 PM CDT) PT 12.1 12.1 - 14.8 Seconds 03/03/2021 2:00 PM CDT [facility] INR 0.9 See Comment 03/03/2021 2:00 PM CDT [facility] Comment:The suggested therap eutic range for standard coumadin (warfarin) therapy is an INR of 2.0-3.0. For high-risk patients (Mechanical Mitral Valve Prosthesis, etc.), the suggested prophylactic therapeutic range is an INR of 2.5-3.5. Blood BLOOD SPECIMEN / Unknown Lab Venipuncture / Unknown 03/03/2021 1:12 PM CDT 03/03/2021 1:39 PM CDT Pam Rain APRN-WATER CARTER LAB - COAGUL ATION ORDERABLES [facility] [address] [place] [phone], [facility] [phone] * HIV-1 HIV-2 ANTIBODY + HIV P24 AG PANEL (03/03/2021 1:12 PM CDT) HIV Antigen/Antibod y 1 & 2 Non-reacti ve Non-react paris 03/03/2021 5:02 PM CDT [facility] Comment:Neither HIV-1 p24 An tigen nor HIV-1/HIV-2 Antibodies are detected. Blood BLOOD SPECIMEN / Unknown Lab Venipuncture / Unknown 03/03/2021 1:12 PM CDT 03/03/2021 1:39 PM CDT Pam Rain THEATRICAL VARIETY AGENT-WATER CARTER LAB - CHEMIS TRY ORDERABLES Performing Organization Address [facility]/ZIP Co de Phone Number [address] [address], [facility] [phone] * HEPATITIS B SURFACE ANTIBODY (03/03/2021 1:12 PM CDT) Hepatitis B Virus Surface Antibody Non-react paris Non-react paris 03/03/2021 5:02 PM CDT [facility] Comment: < 8 mIU/mL Hepatitis B surface Antibody (HBsAb). Nonreactive for HBsAb - individual is considered not immune to Hepatitis B Virus infection. Hepatitis B Surface Antibody Quantitative 1.8 <8.0 mIU/mL 03/03/2021 5:02 PM CDT [facility] Comment: Hepatitis B Surface Antibody Numeric Result Interpretation: Nonreactive: <8.0 mIU/mL Indeterminate: 8.0 - 12.0 mIU/mL Reactive: >12.0 mIU/mL Blood BLOOD SPECIMEN / Unknown Lab Venipuncture / Unknown 03/03/2021 1:12 PM CDT 03/03/2021 1:39 PM CDT Pam Rain THEATRICAL VARIETY AGENT-WATER CARTER LAB - [employer] TRY ORDERABLES Performing Organization Address City/[facility]/ZIP Co de Phone Number [address] [address], [facility] [phone] * (ABNORMAL) HEPATITIS B CORE ANTIBODY (03/03/2021 1:12 PM CDT) HBc Antibody Total Reactive(A ) Non-reacti ve 03/03/2021 4:06 PM CDT [facility] Blood BLOOD SPECIMEN / Unknown Lab Venipuncture / Unknown 03/03/2021 1:12 PM CDT 03/03/2021 1:39 PM CDT Pam Rain THEATRICAL VARIETY AGENT-WATER CARTER LAB - CHEMIS TRY ORDERABLES Performing Organization Address City/[facility]/ZIP Co de Phone Number [address] [address], [place] [phone] * HEPATITIS B SURFACE ANTIGEN W RFLX CONFIRMATION (03/03/2021 1:12 PM CDT) Hepatitis B Virus Surface Antigen Non-reacti ve Non-reacti ve 03/03/2021 5:02 PM CDT [facility] Blood BLOOD SPECIMEN / Unknown Lab Venipuncture / Unknown 03/03/2021 1:12 PM CDT 03/03/2021 1:39 PM CDT Pam Rain APRN-WATER CARTER LAB - CHEMIS TRY ORDERABLES Performing Organization Address City/[facility]/ZIP Co de Phone Number [address] [address], [place] [phone] Care Teams Systems Integration Analyst Relationship Specialty Start Date End Date Дмитрий Hennessy MD [address] [place], [place] [phone] PCP - General 03/03/21 Stefano Sheikh MD [address] [address] [employer] [facility] 05/13/24
--- OUTSIDE RECORDS SUMMARY | 2024-08-10 23:22 | XMS_ITS ---
Author Organization [facility] Address [address] [place] [address] Support Name Relationship Address Phone [facility] [address] [place] [address] Aashish Darby Guarantor Unknown [phone] Care Team Providers Care Technology Education Teacher Name Role Phone Vikash Dodd Primary Care Provider [phone] REASON FOR VISIT r/s injection Social History Sex Assigned At : Social History Observation Description Sex Assigned At Male Encounters Encounter Location Date Provider Diagnosis [facility] [address] [address] 08/01/2024 Vikash Dodd Plan Of Treatment Next Appt Details Provider Name:Vikash page, 08/29/2024 01:00:00 PM, [address] [facility] , [place], [address], Progress Notes * Talia DARBYOB:1970 (53 yo M)Acc No.[id number]:08/01/2024 Patient: Aashish AGUILERA :1970 A ge:53 Y S ex:Male Address[address] [place] [address] * true * Date: Generated for Sanai min/Faannabelg/eTransmitting on: 0 08/10/2024 11:22 PM TOWER DRAGLINE OPERATOR
--- OUTSIDE RECORDS SUMMARY | 2024-08-10 23:22 | XMS_ITS | CONTINUITY OF CARE DOCUMENT ---
Author Name amanda amarissharif Address Unknown Organization [facility] Address [address] [place] [address] Phone [phone] Care Team Providers Care Android Developer Name Role Phone Aguilar OWENS, Stefano Unavailable GILBERTO GEORGE MD Unavailable [phone] GILBERTO GEORGE MD Unavailable PROBLEMS Condition Status Date Provider Notes Lacunar stroke active Stefano Sheikh MD PREDIABETES active Stefano Sheikh MD Renal cyst active Stefano Sheikh MD fatty liver active Stefano Sheikh MD ATRIAL FIB PAROXSMAL:AFRAID OF COUMIDIN, NML T7 active Stefano Sheikh MD CARDIOMYOPATHY-10/06 ECHO SEV DECREASE GLOBAL LVF active - Stefano Sheikh MD HTN completed - Stefano Sheikh MD CARDIOMYOPATHY completed - Stefano Sheikh MD lowest 20 no cad or ai MITRAL VALVE PROLAPSE active - Stefano Sheikh MD Tobacco use chewing. Stopped smoking. active Maryann Hoffmann SVT;DURING A BRAWL 05/10 active Stefano guzman MD CAD;NEG ANGIO 07 completed - Misael Sanford MD Diastolic CHF;did not want rpm active Stefano Sheikh MD lowest 20, no cad, canont afford entresto and verquov, or inpdfa Hyperlipidemia;with high crp and low lpa active Stefano Sheikh MD Hypertriglyceridemia active Misael Sanford MD Shortness of breath completed - Stefano Sheikh MD Hepatitis C active Stefano Sheikh MD cured b y rx Anemia, iron deficiency active Stefano duncan MD nml b12 Chest pain completed - Nikolas Johnson Preop exam completed - Stefano Sheikh MD Ventricular tachycardia completed - Stefano Sheikh MD Mitral insufficiency, mild completed 08/05 - Stefano Sheikh MD Overweight active Stefano Sheikh MD did not watn zeptound Methamphetamine abuse completed - Stefano Sheikh MD Abnormal liver function tests completed 22/08/04 - Stefano Sheikh MD Dyspnea on exertion completed - Stefano Sheikh MD COPD active Stefano Sheikh MD did notw atn pft Hypotension completed - Stefano Sheikh MD Screening active tSefano Sheikh MD did not want breann socre, Exposure to SARS-associated coronavirus;had vaccine and neg swab completed - Stefano Sheikh MD RBBB active Stefano Sheikh MD Tongue cancer active Shiela Parada [employer]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 covid 19;22 after vaccine active Stefano swenson MD Pulmonary nodules active Stefano Sheikh MD Pre op cardiovascular exam completed 12/14 - Stefano Sheikh MD Arthritis of hip active Stefano Sheikh MD Depression, chronic active Stefano Sheikh MD S/P ICD Gen change iHandle 10/22/13 ( NOT MRI SAFE/ Biotronik Lead) active Stefano Sheikh MD Erectile dysfunction active Shiela Parada NP Renal disease, chronic, mild completed 10/10/06 - Stefano Sheikh MD Sinus tachycardia completed - Stefano Sheikh MD Ventricular tachycardia, unspecified active Stefano Sheikh MD ENCOUNTERS Date Type Provider Location Encounter Diag nosis - In-person encounter Office Visit Stefano Sheikh MD [place] [facility] Hepatitis COverweightScreeningS/P ICD Gen change iHandle 10/22/13 ( NOT MRI SAFE/ Biotronik Lead)Renal disease, chronic, mildSinus tachycardiaVentricular tachycardia, unspecified - In-person encounter Office Visit Coral Fernando MD [facility] - In-person encounter Office Visit Coral Fernando MD [facility] - In-person encounter Office Visit Stefano Sheikh MD [facility] - In-person encounter Office Visit Stefano Sheikh MD [facility] Diastolic CHF;did not want rpm - In-person encounter Office Visit Stefano Sheikh MD [facility] Erectile dysfunction - In-person encounter Office Visit Stefano Sheikh MD [facility] ScreeningExposure to SARS-associated coronavirus;had vaccine and neg swabcovid 19;22 after vaccine - In-person encounter Office Visit Stefano Sheikh MD [facility] Hyperlipidemia;with high crp and low lpaVentricular tachycardiaPre op cardiovascular examArthritis of hipDepression, chronic - In-person encounter Office Visit Stefano Sheikh MD [facility] Tongue cancer - In-person encounter Office Visit Stefano Sheikh MD [facility] Diastolic CHF;did not want rpmHyperlipidemia;with high crp and low lpa - In-person encounter Office Visit Stefano Sheikh MD [facility] Diastolic CHF;did not want rpmScreening - In-person encounter Office Visit Stefano Sheikh MD [place] [facility] CARDIOMYOPATHYOverweightCOPDExposure to SARS-associated coronavirus;had vaccine and neg swabcovid 19;22 after vaccinePulmonary nodules - In-person encounter Office Visit Stefano Sheikh MD [place] [facility] Methamphetamine abuseRBBB - In-person encounter Office Visit Stefano Sheikh MD [facility] Office - In-person encounter Office Visit Stefano Sheikh MD [place] [facility] - In-person encounter Office Visit Stefano Sheikh MD [facility] Office - In-person encounter Office Visit Stefano Sheikh MD [place] [facility] - In-person encounter Office Visit Stefano Sheikh MD [place] [facility] Hepatitis CHypotensionExposure to SARS-associated coronavirus;had vaccine and neg swab - In-person encounter Office Visit Stefano Sheikh MD [place] [facility] - In-person encounter Office Visit Juancarlos Mcduffie MD [facility] - In-person encounter Office Visit Stefano Sheikh MD [facility] Hyperlipidemia;with high crp and low lpaPreop examMitral insufficiency, mildAbnormal liver function testsDyspnea on exertionCOPD - In-person encounter Office Visit Coral Fernando MD [facility] - In-person encounter Office Visit Stefano Sheikh MD [facility] HTNHyperlipidemia;with high crp and low lpaShortness of breathAnemia, iron deficiencyOverweight - In-person encounter Office Visit Coral Fernando MD [facility] Tobacco use chewing. Stopped smoking. - In-person encounter Office Visit Misael Sanford MD [facility] Chest pain - In-person encounter Office Visit Misael Sanford MD [facility] Hepatitis C - In-person encounter Office Visit Misael Sanford MD [facility] Hypertriglyceridemia - In-person encounter Office Visit Misael Sanford MD [facility] - In-person encounter Office Visit Misael Sanford MD [place] [facility] CARDIOMYOPATHYTobacco use chewing. Stopped smoking.CAD;NEG ANGIO 07Diastolic CHF;did not want rpm - In-person encounter Office Visit Stefano Sheikh MD [facility] HTNTobacco use chewing. Stopped smoking.SVT;DURING A BRAWL 05/10 - In-person encounter Office Visit Stefano Sheikh MD [facility] ATRIAL FIB PAROXSMAL:AFRAID OF COUMIDIN, NML T7SVT;DURING A BRAWL 05/10 - In-person encounter Office Visit Stefano Sheikh MD [facility] ATRIAL FIB PAROXSMAL:AFRAID OF COUMIDIN, NML [id number] VALVE PROLAPSETobacco use chewing. Stopped smoking. - In-person encounter Office Visit Stefano Sheikh MD [place] [facility] CARDIOMYOPATHY-10/06 ECHO SEV DECREASE GLOBAL LVFCARDIOMYOPATHY - In-person encounter Office Visit Stefano Sheikh MD [place] [facility] ATRIAL FIB PAROXSMAL:AFRAID OF COUMIDIN, NML T7 VITAL SIGNS Date Observation Value Provider Body Mass Index (Ratio) 29.55 kg/m2 Juan Daniel Sheikh MD blood pressure, diastolic 87 mm[Hg] Lynn Damon blood pressure, systolic 118 mm[Hg] Nazia Damon oxygen saturation, oximetry 96 % Genesis Damon pulse rate 88 /min Genesis Damon respiratory rate E&M 12 /min Genesis Damon weight E&M 206 [lb_av] [facility] 70 [in_i] [facility] blood pressure, cuff size regular Lynn [...] Garza blood pressure, diastolic 81 mm[Hg] [facility]ol [facility], systolic 107 mm[Hg] [facility]hemi [facility], oximetry 95 % Mik[facility]la [facility] pulse rate 100 /min [facility]la [facility] weight E&M 196 [lb_av] Mikayla [facility] height E&M 70 [in_i] Mikayla [facility] Body Mass Index (Ratio) 28.64 kg/m2 Juan Daniel Sheikh MD blood pressure, cuff size regular [facility], diastolic 84 mm[Hg] Ta [facility]Reg[facility] [place] blood pressure, systolic 116 mm[Hg] Tab brennona [place] oxygen saturation, oximetry 96 % Reena [place] pulse rate 85 /min Reena [place] weight E&M 199.6 [lb_av] Reena [place] respiratory rate E&M 12 /min Reena [place] height E&M 70 [in_i] Reena [place] blood pressure, diastolic 64 mm[Hg] nkLog blood pressure, systolic 94 mm[Hg] Lenore kLog pulse rate 130 /min [facility] blood pressure, cuff size regular [facility] blood pressure, diastolic 64 mm[Hg] [facility] blood pressure, systolic 94 mm[Hg] [facility] oxygen saturation, oximetry 97 % [facility] respiratory rate E&M 14 /min Maty connorr Body Mass Index (Ratio) 27.26 kg/m2 [facility] weight in kilograms E&M 86.18 [facility] E&M 190 [lb_av] Maty [place] height E&M 70 [in_i] Maty [place] height in centimeters E&M 177.80 cm Harley [...] Mass Index (Ratio) 29.27 kg/m2 Juan Daniel Sheihk MD blood pressure, diastolic 69 mm[Hg] Ri [...] blood pressure, systolic 111 mm[Hg] Cat herine [place] oxygen saturation, oximetry 95 % Elba [place] respiratory rate E&M 16 /min Catheri ne Delta pulse rate 85 /min Elba [place] weight E&M 205 [lb_av] Elba Delta blood pressure, cuff size regular Ca therine [place] height E&M 70 [in_i] Elba Otis Body [...] blood pressure, cuff size regular Pa ris [place] blood pressure, diastolic 87 mm[Hg] Pa ris Oli blood pressure, systolic 132 mm[Hg] Par is [place] oxygen saturation, oximetry 98 % Elisha Oli respiratory rate E&M 18 /min Elisha H latisha pulse rate 107 /min Elisha Oli weight E&M 217 [lb_av] Elisha [place] height E&M 70 [in_i] Elisha [place] Body Mass Index (Ratio) 31.56 kg/m2 Juan [...] ruenenfelder pulse rate 114 /min Katy Gruenenfe [facility] weight E&M 225 [lb_av] Katy Gruenenfe [facility] height E&M 70 [in_i] Katy Gruenenfe [facility] Body Mass Index (Ratio) 31.99 kg/m2 Taraleigh anna marie Hoffmann blood pressure, cuff size large Ke rri Gruenenfelder blood pressure, diastolic 80 mm[Hg] Ke rri Gruenenfelder blood pressure, systolic 102 mm[Hg] Ker ri Gruenenfelder oxygen saturation, oximetry 97 % Katy Grueneyolandaelder respiratory rate E&M 16 /min Katy G ruenenfelder pulse rate 94 /min Katy Grrolannenfe [facility] weight E&M 223 [lb_av] Katy Gruenenfe [facility] height E&M 70 [in_i] Katy Gruenenfe [facility] Body Mass Index (Ratio) 31.42 kg/m2 Leoncio Johnson blood pressure, resting Yes Leoncio Johnson [...] Mass Index (Ratio) 30.56 kg/m2 Leoncio grullon [facility] blood pressure, diastolic, left arm 81 mm [...] pressure, diastolic, left arm 86 mm [Hg] [facility] blood pressure, systolic, left arm 130 mm [Hg] [facility] blood pressure, diastolic, right arm 89 m m[Hg] [facility] blood pressure, systolic, right arm 117 m m[Hg] [facility] blood pressure, diastolic 86 mm[Hg] To [facility] blood pressure, systolic 130 mm[Hg] Ton [facility] oxygen saturation, oximetry 97 % [facility] respiratory rate E&M 18 /min [facility] pulse rate 76 /min [facility] weight E&M 25.38 [lb_av] [facility] blood pressure, resting Yes [facility] height E&M 70 [in_i] [facility] blood pressure, diastolic 64 mm[Hg] Tawnya Martinezshaun [...] blood pressure, systolic 102 mm[Hg] Masoud samaniego [facility] pulse rate 60 /min [facility] oxygen saturation, oximetry 96 % [facility] respiratory rate E&M 16 /min [facility] weight E&M 183 [lb_av] [facility] ALLERGIES No Known Drug Allergies RESULTS Date [...] 0-149 High cholesterol, serum 158 mg/dL [facility] 166-268 8680/01/ 30 platelet count 329 X10E3/UL [facility] 580-955 7152/01/ 30 red blood cell distribution width 12.2 [...] [facility] 3.5-5.2 sodium, serum 142 mmol/L [facility] 315-485 2288/01/ 30 urea nitrogen/creatinine ratio, serum 9 [facility] eGFR if 62 mL/min/{1 .73_m2} [facility] eGFR if not 54 mL/min/{1 .73_m2} [facility] >59 Low creatinine, serum 1.51 mg/dL [facility] 0.76-1.27 High urea nitrogen, blood 14 mg/dL [facility] 6-24 blood glucose, random 57 mg/dL [facility] 65-99 Low ferritin, serum 612 ng/mL [facility] 30-400 High pro brain natriuretic peptide 187 pg/mL [facility] 0-121 High iron saturation percent, serum 43 % [facility] 15-55 iron, serum 191 ug/dL [facility] 38-169 High iron binding capacity, unsaturated 250 ug/dL [facility] 020-950 6081/07/ 25 iron binding capacity, total 441 ug/dL [facility] 304-289 1805/06/ 16 LDL cholesterol, serum 75 mg/dL [facility] LDL cholesterol, serum 94 mg/dL [facility] lipoprotein, beta, serum, point, quantitative, calculated 94 mg/dL [facility] 0-99 very low density lipoproteins 52 mg/dL [facility] 5-40 High HDL cholesterol, serum 35 mg/dL [facility] >39 Low triglyceride, serum, random 258 mg/dL [facility] 0-149 High cholesterol, serum 181 mg/dL [facility] [phone]/02/ 29 LDL cholesterol, serum 103 mg/dL [facility] pro brain natriuretic peptide 104 pg/mL [facility] 0-121 digoxin level, serum 1.7 ng/mL [facility] 0.5-0.9 High lipoprotein, beta, serum, point, quantitative, calculated 103 mg/dL [facility] 0-99 High very low density lipoproteins 28 mg/dL [facility] 5-40 HDL cholesterol, serum 32 mg/dL [facility] >39 Low triglyceride, serum, random 138 mg/dL [facility] 0-149 cholesterol, serum 163 mg/dL [facility] [phone]/02/ 29 basophil count, absolute 0.0 x10E3/uL [facility] [...] Not Estab. platelet count 312 X10E3/UL [facility] 645-512 9589/02/ 29 red blood cell distribution width 12.6 [...] olanzapine 15 mg tablet active Mela Ventimiglia [employer] chlorpromazine 50 mg tablet active take one [...] by mouth once daily - Mela Shaikh [employer] Lopid 600 mg tablet completed 1 tablet [...] Tanner Garza RN chewing tobacco use Current Tannre aranda RN smoking status Former smoker Tanner Johnson N personal history of marijuana use no Mela Ventimiglia [facility] drug use no Mela Ventimig adams [employer] alcohol use no Mela Ventimig adams [employer] smoking/tobacco cess ation, patient education and counseling yes Mela Ventimiglia [facility] chewing tobacco use Current Mela avelargljose [facility] smoking status Former smoker Mela mckenzie [facility] personal history of marijuana use no Shiela Henrykings [employer]AT [employer] MA[employer]GER drug use no [facility] alcohol use no [facility] smoking/tobacco cess ation, patient education and counseling yes [facility] chewing tobacco use Current [facility] smoking status Former smoker [facility] drug use yes Stefano Monae alcohol use [...] changes required Stefano Sheikh MD social history E&M Marital Statu s: [...] averag e drinks per day yes Elba Lincoln chewing tobacco use Current Catherin e Delta [...] Elisha bangura smoking status Former smoker Elisha Baird social history reviewed E&M revi ewed - [...] E&M revi ewed - no changes required Juancarlos Mcduffie MD caffeine use, averag e drinks [...] Elda Johnson smoking status Former smoker Nikolas phepls social history reviewed E&M revi ewed - [...] use, averag e drinks per day yes [facility] alcohol use, average drinks per day social basis only [facility] number of years as a smoker 10 years or m ore [facility] smoking status Quit [facility] MENTAL STATUS Date Observation Value Provider assessment [...] person. Mood and affect are normal. Tanner Graza RN FAMILY HISTORY Family Member Condition Mother Family History of Hy pertension: Mother Family History of Hy pertension: Mother Family History of Hy pertension: Father Family History of Co ronary Artery Disease: INSURANCE PROVIDERS Payer name Policy type / Coverage type [place] [employer] party ID [employer] MED[employer] Medicaid [id number] ADVANCE DIRECTIVES Name Date DISCUSSED - NO DECISION MADE TREATMENT PLAN Date Name Performer [id number],C,elevated lft Stefano Sheikh MD [id number],C,5.8 Stefano aguirre MD [id number],B, h ad surgery and rad rx Stefano Sheikh MD [id number],C,stable Stefano Sheikh MD [id number],S, p ro 103, ef 55% Stefano Sheikh MD [id number],S, L ast A1c 5.9. Will recheck A1c. Stefano Sheikh MD [id number],B, Stefano duncan MD [id number],S, Stefanoriley Olivares dakota OWENS [id number],B, Stefanoriley Olivares dakota OWENS [id number],S, e fgr 84 n eg carotid n eg b 12 n eg rpr, nml d n eg vd n ormal coronaries cath 2008 Stefano Sheikh MD [id number],S, Stefano duncan MD [id number],S, Stefano Marshall duncan MD [id number],S, N ormal functioning v vi 40 Stefano Sheikh MD [id number],SJuan Danieley Marshall duncan MD [id number],C,P atient is set to get L hip replacement. He is cleared for [facility] surgery. Phunatasha Tal SILVA [id number],C,P atient states strugglin to quit tobacco chewing [...] the past 15 years. Shiela Parada NP [id number],C,S sanam for low dose CT lung this weeekend at [place]. Shiela Parada NP [id number],C, L ast A1c 5.9. Will recheck A1c. Shiela Parada NP [id number],C, H is updated medication list for this problem includes: Rosuvastatin 20 Mg Tablet (Rosuvastatin) ..... Take 1 tablet by mouth every day Shiela Parada NP [id number],C, H is updated medication list for this problem includes: Digoxin 125 Mcg (0.125 Mg) Tablet (Digoxin) ..... Take 1 tablet by mouth every day Carvedilol 25 Mg Tablet (Carvedilol) ..... Take 1 tablet by mouth at bedtime Shiela Parada RICARDO [id number],C,Normal functi oning Shiela Parada RICARDO [id number],C, p ro 103, ef 55% H ad repeat echo today. Will follow up on results. H is updated medication list for this problem includes: Carvedilol 25 Mg Tablet (Carvedilol) ..... Take 1 tablet by mouth at bedtime Digoxin 125 Mcg (0.125 Mg) Tablet (Digoxin) ..... Take 1 tablet by mouth every day Shiela Henrykings SILVA [id number],S, Stefano duncan MD [id number],S, Stefano duncan MD [id number],S, T he patient is between 55-77 years [...] undergo diagnosis and treatment. Stefano Sheikh MD [id number],S, h ad surgery and rad rx Stefano Sheikh MD [id number],S, Stefano duncan MD [id number],S, 5 .9 Stefano Sheikh MD [id number],B, Stefano duncan MD [id number],S, H is updated medication list for this problem includes: Simvastatin 40 Mg Tablet (Simvastatin) C HOL: 216 (01/14/2021) HDL: 36 (01/14/2021) Stefano Sheikh MD [id number],S, p ro 103, ef 55% Stefano Sheikh MD [id number],S,e fgr 84 n eg carotid n eg b 12 n eg rpr, nml d n eg vd n ormal coronaries cath 2008 Stefano Sheikh MD [id number],S, w as shocked severl jaleesa n ot pacing vvi Stefano Sheikh MD [id number],B, Stefano Sheikh MD [id number],S, T he patient is between 55-77 years [...] undergo diagnosis and treatment. Stefano Sheikh MD [id number],BStefano MD [id number],S, H is updated medication list for this problem includes: Simvastatin 40 Mg Tablet (Simvastatin) C HOL: 216 (01/14/2021) HDL: 36 (01/14/2021) Stefano Sheikh MD [id number],SStefano MD [id number],SStfeano MD [id number],S, h ad surgery and rad rx Stefano Sheikh MD [id number],SStefano MD [id number],S, 5 .9 Stefano Sheikh MD [id number],S, p ro 103, ef 55% Stefano Serota [id number],S, Stefano Serota [id number],S,e fgr 84 n eg carotid n eg b 12 n eg rpr, nml d n eg vd n ormal coronaries cath 2008 Stefano Serota [id number],S, w as shocked severl jaleesa n ot pacing vvi Stefano Serota [id number],S, Stefano Serot a [id number],S, Stefano Serot a [id number],B, Stefano Serot a [id number],S, Stefano Serot a [id number],S, 5 .9 Stefano Serota [id number],S, Stefano Serot a [id number],C,w as shocked severl jaleesa n ot pacing vvi Stefano Serota [id number],S, p ro 103, ef 55% Stefano Serota [id number],S, n eg carotid n eg b 12 n eg rpr, nml d n eg vd n ormal coronaries cath 2008 Stefano Serota [id number],S, Stefano Serot a [id number],S,had surgery t o get rad rx Stefano Serota [id number],C,not treated y et Stefano Serota [id number],B, Stefano Serot a [id number],S, Stefano Serot a [id number],S,T he patient is between 55-77 years old [...] undergo diagnosis and treatment. Stefano Sheikh MD [id number],S, n eg carotid n eg b 12 n eg rpr, nml d normal coronaries cath 2008 Stefano Sheikh MD [id number],SStefano MD [id number],SStefano MD [id number],S, Stefano duncan MD [id number],B, p ro 103, ef 55% Stefano Sheikh MD [id number],S,not pacing Vasques alexis Sheikh MD [id number],C,pro 103, ef 5 5% Stefano Sheikh MD [id number],S, BNP 103 2 0 on echo 08/2020, s /p AICD Stefano Sheikh MD [id number],SStefano MD [id number],BStefano MD [id number],SStefano MD [id number],B, H is updated medication list for this problem includes: Crestor 20 Mg Tablet (Rosuvastatin) ..... Take 1 tablet by mouth every day C HOL: 216 (01/14/2021) HDL: 36 (01/14/2021) Stefano Sheikh MD [id number],SStefano MD [id number],S, Stefano Serot a [id number],S, 5 .9 Stefano Serota [id number],S, n eg carotid n eg rpr, nml d n ml b12 n ormal coronaries cath 2008 Stefano Sheikh MD [id number],S, Stefano Serot a [id number],S, 1 03 Stefano Serotdakota OWENS [id number],N, Stefano Serot a [id number],S, Stefano Serot a [id number],B, Stefano Serot a [id number],B, Stefano Serot a [id number],B, l ast remote ICD check: 04/27/21 chowed 04/26/21 VT at 221 with ATP x1. 04/20/21 NSVT at 202. no shocks. continue bb and digoxin Stefano Sheikh MD [id number],S, Stefano Serot a [id number],S,103 Stefano Se rota [id number],S, BNP 103 2 0 on echo 08/2020, was up to 40% in 2019 s /p AICD Stefano Sheikh MD [id number],S, Stefano Serot a [id number],C,5.9 Stefano Se rota [id number],S, n eg carotid n eg rpr, nml d n ml b12 n ormal coronaries cath 2008 Stefano Sheikh MD [id number],B,C HOL: 216 (01/14/2021) HDL: 36 (01/14/2021) H is updated medication list for this problem includes: Crestor 20 Mg Tablet (Rosuvastatin) ..... Take 1 tablet by mouth every day Stefano Sheikh MD [id number],S, 1 1 VF zone event ( duration 20sec - Ventricular rate 221bpm/ ATP x 1 was successful) 1 1 NS -V events ( longest duration 15sec - fastest Ventricular rate 202bpm) , 3 E GM available Respiratory rate is stable at 17rpm b intlir2adv and 6 months. 6 years remaining 1 1 NSVT epiosdes, ICM stable 0 % pacing Stefano Sheikh MD [id number],C,1 1 VF zone event ( duration 20sec - Ventricular rate 221bpm/ ATP x 1 was successful) 1 1 NS -V events ( longest duration 15sec - fastest Ventricular rate 202bpm) , 3 E GM available Respiratory rate is stable at 17rpm b jaeshu1ytk and 6 months. 6 years remaining 1 1 NSVT epiosdes, ICM stable 0 % pacing Karmen Lakeisha SILVA [id number],C, E CHO 08/2020 EF 20%m NICMP, normal coronaries cath 2008. has ICD. Karmen Lakeisha SILVA [id number],C,l ast remote ICD check: 04/27/21 chowed 04/26/21 VT at 221 with ATP x1. 04/20/21 NSVT at 202. no shocks. 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 [id number],S, BNP 103 2 0 on echo 08/2020, was up to 40% in 2019 s /p AICD r ecently started on verquvo, continue corlanor, entrsto, farxiga, aldactone, coreg Pema Luis COMBAT CONTROL MANAGER [id number],S, n eg carotid n eg rpr, nml d n ml b12 n ormal coronaries cath 2008 Pema Luis COMBAT CONTROL MANAGER [id number],S,n eg carotid n eg rpr, nml d [...] 1 tablet by mouth twice a day [facility] Cardiology:device ch patrizia will be done in [...] Take 1 tablet by mouth every day [facility] Cardiology:LDL 90 on last labs H is updated medication list for this problem includes: Lopid 600 Mg Tablet (Gemfibrozil) ..... 1 tablet by mouth [facility] a [facility] Cardiology:Last know n EF normal. No new [...] tablet by mouth every day Melalia Shaikh [facility] Cardiology:up to armaan e on upper and lower GI c ontinues on oral replacement therapy Melalia Shaikh [facility] :nml b12 Stefano Sheikh MD Cardiology: W [...] 134 (01/14/2021) HDL: 36 (01/14/2021) T (01/14/2021) Stefano Sheikh MD Cardiology Stefano Sheikh MD Cardiology: s table Stefano Sheikh MD Cardiology Stefano Sheikh MD Cardiology Stefano Sheikh MD Cardiology Stefano Sheikh MD :ro 82, ef 55 Stefano Sheikh MD :elevated lft Stefano Sheikh MD :5.8 Stefano Sheikh MD Cardiology: h ad surgery and rad rx Stefano Sheikh MD Cardiology:stable Stefano hSeikh MD Cardiology: p ro 103, ef 55% [...] MD Cardiology Stefano Sheikh MD Cardiology-seen with COMBAT CONTROL MANAGER:Patient is set to get L hip replacement. He is cleared for nathalia surgery. Shiela Parada NP Cardiology-seen with COMBAT CONTROL MANAGER:Patient states strugglin to quit tobacco chewing T [...] 15 years. Shiela Glaserjavad SILVA Cardiology-seen with COMBAT CONTROL MANAGER:Schedule for low dose CT lung this weeekend at [place]. Shiela Glaserjavad SILVA Cardiology-seen with COMBAT CONTROL MANAGER: L ast A1c 5.9. Will recheck A1c. Shiela Parada RICARDO Cardiology-seen with COMBAT CONTROL MANAGER: H is updated medication list for this problem includes: Rosuvastatin 20 Mg Tablet (Rosuvastatin) ..... Take 1 tablet by mouth every day Shiela Parada RICARDO Cardiology-seen with COMBAT CONTROL MANAGER: H is updated medication list for this problem includes: Digoxin 125 Mcg (0.125 Mg) Tablet (Digoxin) ..... Take 1 tablet by mouth every day Carvedilol 25 Mg Tablet (Carvedilol) ..... Take 1 tablet by mouth at bedtime Shiela Glasermo RICARDO Cardiology-seen with COMBAT CONTROL MANAGER:Normal f unctioning Shiela Glasermo RICARDO Cardiology-seen with COMBAT CONTROL MANAGER: p ro 103, ef 55% H ad [...] MD Cardiology: p ro 103, ef 55% tSefano Sheikh MD Cardiology: n eg carotid n [...] Respiratory rate is stable at 17rpm b [id number] and 6 months. 6 years remaining 1 1 NSVT epiosdes, ICM stable 0 % pacing Stefano Sheikh MD Cardiology:04/27/21 1 VF zone event ( duration 20sec - Ventricular rate 221bpm/ ATP x 1 was successful) 1 1 NS -V events ( longest duration 15sec - fastest Ventricular rate 202bpm) , 3 E GM available Respiratory rate is stable at 17rpm b [id number] and 6 months. 6 years remaining 1 1 NSVT epiosdes, ICM stable 0 % pacing Karmen Suazo NP Cardiology: E CHO 08/2020 EF 20%m NICMP, normal coronaries cath 2008. has ICD. Karmen De La Cruzmoo COMBAT CONTROL MANAGER Cardiology:last mirza te ICD check: 04/27/21 chowed 04/26/21 VT at 221 with ATP x1. 04/20/21 NSVT at 202. no shocks. continue bb and digoxin Karmen De La Cruzmoo COMBAT CONTROL MANAGER Cardiology: o n crestor, cannot afford calcium score, normal coronaries on cath 2008 Karmen Caputocarl COMBAT CONTROL MANAGER Cardiology: n ot on statin, cannot afford calcium score, normal coronaries on cath 2008 Pematerrance Ruizut COMBAT CONTROL MANAGER Cardiology:no Afib on device int errogation Pema Saraut COMBAT CONTROL MANAGER Cardiology:6 years r emaining 1 1 NSVT epiosdes, ICM stable 0 % pacing Pema Saraut COMBAT CONTROL MANAGER Cardiology:11 NSVT o n device interrogation, ICM trend stable continue BB, digoxin Pema Saraut COMBAT CONTROL MANAGER Cardiology: BNP 103 2 0 on echo 08/2020, was up to 40% in 2019 s /p AICD r ecently started on verquvo, continue corlanor, entrsto, farxiga, aldactone, coreg Pema Saraut COMBAT CONTROL MANAGER Cardiology: n eg carotid n eg rpr, nml d n ml b12 n ormal coronaries cath 2008 Pema Saraut COMBAT CONTROL MANAGER Cardiology:neg carot id n eg rpr, nml [...] T he FVC, FEV1, FEV1/FVC ratio and HAR36-98% are reduced indicating airway obstruction. The MVV [...] O rders: T obacco cessation counseling, 3-10minutes (92831) Maryann Hoffmann Electrophysiology: O rders: F VC - 18607 (06440) F RC - 20777 (26223) D LCO - 38430 (11388) His updated medication list for this problem [...] (Aspirin) ..... One tab by mouth daily [facility] Electrophysiology: H is updated medication list [...] by mouth daily Orders: C omplete Echo (CPT-17292) P ISAI, N TERMINAL (97479) [facility] Electrophysiology: H is updated medication list for this problem includes: Coreg 12.5 Mg Oral Tablet (Carvedilol) ..... One tab. twice daily Lisinopril 10mg Tablets (Lisinopril) ..... Take 1 tablet by mouth every day Aspirin Adult Low Dose 81 Mg Oral Tablet Delayed Release (Aspirin) ..... One tab by mouth daily [facility] Electrophysiology: H is updated medication list [...] by mouth daily Orders: C omplete Echo (CPT-87532) P ISAI, N TERMINAL (81697) C OMPREHENSIVE METABOLIC PANEL, W/EGFR (59623) C BC (H/H, RBC, INDICES, WBC, PLT) ([phone] HIGH 40-54min (CPT-05635) Echo 08/2019: C ONCLUSIONS: 1 . Frequent [...] (Aspirin) ..... One tab by mouth daily [facility] Cardiology:His updat ed medication list for this problem includes: Lopid 600 Mg Oral Tablet (Gemfibrozil) ..... One tab twice daily [facility] Cardiology:His updat ed medication list for this problem includes: Lopid 600 Mg Oral Tablet (Gemfibrozil) ..... One tab twice daily [facility] Cardiology:BP today: 101/74 P rior BP: 117/81 (01/19/2020) His updated medication list for this problem includes: Coreg 12.5 Mg Oral Tablet (Carvedilol) ..... One tab. twice daily Lisinopril 10mg Tablets (Lisinopril) ..... Take 1 tablet by mouth every day [facility] Cardiology:Being monitored remjarad [place]. Nikolas [facility] Cardiology:Pt is a c andidate for hip surgery. His last echo in August 2019 showed EF of 40%. Overall feeling well now. He can proceed to surgery from cardiovascular perspective. Nikolas [facility] Cardiology:His last echo in August 2019 showed [...] .... One tab by mouth twice daily [facility] Cardiology:His last echo in August 2019 showed [...] .... One tab by mouth twice daily [facility] Cardiology:Most rece nt triglycerides from [facility] in November were 91. [facility] Cardiology:CHOL: 137 (12/16/2019) HDL: 44 (12/16/2019) LDL: 75 (12/16/2019) TRI (12/16/2019) [facility] Cardiology:He had an admission to [facility] last month for chest pain related to methamphetamine use. [facility] Cardiology:He says h e got shocked last month. We will schedule a device check and re-connect his home monitoring. [facility] Cardiology:He compla ins of dizziness upon standing [...] Take 1 tablet by mouth every day [facility] Cardiology:Orders: F ERRITIN (457) I MO AND TOTAL IRON BINDING CAPACITY (7573) [facility] Cardiology:Pt compla ins of SOB. HR is [...] .... One tab by mouth twice daily [facility] Cardiology:Pt compla ins of SOB. He also says he got shocked last month. We will schedule a device check and re-connect his home monitoring. He also had an admission to [facility] last month for chest pain related to [...] .... One tab by mouth twice daily [facility] Cardiology:Pt compla ins of SOB. He also says he got shocked last month. He also had an admission to [facility] last month for chest pain related to methamphetamine use. He complains of dizziness upon standing up (BP today is 117/81). HR is 93. We will keep him on the current doses of Coreg and Lisinopril and start Corlanor 5mg BID. Will check proBNP, iron studies and PFT's. [facility] Cardiology:BP today: 118/81 P rior BP: 130/86 (08/18/2019) His updated medication list for this problem includes: Coreg 12.5 Mg Oral Tablet (Carvedilol) ..... One tab. twice daily Lisinopril 10 Mg Oral Tablet (Lisinopril) ..... One tab. daily [facility] Cardiology:Triglycer ides were down to 138 however pt states they used to be >700 and used to be on Lopid which was stopped just before the bloodwork. Recommending to check lipid panel in a month. C HOL: 163 (08/30/2019) HDL: 32 (08/30/2019) LDL: 103 (08/30/2019) TRI (08/30/2019) [facility] Cardiology:Triglycer ides were down to 138 however pt states they used to be >700 and used to be on Lopid which was stopped just before the bloodwork. Recommending to check lipid panel in a month. [facility] Cardiology:Echo show ed EF of 40%. The following medications were stopped: Digoxin 250 Mcg Oral Tablet (Digoxin) ..... One tab daily His updated medication list for this problem includes: Coreg 12.5 Mg Oral Tablet (Carvedilol) ..... One tab. twice daily Lisinopril 10 Mg Oral Tablet (Lisinopril) ..... One tab. daily [facility] Cardiology:Continues to have SOB with minimal exertion, [...] hx of non-ischemic cardiomyopathy. He has a iHandle AICD. Echo in 06/2011 showed EF of [...] hx of non-ischemic cardiomyopathy. He has a iHandle AICD. Echo in 2010 showed EF of 50%. Misael Sanford MD : O rders: C omplete Echo (CPT-63646) H olter Monitor 24 Hr (CPT-01305) Stefano Sheikh MD : H is updated medication list for this problem includes: Coreg 12.5 Mg Tabs (Carvedilol) ..... One tab. twice daily Vasotec 5 Mg Tabs (Enalapril maleate) ..... One tab.twice daily Aspirin 325 Mg Tabs (Aspirin) ..... One tab daily Digoxin 0.25 Mg Tabs (Digoxin) ..... One tab daily Orders: C omplete Echo (CPT-33352) H olter Monitor 24 Hr (CPT-21538) Stefano Sheikh MD : H is updated medication list for this problem includes: Coreg 12.5 Mg Tabs (Carvedilol) ..... One tab. twice daily Vasotec 5 Mg Tabs (Enalapril maleate) ..... One tab.twice daily Aspirin 325 Mg Tabs (Aspirin) ..... One tab daily Orders: C omplete Echo (CPT-87972) H olter Monitor 24 Hr (CPT-45273) Stefano Sheikh MD : H is updated medication list for this problem includes: Coreg 12.5 Mg Tabs (Carvedilol) ..... One tab. twice daily Vasotec 5 Mg Tabs (Enalapril maleate) ..... One tab.twice daily Aspirin 325 Mg Tabs (Aspirin) ..... One tab daily Digoxin 0.25 Mg Tabs (Digoxin) ..... One tab daily Orders: C omplete Echo (CPT-20919) H olter Monitor 24 Hr (CPT-17287) Stefano Sheikh MD : H is updated medication list for this problem includes: Coreg 12.5 Mg Tabs (Carvedilol) ..... One tab. twice daily Vasotec 5 Mg Tabs (Enalapril maleate) ..... One tab.twice daily Aspirin 325 Mg Tabs (Aspirin) ..... One tab daily Orders: C omplete Echo (CPT-39403) H olter Monitor 24 Hr (CPT-51402) Stefano Sheikh MD : O rders: C omplete Echo (CPT-67650) H olter Monitor 24 Hr (CPT-99796) Stefano Sheikh MD stable nicm: H is [...] prolapse without regurgitation. S evere nonischemic cardiiomyopathy. [facility] (08/06/2008) Orders: S pirometry (CPT-43826) Stefano Sheikh MD stable nicm Stefano Sheikh MD stable nicm: H is updated medication list for this problem includes: Coreg 12.5 Mg Tabs (Carvedilol) ..... (higher dose) one tab. twice daily Vasotec 5 Mg Tabs (Enalapril maleate) ..... One tab.twice daily Aspirin 325 Mg Tabs (Aspirin) ..... One tab daily BP today: 100/65 P rior BP: 113/84 (01/21/2009) Orders: C omplete Echo (CPT-89295) S pirometry (CPT-58788) Stefano Sheikh MD stable nicm: O rders: C omplete Echo (CPT-37219) S pirometry (CPT-21787) Stefano Sheikh MD stable nicm: H is [...] prolapse without regurgitation. S evere nonischemic cardiiomyopathy. [facility] (08/06/2008) Orders: C omplete Echo (CPT-15846) S pirometry (CPT-05891) Stefano Sheikh MD wiil increase coref for [...] One tab. daily Orders: C omplete Echo (CPT-72404) BP today: 113/84 Prior BP: 110/68 (09/17/2008) C ardiac Cath: EF - 20% N ormal coronary arteries. N ormal aorta without regurgitation. N ormal left heart hemodynamics. M itral valve prolapse without regurgitation. S evere nonischemic cardiiomyopathy. [facility] (08/06/2008) Stefano Sheikh MD severe nicm, [...] prolapse without regurgitation. S evere nonischemic cardiiomyopathy. [facility] (08/06/2008) Stefano Sheikh MD severe nicm, coreg [...] prolapse without regurgitation. S evere nonischemic cardiiomyopathy. [facility] (08/06/2008) Stefano Sheikh MD routine follow-up\: [...] Echo RPM (remote patient monitoring) DLCO - 90362 FRC - 26585 FVC - [address], Coronary Calcium Score CT, Coronary Calcium Score DLCO - 72558 FRC - 72523 FVC - 96155 Holter Monitor 24 Hr Complete Echo Complete Echo PROBNP, N TERMINAL BASIC METABOLIC PANE L W/EGFR Carotid Duplex Bilat eral CT, Coronary Calcium Score DLCO - 16340 FRC - 51114 FVC - 37188 Complete Echo Holter Monitor 24 Hr Holter Monitor 24 Hr Complete Echo C-REACTIVE PROTEIN C-REACTIVE PROTEIN LIPID PANEL Abdominal US Holter Monitor [address], Coronary Calcium Score Complete Echo DLCO - 00426 FRC - 96993 FVC - 12554 CT, Coronary Calcium Score HEPATIC FUNCTION DEVI EL DLCO - 93667 FRC - 38139 FVC - 19540 LIPID PANEL TSH, free T4, total T3 CBC (H/H, RBC, INDIC ES, WBC, PLT) COMPREHENSIVE METABO LIC PANEL, W/EGFR PROBNP, N TERMINAL Complete Echo DLCO - 17318 FRC - 90847 FVC - 18566 IRON AND TOTAL IRON BINDING CAPACITY FERRITIN [...] Stefano Sheikh MD mona com pleted EKG Setfano Sheikh MD complete d Holter, 24 or 48 Stefano Sheikh MD co mpleted FVC / MVV with bronchodilator - 89018 Coral Fernando MD completed BLOOD COUNT HEMOGLOBIN Coral barnes MD completed FRC - 22199 Coral russell MD completed SpO2 w/o 6min walk/titration Coral Fernando MD completed DLCO - 88317 Coral russell MD completed Schedule Followup ulius Dylan chawla MD s/p testing completed EKG Coral russell MD completed EKG Misael Sanford MD completed EKG Misael Sanford MD completed EKG Misael Sanford MD completed AICD Interrogation, Remote (Tech) Misael Sanford MD INTERROGATION REMOTE </90 D INSTRUCTOR PSYCHIATRIC AIDE REVIEW completed AICD Interrogation, Remote (Prof) Misael Sanford MD INTERROGATION EVAL REMOTE </90 D 1/2/> LD CVDFB completed AICD Interrogation, Remote (Tech) Misael Sanford MD INTERROGATION REMOTE </90 D INSTRUCTOR PSYCHIATRIC AIDE REVIEW completed AICD Interrogation, Remote (Prof) Misael Sanford MD INTERROGATION EVAL REMOTE </90 D 1/2/> LD CVDFB completed AICD Interrogation, Remote (Tech) Misael Sanford MD INTERROGATION REMOTE </90 D INSTRUCTOR PSYCHIATRIC AIDE REVIEW completed AICD Interrogation, Remote (Prof) Misael Sanford MD INTERROGATION EVAL REMOTE </90 D 1/2/> LD CVDFB completed Schedule ICD Check Misael Sanford MD co mpleted EKG Misael Sanford MD completed SNOMED-CT: [id number] Current Medications Documented Misael Sanford MD completed EKG Stefano Sheikh MD complete d
== END 2024-08-10 23:20 | disposition home or self-care (01) ==
LOC: ANHED 23:19
PROVIDERS: Emergency Provider Physician Assistant; PCP Internal Medicine Infectious Disease
DX: Z02.89 Encounter for other administrative examinations (principal); I42.9 Cardiomyopathy, unspecified; I10 Essential (primary) hypertension; Z95.0 Presence of cardiac pacemaker; F17.220 Nicotine dependence, chewing tobacco, uncomplicated; Z02.83 Encounter for blood-alcohol and blood-drug test
CPT/HCPCS: 99281

== ENCOUNTER 2024-09-29 14:52 | Inpatient (IN) | payer OTHER, SELFPAY ==
--- NOTE | ~2024-09-29 | CT_ITS ---
EXAMINATION: CT abdomen pelvis wo con DATE: 09/29/2024 15:16 INDICATION: Abdominal pain. TECHNIQUE: Computed tomography (CT) of the abdomen and pelvis was performed without intravenous contr ast. Automated exposure control and iterative reconstruction technique were employed. The dose-length product was 800.71 mGy-cm. COMPARISON: None. FINDINGS: The visualized portions of the lung bases demonstrate mild atelectasis. A calcified right l annie nodule is consistent with old granulomatous disease. No pleural effusion. The heart size is bethany l. There is a pacer wire in right ventricle. No pericardial effusion. There is bilateral gynecomastia . The liver, gallbladder, spleen, pancreas, adrenal glands, and right kidney are normal. There is a 3 .2 cm cyst in left kidney. There is a 2 mm stone in left kidney. There is a left inguinal hernia cont aining fat. There is an ileocolic anastomosis. There are multiple dilated loops of small bowel with t ransition point in the right lower quadrant. There are no pathologically enlarged lymph nodes. There is no free intraperitoneal fluid. There is a total left hip arthroplasty. There are bridging endplate osteophytes at multiple levels in the spine, consistent with diffuse idiopathic skeletal hyperostosi s (DISH). There is mild lumbar spondylosis. IMPRESSION: 1. Small bowel obstruction with transition point in the right lower quadrant. Reviewed, dictated and finalized at location A.
--- NOTE | ~2024-09-29 | XR_ITS ---
Exam: Abdomen 1V HISTORY: NG tube insertion COMPARISON: None. TECHNIQUE: Upright images of the lower chest and upper abdomen FINDINGS: Nasogastric tube extends into the left upper quadrant, presumably within the stomach. IMPRESSION: Nasogastric tube in good position and ready for immediate use. Reviewed, dictated and finalized at location A.
--- NOTE | ~2024-09-29 | XR_ITS ---
EXAMINATION: XR sm bowel follow through WS DATE: 09/30/2024 14:03 INDICATION: Crohn's disease. Small bowel obstruction. TECHNIQUE: Storage Battery Inspector radiograph(s) of the abdomen was/were obtained. Water-soluble contrast was administe red by the patient's nasogastric tube and sequential radiographs of the abdomen were obtained until o ral contrast was noted to be in the colon. COMPARISON: CT dated FINDINGS: Storage Battery Inspector image demonstrates a nasogastric tube coiled over the body the stomach. Ileocolic anastomotic s uture line projects over the right lower quadrant. There is mild dilation of loops of gas-filled smal l bowel in the left lower quadrant on the initial laboratory apparatus glass grinder image. There is transient mild dilation of va rying segments of contrast opacified proximal small bowel on the subsequent images. The more distal s mall bowel remains normal in caliber throughout. There is a normal mucosal pattern throughout the sma ll bowel. Transit time from the stomach to proximal colon was approximately 2-3 hours. IMPRESSION: 1. Unchanged transient mild dilation of varying segments of proximal small bowel with no persistently dilated bowel in a discrete transition point or delayed transit to the colon to suggest a fixed obst ruction in this could be related to or a mild ileus or resolving obstruction. Reviewed, dictated and finalized at location A. IMPRESSION: 1. Unchanged transient mild dilation of varying segments of proximal small milady l with no persistently dilated bowel in a discrete transition point or delayed transit to the colon to suggest a fixed obstruction in this could be related to or a mild ileus or resolving obstruction.
[2024-09-29 14:54] VITALS: BP 130/77; PULSE 100; RESP 16; TEMP 36.6; O2SAT 98
--- NOTE | 2024-09-29 15:05 | ED_ITS ---
HPI - GI Bleed General Chief complaint: GI Bleed <Jalyn Howard APRN - Last Filed: 09/29/24 15:14> Stated complaint: nausea/vomiting/diarrhea <Jalyn Howard APRN - Last Filed: 09/29/24 15:14> Time Seen by Provider: 09/29/24 14:55 <Jalyn Howard MASTER YACHT - Last Filed: 09/29/24 15:14> Focused HPI: Patient is a 53-year-old male who presents to the ER with complaints of nausea, vomiting, and black stools. He reports he started experiencing bloating and diarrhea last night. Today he has vomited approximately 15 times and he reports the vomit is black. He endorses a history of a previous GI bleed. Patient denies any other relevant medical history. GENERAL: Well-appearing, well-nourished, and in no acute distress, pallor. HEAD: Normocephalic, atraumatic. CHEST: Clear to auscultation. ?No respiratory distress. HEART: Regular rate and rhythm.? NEURO: ?Alert and oriented x3. Patient screened in triage and initial orders placed.? ?Additional care and disposition to be based upon?diagnostic testing and treatment. <Jalyn Howard APRN - Last Filed: 09/29/24 15:14> Source: patient and family (aunt) <Frances Neal MD - Last Filed: 10/01/24 06:31> Mode of arrival: ambulatory <Frances Neal MD - Last Filed: 10/01/24 06:31> History of Present Illness HPI Narrative: Agree with the above with the following additions/corrections: Had been hospitalized approximately 1 year ago at [place] for a GI bleed / intestinal blockage that corrected with NG tube decompression, did not require surgical intervention. He underwent EGD and colonoscopy at that time and nothing was found. Concern for possible bleed in a location not reachable by either so spent to a specialist for pill swallow capsule study but ultimately not performed given patient had stabilized and it wasn't felt it was necessary. Not taking Pepto. Vomit has been black, possible coffee grounds. Diarrhea had been black but stopped last night. No more bowel movements and not passing flatus. 15 episodes total. Took Tylenol for pain. Feels bloated and cramping. Abdominal pain is throughout (low, suprapubic, also RLQ). Not on steroids, anticoagulation or NSAIDs. History of heart failure and liver issues - hepatitis C s/p treatment and deemed cleared. Patient intiially denies any previous abdominal surgeries but aunt reminds him that he had colonic resection due to Crohns when he was 20 yo, also appendectomy at that time. S/p L hip replacement at [place] and was supposed to undergo R hip replacement at [place] soon. <Frances Neal MD - Last Filed: 10/01/24 06:31> Related Data Home medications: Home Medications ?Medication ?Instructions ?Recorded ?Confirmed ?Last Taken ?Type lamotrigine 100 mg tablet 100 mg PO QHS 08/09/20 09/29/24 09/28/24 History (Lamictal) trazodone 50 mg tablet 50 mg PO HS Pain 08/09/20 09/29/24 09/28/24 History Invega injection 09/29/24 Unknown History Lactobacillus acidophilus 10 100 mmu cells PO DAILY 09/29/24 09/29/24 09/28/24 History billion cell capsule (NewFlora) acetaminophen 500 mg tablet 1,000 mg PO Q6H PRN pain 09/29/24 09/29/24 Unknown History (Tylenol Extra Strength) buspirone 10 mg tablet 10 mg PO BID 09/29/24 09/29/24 09/29/24 History carvedilol 3.125 mg tablet 3.125 mg PO Q12H 09/29/24 09/29/24 09/29/24 History cetirizine 10 mg tablet (24Hour 10 mg PO DAILY PRN allergy symptoms 09/29/24 09/29/24 Unknown History Allergy) duloxetine 60 mg capsule,delayed 60 mg PO DAILY 09/29/24 09/29/24 09/29/24 History release ferrous sulfate 325 mg (65 mg 325 mg PO DAILY 09/29/24 09/29/24 09/29/24 History iron) tablet (FeroSul) magnesium oxide 400 mg (241.3 mg 400 mg PO QPM 09/29/24 09/29/24 09/28/24 History magnesium) tablet melatonin 10 mg capsule 10 mg PO HS PRN sleep 09/29/24 09/29/24 Unknown History omeprazole 20 mg capsule,delayed 20 mg PO DAILY 09/29/24 09/29/24 09/29/24 History release rosuvastatin 20 mg tablet 20 mg PO QPM 09/29/24 09/29/24 09/28/24 History <Jalyn Howard APRN - Last Filed: 09/29/24 15:14> Allergies/Adverse reactions: Allergies Allergy/AdvReac Type Severity Reaction Status Date / Time No Known Allergies Allergy Verified 08/10/24 22:54 <Jalyn Howard APRN - Last Filed: 09/29/24 15:14> [facility] Past Medical History Medical History: Medical History (Updated 09/30/24 @ 10:03 by JADE Renteria) Osteoarthritis Ventricular tachycardia Tongue cancer Crohn's disease Hypertension Pacemaker Cardiomyopathy Bipolar 1 disorder Schizophrenia <Jalyn Howard APRN - Last Filed: 09/29/24 15:14> Surgical History Surgical History: Surgical History (Updated 10/01/24 @ 06:17 by Frances Neal MD) Presence of combination internal cardiac defibrillator (ICD) and pacemaker History of total left hip arthroplasty [place] History of partial colectomy History of appendectomy <Jalyn Howard APRN - Last Filed: 09/29/24 15:14> Family History Family History: Family History Father Heart disease Hypertension <Jalyn Howard APRN - Last Filed: 09/29/24 15:14> Social History Social History: Social History Social History: Surrogate medical decision maker: Elba Galdamez, aunt ([phone]). Code status: Full code. 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 HEAD: Linear scar right skull. EYES: Non injected, non icteric ENT: Nares clear, no rhinorrhea or epistaxis. NECK: Supple. CHEST: Speaking in full sentences. No respiratory distress. HEART: Regular rate and rhythm. . ABDOMEN: Soft. Distended. TTP throughout but particularly RLQ. DESTINY with normal rectal tone. No palpable masses. FOBT/guiaic negative. EXTREMITIES: Normal range of motion. No lower extremity edema. SKIN: Warm, dry, no rash. NEURO: No focal deficits. Alert and oriented x3. Poor health historian. PSYCH: Normal mood and affect. <Frances Neal MD - Last Filed: 10/01/24 06:31> Course Vital Signs Vital signs: Vital Signs Temperature 97.9 F 09/29/24 14:54 Pulse Rate 100 09/29/24 14:54 Respiratory Rate 16 09/29/24 14:54 Blood Pressure 130/77 09/29/24 14:54 Pulse Oximetry 98 09/29/24 14:54 Oxygen Delivery Room Air 09/29/24 14:54 Temperature 98.0 F 10/01/24 05:21 Pulse Rate 82 10/01/24 05:21 Respiratory Rate 16 10/01/24 05:21 Blood Pressure 110/62 10/01/24 05:21 Pulse Oximetry 96 10/01/24 05:21 Oxygen Delivery Room Air 09/30/24 19:54 <Jalyn Howard APRN - Last Filed: 09/29/24 15:14> Vital Signs Temperature 97.9 F 09/29/24 14:54 Pulse Rate 100 09/29/24 14:54 Respiratory Rate 16 09/29/24 14:54 Blood Pressure 130/77 09/29/24 14:54 Pulse Oximetry 98 09/29/24 14:54 Oxygen Delivery Room Air 09/29/24 14:54 Temperature 98.0 F 10/01/24 05:21 Pulse Rate 82 10/01/24 05:21 Respiratory Rate 16 10/01/24 05:21 Blood Pressure 110/62 10/01/24 05:21 Pulse Oximetry 96 10/01/24 05:21 Oxygen Delivery Room Air 09/30/24 19:54 <Frances Neal MD - Last Filed: 10/01/24 06:31> MDM - GI Bleed MDM Narrative Medical decision making narrative: Presents with concern for GI bleed given black emesis and stools but then with no more bowel movements since last night and not passing flatus. In the emergency department they are afebrile with vital signs within normal limits. FOBT/guiaic negative. Viral panel negative. Lactic acid normal. No electrolyte abnormalities. CT with evidence of obstruction. NG Tube ordered. discussed with information developer surgeon. COncurs with management and deferring antibiotics at this time. Recommends admission to medicine. Discussed with information developer hospitalist. Accepted. <Frances Neal MD - Last Filed: 10/01/24 06:31> Differential Diagnosis Differential diagnosis: Likely infectious diarrhea, esophageal varices, gastritis, Upper gastrointestinal hemorrhage, Lower gastrointestinal hemorrhage, hematochezia, melena and other (bowel obstruction) <Frances Neal MD - Last Filed: 10/01/24 06:31> Lab Data Attestation: I reviewed the patient's lab results. <Frances Neal MD - Last Filed: 10/01/24 06:31> Result diagrams: 09/30/24 04:27 09/30/24 04:27 <Jalyn Howard APRN - Last Filed: 09/29/24 15:14> Labs: Lab Results 09/29/24 09/29/24 09/29/24 Range/Units 15:06 16:43 17:09 WBC 7.7 (4.5-10.0) K/mm3 RBC 5.08 (4.6-6.20) M/mm3 Hgb 15.0 (14.0-18.0) g/dL Hct 43.7 (42.0-52.0) % MCV 86.0 (80-100) fl MCH 29.5 (26-34) pg MCHC 34.3 (32-36) g/dl RDW 12.5 (11.5-14.5) % Plt Count 258 (150-375) k/mm3 MPV 8.7 (7.4-10.4) fl Immature Gran % (Auto) 0.4 (0-0.5) % Neut % (Auto) 83.8 H (45.5-73.1) % Lymph % (Auto) 6.6 L (18.3-44.2) % [place] % (Auto) 9.1 H (2.6-8.5) % Eos % (Auto) 0.0 (0-4.4) % Baso % (Auto) 0.1 L (0.2-1.2) % Lymph # (Auto) 0.51 L (0.9-3.2) K/mm3 [place] # (Auto) 0.7 H (0.1-0.6) K/mm3 Eos # (Auto) 0.0 (0-0.3) K/mm3 Baso # (Auto) 0.0 (0.0-0.1) K/mm3 Abs Immat Gran (auto) 0.03 (0.00-0.031) K/mm3 Absolute Neuts (auto) 6.4 (1.3-6.7) K/mm3 Absolute Nucleated RBC 0.000 (0.0-0.012) K/mm3 Nucleated RBC % 0.0 (0.0-0.2) % PT 14.2 (11.1-14.7) Seconds INR 1.1 APTT 27.9 (22.3-36.8) Seconds Sodium 136 L (137-145) mmol/L Potassium 4.2 (3.4-5.0) mmol/L Chloride 96 L (98-107) mmol/L Carbon Dioxide 26 (22-30) mmol/L Anion Gap 14 H (4-12) mmol/L BUN 20 (9-20) mg/dL Creatinine 1.01 (0.7-1.3) mg/dL Estim Creat Clear Calc 86 ml/min Estimated GFR > 60 (59 - ) Glucose 127 H (65-110) mg/dL Lactic Acid 1.6 (0.7-2.0) mmol/L Calcium 9.4 (8.4-10.2) mg/dL Phosphorus 3.2 (2.5-4.5) mg/dL Magnesium 1.7 1.9 (1.6-2.3) mg/dL Total Bilirubin 1.2 (0.2-1.3) mg/dL AST 27 (17-59) U/L ALT 19 (6-50) U/L Alkaline Phosphatase 77 (38-126) U/L Total Protein 8.0 (6.3-8.2) g/dL Albumin 5.0 (3.5-5.1) g/dL Lipase 41 (23-300) U/L Influenza A (RT-PCR) Negative (Negative) Influenza B (RT-PCR) Negative (Negative) SARS-CoV-2 RNA (RT-PCR) Negative (Negative) Blood Type B Positive Antibody Screen Negative <Jalyn Howard, MASTER YACHT - Last Filed: 09/29/24 15:14> Lab Results 09/29/24 09/29/24 09/29/24 Range/Units 15:06 16:43 17:09 WBC 7.7 (4.5-10.0) K/mm3 RBC 5.08 (4.6-6.20) M/mm3 Hgb 15.0 (14.0-18.0) g/dL Hct 43.7 (42.0-52.0) % MCV 86.0 (80-100) fl MCH 29.5 (26-34) pg MCHC 34.3 (32-36) g/dl RDW 12.5 (11.5-14.5) % Plt Count 258 (150-375) k/mm3 MPV 8.7 (7.4-10.4) fl Immature Gran % (Auto) 0.4 (0-0.5) % Neut % (Auto) 83.8 H (45.5-73.1) % Lymph % (Auto) 6.6 L (18.3-44.2) % [place] % (Auto) 9.1 H (2.6-8.5) % Eos % (Auto) 0.0 (0-4.4) % Baso % (Auto) 0.1 L (0.2-1.2) % Lymph # (Auto) 0.51 L (0.9-3.2) K/mm3 [place] # (Auto) 0.7 H (0.1-0.6) K/mm3 Eos # (Auto) 0.0 (0-0.3) K/mm3 Baso # (Auto) 0.0 (0.0-0.1) K/mm3 Abs Immat Gran (auto) 0.03 (0.00-0.031) K/mm3 Absolute Neuts (auto) 6.4 (1.3-6.7) K/mm3 Absolute Nucleated RBC 0.000 (0.0-0.012) K/mm3 Nucleated RBC % 0.0 (0.0-0.2) % PT 14.2 (11.1-14.7) Seconds INR 1.1 APTT 27.9 (22.3-36.8) Seconds Sodium 136 L (137-145) mmol/L Potassium 4.2 (3.4-5.0) mmol/L Chloride 96 L (98-107) mmol/L Carbon Dioxide 26 (22-30) mmol/L Anion Gap 14 H (4-12) mmol/L BUN 20 (9-20) mg/dL Creatinine 1.01 (0.7-1.3) mg/dL Estim Creat Clear Calc 86 ml/min Estimated GFR > 60 (59 - ) Glucose 127 H (65-110) mg/dL Lactic Acid 1.6 (0.7-2.0) mmol/L Calcium 9.4 (8.4-10.2) mg/dL Phosphorus 3.2 (2.5-4.5) mg/dL Magnesium 1.7 1.9 (1.6-2.3) mg/dL Total Bilirubin 1.2 (0.2-1.3) mg/dL AST 27 (17-59) U/L ALT 19 (6-50) U/L Alkaline Phosphatase 77 (38-126) U/L Total Protein 8.0 (6.3-8.2) g/dL Albumin 5.0 (3.5-5.1) g/dL Lipase 41 (23-300) U/L Influenza A (RT-PCR) Negative (Negative) Influenza B (RT-PCR) Negative (Negative) SARS-CoV-2 RNA (RT-PCR) Negative (Negative) Blood Type B Positive Antibody Screen Negative <Frances Neal MD - Last Filed: 10/01/24 06:31> Imaging Data Radiologist's impression: IMPRESSION: 1. Small bowel obstruction with transition point in the right lower quadrant. < Frances Neal MD - Last Filed: 10/01/24 06:31> Discharge Plan Discharge Clinical Impression: Small bowel obstruction <Jalyn Howard APRN - Last Filed: 09/29/24 15:14> Patient Disposition: Still a Patient <Jalyn Howard APRN - Last Filed: 09/29/24 15:14> Condition: Stable <Jalyn Howard APRN - Last Filed: 09/29/24 15:14>
[2024-09-29 15:13] LABS: Basophils Percent Auto 0.1 % (0.2-1.2); Hematocrit 43.7 % (42.0-52.0); Immature Granulocyte Absolute 0.03 K/mm3 (0.00-0.031); Immature Granulocyte Percent A 0.4 % (0-0.5); Lymphocytes Absolute Auto 0.51 K/mm3 (0.9-3.2); Lymphocytes Percent Auto 6.6 % (18.3-44.2); Mean Corpuscular HGB Conc 34.3 g/dl (32-36); Mean Corpuscular Hemoglobin 29.5 pg (26-34); Mean Platelet Volume 8.7 fl (7.4-10.4); Monocytes Absolute Auto 0.7 K/mm3 (0.1-0.6); Monocytes Percent Auto 9.1 % (2.6-8.5); Neutrophils Absolute Auto 6.4 K/mm3 (1.3-6.7); Neutrophils Percent Auto 83.8 % (45.5-73.1); Platelet Count Result 258 k/mm3 (150-375); Red Blood Count 5.08 M/mm3 (4.6-6.20); Red Cell Distribution Width 12.5 % (11.5-14.5); White Blood Count 7.7 K/mm3 (4.5-10.0)
[2024-09-29 15:26] LABS: INR 1.1; Prothrombin Time 14.2 Seconds (11.1-14.7)
[2024-09-29 15:27] LABS: Partial Thromboplastin Time 27.9 Seconds (22.3-36.8)
[2024-09-29 15:42] LABS: Alanine Aminotransferase 19 U/L (6-50); Alkaline Phosphatase 77 U/L (38-126); Anion Gap 14 mmol/L (4-12); Aspartate Amino Transferase 27 U/L (17-59); Bilirubin,Total 1.2 mg/dL (0.2-1.3); Blood Urea Nitrogen 20 mg/dL (9-20); Calcium 9.4 mg/dL (8.4-10.2); Carbon Dioxide 26 mmol/L (22-30); Chloride 96 mmol/L (98-107); Estimated CRCL calculation 86 ml/min; Estimated Glomerular Filt Rate > 60; Glucose 127 mg/dL (65-110); Lipase 41 U/L (23-300); Magnesium 1.7 mg/dL (1.6-2.3); Potassium 4.2 mmol/L (3.4-5.0); Sodium 136 mmol/L (137-145)
[2024-09-29 15:51] VITALS: BP 139/95; PULSE 100; RESP 20; O2SAT 97
--- OUTSIDE RECORDS SUMMARY | 2024-09-29 16:22 | XMS_ITS | Clinical Summary ---
Author Organization [facility] Address [address] [place] [address] Care Team Providers Care Foiling Machine Operator Name Role Phone Дмитрий Hennessy MD [...] Overview (11/10/2010): Biotronik Lumax 340 Model # [id number] SER# [id number] implanted 08-12-08 in [place] per Dr. Abreu for dilated CM RV lead Bi[employer] Linox 65-18 SER# [id number] Family History Medical History Relation Name Comments [...] on file Legal Sex Male 3:58 AM BARTENDER Gender Identity Not on file Sexual Orientation Not on file Last Filed Vital Signs Vital Sign Reading Time Taken Comments Blood Pressure 116/76 07/19/2020 1:01 PM BARTENDER Pulse 105 07/19/2020 1:01 PM BARTENDER Temperature 36.1 C (97 F) 07/19/2020 1:01 PM BARTENDER Respiratory Rate 18 07/19/2020 1:01 PM BARTENDER Oxygen Saturation 95% 07/19/2020 1:01 PM BARTENDER Inhaled Oxygen Concentration - - Weight 99.5 kg (219 lb 6.4 oz) 07/19/2020 1:01 P M BARTENDER Height 175.3 cm (5' 9 ) 07/19/2020 1:01 PM BARTENDER Body Mass Index 32.4 07/19/2020 1:01 PM BARTENDER Plan of Treatment Health Maintenance Due Date [...] to complete this topic Insurance MEDICAID [facility] Care Teams Foiling Machine Operator Relationship Specialty Start Date End Date Дмитрий Hennessy MD [address] [place] [address] PCP - General Internal Medicine 01/09/20
--- OUTSIDE RECORDS SUMMARY | 2024-09-29 16:22 | XMS_ITS ---
Author Organization [facility] Address [address] [place] [address] Support Name Relationship Address Phone [facility] [address] [place] [address] Aashish Darby Guarantor Unknown [phone] Care Team Providers Care Research Program Internship Name Role Phone Vikash Dodd Primary Care Provider [phone] REASON FOR VISIT Injection note Social History Sex Assigned At : Social History Observation Description Sex Assigned At Male Encounters Encounter Location Date Provider Diagnosis [address] [place] [address] 09/26/2024 Vikash Dodd Plan Of Treatment Next Appt Details Provider Name:Vikash page, 09/30/2024 10:00:00 AM, [address] [place] [address], [id number], Provider Name:Vikash page, 10/24/2024 01:00:00 PM, [address] [facility] , [place], [address], Progress Notes * Talia DARBYOB:1970 (53 yo M)Acc No.[id number]:09/26/2024 Patient: Aashish AGUILERA :1970 A ge:53 Y S ex:Male Address: [place] [address] * true * Date: Generated for Printi ng/Faxing/eTransmitting on: 0 09/29/2024 04:22 PM CDT
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
--- OUTSIDE RECORDS SUMMARY | 2024-09-29 16:22 | XMS_ITS | Patient Health Record ---
Author Organization [facility] Address [address] [place] [address] Support Name Relationship Address Phone Mehnaz Ivanjg [facility] Contact [address] [place] [address] Aashish Darby Guarantor Unknown [phone] Care Team Providers Care Certified Hyperbaric Technician Name Role Phone Vikash Dodd Primary Care Provider Quan Mayer Unavailable [phone] Elizabeth Albert Unavailable [phone] Emma Weber Unavailable [phone] Kym Suárez Unavailable [phone] Karmen Villarreal Unavailable [phone] Allergies Allergen (clinical drug ingredient) Drug/Non Drug Allergy documented on EMR Reaction Allergy Type Onset Date Status Haldol Unknown Drug Allergy Active Results Component Value Reference Range Notes Hemoglobin A1c* Reviewed date:12/16/2023 11:24:24 AM Interpretation: Performing Lab:[facility], [address] [facility], Phone - [phone], Director - PhDRehana Notes/Report: Hemoglobin A1c 6.0 4.8-5.6 % . Prediabetes: 5.7 - 6.4 Diabetes: >6.4 Glycemic control for adults with diabetes: <7.0 Lipid Panel w/ Chol/HDL Rati o Reviewed date:12/06/2023 03:57:36 PM Interpretation: Performing Lab:[facility], [address] [facility], [place], Phone - [phone], Director - PhDRehana Notes/Report: Cholesterol, Total 145 100-199 mg/dL Triglycerides 122 0-149 mg/dL HDL Cholesterol 47 >39 mg/dL VLDL Cholesterol Franky 22 5-40 mg/dL LDL Chol Calc ([facility]) 76 0-99 mg/dL T. Chol/HDL Ratio 3.1 0.0-5.0 ratio T. Chol/HDL Ratio Men Women 1/2 Avg.Risk 3.4 3.3 Avg.Risk 5.0 4.4 2X Avg.Risk 9.6 7.1 3X Avg.Risk 23.4 11.0 CMP 14 Comprehensive Metabol ic Panel* Reviewed date:12/16/2023 11:24:24 AM Interpretation: Performing Lab:[facility] [place], [address] [facility], Phone - [phone], Director - [facility] Notes/Report: Glucose 97 70-99 mg/dL BUN 14 6-24 mg/dL Creatinine 0.95 0.76-1.27 mg/dL eGFR 96 >59 mL/min/1.73 BUN/Creatinine Ratio 15 9-20 Sodium 141 134-144 mmol/L Potassium 4.6 3.5-5.2 mmol/L Chloride 102 96-106 mmol/L Carbon Dioxide, Total 23 20-29 mmol/L Calcium 9.3 8.7-10.2 mg/dL Protein, Total 7.7 6.0-8.5 g/dL Albumin 4.5 3.8-4.9 g/dL Globulin, Total 3.2 1.5-4.5 g/dL A/G Ratio 1.4 1.2-2.2 Bilirubin, Total 0.3 0.0-1.2 mg/dL Alkaline Phosphatase 80 44-121 IU/L AST (SGOT) 56 0-40 IU/L ALT (SGPT) 45 0-44 IU/L 12 Panel Urine Drug Screen Reviewed date:12/05/2023 10:38:50 AM Interpretation: Performing Lab: Notes/Report: THC neg GRICELDA neg MOP (OPI) neg AMP neg MET neg BAR neg BZO neg MDMA neg MTD neg OXY neg PCP neg BUP neg CBC With Differential/Platel et* Reviewed date:09/02/2024 04:19:31 PM Interpretation: Performing Lab:[facility] [place], [address] [facility], Phone - [phone], Director - [facility] Notes/Report: WBC 6.8 3.4-10.8 x10E3/uL RBC 4.66 4.14-5.80 x10E6/uL Hemoglobin 13.5 13.0-17.7 g/dL Hematocrit 40.7 37.5-51.0 % MCV 87 79-97 fL MCH 29.0 26.6-33.0 pg MCHC 33.2 31.5-35.7 g/dL RDW 11.8 11.6-15.4 % Platelets 297 150-450 x10E3/uL Neutrophils 68 Not Estab. % Lymphs 20 Not Estab. % Monocytes 9 Not Estab. % Eos 3 Not Estab. % Basos 0 Not Estab. % Neutrophils (Absolute) 4.6 1.4-7.0 x10E3/uL Lymphs (Absolute) 1.3 0.7-3.1 x10E3/uL Monocytes(Absolute) 0.6 0.1-0.9 x10E3/uL Eos (Absolute) 0.2 0.0-0.4 x10E3/uL Baso (Absolute) 0.0 0.0-0.2 x10E3/uL Immature Granulocytes 0 Not Estab. % Immature Grans (Abs) 0.0 0.0-0.1 x10E3/uL Lipid Panel With LDL/HDL Rat io Reviewed date:09/02/2024 04:19:31 PM Interpretation: Performing Lab:[facility] [place], [address] [facility], Phone - [phone], Director - Gael Notes/Report: Cholesterol, Total 218 100-199 mg/dL Triglycerides 174 0-149 mg/dL HDL Cholesterol 35 >39 mg/dL VLDL Cholesterol Franky 32 5-40 mg/dL LDL Chol Calc ([facility]) 151 0-99 mg/dL LDL/HDL Ratio 4.3 0.0-3.6 ratio LDL/HDL Ratio Men Women 1/2 Avg.Risk 1.0 1.5 Avg.Risk 3.6 3.2 2X Avg.Risk 6.2 5.0 3X Avg.Risk 8.0 6.1 CMP 14 Comprehensive Metabol ic Panel* Reviewed date:09/02/2024 04:19:31 PM Interpretation: Performing Lab:[facility] [place], [address] [facility], Phone - [phone], Director - Gael Notes/Report: Glucose 105 70-99 mg/dL BUN 16 6-24 mg/dL Creatinine 1.30 0.76-1.27 mg/dL eGFR 66 >59 mL/min/1.73 BUN/Creatinine Ratio 12 9-20 Sodium 139 134-144 mmol/L Potassium 4.4 3.5-5.2 mmol/L Chloride 101 96-106 mmol/L Carbon Dioxide, Total 23 20-29 mmol/L Calcium 9.2 8.7-10.2 mg/dL Protein, Total 7.7 6.0-8.5 g/dL Albumin 4.6 3.8-4.9 g/dL Globulin, Total 3.1 1.5-4.5 g/dL Bilirubin, Total 0.5 0.0-1.2 mg/dL Alkaline Phosphatase 98 44-121 IU/L AST (SGOT) 18 0-40 IU/L ALT (SGPT) 9 0-44 IU/L Hemoglobin A1c Reviewed date:09/02/2024 04:19:31 PM Interpretation: Performing Lab:[facility] [address], Phone - [phone], Director - Gael Notes/Report: Hemoglobin A1c 5.4 Reference Range: [place] Diabetes Association (ADA) Guidelines: <5.7: Decreased risk for diabetes 5.7 - 6.4: Increased risk for diabetes >6.4: Ongoing Hyperglycemia of any cause <7.0: Glycemic control for adults with diabetes Estimated Average Glucose 108 QuantiFERON-TB Gold Plus (18 [id number]) Reviewed date:03/17/2024 11:04:35 AM Interpretation:Negative Performing Lab:[facility] [place], [address] [place] [address], Phone - [phone], Director - Gael Notes/Report: QuantiFERON Incubation Incubation performed. QuantiFERON-TB Gold Plus Negative Negative No response to M tuberculosis antigens detected. Infection with M tuberculosis is unlikely, but high risk individuals should be considered for additional testing (ATS/IDSA/CDC Clinical Practice Guidelines, 2017). The reference range is an Antigen minus Nil result of <0.35 IU/mL. Chemiluminescence immunoassay methodology QuantiFERON Criteria QuantiFERON-TB Gold Plus is a qualitative indirect test for M tuberculosis infection (including disease) and is intended for use in conjunction with risk assessment, radiography, and other medical and diagnostic evaluations. The QuantiFERON-TB Gold Plus result is determined by subtracting the Nil value from either TB antigen (Ag) value. The Mitogen tube serves as a control for the test. QuantiFERON TB1 Ag Value 0.00 QuantiFERON TB2 Ag Value 0.02 QuantiFERON Nil Value 0.01 QuantiFERON Mitogen Value 6.29 CBC With Differential/Platel et* Reviewed date:12/16/2023 11:24:24 AM Interpretation: Performing Lab:[facility] [place], [address] [facility], [place], Phone - [phone], Director - Gael Notes/Report: WBC 4.8 3.4-10.8 x10E3/uL RBC 4.67 4.14-5.80 x10E6/uL Hemoglobin 11.7 13.0-17.7 g/dL Hematocrit 38.0 37.5-51.0 % MCV 81 79-97 fL MCH 25.1 26.6-33.0 pg MCHC 30.8 31.5-35.7 g/dL RDW 14.4 11.6-15.4 % Platelets 346 150-450 x10E3/uL Neutrophils 55 Not Estab. % Lymphs 22 Not Estab. % Monocytes 17 Not Estab. % Eos 4 Not Estab. % Basos 1 Not Estab. % Neutrophils (Absolute) 2.7 1.4-7.0 x10E3/uL Lymphs (Absolute) 1.0 0.7-3.1 x10E3/uL Monocytes(Absolute) 0.8 0.1-0.9 x10E3/uL Eos (Absolute) 0.2 0.0-0.4 x10E3/uL Baso (Absolute) 0.0 0.0-0.2 x10E3/uL Immature Granulocytes 1 Not Estab. % Immature Grans (Abs) 0.0 0.0-0.1 x10E3/uL Reason For Referral Reason Would like to set up with a PCP through [facility] [place] Diagnosis 1 Schizoaffective diso rder, bipolar type (F25.0) Referral Organization [facility] Referring Provider First Name Vikash Referring Provider Last Name Yousif Referring Provider Speciality Psychiatry Referred Provider Specialty Family Medic ine Clinical Notes Alondra Law 11:48:52 AM >Per discussion with service supervisor, client already has access to primary care that comes to the housing unit he's at. If not happy with that provider, would need to present self to see another PCP in person at the offices. No further needs at this time. Referral Priority Routine Medications Medication SIG (Take, Route, Frequency, Duration) Notes Start Date End Date Status Pantoprazole Sodium 40 MG 1 tablet Orally Once a day for 30 day(s) Active Digoxin 125 MCG 1 tablet Orally for 30 day(s) Active LaMICtal 150 MG 1 tablet at bedtime Orally Once a day for 30 days Active busPIRone HCl 10 MG 2 tablets for 20 mg Orally Twice a day for 30 days Active Invega Sustenna 234 MG/1.5ML 1.5 mL Intramuscular once for 7 days Loading dose Active chlorproMAZINE HCl 25 MG 1 tablet Orally once a day for 14 days Active Multivitamin - 1 tablet Orally Once a day Active traZODone HCl 50 MG 1 tablet at bedtime as needed Orally at bedtime as needed for 30 days Active Lopid 600 MG 1 tablet 30 minutes before morning and evening meals Orally Twice a day Active DULoxetine HCl 60 MG 1 capsule Orally On ce a day for 30 days Active Inpefa 200 MG 1 tablet no more adilene n 1 hour before the first meal of the day Orally Once a day Active Invega Sustenna 156 MG/ML 1 mL Intramuscular once for 28 days Active Atorvastatin Calcium 40 MG 1 tablet Orally Once a day Active Farxiga 10 MG 1 tablet Orally Once a day Active Lipitor 40 MG 1 tablet Orally Once a day Active Social History Tobacco Use: Social History Observation Description Date Details (start date - stop date) Unknown Sex Assigned At : Social History Observation Description Sex Assigned At Male Dont use, Tobacco Use/Smoking Question Answer Notes Are you a nonsmoker PRAPARE Question Answer Notes Date Completed/Updated: 08/14/2024 What is your current housing situation? I have h ousing Are you worried about losing your housing? No What is the highest level of school that you have finished? High school diploma or GED What is your current work situation? Unemployed and seeking work In the past year, have you o r any family members you live with been unable to get any of the following when it was really needed? Check all that apply I do not have problems meeting my needs Has lack of transportation k ept you from medical appointments, meetings, work or from getting things needed for daily living? No How often do you see or talk to people that you care about and feel close to? (For example: talking to friends on the phone, visiting friends or family, going to orthodoxy or club meetings) 3 to 5 times a week How stressed are you? Stress is when someone feels tense, nervous, anxious, or can\t sleep at night because their mind is troubled Somewhat In the past year have you sp ent more than 2 nights in a row in a custodial, jail, intermediate center, or juvenile correctional facility? No Do you feel physically and e motionally safe where you currently live? Yes In the past year, have you b een afraid of your partner or ex-partner? No PRAPARE Score: 6 Enabling Services Provided? Yes Please specify Other Services Tobacco Control (Standard) Question Answer Notes Tobacco use: Uses tobacco in other forms Additional Findings: Tobacco user Chews tobacco Problems Problem Type SNOMED Code ICD Code Onset Dates Problem Status W/U Status Risk Notes Problem Schizoaffective disorder, bipolar type (05526810) Schizoaffective disorder, bipolar type (F25.0) Active confirmed Problem Anxiety disorder (646581325) Anxiety disorder, unspecified (F41.9) 024 Active confirmed Problem Hyperlipidemia (37706936) Hyperlipidemia (E78.5) Active confirmed Problem Gastroesophageal reflux disease (968277022) GERD (gastroesophageal reflux disease) (K21.9) Active confirmed Problem Type 2 diabetes mellitus (29858424) Type 2 diabetes mellitus (E11.9) 023 Active confirmed Problem Insomnia due to mental disorder (05887777) Insomnia due to mental disorder (F51.05) Active confirmed Problem [id number] Obesity (BMI 30.0-34.9) (E66.9) Active confirmed Problem Essential hypertension (52409525) Essential hypertension (I10) 023 Active confirmed Problem Tobacco use (724452856) Tobacco use disorder (F17.200) Active confirmed Problem Chronic alcoholism in remission (disorder) (493524838) Alcohol use disorder, moderate, in early remission (F10.21) Active confirmed Problem Amphetamine use disorder, severe, in early remission (F15.21) Active confirmed Vital Signs Heart Rate 99 /min 09/26/2024 Temperature 97.9 degrees Fahrenheit 09/26/2024 Respiratory Rate 16 /min 09/26/2024 Blood pressure diastolic 78 mm Hg 09/26/2024 Oximetry 98 % 09/26/2024 Height 69 in 09/26/2024 Blood pressure systolic 118 mm Hg 09/26/2024 Weight 211 lbs 09/26/2024 BMI 31.16 kg/m2 09/26/2024 Procedures Procedure Date Ordered Date Performed Result Body Sit e EAR IRRIGATION 11/14/2023 11/14/2023 N/A Encounters Encounter Location Date Provider Diagnosis [facility] [place] [address] 12/04/2023 Vikash Dodd Schizoaffective disorder, bipolar type F25.0 [facility] [address] [place] [address] 12/05/2023 Vikash Dodd [facility] [place] [address] 03/12/2024 Karmen Villarreal Adult general medica l examination Z00.00 [address] [address] [place] [address] 11/14/2023 Quan Mayer Routine physical examination Z00.00 ; Overweight (BMI 25.0-29.9) E66.3 ; Cerumen impaction H61.20 and Tobacco use disorder F17.[address] [address] 11/15/2023 Vikash Dodd Schizoaffective disorder, bipolar type F25.0 ; Amphetamine use disorder, severe, 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 and Alcohol use disorder, moderate, in early remission F10.21 [facility] [place] [address] 11/21/2023 Emma Weber [facility] [place] [address] 12/13/2023 Elizabeth Albert Schizoaffective disorder, bipolar type F25.[address] [address] 01/24/2024 Vikash Dodd Schizoaffective disorder, bipolar type F25.0 ; Amphetamine use disorder, severe, 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 and Alcohol use disorder, moderate, in early remission F10.21 [facility] [address] [place] [address] 03/10/2024 Karmen Villarreal Adult general medica l examination Z00.00 and Nutritional counseling Z71.[address] [address] 03/12/2024 Kyria Dodd Schizoaffective disorder, bipolar type F25.0 ; Amphetamine use disorder, severe, 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 and Alcohol use disorder, moderate, in early remission F10.21 [facility] [address] [place] [address] 03/13/2024 Kyria Dodd Schizoaffective disorder, bipolar type F25.[address] [address] 04/03/2024 Kyria Dodd Schizoaffective disorder, bipolar type F25.0 ; Amphetamine use disorder, severe, 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 and Alcohol use disorder, moderate, in early remission F10.[address] [address] 06/19/2024 Kyria Dodd Schizoaffective disorder, bipolar type F25.0 ; 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 ; Amphetamine use disorder, severe, 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 ; Alcohol use disorder, moderate, in early remission F10.21 and Anxiety disorder, unspecified F41.[address] [address] 06/20/2024 Kyria Dodd Schizoaffective disorder, bipolar type F25.[address] [place] [address] 06/26/2024 Kyria Dodd Schizoaffective disorder, bipolar type F25.[address] [place] [address] 07/23/2024 Kyria Dodd Schizoaffective disorder, bipolar type F25.0 [facility] [address] [place] [address] 08/01/2024 Kyria Dodd Schizoaffective disorder, bipolar type F25.0 ; 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 ; Amphetamine use disorder, severe, 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 ; Alcohol use disorder, moderate, in early remission F10.21 and Anxiety disorder, unspecified F41.[address] [address] 08/29/2024 Kyria Dodd Schizoaffective disorder, bipolar type F25.[address] [address] 08/29/2024 Kyria Dodd [facility] [address] [place] [address] 09/02/2024 Kyria Dodd Schizoaffective disorder, bipolar type F25.0 ; 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 ; Amphetamine use disorder, severe, 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 ; Alcohol use disorder, moderate, in early remission F10.21 and Anxiety disorder, unspecified F41.[address] [place] [address] 09/26/2024 Kyria Dodd Schizoaffective disorder, bipolar type F25.[address] [place] [address] 10/01/2023 Kym Suárez [address] [place] [address] 10/20/2023 Kyria Dodd Schizoaffective disorder, bipolar type F25.0 [facility] [address] [place] [address] 11/15/2023 Kyria Dodd [address] [facility] [place] [address] 12/11/2023 Elizabeth Albert Schizoaffective disorder, bipolar type F25.0 [facility] [address] [place] [address] 12/14/2023 Kyria Dodd [facility] [address] [place] [address] 12/16/2023 Kyria Dodd [facility] [address] [place] [address] 12/17/2023 Kyridakota Dodd Schizoaffective disorder, bipolar type F25.[address] [facility] [place] [address] 03/06/2024 Kyria Dodd [facility] [address] [place] [address] 03/10/2024 Kyria Dodd [facility] [address] [place] [address] 03/12/2024 Kyria Dodd [facility] [address] [place] [address] 03/20/2024 [facility] [address] [place] [address] [place] [address] 06/06/2024 Kyridakota Dodd Schizoaffective disorder, bipolar type F25.0 [facility] [address] [place] [address] [place] [address] 06/19/2024 Kyria Dodd [facility] [place] [address] 07/22/2024 Kyria Dodd [facility] [address] [place] [address] 07/23/2024 Kyria Dodd [facility] [address] [place] [address] 08/01/2024 Kyria Dodd [facility] [address] [place] [address] [place] [address] 08/05/2024 Kyria Dodd [facility] [place] [address] 08/11/2024 Samdakota CasasDodd [facility] [address] [place] [address] [place] [address] 08/14/2024 Samdakota CasasDodd [address] [place] [address] 08/15/2024 Samdakota CasasDodd [facility] [address] [place] [address] 08/29/2024 Vikash Dodd Schizoaffective disorder, bipolar type F25.[address] [place] [address] 09/26/2024 Vikash Dodd Assessments Encounter Date Diagnosis (ICD Code) Assessment Notes Treatment Notes Treatment Clinical Notes Section Notes 10/20/2023 Schizoaffective disorder, bipolar type (ICD-10 - F25.0) 11/14/2023 Routine physical examination (ICD-10 - Z00.00) Continue CRU protocol. Encouraged regular f/u with PCP for recommended screenings and physicals. 11/14/2023 Overweight (BMI 25.0-29.9) (ICD-10 - E66.3) 11/15/2023 Schizoaffective disorder, bipolar type (ICD-10 - F25.0) 12/04/2023 Schizoaffective disorder, bipolar type (ICD-10 - F25.0) 12/11/2023 Schizoaffective disorder, bipolar type (ICD-10 - F25.0) 12/13/2023 Schizoaffective disorder, bipolar type (ICD-10 - F25.0) 12/17/2023 Schizoaffective disorder, bipolar type (ICD-10 - F25.0) 01/24/2024 Schizoaffective disorder, bipolar type (ICD-10 - F25.0) 03/10/2024 Adult general medical examination (ICD-10 - Z00.00) 03/12/2024 Adult general medical examination (ICD-10 - Z00.00) 03/13/2024 Schizoaffective disorder, bipolar type (ICD-10 - F25.0) 04/03/2024 Schizoaffective disorder, bipolar type (ICD-10 - F25.0) 03/12/2024 Schizoaffective disorder, bipolar type (ICD-10 - F25.0) 06/06/2024 Schizoaffective disorder, bipolar type (ICD-10 - F25.0) 06/19/2024 Schizoaffective disorder, bipolar type (ICD-10 - F25.0) 06/19/2024 Insomnia due to mental disorder (ICD-10 - F51.05) 06/20/2024 Schizoaffective disorder, bipolar type (ICD-10 - F25.0) 06/26/2024 Schizoaffective disorder, bipolar type (ICD-10 - F25.0) 07/23/2024 Schizoaffective disorder, bipolar type (ICD-10 - F25.0) 08/01/2024 Schizoaffective disorder, bipolar type (ICD-10 - F25.0) 08/29/2024 Schizoaffective disorder, bipolar type (ICD-10 - F25.0) 08/29/2024 Schizoaffective disorder, bipolar type (ICD-10 - F25.0) 09/02/2024 Schizoaffective disorder, bipolar type (ICD-10 - F25.0) 09/26/2024 Schizoaffective disorder, bipolar type (ICD-10 - F25.0) 09/02/2024 Insomnia due to mental disorder (ICD-10 - F51.05) 08/01/2024 Insomnia due to mental disorder (ICD-10 - F51.05) 06/19/2024 Amphetamine use disorder, severe, in early remission (ICD-10 - F15.21) 03/12/2024 Amphetamine use disorder, severe, in early remission (ICD-10 - F15.21) 04/03/2024 Amphetamine use disorder, severe, in early remission (ICD-10 - F15.21) 03/10/2024 Nutritional counseling (ICD-10 - Z71.3) 11/15/2023 Amphetamine use disorder, severe, in early remission (ICD-10 - F15.21) 01/24/2024 Amphetamine use disorder, severe, in early remission (ICD-10 - F15.21) 11/14/2023 Cerumen impaction (ICD-10 - H61.20) 11/15/2023 Alcohol use disorder, moderate, in early remission (ICD-10 - F10.21) History: Hx of schizoaffective disorder bipolar type. Hx of taking Olanzapine, Wellbutrin, Buspar, Zyprexa (sexual side effects.). Had a recent hip replacement, had lost 10lbs at last appointment. Struggling with medication adherence, switched to injection. Was hospitalized inpatient psych prior to 07/23 appointment for AVH and depression, no records in [facility]. Attends and has a sponsor. Moved into [facility] in 01/2023. Hx of command hallucinations telling him to kill himself. Experiencing paranoia and VH leading to crisis unit stay in 10/2023. Hx of agressive bx, was aggressive with police 3 years ago. Denies aggressive behavior. Total time in jail 17 years for domestic violence, harassment of witness, breaking windows of ex-girlfriends house. Hx of alcohol, meth, cocaine, and marijuana use. Hx of multiple inpatient stay for AH and SI at [facility]. Denies hx of jodee. Hx of impulsivity. Todays Visit: Patient is a 47-year-old female seen for psychiatric follow-up over zo currently staying in [facility]. Previously seen on 09/17/2023 by Tila Villatoro and was continued on Zyprexa 10mg daily, Lamictal 100mg daily, and Buspar 15mg daily. Decreased Duloxetine from 90mg to 60mg daily, and discontinued Risperdal 2mg BID (having sexual side effects) and started Invega alternatively Sustena 234/1.5mg loading dose and Invega Sustenna 156mg/ml 8 days following loading dose. PHQ-9 previously 2, today is 13. Pt reports increased depressive symptoms, SI, and AH since last visit with Tila leading to admission to [facility]. Pt was discharged on the and admitted to [facility] Sunday11/13/23.. Plans to attend [facility] for rehab. Pt reports loosing 15lbs in the past few months due to increased depression Experiencing increased paranoia while at housing, feels people are talking about him through the suazo and making plans to kill him. Continues to endorse paranoia and auditory hallucinations. Admits to recent meth and cocaine use prior to admitting to crisis unit which is a likely contributor to his excaerbation of symptoms. Pt wishes to decrease Buspar from TID to BID, denies taking afternoon dose. Pt does not wish to make any additional medication changes at this time for depressive symptoms. Unable to complete AIMS due to nature of appt, denies any irregular muscle movements; would benefit from an in person appointment. Denies recent SI thoughts since discharging from [facility]. Patient is due for labs, will order. No acute safety concerns at the time of appointment. Pt was given the opportunity to ask questions and is in agreement with tx plan. May self-administer medications or be administered own oral medications per [facility] protocols. Provided informed consent with understanding of side effects, adverse effects, risks and benefits as well as alternative treatments as previously discussed and with the above recommended medications & other aspects of the treatment program. Agrees to return sooner if symptoms worsen or suicidal or homicidal ideations occur. 11/14/2023 Tobacco use disorder (ICD-10 - F17.200) 01/24/2024 Alcohol use disorder, moderate, in early remission (ICD-10 - F10.21) History: Hx of schizoaffective disorder bipolar type. Hx of taking Olanzapine, Wellbutrin, Buspar, Zyprexa (sexual side effects.). Had a recent hip replacement, had lost 10lbs at last appointment. Struggling with medication adherence, switched to injection. Was hospitalized inpatient psych prior to 07/23 appointment for AVH and depression, no records in [facility]. Attends and has a sponsor. Moved into [facility] in 01/2023. Hx of command hallucinations telling him to kill himself. Experiencing paranoia and VH leading to crisis unit stay in 10/2023. Hx of agressive bx, was aggressive with police 3 years ago. Denies aggressive behavior. Total time in jail 17 years for domestic violence, harassment of witness, breaking windows of ex-girlfriends house. Hx of alcohol, meth, cocaine, and marijuana use. Hx of multiple inpatient stay for AH and SI at [facility]. Denies hx of jodee. Hx of impulsivity. Todays Visit: Patient is a 53 year old male being seen for psychiatric follow-up over phone, currently staying in [facility]. Previously seen on 11/15/23 as a transfer. Previous PHQ-9 score of 13, today is score of 6. Pt recently hospitalized 8-10 days ago and during his hospitalization he reports being stopped on cymbalta, wellbutrin, Zyprexa and that he is continuing to take Lamictal 100 mg, Buspar BID, Invega and was started on Thorazine. Through review of MAR at [place], he was prescribed 150 mg of Lamictal but he is requesting to go back to 100 mg. He feels thorazine has been helpful for mood stability. He reports he is taking over his prescriptions rather than have housing staff assist. He denies any side effects from medication. He reports improvement in depressive sx, AVH and paranoia since hospitalization and on current medications. Unable to complete AIMS due to nature of appt, denies any irregular muscle movements; would benefit from an in person appointment. No acute safety concerns at the time of appointment. Pt was given the opportunity to ask questions and is in agreement with tx plan. May self-administer medications or be administered own oral medications per [facility] protocols. Provided informed consent with understanding of side effects, adverse effects, risks and benefits as well as alternative treatments as previously discussed and with the above recommended medications & other aspects of the treatment program. Agrees to return sooner if symptoms worsen or suicidal or homicidal ideations occur. 03/12/2024 Alcohol use disorder, moderate, in early remission (ICD-10 - F10.21) History: Hx of schizoaffective disorder bipolar type. Hx of taking Olanzapine, Wellbutrin, Buspar, Zyprexa (sexual side effects.). Had a recent hip replacement, had lost 10lbs at last appointment. Struggling with medication adherence, switched to injection. Was hospitalized inpatient psych prior to 07/23 appointment for AVH and depression, no records in [facility]. Attends and has a sponsor. Moved into [facility] in 01/2023. Hx of command hallucinations telling him to kill himself. Experiencing paranoia and VH leading to crisis unit stay in 10/2023. Hx of agressive bx, was aggressive with police 3 years ago. Denies aggressive behavior. Total time in jail 17 years for domestic violence, harassment of witness, breaking windows of ex-girlfriends house. Hx of alcohol, meth, cocaine, and marijuana use. Hx of multiple inpatient stay for AH and SI at [facility]. Denies hx of jodee. Hx of impulsivity. Todays Visit: Patient is a 53 year old male being seen for psychiatric follow-up over [facility], currently staying in [facility] [place] since a week ago. Previously seen on 01/24/2024 and during this appt was started on chlorpromazine 50 mg BID, continued on Lamictal 100 mg, Buspar 15 mg BID and Invega 156 mg IM q30 days. Previous PHQ-9 score of 6, today is 16. Last injection 12/14/23. Since hospitalization, his medications now reflect the following changes: Buspar 15 mg TID now, Lamictal 150 mg, Duloxetine 60 mg, Trazodone 100 mg QHS, Thorazine 50 & 25 mg (75 mg) TID. Recently hospitalized for worsening depression with suicidal ideation and discharged to the crisis unit for further stabilization. Patient's symptoms have improved since, but he is still endorsing ongoing suicidal thoughts without plan or intent as well as auditory hallucinations and paranoia. Some of his sx also likely contributed by his recent meth/crack and alcohol use (last time 03/01) and lapse in coverage from [employer]. Patient's medication regimen was adjusted during the hospital stay and patient is due for his Invega Sustenna injection. The plan today is to restart the Invega Sustenna injection at 234mg IM x1 for first 7 days loading dose, followed by 156mg IM every 4 weeks. Thorazine will be decreased to 100mg BID and Buspar will be decreased to 20mg BID to help lessen burden of taking medications. Lamictal will be maintained at 150mg daily and Cymbalta at 60mg daily at this time. Trazodone 100mg QHS will be continued for sleep as he is finding it beneficial. Unable to complete AIMS due to nature of appt, denies any irregular muscle movements; would benefit from an in person appointment. No acute safety concerns at the time of appointment. Pt was given the opportunity to ask questions and is in agreement with tx plan. May self-administer medications or be administered own oral medications per [facility] protocols. Provided informed consent with understanding of side effects, adverse effects, risks and benefits as well as alternative treatments as previously discussed and with the above recommended medications & other aspects of the treatment program. Agrees to return sooner if symptoms worsen or suicidal or homicidal ideations occur. 04/03/2024 Alcohol use disorder, moderate, in early remission (ICD-10 - F10.21) History: Hx of schizoaffective disorder bipolar type. Hx of taking Olanzapine, Wellbutrin, Buspar, Zyprexa (sexual side effects.). Had a recent hip replacement, had lost 10lbs at last appointment. Struggling with medication adherence, switched to injection. Was hospitalized inpatient psych prior to 07/23 appointment for AVH and depression, no records in [facility]. Attends and has a sponsor. Moved into [facility] in 01/2023. Hx of command hallucinations telling him to kill himself. Experiencing paranoia and VH leading to crisis unit stay in 10/2023. Hx of aggressive bx, was aggressive with police 3 years ago. Denies aggressive behavior. Total time in jail 17 years for domestic violence, harassment of witness, breaking windows of ex-girlfriends house. Hx of alcohol, meth, cocaine, and marijuana use. Hx of multiple inpatient stay for and SI at [facility]. Denies hx of jodee. Hx of impulsivity. Today's Visit: Patient is a 53-year-old male being seen for psychiatric follow-up over phone and is located in [place]. Previously seen on 03/12/2024 and during this appt was increased on Lamictal to 150 mg, increased on Chlorpromazine to 100 mg BID, increased on Buspar to 20 mg BID, started on Trazodone 100 mg QHS, restarted on Invega 234 mg and continued on Duloxetine 60 mg. Previous PHQ-9 score of 14, today is 8. Previous Invega Injection 03/13/24. Pt reports mild improvement in mood/anxiety sx but ongoing fatigue which he attributes to Thorazine. Pt recently moved out of [facility] and has transportation challenges impacting ability to receive Invega inj. Discussed importance of medication adherence given hx of response, encouraged f/u at [facility] for inj admin which he feels comfortable doing (can ask his Aunt who is helpful), he has treatment goal of moving injection to every 3 or 6 months as indicated. Will decrease Thorazine dose reduction to 50mg BID for report of sedation. Continue other psychotropic medication as prescribed. He denies any side effects. Unable to complete AIMS due to nature of appt, denies any irregular muscle movements; would benefit from an in person appointment. He plans to receive next injection by end of next week when due. No acute safety concerns at the time of appointment. Pt was given the opportunity to ask questions and is in agreement with tx plan. May self-administer medications or be administered own oral medications per [facility] protocols. Provided informed consent with understanding of side effects, adverse effects, risks and benefits as well as alternative treatments as previously discussed and with the above recommended medications & other aspects of the treatment program. Agrees to return sooner if symptoms worsen or suicidal or homicidal ideations occur. 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 Hx of taking Olanzapine, Wellbutrin, Buspar, Zyprexa (sexual side effects.). Had a recent hip replacement, had lost 10lbs at last appointment. Struggling with medication adherence, switched to injection. Was hospitalized inpatient psych prior to 07/23 appointment for AVH and depression, no records in [facility]. Attends and has a sponsor. Moved into [facility] in 01/2023. Hx of command hallucinations telling him to kill himself. Experiencing paranoia and VH leading to crisis unit stay in 10/2023. Hx of aggressive bx, was aggressive with police 3 years ago. Denies aggressive behavior. Total time in jail 17 years for domestic violence, harassment of witness, breaking windows of ex-girlfriends house. Hx of alcohol, meth, cocaine, and marijuana use. Hx of multiple inpatient stay for AH and SI at [facility]. Denies hx of jodee. Hx of impulsivity. Today's Visit: Patient is a 53-year-old male being seen for psychiatric follow-up over phone and is located in [place]. Previously seen on 04/03/2024 and during this appt was decreased on Thorazine to 50 mg BID and continued on his other psychiatric medications as prescribed. Previous PHQ-9 score of 8, today is 8.Last injection on 04/04/24, Nini RUSH verified with [facility] and is overdue. Reports AH that are threatening towards him, but denies receiving commands to harm self or others.He reports he's taking medications as prescribed but may be taking Thorazine only QHS (not sure, states his aunt would know). He would like to continue taking Invega, as it has been over 30 days, he will need to receive loading dose and then monthly injection a week later. Unable to complete AIMS due to nature of appt, denies any irregular muscle movements; would benefit from an in person appointment. He plans to receive next injection by end of next week when due. No acute safety concerns at the time of appointment. Pt was given the opportunity to ask questions and is in agreement with tx plan. May self-administer medications or be administered own oral medications per [facility] protocols. Provided informed consent with understanding of side effects, adverse effects, risks and benefits as well as alternative treatments as previously discussed and with the above recommended medications & other aspects of the treatment program. Agrees to return sooner if symptoms worsen or suicidal or homicidal ideations occur. 08/01/2024 Alcohol use disorder, moderate, in early [...] for AVH and depression, no records in [facility]. Attends and has a sponsor. Moved into [facility] in 01/2023. Hx of command hallucinations telling him to kill himself. Experiencing paranoia and VH leading to crisis unit stay in 10/2023. Hx of aggressive bx, was aggressive with police 3 years ago. Denies aggressive behavior. Total time in jail 17 years for domestic violence, harassment of witness, breaking windows of ex-girlfriends house. Hx of alcohol, meth, cocaine, and marijuana use. Hx of multiple inpatient stay for AH and SI at [facility]. Denies hx of jodee. Hx of impulsivity. Today's Visit: Patient is a 53-year-old male being seen for psychiatric follow-up over phone and is located in [place]. Last seen on 08/01/24 and during this [...] or be administered own oral medications per [facility] protocols. Provided informed consent with understanding of side effects, adverse effects, risks and benefits as well as alternative treatments as previously discussed and with the above recommended medications & other aspects of the treatment program. Agrees to return sooner if symptoms worsen or suicidal or homicidal ideations occur. 08/01/2024 Anxiety disorder, unspecified (ICD-10 - F41.9) History: Hx of schizoaffective disorder bipolar type. Hx of taking Olanzapine, Wellbutrin, Buspar, Zyprexa (sexual side effects.). Had a recent hip replacement, had lost 10lbs at last appointment. Struggling with medication adherence, switched to injection. Was hospitalized inpatient psych prior to 07/23 appointment for AVH and depression, no records in [facility]. Attends AA and has a sponsor. Moved into [facility] in 01/2023. Hx of command hallucinations telling him to kill himself. Experiencing paranoia and VH leading to crisis unit stay in 10/2023. Hx of aggressive bx, was aggressive with police 3 years ago. Denies aggressive behavior. Total time in jail 17 years for domestic violence, harassment of witness, breaking windows of ex-girlfriends house. Hx of alcohol, meth, cocaine, and marijuana use. Hx of multiple inpatient stay for AH and SI at [facility]. Denies hx of jodee. Hx of impulsivity. Today's Visit: Patient is a 53-year-old male being seen for psychiatric follow-up over phone and is located in [place]. Continues on Invega injection with good effect. Will decrease chlorpromazine to once daily and consider discontinuing in the future or increasing Invega dose instead of using 2 antipsychotics. Decrease trazodone to 50m -100 mg as needed for sleep. Continue other medications as prescribed, denies any depression or anxiety presently. Referral placed for [facility] to address muscle spasms/torticollis . Unable to complete AIMS due to nature of appt, denies any irregular muscle movements; would benefit from an in person appointment. No acute safety concerns at the time of appointment. Pt was given the opportunity to ask questions and is in agreement with tx plan. May self-administer medications or be administered own oral medications per [facility] protocols. Provided informed consent with understanding of side effects, adverse effects, risks and benefits as well as alternative treatments as previously discussed and with the above recommended medications & other aspects of the treatment program. Agrees to return sooner if symptoms worsen or suicidal or homicidal ideations occur. 11/14/2023 Other Provided case management services to address social determinants of health needs and reduce barriers to health care services. 11/15/2023 Other 11/21/2023 Other Provided case management services to address social determinants of health needs and reduce barriers to health care services. 03/10/2024 Other Continue treatment as recommended by [facility] staff. Encouraged patient to obtain routine medical care with patient's own primary care provider or establish as a patient at [facility] if no current primary care provider. Plan Of Treatment Next Appt Details Provider Name:Vikash page, 09/30/2024 10:00:00 AM, [address] [place] [address], [id number], Provider Name:Vikash page, 10/24/2024 01:00:00 PM, [address] [facility] , [place], [address], Insurance Providers Payer Name Payer Address Payer Phone Subscriber Number Group Number Insured Name Patient Relationship to Insured Coverage Start Date Coverage End Date [employer] [address] [place] [phone] [id number] Aashish Darby Self - patient is the insured 0 2 MEDICAID [address] [place] [phone] [id number] Aashish Darby Self - patient is the insured 2 3 [employer] [facility] [address] [place] [phone] [id number] Aashish Darby Self - patient is the insured 3 [employer] [address] [place] [phone] [id number] Aashish Darby Self - patient is the insured 3 Medications Administered Medication Instructions Date of Administration Dosage Notes Invega Sustenna 12/13/2023 234 mg Maite Gutierrez 12/13/2023 11:10 AM CDT >Given LMD, tolerated well. Invega Sustenna 03/13/2024 117 mg Tone Burdick 03/13/2024 11:20 AM CDT > Invega Sustenna 03/13/2024 234 mg Tone Burdick 03/13/2024 11:20 AM CDT > given RT delt pt tolerated well Invega Sustenna 06/20/2024 234 mg Patient t olerated well Invega Sustenna 06/26/2024 156 mg Invega Sustenna 07/23/2024 156 mg Patient t olerated well Invega Sustenna 08/29/2024 156 mg Patient t olerated well Invega Sustenna 09/26/2024 156 mg Patient t olerated well Medical (General) History Medical History History ICD Code hypertension gastroesophageal reflux disease (GERD) hyperlipidemia type II diabetes Surgical History Surgery Date(Month/Year) Head injury appendectomy cardiac pacemeker Right pinky finger Right foot left hip replacement 08/2023 Hospitalization History Reason Date(Month/Year) [place] [facility] inpatient for depres albert/SI 12/2023 left hip replacement 08/2023 SI/depression 07/25 depression/SI 03/2023 Mental health 03/22
--- OUTSIDE RECORDS SUMMARY | 2024-09-29 16:23 | XMS_ITS ---
Author Organization [facility] Address [address] [place] [address] Care Team Providers Care Pyrometer Temperature Regulator Name Role Phone Дмитрий Hennessy MD Primary Care Provider Mireya Rubi NP Unavailable [phone] Vignesh Hoffmann MD Unavailable [phone] Active Problems Problem Noted Date Diagnosed Date Primary osteoarthritis of right hip 09/19/2024 Lacunar stroke 07/23/2024 Stage 2 chronic kidney disease 05/08/2024 Pain of right hip joint 04/30/2024 Edema 01/18/2024 Diarrhea 01/18/2024 Dehydration 01/18/2024 Colitis [...] major depression 03/16/2023 Schizoaffective disorder, bipolar type Type 2 diabetes mellitus 03/16/2023 Substance abuse 03/16/2023 Suicidal thoughts 03/16/2023 Head and neck [...] (12/27/2021): Added automatically from request for surgery [id number] Paresis of lower extremity 02/24/2021 Contact with and (suspected) exposure to other communicable diseases 12/08/2020 Encounter for health-related screening Prediabetes 11/04/2020 Psychostimulant dependence in remission 11/03/19 21 Obesity with body mass index 30 or greater 11/02 Primary osteoarthritis of left hip 10/28/2020 Overview (10/28/2020): Added automatically from request for surgery [id number] Renal cyst 10/09/2020 Fatty liver 10/09/2020 Hypotension 2020 Chronic obstructive pulmonary disease 09/02/2020 Methamphetamine abuse 08/06/2020 Obesity 08/05/2020 Overweight 08/05/2020 Ventricular tachycardia 07/30/2020 Degeneration of lumbar intervertebral disc 02/10 Hepatitis C 01/19/2020 Impaired fasting glucose 12/17/2019 Poor short-term memory 12/17/2019 Anemia, iron deficiency 12/16/2019 Overview (09/10/2024): nml b12 Left foot drop 09/24/2019 Tobacco dependence in remission 09/24/2019 Hypertriglyceridemia 09/03/2019 Hyperlipidemia 09/03/2019 Congestive heart failure 02/28/2016 Systolic CHF, chronic 12/02/2010 Single implantable cardioverter-defibrillator (I CD) in situ 11/10/2010 Overview (10/28/2020): Biotronik Lumax 340 Model # [id number] SER# [id number] implanted 08-12-[address] [place] [address] Dr[address] 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 Past Treatment and Therapy Plans No past plan information found. Radiation Treatments * Course [id number]_22 04/14/2022 - 06/02/2022 Treatment Period Energy Fraction Dose Fractions Total Dose Plans Planned HEAD_NECK 04/14/2022 - 06/02/2022 200 33 / 6,600 Reference Points Delivered [id number] 04/14/2022 - 06/02/2022 6,600 Lifetime Dose Tracking * Chemical Lifetime Dose Automatic Entry Manual Entr y DLP 1,807 mGycm 1,807 mGycm 0 mGycm Resolved Problems Problem Noted Date Diagnosed Date Resolved Date Oral cancer 12/02/2021 12/13/2021 Overview (12/02/2021): Added automatically from request for surgery [id number]
--- OUTSIDE RECORDS SUMMARY | 2024-09-29 16:23 | XMS_ITS | Encounter Summary ---
Author Organization [facility] Address [address] [place] [address] Phone Care Team Providers Care Roofing Sales Representative Name Role Phone Дмитрий Hennessy MD Primary Care Provider Mrieya Rubi REIMBURSEMENT CONSULTANT Unavailable [phone] Vignesh Hoffmann MD Unavailable [phone] Encounter Details Date Type Department Care Team (Late st Contact Info) Description 01/30/2024 Telephone [facility] Otolaryngology [address] [facility] [address] [place] [id number] Juju Badillo, Social History Tobacco Use Types Packs/Day Years [...] on file Legal Sex Male 11:03 PM PURCHASING ANALYST Gender Identity Male 05/12/2022 9:05 AM PURCHASING ANALYST Sexual Orientation Straight 10/27/2020 7: 55 PM CDT documented as of this encounter Plan of Treatment Upcoming Encounters Date Type Department Care Team (Latest Contact Info) Description 10/14/2024 8:00 AM CDT Hospital Encounter [facility] [address] [place] [address] Lalit Orta MD [address] [facility] [address] 10/14/2024 8:00 AM CDT - 10/14/2024 10:40 AM CDT Surgery [facility] [address] [place] [address] Lalit Orta MD [address] [facility] [address] ARTHROPLASTY TOTAL HIP Scheduled Procedures Name Priority Associated Diagnoses Date/Ti me ARTHROPLASTY TOTAL HIP Primary osteoarthritis of right hip 10/14/2024 8:00 AM CDT documented as of this encounter Visit Diagnoses Not on filedocumented in this encounter Care Teams Roofing Sales Representative Relationship Specialty Start Date [place] Дмитр[place] [address] [place] [id number] PCP - General Internal Medicine 08/11/20 Mireya Rubi NP [address] [facility] [address] [place] [address] Nurse Practitioner Nurse Practitioner 03/15/22 Vignesh Hoffmann MD [address] [facility] [address] [place] [address] Radiation Oncologist Radiation Oncology 03/30/22 documented as of this encounter
--- OUTSIDE RECORDS SUMMARY | 2024-09-29 16:23 | XMS_ITS | CONTINUITY OF CARE DOCUMENT ---
Author Name amanda amarissharif Address Unknown Organization [facility] Address [address] [address] [place] [address] Phone [phone] Care Team Providers Care Shank Pinner Name Role Phone Aguilar OWENS, Stefano Unavailable [phone] GILBERTO GEORGE MD Unavailable [phone] GILBERTO GEORGE MD Unavailable PROBLEMS Condition Status Date Provider Notes Lacunar stroke active Stefano Sheikh MD PREDIABETES active Stefano Sheikh MD Renal cyst active Stefano Sheikh MD fatty liver active Stefano Sheikh MD Ventricular tachycardia, unspecified active Stefano Sheikh MD Sinus tachycardia completed - Stefano Sheikh MD Renal disease, chronic, mild completed 10/10/06 - Stefano Sheikh MD Erectile dysfunction active Shiela Parada NP S/P ICD Gen change [employer] 10/22/13 ( NOT MRI SAFE/ [employer] Lead) active Stefano Sheikh MD Depression, chronic active Stefano Sheikh MD Arthritis of hip active Stefano Sheikh MD Pre op cardiovascular exam completed 12/14 - Stefano Sheikh MD Pulmonary nodules active Stefano Sheikh MD covid 19;22 after vaccine active Stefano swenson MD Tongue cancer active Shiela Parada TREASURY MANAGER 2021 RBBB active Stefano Sheikh MD Exposure to SARS-associated coronavirus;had vaccine and neg [...] Sheikh MD Chest pain completed - Nikolas Johnson Anemia, iron deficiency active Stefano duncan MD nml b12 Hepatitis C active Stefano Sheikh MD cured b y rx Shortness of breath completed - Stefano Sheikh MD Hypertriglyceridemia active Misael Sanford MD Hyperlipidemia;with high crp and low lpa active Stefano Sheikh MD Diastolic CHF;did not want rpm active Stefano Sheikh MD lowest 20, no cad, canont afford entresto and verquov, or inpdfa CAD;NEG ANGIO 07 completed - Misael Sanford [...] In-person encounter Office Visit Stefano Sheikh MD [facility] Hepatitis COverweightScreeningS/P ICD Gen change [employer] 10/22/13 ( NOT MRI SAFE/ [employer] Lead)Renal disease, chronic, mildSinus tachycardiaVentricular tachycardia, unspecified - In-person encounter Office Visit Coral Fernando MD [facility] - In-person encounter Office Visit Coral Fernando MD [facility] - In-person encounter Office Visit Stefano Sheikh MD [facility] - In-person encounter Office Visit Stefano Sheikh MD [facility] Diastolic CHF;did not want rpm - In-person encounter Office Visit Stefano Sheikh MD [facility] Erectile dysfunction - In-person encounter Office Visit Stefano Sheikh MD [facility] ScreeningExposure to SARS-associated coronavirus;had vaccine and neg swabcovid 19;22 after vaccine - In-person encounter Office Visit Stefano Sheikh MD [facility] Hyperlipidemia;with high crp and low lpaVentricular tachycardiaPre op cardiovascular examArthritis of hipDepression, chronic - In-person encounter Office Visit Stefano Sheikh MD [facility] Tongue cancer - In-person encounter Office Visit Stefano Sheikh MD [facility] Diastolic CHF;did not want rpmHyperlipidemia;with high crp and low lpa - In-person encounter Office Visit Stefano Sheikh MD [facility] Diastolic CHF;did not want rpmScreening - In-person encounter Office Visit Stefano Sheikh MD [facility] CARDIOMYOPATHYOverweightCOPDExposure to SARS-associated coronavirus;had vaccine and neg swabcovid 19;22 after vaccinePulmonary nodules - In-person encounter Office Visit Stefano Sheikh MD [facility] Methamphetamine abuseRBBB - In-person encounter Office Visit Stefano Sheikh MD [facility] - In-person encounter Office Visit Stefano Sheikh MD [facility] - In-person encounter Office Visit Stefano Sheikh MD [facility] - In-person encounter Office Visit Stefano Sheikh MD [facility] - In-person encounter Office Visit Stefano Sheikh MD [facility] Hepatitis CHypotensionExposure to SARS-associated coronavirus;had vaccine and neg swab - In-person encounter Office Visit Stefano Sheikh MD [facility] - In-person encounter Office Visit Juancarlos Mcduffie MD [facility] - In-person encounter Office Visit Stefano Sheikh MD [facility] Hyperlipidemia;with high crp and low lpaPreop examMitral insufficiency, mildAbnormal liver function testsDyspnea on exertionCOPD - In-person encounter Office Visit Coral Fernando MD [facility] - In-person encounter Office Visit Stefano Sheikh MD [facility] HTNHyperlipidemia;with high crp and low lpaShortness of breathAnemia, iron deficiencyOverweight - In-person encounter Office Visit Coral Fernando MD [facility] Tobacco use chewing. Stopped smoking. - In-person encounter Office Visit Misael Sanford MD [facility] Chest pain - In-person encounter Office Visit Misael Sanford MD [facility] Hepatitis C - In-person encounter Office Visit Misael Sanford MD [facility] Hypertriglyceridemia - In-person encounter Office Visit Misael Sanford MD [facility] - In-person encounter Office Visit Misael Sanford MD [facility] CARDIOMYOPATHYTobacco use chewing. Stopped smoking.CAD;NEG ANGIO 07Diastolic CHF;did not want rpm - In-person encounter Office Visit Stefano Sheikh MD [facility] HTNTobacco use chewing. Stopped smoking.SVT;DURING A BRAWL 05/10 - In-person encounter Office Visit Stefano Sheikh MD [facility] ATRIAL FIB PAROXSMAL:AFRAID OF COUMIDIN, NML T7SVT;DURING A BRAWL 05/10 - In-person encounter Office Visit Stefano Sheikh MD [facility] ATRIAL FIB PAROXSMAL:AFRAID OF COUMIDIN, NML [id number] VALVE PROLAPSETobacco use chewing. Stopped smoking. - In-person encounter Office Visit Stefano Sheikh MD [facility] CARDIOMYOPATHY-10/06 ECHO SEV DECREASE GLOBAL LVFCARDIOMYOPATHY - In-person encounter Office Visit Stefano Sheikh MD [facility] ATRIAL FIB PAROXSMAL:AFRAID OF COUMIDIN, NML T7 VITAL SIGNS Date Observation Value Provider Body Mass Index (Ratio) 29.55 kg/m2 Juan Daniel Sheikh MD blood pressure, diastolic 87 mm[Hg] Lynn Damon blood pressure, systolic 118 mm[Hg] Nazia Damon oxygen saturation, oximetry 96 % Genesis Damon pulse rate 88 /min Genesis Damon respiratory rate E&M 12 /min Genesis Damon weight E&M 206 [lb_av] [facility]&M 70 [in_i] [facility] blood pressure, cuff size regular [...] Garza blood pressure, diastolic 81 mm[Hg] [facility]ol [facility] blood [facility], systolic 107 mm[Hg] Nohemi [facility] oxygen saturation, oximetry 95 % Mikayla [facility] pulse rate 100 /min [facility]la [facility] weight E&M 196 [lb_av] Mikayla [facility] height E&M 70 [in_i] Mikayla [facility] Body Mass Index (Ratio) 28.64 kg/m2 Juan Daniel Sheikh MD blood pressure, cuff size regular [facility], diastolic 84 mm[Hg] Ta negroLogansport State Hospital blood pressure, systolic 116 mm[Hg] Tab brennona Grundy oxygen saturation, oximetry 96 % Reena Grundy pulse rate 85 /min Reena Grundy weight E&M 199.6 [lb_av] Reena Grundy respiratory rate E&M 12 /min Reena Grundy height E&M 70 [in_i] Reena Grundy blood pressure, diastolic 64 mm[Hg] nkLog blood pressure, systolic 94 mm[Hg] Lenore kLog pulse rate 130 /min [facility] blood pressure, cuff size regular [facility] blood pressure, diastolic 64 mm[Hg] [facility] blood pressure, systolic 94 mm[Hg] [facility] oxygen saturation, oximetry 97 % [facility] respiratory rate E&M 14 /min Maty connorr Body Mass Index (Ratio) 27.26 kg/m2 [facility] weight in kilograms E&M 86.18 [facility] E&M 190 [lb_av] Maty Grundy height E&M 70 [in_i] Maty Grundy height in centimeters E&M 177.80 cm Harley [...] blood pressure, systolic 111 mm[Hg] Cat herine Delta oxygen saturation, oximetry 95 % Elba Quincy respiratory rate E&M 16 /min Catheri ne [place] pulse rate 85 /min Elba Delta weight E&M 205 [lb_av] Elba Delta blood pressure, cuff size regular Ca therine [place] height E&M 70 [in_i] Elba Otis Body [...] blood pressure, cuff size regular Pa ris [place] blood pressure, diastolic 87 mm[Hg] Pa ris Oli blood pressure, systolic 132 mm[Hg] Par is Oli oxygen saturation, oximetry 98 % Elisha Oli respiratory rate E&M 18 /min Elisha H latisha pulse rate 107 /min Elisha Oli weight E&M 217 [lb_av] Elisha Oli height E&M 70 [in_i] Elisha Oli Body Mass Index (Ratio) 31.56 kg/m2 Juan [...] blood pressure, systolic 128 mm[Hg] Yris arianna Arin pulse rate 86 /min Demetrice Campbel l [...] ruenenfelder pulse rate 114 /min Katy Gruenenfe [facility] weight E&M 225 [lb_av] Katy Gruenenfe [facility] height E&M 70 [in_i] Katy Gruenenfe [facility] Body Mass Index (Ratio) 31.99 kg/m2 Taraleigh anna marie Hoffmann blood pressure, cuff size large Ke rri Gruenenfelder blood pressure, diastolic 80 mm[Hg] Ke rri Gruenenfelder blood pressure, systolic 102 mm[Hg] Ker ri Gruenenfelder oxygen saturation, oximetry 97 % Katy Grueneyolandaelder respiratory rate E&M 16 /min Katy G ruenenfelder pulse rate 94 /min Katy Grrolannenfe [facility] weight E&M 223 [lb_av] Katy Gruenenfe [facility] height E&M 70 [in_i] Katy Gruenenfe [facility] Body Mass Index (Ratio) 31.42 kg/m2 Leoncio [...] Mass Index (Ratio) 30.56 kg/m2 Leoncio grullon [facility] blood pressure, diastolic, left arm 81 mm [Hg] Tonsha Vlale blood pressure, systolic, left arm 118 mm [...] pressure, diastolic, left arm 86 mm [Hg] [facility] blood pressure, systolic, left arm 130 mm [Hg] [facility] blood pressure, diastolic, right arm 89 m m[Hg] [facility] blood pressure, systolic, right arm 117 m m[Hg] [facility] blood pressure, diastolic 86 mm[Hg] To [facility] blood pressure, systolic 130 mm[Hg] Ton [facility] oxygen saturation, oximetry 97 % [facility] respiratory rate E&M 18 /min [facility] pulse rate 76 /min [facility] weight E&M 25.38 [lb_av] [facility] blood pressure, resting Yes [facility] height E&M 70 [in_i] [facility] blood pressure, diastolic 64 mm[Hg] Tawnya Martinezshaun [...] blood pressure, systolic 102 mm[Hg] Masoud samaniego [facility] pulse rate 60 /min [facility] oxygen saturation, oximetry 96 % [facility] respiratory rate E&M 16 /min [facility] weight E&M 183 [lb_av] [facility] ALLERGIES No Known Drug Allergies [...] 0-149 High cholesterol, serum 158 mg/dL [facility] [phone]/01/ 30 platelet count 329 X10E3/UL [facility] [phone]/01/ 30 red blood cell distribution width 12.2 [...] [facility] 3.5-5.2 sodium, serum 142 mmol/L [facility] [phone]/01/ 30 urea nitrogen/creatinine ratio, serum 9 [facility] eGFR if 62 mL/min/{1 .73_m2} [facility] eGFR if not 54 mL/min/{1 .73_m2} [facility] >59 Low creatinine, serum 1.51 mg/dL [facility] 0.76-1.27 High urea nitrogen, blood 14 mg/dL [facility] 6-24 blood glucose, random 57 mg/dL [facility] 65-99 Low ferritin, serum 612 ng/mL [facility] 30-400 High pro brain natriuretic peptide 187 pg/mL [facility] 0-121 High iron saturation percent, serum 43 % [facility] 15-55 iron, serum 191 ug/dL [facility] 38-169 High iron binding capacity, unsaturated 250 ug/dL [facility] [phone]/07/ 25 iron binding capacity, total 441 ug/dL [facility] [phone]/06/ 16 LDL cholesterol, serum 75 mg/dL [facility] LDL cholesterol, serum 94 mg/dL [facility] lipoprotein, beta, serum, point, quantitative, calculated 94 mg/dL [facility] 0-99 very low density lipoproteins 52 mg/dL [facility] 5-40 High HDL cholesterol, serum 35 mg/dL [facility] Low triglyceride, serum, random 258 mg/dL [facility] 0-149 High cholesterol, serum 181 mg/dL [facility] [phone]/02/ 29 LDL cholesterol, serum 103 mg/dL [facility] pro brain natriuretic peptide 104 pg/mL [facility] 0-121 digoxin level, serum 1.7 ng/mL [facility] 0.5-0.9 High lipoprotein, beta, serum, point, quantitative, calculated 103 mg/dL [facility] 0-99 High very low density lipoproteins 28 mg/dL [facility] 5-40 HDL cholesterol, serum 32 mg/dL [facility] >39 Low triglyceride, serum, random 138 mg/dL [facility] 0-149 cholesterol, serum 163 mg/dL [facility] [phone]/02/ 29 basophil count, absolute 0.0 x10E3/uL [facility] [...] Not Estab. platelet count 312 X10E3/UL [facility] [phone]/02/ 29 red blood cell distribution width 12.6 [...] olanzapine 15 mg tablet active Mela Ventimiglia HEADLIGHT ADJUSTER chlorpromazine 50 mg tablet active take one [...] by mouth once daily - Mela Shaikh HEADLIGHT ADJUSTER Lopid 600 mg tablet completed 1 tablet [...] history of marijuana use no Mela Ventimiglia [facility] drug use no Mela Ventimig adams HEADLIGHT ADJUSTER alcohol use no Mela Ventimig adams HEADLIGHT ADJUSTER smoking/tobacco cess ation, patient education and counseling yes Mela Ventimiglia [facility] chewing tobacco use Current Mela avelargljose [facility] smoking status Former smoker Mela mckenzie [facility] personal history of marijuana use no Shiela Henrykings TREASURY MANAGER drug use no [facility] alcohol use no [facility] smoking/tobacco cess ation, patient education and counseling yes [facility] chewing tobacco use Current [facility] smoking status Former smoker [facility] drug use yes Stefano Monae alcohol use [...] averag e drinks per day yes Elba Delta chewing tobacco use Current Catherin e Delta [...] use, averag e drinks per day yes [facility] alcohol use, average drinks per day social basis only [facility] number of years as a smoker 10 years or m ore [facility] smoking status Quit [facility] MENTAL STATUS Date Observation Value Provider assessment [...] Payer name Policy type / Coverage type Elbe red libertarian ID [employer] Medicaid [id number] ADVANCE DIRECTIVES Name Date DISCUSSED - NO DECISION MADE TREATMENT PLAN Date Name Performer [id number],C,elevated lft Stefano Sheikh MD [id number],C,5.8 Stefano aguirre MD [id number],B, h ad surgery and rad rx Stefano Sheikh MD [id number],C,stable Stefano Sheikh MD [id number],S, p ro 103, ef 55% Stefano Sheikh MD [id number],S, L ast A1c 5.9. Will recheck A1c. Stefano Sheikh MD [id number],B, tSefano duncan MD [id number],S, Stefanoriley Olivares dakota OWENS [id number],B, Stefanoriley Olivares dakota OWENS [id number],S, e fgr 84 n eg carotid n eg b 12 n eg rpr, nml d n eg vd n ormal coronaries cath 2008 Stefano Sheikh MD [id number],S, Stefano duncan MD [id number],S, Stefano Marshall duncan MD [id number],S, N ormal functioning v vi 40 Stefano Sheikh MD [id number],SJuan Danieley Marshall duncan MD [id number],C,P atient is set to get L hip replacement. He is cleared for [facility] surgery. Phunatasha Tal SILVA [id number],C,P atient states strugglin to quit tobacco chewing [...] the past 15 years. Shiela Parada NP [id number],C,S sanam for low dose CT lung this weeekend at [facility]. Shiela Parada NP [id number],C, L ast A1c 5.9. Will recheck A1c. Shiela Parada NP [id number],C, H is updated medication list for this problem includes: Rosuvastatin 20 Mg Tablet (Rosuvastatin) ..... Take 1 tablet by mouth every day Shiela Parada NP [id number],C, H is updated medication list for this problem includes: Digoxin 125 Mcg (0.125 Mg) Tablet (Digoxin) ..... Take 1 tablet by mouth every day Carvedilol 25 Mg Tablet (Carvedilol) ..... Take 1 tablet by mouth at bedtime Shiela Parada RICARDO [id number],C,Normal functi oning Shiela Parada RICARDO [id number],C, p ro 103, ef 55% H ad repeat echo today. Will follow up on results. H is updated medication list for this problem includes: Carvedilol 25 Mg Tablet (Carvedilol) ..... Take 1 tablet by mouth at bedtime Digoxin 125 Mcg (0.125 Mg) Tablet (Digoxin) ..... Take 1 tablet by mouth every day Shiela Henrykings SILVA [id number],S, Stefano duncan MD [id number],S, Stefano duncan MD [id number],S, T he patient is between 55-77 years [...] undergo diagnosis and treatment. Stefano Sheikh MD [id number],S, h ad surgery and rad rx Stefano Sheikh MD [id number],S, Stefano duncan MD [id number],S, 5 .9 Stefano Sheikh MD [id number],B, Stefano duncan MD [id number],S, H is updated medication list for this problem includes: Simvastatin 40 Mg Tablet (Simvastatin) C HOL: 216 (01/14/2021) HDL: 36 (01/14/2021) Stefano Sheikh MD [id number],S, p ro 103, ef 55% Stefano Sheikh MD [id number],S,e fgr 84 n eg carotid n eg b 12 n eg rpr, nml d n eg vd n ormal coronaries cath 2008 Stefano Sheikh MD [id number],S, w as shocked severl jaleesa n ot pacing vvi Stefano Sheikh MD [id number],B, Stefano Sheikh MD [id number],S, T he patient is between 55-77 years [...] undergo diagnosis and treatment. Stefano Sheikh MD [id number],BStefano MD [id number],S, H is updated medication list for this problem includes: Simvastatin 40 Mg Tablet (Simvastatin) C HOL: 216 (01/14/2021) HDL: 36 (01/14/2021) Stefano Sheikh MD [id number],SStefano MD [id number],SStefano MD [id number],S, h ad surgery and rad rx Stefano Sheikh MD [id number],SStefano MD [id number],S, 5 .9 Stefano Sheikh MD [id number],S, p ro 103, ef 55% Stefano Serota [id number],S, Stefano Serota [id number],S,e fgr 84 n eg carotid n eg b 12 n eg rpr, nml d n eg vd n ormal coronaries cath 2008 Stefano Serota [id number],S, w as shocked severl jaleesa n ot pacing vvi Stefano Serota [id number],S, Stefano Serot a [id number],S, Stefano Serot a [id number],B, Stefano Serot a [id number],S, Stefano Serot a [id number],S, 5 .9 Stefano Serota [id number],S, Stefano Serot a [id number],C,w as shocked severl jaleesa n ot pacing vvi Stefano Serota [id number],S, p ro 103, ef 55% Stefano Serota [id number],S, n eg carotid n eg b 12 n eg rpr, nml d n eg vd n ormal coronaries cath 2008 Stefano Serota [id number],S, Stefano Serot a [id number],S,had surgery t o get rad rx Stefano Serota [id number],C,not treated y et Stefano Serota [id number],B, Stefano Serot a [id number],S, Stefano Serot a [id number],S,T he patient is between 55-77 years old [...] undergo diagnosis and treatment. Stefano Sheikh MD [id number],S, n eg carotid n eg b 12 n eg rpr, nml d normal coronaries cath 2008 Stefano Sheikh MD [id number],SStefano MD [id number],SStefano MD [id number],S, Stefano duncan MD [id number],B, p ro 103, ef 55% Stefaon Sheikh MD [id number],S,not pacing Vasques alexis Sheikh MD [id number],C,pro 103, ef 5 5% Stefano Sheikh MD [id number],S, BNP 103 2 0 on echo 08/2020, s /p AICD Stefano Sheikh MD [id number],SStefano MD [id number],BStefano MD [id number],SStefano MD [id number],B, H is updated medication list for this problem includes: Crestor 20 Mg Tablet (Rosuvastatin) ..... Take 1 tablet by mouth every day C HOL: 216 (01/14/2021) HDL: 36 (01/14/2021) Stefano Sheikh MD [id number],SStefano MD [id number],S, Stefano Serot a [id number],S, 5 .9 Stefano Serota [id number],S, n eg carotid n eg rpr, nml d n ml b12 n ormal coronaries cath 2008 Stefano Sheikh MD [id number],S, Stefano Serot a [id number],S, 1 03 Stefano Serotdakota OWENS [id number],N, Stefano Serot a [id number],S, Stefano Serot a [id number],B, Stefano Serot a [id number],B, Stefano Serot a [id number],B, l ast remote ICD check: 04/27/21 chowed 04/26/21 VT at 221 with ATP x1. 04/20/21 NSVT at 202. no shocks. continue bb and digoxin Stefano Sheikh MD [id number],S, Stefano Serot a [id number],S,103 Stefano Se rota [id number],S, BNP 103 2 0 on echo 08/2020, was up to 40% in 2019 s /p AICD Stefano Sheikh MD [id number],S, Stefano Serot a [id number],C,5.9 Stefano Se rota [id number],S, n eg carotid n eg rpr, nml d n ml b12 n ormal coronaries cath 2008 Stefano Sheikh MD [id number],B,C HOL: 216 (01/14/2021) HDL: 36 (01/14/2021) H is updated medication list for this problem includes: Crestor 20 Mg Tablet (Rosuvastatin) ..... Take 1 tablet by mouth every day Stefano Sheikh MD [id number],S, 1 1 VF zone event ( duration 20sec - Ventricular rate 221bpm/ ATP x 1 was successful) 1 1 NS -V events ( longest duration 15sec - fastest Ventricular rate 202bpm) , 3 E GM available Respiratory rate is stable at 17rpm b nmkpbj1ide and 6 months. 6 years remaining 1 1 NSVT epiosdes, ICM stable 0 % pacing Stefano Sheikh MD [id number],C,1 1 VF zone event ( duration 20sec - Ventricular rate 221bpm/ ATP x 1 was successful) 1 1 NS -V events ( longest duration 15sec - fastest Ventricular rate 202bpm) , 3 E GM available Respiratory rate is stable at 17rpm b knzmul0frk and 6 months. 6 years remaining 1 1 NSVT epiosdes, ICM stable 0 % pacing Karmen Lakeisha SILVA [id number],C, E CHO 08/2020 EF 20%m NICMP, normal coronaries cath 2008. has ICD. Karmen Lakeisha SILVA [id number],C,l ast remote ICD check: 04/27/21 chowed 04/26/21 VT at 221 with ATP x1. 04/20/21 NSVT at 202. no shocks. continue bb and digoxin Karmen Suazo NP [id number],C, o n crestor, cannot afford calcium score, normal coronaries on cath 2008 Karmen Suazo NP [id number],S, n ot on statin, cannot afford calcium score, normal coronaries on cath 2008 Pema Luis NP [id number],S,no Afib on de vice interrogation Pema Luis NP [id number],S,6 years remaining 1 1 NSVT epiosdes, ICM stable 0 % pacing Pema Luis NP [id number],S,1 1 NSVT on device interrogation, ICM trend stable continue BB, digoxin Pema Luis TREASURY MANAGER [id number],S, BNP 103 2 0 on echo 08/2020, was up to 40% in 2019 s /p AICD r ecently started on verquvo, continue corlanor, entrsto, farxiga, aldactone, coreg Pema Luis TREASURY MANAGER [id number],S, n eg carotid n eg rpr, nml d n ml b12 n ormal coronaries cath 2008 Pema Luis TREASURY MANAGER [id number],S,n eg carotid n eg rpr, nml d [...] 1 tablet by mouth twice a day [facility] Cardiology:device ch patrizia will be done [...] Take 1 tablet by mouth every day [facility] Cardiology:LDL 90 on last labs H is updated medication list for this problem includes: Lopid 600 Mg Tablet (Gemfibrozil) ..... 1 tablet by mouth twice a day [facility] Cardiology:Last know n EF normal. No new [...] tablet by mouth every day Melalia Shaikh [facility] Cardiology:up to armaan e on upper and lower GI c ontinues on oral replacement therapy Melalia Shaikh [facility] :nml b12 Stefano Sheikh MD Cardiology: W [...] MD Cardiology Stefano Sheikh MD Cardiology-seen with TREASURY MANAGER:Patient is set to get L hip replacement. He is cleared for nathalia surgery. Shiela Parada NP Cardiology-seen with TREASURY MANAGER:Patient states strugglin to quit tobacco chewing [...] 15 years. Shiela Glaserjavad SILVA Cardiology-seen with TREASURY MANAGER:Schedule for low dose CT lung this weeekend at [facility]. Shiela Glaserjavad SILVA Cardiology-seen with TREASURY MANAGER: L ast A1c 5.9. Will recheck A1c. Shiela Parada RICARDO Cardiology-seen with TREASURY MANAGER: H is updated medication list for this problem includes: Rosuvastatin 20 Mg Tablet (Rosuvastatin) ..... Take 1 tablet by mouth every day Shiela Parada RICARDO Cardiology-seen with TREASURY MANAGER: H is updated medication list for this problem includes: Digoxin 125 Mcg (0.125 Mg) Tablet (Digoxin) ..... Take 1 tablet by mouth every day Carvedilol 25 Mg Tablet (Carvedilol) ..... Take 1 tablet by mouth at bedtime Shiela Glaserok RICARDO Cardiology-seen with TREASURY MANAGER:Normal f unctioning Shiela Glaserok RICARDO Cardiology-seen with TREASURY MANAGER: p ro 103, ef 55% H [...] Respiratory rate is stable at 17rpm b [id number] and 6 months. 6 years remaining 1 1 NSVT epiosdes, ICM stable 0 % pacing Stefano Sheikh MD Cardiology:04/27/21 1 VF zone event ( duration 20sec - Ventricular rate 221bpm/ ATP x 1 was successful) 1 1 NS -V events ( longest duration 15sec - fastest Ventricular rate 202bpm) , 3 E GM available Respiratory rate is stable at 17rpm b [id number] and 6 months. 6 years remaining 1 1 NSVT epiosdes, ICM stable 0 % pacing Karmen Suazo NP Cardiology: E CHO 08/2020 EF 20%m NICMP, normal coronaries cath 2008. has ICD. Karmen De La Cruzmoo TREASURY MANAGER Cardiology:last mirza te ICD check: 04/27/21 chowed 04/26/21 VT at 221 with ATP x1. 04/20/21 NSVT at 202. no shocks. 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 Cardiology:no Afib on device int errogation Pema Saraky TREASURY MANAGER Cardiology:6 years r emaining 1 1 NSVT epiosdes, ICM stable 0 % pacing Pema Saraky TREASURY MANAGER Cardiology:11 NSVT o n device interrogation, ICM trend stable continue BB, digoxin Pema Saraky TREASURY MANAGER Cardiology: BNP 103 2 0 on echo 08/2020, was up to 40% in 2019 s /p AICD r ecently started on verquvo, continue corlanor, entrsto, farxiga, aldactone, coreg Pema Saraky TREASURY MANAGER Cardiology: n eg carotid n eg rpr, nml d n ml b12 n ormal coronaries cath 2008 Pema Saraky TREASURY MANAGER Cardiology:neg carot id n eg rpr, [...] T he FVC, FEV1, FEV1/FVC ratio and ILF69-41% are reduced indicating airway obstruction. The MVV [...] O rders: T obacco cessation counseling, 3-10minutes (10327) Mayrann Hoffmann Electrophysiology: O rders: F VC - 42941 (61527) F RC - 87708 (39291) D LCO - 68148 (12288) His updated medication list for this problem [...] (Aspirin) ..... One tab by mouth daily [facility] Electrophysiology: H is updated medication list for [...] by mouth daily Orders: C omplete Echo (CPT-80790) P ISAI, N TERMINAL (27399) [facility] Electrophysiology: H is updated medication list for this problem includes: Coreg 12.5 Mg Oral Tablet (Carvedilol) ..... One tab. twice daily Lisinopril 10mg Tablets (Lisinopril) ..... Take 1 tablet by mouth every day Aspirin Adult Low Dose 81 Mg Oral Tablet Delayed Release (Aspirin) ..... One tab by mouth daily [facility] Electrophysiology: H is updated medication list for [...] by mouth daily Orders: C omplete Echo (CPT-29460) P ISAI, N TERMINAL (34570) C OMPREHENSIVE METABOLIC PANEL, W/EGFR (14985) C BC (H/H, RBC, INDICES, WBC, PLT) (0973) 4 9215 HIGH 40-54min (CPT-70663) Echo 08/2019: C ONCLUSIONS: 1 . Frequent [...] (Aspirin) ..... One tab by mouth daily [facility] Cardiology:His updat ed medication list for this problem includes: Lopid 600 Mg Oral Tablet (Gemfibrozil) ..... One tab twice daily [facility] Cardiology:His updat ed medication list for this problem includes: Lopid 600 Mg Oral Tablet (Gemfibrozil) ..... One tab twice daily [facility] Cardiology:BP today: 101/74 P rior BP: 117/81 (01/19/2020) His updated medication list for this problem includes: Coreg 12.5 Mg Oral Tablet (Carvedilol) ..... One tab. twice daily Lisinopril 10mg Tablets (Lisinopril) ..... Take 1 tablet by mouth every day [facility] Cardiology:Being monitored remjarad [place]. [facility] Cardiology:Pt is a c andidate for hip surgery. His last echo in August 2019 showed EF of 40%. Overall feeling well now. He can proceed to surgery from cardiovascular perspective. [facility] Cardiology:His last echo in August 2019 [...] .... One tab by mouth twice daily [facility] Cardiology:His last echo in August 2019 [...] .... One tab by mouth twice daily [facility] Cardiology:Most rece nt triglycerides from [facility] in November were 91. [facility] Cardiology:CHOL: 137 (12/16/2019) HDL: 44 (12/16/2019) LDL: 75 (12/16/2019) TRI (12/16/2019) [facility] Cardiology:He had an admission to [facility] last month for chest pain related to methamphetamine use. [facility] Cardiology:He says h e got shocked last month. We will schedule a device check and re-connect his home monitoring. [facility] Cardiology:He compla ins of dizziness upon [...] Take 1 tablet by mouth every day [facility] Cardiology:Orders: F ERRITIN (457) I MO AND TOTAL IRON BINDING CAPACITY (7573) [facility] Cardiology:Pt compla ins of SOB. HR [...] .... One tab by mouth twice daily [facility] Cardiology:Pt compla ins of SOB. He also says he got shocked last month. We will schedule a device check and re-connect his home monitoring. He also had an admission to [facility] last month for chest pain related to [...] .... One tab by mouth twice daily [facility] Cardiology:Pt compla ins of SOB. He also says he got shocked last month. He also had an admission to [facility] last month for chest pain related to methamphetamine use. He complains of dizziness upon standing up (BP today is 117/81). HR is 93. We will keep him on the current doses of Coreg and Lisinopril and start Corlanor 5mg BID. Will check proBNP, iron studies and PFT's. [facility] Cardiology:BP today: 118/81 P rior BP: 130/86 (08/18/2019) His updated medication list for this problem includes: Coreg 12.5 Mg Oral Tablet (Carvedilol) ..... One tab. twice daily Lisinopril 10 Mg Oral Tablet (Lisinopril) ..... One tab. daily [facility] Cardiology:Triglycer ides were down to 138 however pt states they used to be >700 and used to be on Lopid which was stopped just before the bloodwork. Recommending to check lipid panel in a month. C HOL: 163 (08/30/2019) HDL: 32 (08/30/2019) LDL: 103 (08/30/2019) TRI (08/30/2019) [facility] Cardiology:Triglycer ides were down to 138 however pt states they used to be >700 and used to be on Lopid which was stopped just before the bloodwork. Recommending to check lipid panel in a month. [facility] Cardiology:Echo show ed EF of 40%. The following medications were stopped: Digoxin 250 Mcg Oral Tablet (Digoxin) ..... One tab daily His updated medication list for this problem includes: Coreg 12.5 Mg Oral Tablet (Carvedilol) ..... One tab. twice daily Lisinopril 10 Mg Oral Tablet (Lisinopril) ..... One tab. daily [facility] Cardiology:Continues to have SOB with minimal [...] by mouth daily Julio Lambjay Cardiology:The pt vasqeus s a hx of non-ischemic cardiomyopathy. He has a [employer] AICD. Echo in 06/2011 showed EF of [...] hx of non-ischemic cardiomyopathy. He has a [employer] AICD. Echo in 2010 showed EF of 50%. Misael Sanford MD : O rders: C omplete Echo (CPT-16244) H olter Monitor 24 Hr (CPT-69748) Stefano Sheikh MD : H is updated medication list for this problem includes: Coreg 12.5 Mg Tabs (Carvedilol) ..... One tab. twice daily Vasotec 5 Mg Tabs (Enalapril maleate) ..... One tab.twice daily Aspirin 325 Mg Tabs (Aspirin) ..... One tab daily Digoxin 0.25 Mg Tabs (Digoxin) ..... One tab daily Orders: C omplete Echo (CPT-40331) H olter Monitor 24 Hr (CPT-29958) Stefano Sheikh MD : H is updated medication list for this problem includes: Coreg 12.5 Mg Tabs (Carvedilol) ..... One tab. twice daily Vasotec 5 Mg Tabs (Enalapril maleate) ..... One tab.twice daily Aspirin 325 Mg Tabs (Aspirin) ..... One tab daily Orders: C omplete Echo (CPT-84062) H olter Monitor 24 Hr (CPT-33298) Stefano Sheikh MD : H is updated medication list for this problem includes: Coreg 12.5 Mg Tabs (Carvedilol) ..... One tab. twice daily Vasotec 5 Mg Tabs (Enalapril maleate) ..... One tab.twice daily Aspirin 325 Mg Tabs (Aspirin) ..... One tab daily Digoxin 0.25 Mg Tabs (Digoxin) ..... One tab daily Orders: C omplete Echo (CPT-18130) H olter Monitor 24 Hr (CPT-97037) Stefano Sheikh MD : H is updated medication list for this problem includes: Coreg 12.5 Mg Tabs (Carvedilol) ..... One tab. twice daily Vasotec 5 Mg Tabs (Enalapril maleate) ..... One tab.twice daily Aspirin 325 Mg Tabs (Aspirin) ..... One tab daily Orders: C omplete Echo (CPT-91708) H olter Monitor 24 Hr (CPT-32203) Stefano Sheikh MD : O rders: C omplete Echo (CPT-94879) H olter Monitor 24 Hr (CPT-39645) Stefano Sheikh MD stable nicm: H is [...] prolapse without regurgitation. S evere nonischemic cardiiomyopathy. [facility] (08/06/2008) Orders: S pirometry (CPT-41987) Stefano Sheikh MD stable nicm Stefano Sheikh MD stable nicm: H is updated medication list for this problem includes: Coreg 12.5 Mg Tabs (Carvedilol) ..... (higher dose) one tab. twice daily Vasotec 5 Mg Tabs (Enalapril maleate) ..... One tab.twice daily Aspirin 325 Mg Tabs (Aspirin) ..... One tab daily BP today: 100/65 P rior BP: 113/84 (01/21/2009) Orders: C omplete Echo (CPT-81592) S pirometry (CPT-53604) Stefano Sheikh MD stable nicm: O rders: C omplete Echo (CPT-58005) S pirometry (CPT-11208) Stefano Sheikh MD stable nicm: H is [...] prolapse without regurgitation. S evere nonischemic cardiiomyopathy. [facility] (08/06/2008) Orders: C omplete Echo (CPT-93108) S pirometry (CPT-66917) Stefano Sheikh MD wiil increase coref for [...] One tab. daily Orders: C omplete Echo (CPT-79214) BP today: 113/84 Prior BP: 110/68 (09/17/2008) C ardiac Cath: EF - 20% N ormal coronary arteries. N ormal aorta without regurgitation. N ormal left heart hemodynamics. M itral valve prolapse without regurgitation. S evere nonischemic cardiiomyopathy. [facility] (08/06/2008) Stefano Sheikh MD severe nicm, [...] prolapse without regurgitation. S evere nonischemic cardiiomyopathy. [facility] (08/06/2008) Stefano Sheikh MD severe nicm, coreg [...] prolapse without regurgitation. S evere nonischemic cardiiomyopathy. [facility] (08/06/2008) Stefano Sheikh MD routine follow-up\: T [...] Echo RPM (remote patient monitoring) DLCO - 03449 FRC - 97617 FVC - [address], Coronary Calcium Score CT, Coronary Calcium Score DLCO - 46925 FRC - 06995 FVC - 35405 Holter Monitor 24 Hr Complete Echo Complete Echo PROBNP, N TERMINAL BASIC METABOLIC PANE L W/EGFR Carotid Duplex Bilat eral CT, Coronary Calcium Score DLCO - 42217 FRC - 89492 FVC - 36866 Complete Echo Holter Monitor 24 Hr Holter Monitor 24 Hr Complete Echo C-REACTIVE PROTEIN C-REACTIVE PROTEIN LIPID PANEL Abdominal US Holter Monitor [address], Coronary Calcium Score Complete Echo DLCO - 20947 FRC - 19212 FVC - 48605 CT, Coronary Calcium Score HEPATIC FUNCTION DEVI EL DLCO - 05447 FRC - 62197 FVC - 16069 LIPID PANEL TSH, free T4, total T3 CBC (H/H, RBC, INDIC ES, WBC, PLT) COMPREHENSIVE METABO LIC PANEL, W/EGFR PROBNP, N TERMINAL Complete Echo DLCO - 35877 FRC - 46355 FVC - 07875 IRON AND TOTAL IRON BINDING CAPACITY FERRITIN [...] mpleted FVC / MVV with bronchodilator - 27904 Coral Fernando MD completed BLOOD COUNT HEMOGLOBIN Coral barnes MD completed FRC - 06188 Coral russell MD completed SpO2 w/o 6min walk/titration Coral Fernando MD completed DLCO - 34345 Coral russell MD completed Schedule Followup ulius Dylan chawla MD s/p testing completed EKG Coral russell MD completed EKG Misael Sanford MD completed EKG Misael Sanford MD completed EKG Misael Sanford MD completed AICD Interrogation, Remote (Tech) Misael Sanford MD INTERROGATION REMOTE </90 D STATISTICAL ENGINEER REVIEW completed AICD Interrogation, Remote (Prof) Misael Sanford MD INTERROGATION EVAL REMOTE </90 D 1/2/> LD CVDFB completed AICD Interrogation, Remote (Tech) Misael Sanford MD INTERROGATION REMOTE </90 D STATISTICAL ENGINEER REVIEW completed AICD Interrogation, Remote (Prof) Misael Sanford MD INTERROGATION EVAL REMOTE </90 D 1/2/> LD CVDFB completed AICD Interrogation, Remote (Tech) Misael Sanford MD INTERROGATION REMOTE </90 D STATISTICAL ENGINEER REVIEW completed AICD Interrogation, Remote (Prof) Misael Sanford MD INTERROGATION EVAL REMOTE </90 D 1/2/> LD CVDFB completed Schedule ICD Check Misael Sanford MD co mpleted EKG Misael Sanford MD completed SNOMED-CT: [id number] Current Medications Documented Misael Sanford MD completed EKG Stefano Sheikh MD complete d
--- OUTSIDE RECORDS SUMMARY | 2024-09-29 16:23 | XMS_ITS | Clinical Summary ---
Author Organization [facility] Address [address] [place] [id number] Care Team Providers Care Closing Agent Name Role Phone Suresh Gay MD Unavailable Unavailable Дмитрий Hennessy MD Primary Care Provider [phone] Allergies No known active allergies Medications aspirin [...] Problem Noted Date Diagnosed Date Nonischemic cardiomyopathy ([facility]) Atrial fibrillation ([facility]) Family History Medical History Relation Comments [...] [employer] [place] [employer] Care Teams Closing Agent Relationship Specialty Start Date End Date Дмитрий Hennessy MD [address] [place] [address] [phone] PCP - General INTERNAL MEDICINE 03/25/22 Suresh Gay MD [employer] CARDIOVASCULAR DISEASE 12/01/15
--- OUTSIDE RECORDS SUMMARY | 2024-09-29 16:23 | XMS_ITS | Referral Summary ---
Author Organization [facility] Address [address] [place] [address] Care Team Providers Care Sleeping Bag Filler Name Role Phone Дмитрий Hennessy MD Primary Care Provider Mireya Rubi NP Unavailable [phone] Vignesh Hoffmann MD Unavailable [phone] Encounters Date Type Department Care Team Description 09/19/2024 9:21 AM CDT - 09/19/2024 11:59 PM CDT Hospital Encounter [facility] Radiology [facility] [address] [place] [id number] Orthopedic aftercare; Right hip pain Discharge Disposition: Discharge to home or self care 09/19/2024 10:00 AM CDT Office Visit [facility] Orthopaedic Surgery [address] [facility] Medical Office Building [address] [place] [address] Lalit Orta MD Primary osteoarthritis of right hip (Primary Dx); Right hip pain; Orthopedic aftercare 09/03/[address] 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 Cardiology [address] [facility] 8th [place] [address] [place] [address] Brando Gould New Patient 09/02/2024 9:30 AM HYDRAMATIC MECHANIC Office Visit [facility] Medical Group Cardiology [address] [place] [address] Clifford Montero MD [place] (ventricular tachycardia) (HCC) (Primary Dx) from Last 3 Months Allergies No known active allergies Medications busPIRone (BUSPAR) 15 mg tabletIndications: Generalized Anxiety Disorder Take 10 mg by mouth 2 (two) times a day 10/28/19 21 Active cetirizine (ZyrTEC) 10 mg tabletIndications: Allergic Conjunctivitis Take 1 tablet (10 mg total) by mouth every morning Active lamoTRIgine (LaMICtal) 100 mg tabletIndications: Bipolar Disorder in Remission Take 1 tablet (100 mg total) by mouth nightly 10/16/[address] (CYMBALTA) 60 mg capsule Take 1 capsule (60 mg total) by mouth every morning 07/19/19 24 Active Invega Sustenna 156 mg/mL syringeIndications :Schizoaffective Disorder Inject 1 mL (156 mg total) into the muscle as instructed every 30 (thirty) days 08/06/19 24 Active acetaminophen 500 mg capsuleIndications :Pain Take 2 capsules (1,000 mg total) by mouth every 8 (eight) hours 90 tablet 08/22/19 24 Active tadalafiL (CIALIS) 20 mg tablet Take 1 tablet (20 mg total) by mouth daily 10/19/19 24 Active chlorproMAZINE (THORAZINE) 50 mg tablet 01/14/20 24 Active traZODone (DESYREL) 50 mg tablet Take 1 tablet (50 mg total) by mouth nightly Active carvediloL (Coreg) 3.125 mg tablet Take 1 tablet (3.125 mg total) by mouth 2 (two) times a day with meals 180 tablet 3 09/03/19 25 026 Active rosuvastatin (CRESTOR) 20 mg tablet Take 1 tablet (20 mg total) by mouth nightly 90 tablet 3 09/03/19 25 026 Active omeprazole (PriLOSEC) 20 mg capsuleIndications :Treatment of Non-Bleeding Gastric Disorder Take 1 capsule (20 mg total) by mouth nightly 90 capsule 3 09/03/19 25 026 Active magnesium oxide (MAG-OX) 400 mg (241.3 mg elemental magnesium) tabletIndications: hypomagnesemia Take 1 tablet (400 mg total) by mouth daily 90 tablet 3 09/03/19 25 026 Active atorvastatin (LIPITOR) 40 mg tablet 40 mg by oral route. Active chlorhexidine (PERIDEX) 0.12 % oral rinse RINSE MOUTH WITH TAKE ONE CAPSULE EVERY %1 HOURS-FUL TWICE DAILY FOR 3O SECONDS THEN SPIT 07/30/19 25 Active Mavyret 100-40 mg tablet per tablet Take 3 tablets by mouth daily 05/20/20 24 Active melatonin tablet Take 10 mg by mouth nightly Active FeroSuL 325 mg (65 mg iron) tablet 09/18/19 25 Active mupirocin (BACTROBAN) 2 % ointmentIndication s:Prophylactic antibiotic Sig: Apply topically 2 (two) times a day for 5 days. APPLY TO NOSTRILS TWICE A DAY FOR 5 DAYS PRIOR TO SURGERY. 22 g 09/20/19 25 Active digoxin (LANOXIN) 125 mcg (0.125 mg) tabletIndications: chronic heart failure Take 1 tablet (125 mcg total) by mouth every morning 10/16/19 21 025 Discontin ued(Patie nt Reported) omeprazole (PriLOSEC) 20 mg capsuleIndications :Treatment of Non-Bleeding Gastric Disorder Take 1 capsule (20 mg total) by mouth nightly as needed 04/28/20 21 025 Discontin ued(Reord er) gemfibroziL (LOPID) 600 mg tabletIndications: hypertriglyceridem ia Take 1 tablet (600 mg total) by mouth 2 (two) times a day before breakfast and lunch 025 Discontin ued(Alter yogesh therapy) PreviDent 1.1 % gel Take 1 Application by mouth daily as needed 06/01/20 23 025 Discontin ued(Patie nt Reported) carvediloL (Coreg) 12.5 mg tablet Take 3.125 mg by mouth 2 (two) times a day with meals 09/12/19 24 025 Discontin ued(Reord er) sotagliflozin (Inpefa) 200 mg tablet 09/14/19 24 025 Discontin ued(Patie nt Reported) OLANZapine (ZyPREXA) 10 mg tablet TAKE 1 TABLET BY MOUTH ONCE A DAY AT BEDTIME 09/18/19 24 025 Discontin ued(Patie nt Reported) FeroSuL 325 mg (65 mg iron) tablet Take 1 tablet (325 mg total) by mouth 2 (two) times a day 10/24/19 24 025 Discontin ued(Thera py completed ) rosuvastatin (CRESTOR) 20 mg tablet 11/19/19 24 025 Discontin ued(Patie nt Reported) nicotine polacrilex (NICORETTE) 4 mg gum 11/14/19 24 025 Discontin ued(Patie nt Reported) nicotine (NICODERM CQ) 21 mg 01/02/20 24 025 Discontin ued(Patie nt Reported) Ear Wax Removal Drops 6.5 % otic solution 11/14/19 24 025 Discontin ued(Patie nt Reported) buPROPion XL (WELLBUTRIN XL) 150 mg 24 hr tablet 11/27/19 24 025 Discontin ued(Patie nt Reported) Active Problems Problem Noted Date Diagnosed Date [...] (12/27/2021): Added automatically from request for surgery [id number] Paresis of lower extremity 02/24/2021 Contact with and (suspected) exposure to other communicable diseases 12/08/2020 Encounter for health-related screening Prediabetes 11/04/2020 Psychostimulant dependence in remission 11/03/19 21 Obesity with body mass index 30 or greater 11/02 Primary osteoarthritis of left hip 10/28/2020 Overview (10/28/2020): Added automatically from request for surgery [id number] Renal cyst 10/09/2020 Fatty liver 10/09/2020 Hypotension [...] Overview (10/28/2020): Biotronik Lumax 340 Model # [id number] SER# [id number] implanted 08-12-08 in [place] per Dr. 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 12/13/2021 Overview (12/02/2021): Added automatically from request for surgery [id number] Immunizations Immunization Administration Dates Next Due Influenza, Quadrivalent, Spl it, Intramuscular 04/20/2021,05/03/2020,04/01/2019 Influenza, Quadrivalent, Spl it, Preservative Free, Intramuscular 06/26/2023,04/03/2023,05/14/2022 Umer (J&J) SARS-CoV-2 Vaccination 09/07/2020 Tdap 04/03/2023,09/24/2019 ZOSTER [...] on file Legal Sex Male 11:03 PM 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 MECHANIC Gender Identity Male 05/12/2022 9:05 AM HYDRAMATIC MECHANIC Sexual Orientation Straight 10/27/2020 7: 55 PM CDT Last Filed Vital Signs Vital Sign Reading Time Taken Comments Blood Pressure 110/70 09/02/2024 9:31 AM HYDRAMATIC MECHANIC Pulse 72 09/02/2024 9:31 AM HYDRAMATIC MECHANIC Temperature 35.9 C (96.7 F) 09/10/2023 3:21 PM CDT Respiratory Rate 18 09/10/2023 3:21 PM CDT Oxygen Saturation 95% 09/02/2024 9:31 AM HYDRAMATIC MECHANIC Inhaled Oxygen Concentration - - Weight 93.9 kg (207 lb) 09/02/2024 9:31 AM HYDRAMATIC MECHANIC Height 175.3 cm (5' 9 ) 09/02/2024 9:31 AM HYDRAMATIC MECHANIC Body Mass Index 30.57 09/02/2024 9:31 AM HYDRAMATIC MECHANIC Plan of Treatment Upcoming Encounters Date Type Department Care Team (Latest Contact Info) Description 10/14/2024 8:00 AM CDT Hospital Encounter [facility] Operating Room [address] [place] [address] Lalit Orta MD [address] [facility] [address] [place] [address] 10/14/2024 8:00 AM CDT - 10/14/2024 10:40 AM CDT Surgery [facility] Operating Room [address] [place] [address] Lalit Orta MD [address] [facility] [address] [place] [address] ARTHROPLASTY TOTAL HIP Scheduled Procedures Name Priority Associated Diagnoses Date/Ti me ARTHROPLASTY TOTAL HIP Primary osteoarthritis of right hip 10/14/2024 8:00 AM CDT Medical Devices Implanted Type Area Lockstitch Shoulder Joiner Device Identifier Shelf Expiration Date Model / Serial / Lot Icd Implanted:10/22 by Matthew Hoffmann MD (Quantity not on file) Pacemaker Heart [employer] [id number] / [id number] / [employer] Graft Tissue Accelular Matrix Dermis Regn Medium Alloderm Select 4x7cm Rtu [id number] - [id number] Implanted:Qty: 1 on 02/10/2022 by Roland Christensen MD PhD at [facility] Right: Neck [employer] 10/30/2023 [id number] / / [id number] [employer] Cup 55mm Acetabular Bi Mentum Femoral Proximal Press Fit [id number] - [id number] Implanted:Qty: 1 on 08/21/2023 by Lalit Orta MD at [facility] Left: Hip [employer] 08/29/2024 [id number] / / [id number] [employer] Liner Acet Hip Size 28 Poly Bi Mentum Altrx 55mm [id number] - [id number] Implanted:Qty: 1 on 08/21/2023 by Lalit Orta MD at [facility] Left: Hip [employer] [id number] 09/29/2026 [id number] / / [id number] [employer] Actis Collar Hip 4 High Offset Stem Femoral [id number] - [id number] Implanted:Qty: 1 on 08/21/2023 by Lalit Orta MD at [facility] Left: Hip [employer] [id number] 03/31/2033 [id number] / / [id number] [employer] Articul/Cameron 28mm Cementless Hip +8.5mm 06/14 Taper Head Femoral Latex Free [id number] - [id number] Implanted:Qty: 1 on 08/21/2023 by Lalit Orta MD at [facility] Left: Hip [employer] [id number] 01/30/2028 [id number] / / [id number] Procedures Procedure Name Priority Date/Time Associated Diagnosis Comments XR HIPS BILATERAL W PELVIS 5 OR MORE VIEWS Schedule Routine, Read Routine (OP Routine) 09/19/2024 10:03 AM CDT Right hip pain XR SCOLIOSIS AP LAT Schedule Routine, Read Routine (OP Routine) 09/19/2024 10:03 AM CDT Right hip pain ELECTROCARDIOGRAM REPORT Routine 025 2:36 PM HYDRAMATIC MECHANIC [place] (ventricular tachycardia) (HCC) EGFR Timed 08/21/2023 2:42 PM HYDRAMATIC MECHANIC POCT HEMOGLOBIN A1C Routine 08/06/2023 2 :12 PM HYDRAMATIC MECHANIC from Last 3 Months or Most Recently Relevant to Health Maintenance Results * XR Hips Bilateral 5 or More Views W Pelvis (09/19/2024 10:03 AM CDT) Anatomical Region Laterality Modality Lower Extremities, Hip, Pelvis Bilateral C omputed Radiography 09/19/2024 11:3 5 AM CDT Impressions 09/19/2024 12:55 PM CDT 1. No scoliotic curvature of the spine. 2. Unchanged left total hip arthroplasty, in near anatomic alignment. 3. Moderate to severe right hip osteoarthritis. Dictated by: Tulio Dorsey M.D. The radiology attending physician has personally reviewed this study, and had reviewed and/or edited this written report and agrees with it. Electronically signed by: Brijesh Bustillos D.O. Narrative 09/19/2024 12:55 PM CDT EXAMINATION: XR HIPS BILATERAL 5 OR MORE VIEWS W PELVIS, XR SCOLIOSIS AP AND LATERAL HISTORY: JOINT PAIN, HIP COMPARISON: Left hip radiograph 01/18/2024, scoliosis radiographs, 03/16/2023 FINDINGS: Scoliosis radiographs: No scoliotic curvature of the spine. Mild anterior sagittal imbalance. No coronal imbalance or pelvic obliquity. Anterior bridging osteophytes throughout the thoracic spine consistent with diffuse idiopathic skeletal hyperostosis. Grade 1 anterolisthesis of L4 on L5. Mild multilevel degenerative disease of the spine. Single-lead pacemaker in place. Bilateral hips: Unchanged left total hip arthroplasty, in near anatomic alignment. No periprosthetic fracture, component migration, or osteolysis. Moderate to severe right hip osteoarthritis. Procedure Note Brijesh Bustillos, DO - 09/19/2024 EXAMINATION: XR HIPS BILATERAL 5 OR MORE VIEWS W PELVIS, XR SCOLIOSIS AP AND LATERAL HISTORY: JOINT PAIN, HIP COMPARISON: Left hip radiograph 01/18/2024, scoliosis radiographs, 03/16/2023 FINDINGS: Scoliosis radiographs: No scoliotic curvature of the spine. Mild anterior sagittal imbalance. No coronal imbalance or pelvic obliquity. Anterior bridging osteophytes throughout the thoracic spine consistent with diffuse idiopathic skeletal hyperostosis. Grade 1 anterolisthesis of L4 on L5. Mild multilevel degenerative disease of the spine. Single-lead pacemaker in place. Bilateral hips: Unchanged left total hip arthroplasty, in near anatomic alignment. No periprosthetic fracture, component migration, or osteolysis. Moderate to severe right hip osteoarthritis. IMPRESSION: 1. No scoliotic curvature of the spine. 2. Unchanged left total hip arthroplasty, in near anatomic alignment. 3. Moderate to severe right hip osteoarthritis. Dictated by: Tulio Dorsey M.D. The radiology attending physician has personally reviewed this study, and had reviewed and/or edited this written report and agrees with it. Electronically signed by: Brijesh Bustillos D.O. Lalit Orta MD IMG XR PROCEDURES Final Result * XR Scoliosis Ap and Lateral (09/19/2024 10:03 AM CDT) Anatomical Region Laterality Modality Spine N/A Computed Radiogr aphy 09/19/2024 11:3 5 AM CDT Impressions 09/19/2024 12:55 PM CDT 1. No scoliotic curvature of the spine. 2. Unchanged left total hip arthroplasty, in near anatomic alignment. 3. Moderate to severe right hip osteoarthritis. Dictated by: Tulio Dorsey M.D. The radiology attending physician has personally reviewed this study, and had reviewed and/or edited this written report and agrees with it. Electronically signed by: Brijesh Bustillos D.O. Narrative 09/19/2024 12:55 PM CDT EXAMINATION: XR HIPS BILATERAL 5 OR MORE VIEWS W PELVIS, XR SCOLIOSIS AP AND LATERAL HISTORY: JOINT PAIN, HIP COMPARISON: Left hip radiograph 01/18/2024, scoliosis radiographs, 03/16/2023 FINDINGS: Scoliosis radiographs: No scoliotic curvature of the spine. Mild anterior sagittal imbalance. No coronal imbalance or pelvic obliquity. Anterior bridging osteophytes throughout the thoracic spine consistent with diffuse idiopathic skeletal hyperostosis. Grade 1 anterolisthesis of L4 on L5. Mild multilevel degenerative disease of the spine. Single-lead pacemaker in place. Bilateral hips: Unchanged left total hip arthroplasty, in near anatomic alignment. No periprosthetic fracture, component migration, or osteolysis. Moderate to severe right hip osteoarthritis. Procedure Note Brijesh Bustillos, DO - 09/19/2024 EXAMINATION: XR HIPS BILATERAL 5 OR MORE VIEWS W PELVIS, XR SCOLIOSIS AP AND LATERAL HISTORY: JOINT PAIN, HIP COMPARISON: Left hip radiograph 01/18/2024, scoliosis radiographs, 03/16/2023 FINDINGS: Scoliosis radiographs: No scoliotic curvature of the spine. Mild anterior sagittal imbalance. No coronal imbalance or pelvic obliquity. Anterior bridging osteophytes throughout the thoracic spine consistent with diffuse idiopathic skeletal hyperostosis. Grade 1 anterolisthesis of L4 on L5. Mild multilevel degenerative disease of the spine. Single-lead pacemaker in place. Bilateral hips: Unchanged left total hip arthroplasty, in near anatomic alignment. No periprosthetic fracture, component migration, or osteolysis. Moderate to severe right hip osteoarthritis. IMPRESSION: 1. No scoliotic curvature of the spine. 2. Unchanged left total hip arthroplasty, in near anatomic alignment. 3. Moderate to severe right hip osteoarthritis. Dictated by: Tulio Dorsey M.D. The radiology attending physician has personally reviewed this study, and had reviewed and/or edited this written report and agrees with it. Electronically signed by: Brijesh O'Noe, D.O. Lalit Orta MD IMG XR PROCEDURES Final Result * Electrocardiogram Report (09/02/2024 2:36 PM HYDRAMATIC MECHANIC) us Clifford Montero MD ECG ORDERABLES Final Result * eGFR (08/21/2023 2:42 PM HYDRAMATIC MECHANIC) eGFR 77 >=60 mL/min/1. 73 m2 [facility] Comment: Interpretive Data Reference Interval Normal >/= [...] last reviewed 2021. Blood 08/21/2023 2:42 PM HYDRAMATIC MECHANIC 08/21/2023 2:59 PM HYDRAMATIC MECHANIC Garfield Bowman MD LAB BLOOD ORDERABLES Erika l Result [facility] [place] [address] * (ABNORMAL) POCT hemoglobin A1c (08/06/2023 2:12 PM HYDRAMATIC MECHANIC) Hgb A1C, POC 5.9(H) 4.0 - 5.6 % [facility] Est Average Gluc POC 123 mg/dL [facility] Comment: The ADA recommends reporting an estimated Average Glucose (eAG) with all Hemoglobin A1c results using the equation derived from a study of 507 normal and diabetic adults. Minority populations were underrepresented and children were not included. (Diabetes Care 31:1805-8634, 2008). The eAG is not equivalent to a fasting glucose. Blood 08/06/2023 2:12 PM HYDRAMATIC MECHANIC 08/06/2023 2:12 PM HYDRAMATIC MECHANIC us Lalit Orta MD POINT OF CARE TEST ORDERABLES Fi nal Result Performing Organization Address City/State/[facility] Co de Phone Number [facility] [place] [address] from Last 3 Months or Most Recently Relevant to Health Maintenance [place] [address] [facility] CHOICE PLUS [facility] HMO/PPO Address: [facility] [address] [place] [address] [place] [address] [facility] [place] [address] [facility] Advance Directives For more information, please contact: [phone] Documents on File Type Date Recorded Patient Purchasing Administrator Expl anation ADVANCE DIRECTIVE 02/10/2022 1:24 PM Power of Oracle Adf Developer-Medical ADVANCE DIRECTIVE 11/05/2020 10:02 AM Power of [employer] Adf Developer-Medical * Full Code (Latest Code Status on File) Date Activated Date Inactivated Comments 08/21/2023 11:18 AM 08/22/2023 6:04 PM * Full Code Date Activated Date Inactivated Comments 02/10/2022 5:21 PM 02/11/2022 7:46 PM Care Teams Sleeping Bag Filler Relationship Specialty Start Date [place] Д[place]итр[place] [address] [place] [address] PCP - General Internal Medicine 08/11/20 Mireya Rubi NP [address] [facility] [address] [place] [address] Nurse Practitioner Nurse Practitioner 03/15/22 Vignesh Hoffmann MD [address] [facility] [address] [place] [address] Radiation Oncologist Radiation Oncology 03/30/22
--- OUTSIDE RECORDS SUMMARY | 2024-09-29 16:23 | XMS_ITS ---
Author Organization [facility] Address [address] [place] [address] Support Name Relationship Address Phone Garfield Darbyjg Galdamez Emergency Contact [address] [place], [place] [address] Aashish Darby Guarantor Unknown [phone] Care Team Providers Care Lathe Mechanic Name Role Phone Sam Dodddakota Primary Care Provider [phone] REASON FOR VISIT Injection Medications Medication SIG (Take, Route, Frequency, Duration) Notes Start Date End Date Status busPIRone HCl 10 MG 2 tablets for 20 mg Orally Twice a day for 30 days Active chlorproMAZINE HCl 25 MG 1 tablet Orally once a day for 14 days Active traZODone HCl 50 MG 1 tablet at bedtime as needed Orally at bedtime as needed for 30 days Active DULoxetine HCl 60 MG 1 capsule Orally On ce a day for 30 days Active Invega Sustenna 156 MG/ML 1 mL Intramuscular once for 28 days Active Pantoprazole Sodium 40 MG 1 tablet Orally Once a day for 30 day(s) Active Digoxin 125 MCG 1 tablet Orally for 30 day(s) Active LaMICtal 150 MG 1 tablet at bedtime Orally Once a day for 30 days Active Farxiga 10 MG 1 tablet Orally Once a day Active Lipitor 40 MG 1 tablet Orally Once a day Active Invega Sustenna 234 MG/1.5ML 1.5 mL Intramuscular once for 7 days Loading dose Active Multivitamin - 1 tablet Orally Once a day Active Lopid 600 MG 1 tablet 30 minutes before morning and evening meals Orally Twice a day Active Inpefa 200 MG 1 tablet no more adilene n 1 hour before the first meal of the day Orally Once a day Active Atorvastatin Calcium 40 MG 1 tablet Orally Once a day Active Social History Sex Assigned At : Social History Observation Description Sex Assigned At Male Vital Signs Weight 211 lbs 09/26/2024 Height 69 in 09/26/2024 BMI 31.16 kg/m2 09/26/2024 Blood pressure systolic 118 mm Hg 09/27/19 25 Blood pressure diastolic 78 mm Hg 025 Heart Rate 99 /min 09/26/2024 Oximetry 98 % 09/26/2024 Temperature 97.9 degrees Fahrenheit 09/27/19 25 Respiratory Rate 16 /min 09/26/2024 Encounters Encounter Location Date Provider Diagnosis [address] [place] [address] 09/26/2024 Vikash Dodd Schizoaffective disorder, bipolar type F25.0 Assessments Encounter Date Diagnosis (ICD Code) Assessment Notes Treatment Notes Treatment Clinical Notes Section Notes 09/26/2024 Schizoaffective disorder, bipolar type (ICD-10 - F25.0) Plan Of Treatment Next Appt Details Provider Name:Vikash page, 09/30/2024 10:00:00 AM, [address], [address], Provider Name:Vikash page, 10/24/2024 01:00:00 PM, [address] [place] [address] , [place], [address], Medications Administered Medication Instructions Date of Administration Dosage Notes Invega Sustenna 09/26/2024 156 mg Patient t olerated well Progress Notes * Talia DARBYOB:1970 (53 yo M)Acc No.[id number]:09/26/2024 Progress Note Patient: Aashish AGUILERA Provider: AIDA Yousif :1970 A ge:53 Y S ex:Male Date:09/26/2024 Address[place] Check 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..] Orally Twice a day Taking chlorproMAZINE HCl 25 MG Tablet 1 tablet Orally once a day Taking traZODone HCl 50 MG Tablet 1 tablet at bedtime as needed Orally at bedtime as needed Taking DULoxetine HCl 60 MG Capsule Delayed Release Particles 1 capsule Orally Once a day Taking Invega Sustenna 156 MG/ML Suspension Prefilled Syringe 1 mL Intramuscular once Objective: * Vitals: I nitials: kg, Wt:211, Ht: 69, BMI:31.16, BP:118/78, HR:99, Oxygen sat %:98, Temp:97.9, RR:16, Pain scale:0. Assessment: * Assessment: 1. S chizoaffective disorder, bipolar type - F25.0 Plan: * Treatment: * Therapeutic Injections: Invega Sustenna : 156 mg (Dose No:1) (Route: Intramuscular) given by Peg Biswas on left deltoid * Procedure Codes: 9 6372 THER/PROPH/DIAG INJ, SC/IM * * Sign off status: Completed true * Provider: AIDA Yousif Date: 0 09/26/2024 Generated for Chris Evans/Sara on: 0 09/29/2024 04:22 PM CDT
--- OUTSIDE RECORDS SUMMARY | 2024-09-29 16:23 | XMS_ITS | Encounter Summary ---
Author Organization [facility] Address [address] [facility] [address] [place] [address] Phone Care Team Providers Care Replenisher Name Role Phone Дмитрий Hennessy MD Primary Care Provider Mireya Rubi PIPING MANAGER Unavailable [phone] Vignesh Hoffmann MD Unavailable [phone] Reason for Visit * Reason Onset Date Comments New Patient 09/02/2024 Encounter Details Date Type Department Care Team (Late st Contact Info) Description 09/02/2024 Telephone [facility] [address] [facility] Advanced Medicine 8th [place] [address] [place] [address] Brando Gould New Patient Social History Tobacco Use Types Packs/Day Years [...] on file Legal Sex Male 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 Gender Identity Male 05/12/2022 9:05 AM 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 Sexual Orientation Straight 10/27/2020 7: 55 PM CDT documented as of this encounter Miscellaneous Notes * Telephone Encounter - Rosemarie Coley - 09/09/2024 2:26 PM CDT Records avlbl in chart/media, Device updated * Telephone Encounter - Brando Gould - 09/02/2024 4:29 PM CST PLS ADD DEVICE CHECK ORDER NCT INSTRUCTOR CHEMISTRY * Telephone Encounter - Brando Gould - 09/02/2024 4:25 PM CST Diagnosis/Reason for Appointment: VT (ventricular tachycardia) Referring Physician: ANNA ECHEVERRIA Ref Ph: If Referring MD is not PCP, list specialty: Triage Questions Yes No Who/Where/When/Notes Have you ever been diagnosed with cancer, or undergone cancer treatments? [x] [] If 'Yes', Schedulefirst available with Cardio-Oncology If yes where were you treated? Have you ever seen a Edi Consultant in an office setting? [x] [] ANNA ECHEVERRIA LAST SEEN 08/2024 IF SCHEDULING PATIENT WITH MATERNAL Have you had a baby in the last year or are you ? (If yes send to Dr. Velázquez for review) [] [] Have you had heart or blood pressure problems during a previous ? (If yes send to Dr. Velázquez for review) [] [] Dr. Brea Olson Patients only: Are you a hemodialysis or peritoneal dialysis patient? (If yes then patient must be referred from another MD, DO NOT SCHEDULE) [] [] Do you regularly exercise, or play any competitive or recreational sports? (If yes proceed to next question) [] [x] Are your symptoms or concerns associated with this exercise or activity? (If yes schedule in [facility]) [] [] Patient History Questions Yes No Where/When/Notes Have you EVER been hospitalized for ANY cardiac issue? [] [x] Have you ever had any cardiac testing, imaging, or procedures? (Testing - echo, EKG, stress) (Imaging - Cardiac MRI, CT or calcium scoring) (Procedure - Ablation, Cardioversion, CABG, Cath) [x] [] EKG, 08/2024, DR ECHEVERRIA Have you ever had a sleep study? [] [x] Do you have a device? If yes what type? (Pacemaker, Defibrillator, Implanted Loop Recorder) [x] [] PACEMAKER/DEFIBRILLATOR If yes, where and when was device put in? Transfusion Aide? ([employer], [employer], [place]) 2013, Hired Appointment Date: Provider: Location: [] Confirm appt date, time, provider and location. [] Advise pt to arrive 15-20 min early. [] Advise patient to bring medications/list, photo ID and insurance card [] Advise of New Patient Packet being mailed to them. NCT INSTRUCTOR CHEMISTRY documented in this encounter Plan of Treatment Upcoming Encounters Date Type Department Care Team (Latest Contact Info) Description 10/14/2024 8:00 AM CDT Hospital Encounter [facility] [address] [place] [address] Lalit Orta MD [address] [facility] [address] 10/14/2024 8:00 AM CDT - 10/14/2024 10:40 AM CDT Surgery [facility] [address] [place] [address] Lalit Orta MD [address] [facility] [place] [address] ARTHROPLASTY TOTAL HIP Scheduled Procedures Name Priority Associated Diagnoses Date/Ti me ARTHROPLASTY TOTAL HIP Primary osteoarthritis of right hip 10/14/2024 8:00 AM CDT documented as of this encounter Visit Diagnoses Not on filedocumented in this encounter Care Teams Replenisher Relationship Specialty Start Date [place] [address] [place] [id number] PCP - General Internal Medicine 08/11/20 Mireya Rubi NP [address] [place] [address] Nurse Practitioner Nurse Practitioner 03/15/22 Vignesh Hoffmann MD [address] [place] [address] Radiation Oncologist Radiation Oncology 03/30/22 documented as of this encounter
--- OUTSIDE RECORDS SUMMARY | 2024-09-29 16:23 | XMS_ITS | Data Portability ---
Author Organization [facility] Knight Address [address] [place] [place] [address] Care Team Providers Care Sales Representative Printing Paper Name Role Phone [facility] Psychiatrist NICOLE CASTRO Orthopedic Surgeon [facility] [place] Cardio logist Assessment Encounter Date Assessment Date Assessment LastModified by Organization Details LastModified Time 10/22/2023 10/22/2023 His TIMO may be from his recent surgery, but that would not explain the melanotic stools wilda Not available 10/22/2023 09:40:46 Plan of Treatment Reminders Order Date Submit Date Provider Last Modified By Organization Details Last Modified Time Details Appointments ANY 15 2024 03:00P Maite Hennessy MD Not available Not available Not available ANY 15 2024 02:00P Maite Hennessy MD Not available Not available Not available Lab HbA1c (hemoglob in A1c), blood 2023 024 wilda [facility], [address], [place], [address], 05/08/2024 06:42:19 PSA, total, serum or plasma 2023 024 wilda [facility], [address], [place], [address], 05/08/2024 06:41:57 lipid panel, serum 2023 025 [facility], [address], [place], [address], 08/19/2024 14:44:36 C diff toxin A+B, qual IA, stool [address] [facility], [address], [place], [address], 01/28/2024 18:51:58 HbA1c (hemoglob in A1c), blood [address] [facility], [address], [place], [address], 10/24/2023 06:17:34 CBC w/ auto diff [address] [facility], [address], [place], [address], 10/24/2023 06:17:38 CMP, serum or plasma [address] [facility], [address], [place], [address], 10/24/2023 06:17:38 lipid panel, serum [address] [facility], [address], [place], [address], 10/24/2023 06:17:37 iron + TIBC + ferritin, serum [address] [facility], [address], [place], [address], 10/24/2023 06:17:35 Referral gastroent erologist referral - Hx of Melana and TIMO 2023 024 CHINO Gómez MD, [address], [place], [address], 01/22/2024 15:13:48 nutrition ist/dieti kam referral 2022 023 oajao [facility] Manufacturing Analyst Nutrition Dietitian, [address], [place], [address], 10/19/2023 11:52:58 Procedures None recorded. Surgeries None recorded. Imaging None recorded. Medication Orders None recorded. Patient TargetsNo targets recorded. 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 Low CHO, low fat diet Avoid soda Follow up in 6 months and PRN oajao Not available 05/09/2023 14:53:54 10/22/2023 [id number] prediabetes: car e instructions oajao Not available 10/22/2023 09:42:37 high cholesterol : care instructions oajao Not available 10/22/2023 09:41:37 iron deficiency anemia: care instructions oajao Not available 10/22/2023 09:38:16 Labs GI EGD repo rt D/C summary from [facility] Seasonal COVID vaccine Follow up as scheduled on 11/29/2023 oajao Not available 10/22/2023 09:44:20 01/22/2024 [id number] prediabetes: car e instructions oajao Not available 01/22/2024 15:26:19 diarrhea: care instructions oajao Not available 01/22/2024 15:17:19 Labs 12/04/2023, l ab results from [place] education on diarrhea Avoid caffeinated beverages and dairy products Conservative management of the diarrhea. 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 Refer ral for Impaired fasting glycemia Referring Physician: Дмитрий Hennessy, Internal Medicine, Encounter Date: 05/09/2023 Financial Services Director Referral for History of melena Hx of Melana and TIMO Hx of Melana and TIMO Referring Physician: Дмитрий Hennessy, Internal Medicine, Encounter Date: 10/22/2023 Results Created Date Observation Date Name Description Value Unit Range Abnormal Flag Note LastModifiedBy Organization Detail LastModifiedTime 03/14/2003/14/2023 COLOG UARD cologuard result CANCEL LED - ORDER D not applic able Not Available [facility] (Cologuard Orders Only) [address], [place], [address], 03/14/2023 10:36:12 04/18/2004/19/2023 LIPID PANEL cholesterol, total 184 mg/dL 100-19 9 Not Available [facility] ([facility]) [address] [place], [address], 04/19/2023 07:17:30 04/18/2004/19/2023 LIPID PANEL triglyceride s 752 mg/dL 0-149 alert high Not Available [facility] ([facility]) [address] [place], [address], 04/19/2023 07:17:30 04/18/2004/19/2023 LIPID PANEL HDL cholesterol 27 mg/dL >39 below low normal Not Available [facility] ([facility]) [address] [place], [address], 04/19/2023 07:17:30 04/18/2004/19/2023 LIPID PANEL VLDL cholesterol breann 108 mg/dL 5-40 above high normal Not Available [facility] ([facility]) [address] [place], [address], 04/19/2023 07:17:30 04/18/20 23 04/19/2023 LIPID PANEL LDL chol calc ([facility]) 49 mg/dL 0-99 Not Available [facility] ([facility]) [address] [place], [address], 04/19/2023 07:17:30 04/18/20 23 04/19/2023 COMP. METAB OLIC PANEL (14) glucose 108 mg/dL 70-99 above high normal Not Available [facility] ([facility]) [address] [place], [address], 04/19/2023 07:17:31 04/18/2004/19/2023 COMP. METAB OLIC PANEL (14) BUN 11 mg/dL 6-24 Not Available [facility] ([facility]) [address] [place], [address], 04/19/2023 07:17:31 04/18/20 23 04/19/2023 COMP. METAB OLIC PANEL (14) creatinine 1.14 mg/dL 0.76-1 .27 Not Available [facility] ([facility]) [address] [place], [address], 04/19/2023 07:17:31 04/18/20 23 04/19/2023 COMP. METAB OLIC PANEL (14) eGFR 78 mL/mi n/1.7 3 >59 Not Available [facility] ([facility]) [address] [place], [address], 04/19/2023 07:17:31 04/18/20 23 04/19/2023 COMP. METAB OLIC PANEL (14) BUN/creatini ne ratio 10 9-20 Not Available [facility] ([facility]) [address] [place], [address], 04/19/2023 07:17:31 04/18/20 23 04/19/2023 COMP. METAB OLIC PANEL (14) sodium 140 mmol/ L 134-14 4 Not Available [facility] ([facility]) [address] [facility] [place], [address], 04/19/2023 07:17:31 04/18/20 23 04/19/2023 COMP. METAB OLIC PANEL (14) potassium 4.4 mmol/ L 3.5-5. 2 Not Available [facility] ([facility]) [address] [facility] [place], [address], 04/19/2023 07:17:31 04/18/20 23 04/19/2023 COMP. METAB OLIC PANEL (14) chloride 101 mmol/ L 96-106 Not Available [facility] ([facility]) [address] [facility] [place], [address], 04/19/2023 07:17:31 04/18/20 23 04/19/2023 COMP. METAB OLIC PANEL (14) carbon dioxide, total 22 mmol/ L 20-29 Not Available [facility] ([facility]) [address] [facility], [address], 04/19/2023 07:17:31 04/18/20 23 04/19/2023 COMP. METAB OLIC PANEL (14) calcium 9.4 mg/dL 8.7-10 .2 Not Available [facility] ([facility]) [address] [facility], [address], 04/19/2023 07:17:31 04/18/2004/19/2023 COMP. METAB OLIC PANEL (14) protein, total 7.4 g/dL 6.0-8. 5 Not Available [facility] ([facility]) [address] [facility], [address], 04/19/2023 07:17:31 04/18/20 23 04/19/2023 COMP. METAB OLIC PANEL (14) albumin 4.3 g/dL 3.8-4. 9 Not Available [facility] ([facility]) [address] [place], [address], 04/19/2023 07:17:31 04/18/20 23 04/19/2023 COMP. METAB OLIC PANEL (14) globulin, total 3.1 g/dL 1.5-4. 5 Not Available [facility] ([facility]) [address] [facility], [address], 04/19/2023 07:17:31 04/18/20 23 04/19/2023 COMP. METAB OLIC PANEL (14) A/G ratio 1.4 1.2-2. 2 Not Available [facility] ([facility]) [address] [facility], [place], [address], 04/19/2023 07:17:31 04/18/20 23 04/19/2023 COMP. METAB OLIC PANEL (14) bilirubin, total 0.5 mg/dL 0.0-1. 2 Not Available [facility] ([facility]) [address] [facility], [place], [address], 04/19/2023 07:17:31 04/18/20 23 04/19/2023 COMP. METAB OLIC PANEL (14) alkaline phosphatase 98 IU/L 44-121 Not Available [facility] ([facility]) [address] [facility], [address], 04/19/2023 07:17:31 04/18/20 23 04/19/2023 COMP. METAB OLIC PANEL (14) AST (SGOT) 47 IU/L 0-40 above high normal Not Available [facility] ([facility]) [address] [facility], [address], 04/19/2023 07:17:31 04/18/20 23 04/19/2023 COMP. METAB OLIC PANEL (14) ALT (SGPT) 49 IU/L 0-44 above high normal Not Available [facility] ([facility]) [address] [facility], [address], 04/19/2023 07:17:31 04/18/2004/19/2023 URINA LYSIS , ROUTI NE specific gravity 1.021 1.005- 1.030 Not Available [facility] ([facility]) [address] [facility], [place], [address], 04/19/2023 07:17:32 04/18/2004/19/2023 URINA LYSIS , ROUTI NE pH 5.5 5.0-7. 5 Not Available [facility] ([facility]) [address] [place], [address], 04/19/2023 07:17:32 04/18/2004/19/2023 URINA LYSIS , ROUTI NE urine-color YELLOW yellow Not Available [facility] ([facility]) [address] [place], [address], 04/19/2023 07:17:32 04/18/2004/19/2023 URINA LYSIS , ROUTI NE appearance CLEAR clear Not Available [facility] ([facility]) [address] [place], [address], 04/19/2023 07:17:32 04/18/2004/19/2023 URINA LYSIS , ROUTI NE WBC esterase NEGATI VE negati ve Not Available [facility] ([facility]) [address] [place], [address], 04/19/2023 07:17:32 04/18/2004/19/2023 URINA LYSIS , ROUTI NE protein NEGATI VE negati ve/tra ce Not Available [facility] ([facility]) [address] [place], [address], 04/19/2023 07:17:32 04/18/2004/19/2023 URINA LYSIS , ROUTI NE glucose NEGATI VE negati ve Not Available [facility] ([facility]) [address] [place], [address], 04/19/2023 07:17:32 04/18/2004/19/2023 URINA LYSIS , ROUTI NE ketones NEGATI VE negati ve Not Available [facility] ([facility]) [address] [facility], [place], [address], 04/19/2023 07:17:32 04/18/2004/19/2023 URINA LYSIS , ROUTI NE occult blood NEGATI VE negati ve Not Available [facility] ([facility]) [address] [facility], [place], [address], 04/19/2023 07:17:32 04/18/2004/19/2023 URINA LYSIS , ROUTI NE bilirubin NEGATI VE negati ve Not Available [facility] ([facility]) [address] [place], [address], 04/19/2023 07:17:32 04/18/2004/19/2023 URINA LYSIS , ROUTI NE urobilinogen ,semi-qn 0.2 mg/dL 0.2-1. 0 Not Available [facility] ([facility]) [address] [facility], [place], [address], 04/19/2023 07:17:32 04/18/2004/19/2023 URINA LYSIS , ROUTI NE nitrite, urine NEGATI VE negati ve Not Available [facility] ([facility]) [address] [facility], [place], [address], 04/19/2023 07:17:32 04/18/2004/19/2023 URINA LYSIS , ROUTI NE microscopic examination COMMEN T Micro scopi c not indic ated and not perfo rmed. Not Available [facility] ([facility]) [address] [place], [address], 04/19/2023 07:17:32 04/18/2004/1904/19/2023 CBC WITH DIFFE RENTI AL/PL ATELE T WBC 6.0 x10e3 /uL 3.4-10 .8 Not Available [facility] ([facility]) [address] [facility], [place], [address], 04/19/2023 07:17:33 04/18/2004/19/2023 CBC WITH DIFFE RENTI AL/PL ATELE T RBC 4.60 x10e6 /uL 4.14-5 .80 Not Available [facility] ([facility]) [address] [facility], [place], [address], 04/19/2023 07:17:33 04/18/2004/19/2023 CBC WITH DIFFE RENTI AL/PL ATELE T hemoglobin 13.9 g/dL 13.0-1 7.7 Not Available [facility] ([facility]) [address] [facility], [place], [address], 04/19/2023 07:17:33 04/18/2004/19/2023 CBC WITH DIFFE RENTI AL/PL ATELE T hematocrit 41.9 % 37.5-5 1.0 Not Available [facility] ([facility]) [address] [facility], [place], [address], 04/19/2023 07:17:33 04/18/2004/19/2023 CBC WITH DIFFE RENTI AL/PL ATELE T MCV 91 fL 79-97 Not Available [facility] ([facility]) [address] [place], [address], 04/19/2023 07:17:33 04/18/2004/19/2023 CBC WITH DIFFE RENTI AL/PL ATELE T MCH 30.2 pg 26.6-3 3.0 Not Available [facility] ([facility]) [address] [place], [address], 04/19/2023 07:17:33 04/18/2004/1904/19/2023 CBC WITH DIFFE RENTI AL/PL ATELE T MCHC 33.2 g/dL 31.5-3 5.7 Not Available [facility] ([facility]) [address] [facility], [place], [address], 04/19/2023 07:17:33 04/18/2004/19/2023 CBC WITH DIFFE RENTI AL/PL ATELE T RDW 13.0 % 11.6-1 5.4 Not Available [facility] ([facility]) [address] [facility], [place], [address], 04/19/2023 07:17:33 04/18/2004/19/2023 CBC WITH DIFFE RENTI AL/PL ATELE T platelets 290 x10e3 /uL 150-45 0 Not Available [facility] ([facility]) [address] [facility], [place], [address], 04/19/2023 07:17:33 04/18/2004/19/2023 CBC WITH DIFFE RENTI AL/PL ATELE T neutrophils 63 % notest ab. Not Available [facility] ([facility]) [address] [facility], [place], [address], 04/19/2023 07:17:33 04/18/2004/19/2023 CBC WITH DIFFE RENTI AL/PL ATELE T lymphs 21 % notest ab. Not Available [facility] ([facility]) [address] [facility], [place], [address], 04/19/2023 07:17:33 04/18/2004/19/2023 CBC WITH DIFFE RENTI AL/PL ATELE T monocytes 12 % notest ab. Not Available [facility] ([facility]) [address] [facility], [place], [address], 04/19/2023 07:17:33 04/18/20 23 04/19/2023 CBC WITH DIFFE RENTI AL/PL ATELE T eos 3 % notest ab. Not Available [facility] ([facility]) [address] [facility], [place], [address], 04/19/2023 07:17:33 04/18/20 23 04/19/2023 CBC WITH DIFFE RENTI AL/PL ATELE T basos 1 % notest ab. Not Available [facility] ([facility]) [address] [facility], [place], [address], 04/19/2023 07:17:33 04/18/2004/19/2023 CBC WITH DIFFE RENTI AL/PL ATELE T neutrophils (absolute) 3.8 x10e3 /uL 1.4-7. 0 Not Available [facility] ([facility]) [address] [facility], [place], [address], 04/19/2023 07:17:33 04/18/2004/19/2023 CBC WITH DIFFE RENTI AL/PL ATELE T lymphs (absolute) 1.2 x10e3 /uL 0.7-3. 1 Not Available [facility] ([facility]) [address] [facility], [place], [address], 04/19/2023 07:17:33 04/18/20 23 04/19/2023 CBC WITH DIFFE RENTI AL/PL ATELE T monocytes(ab solute) 0.7 x10e3 /uL 0.1-0. 9 Not Available [facility] ([facility]) [address] [facility], [place], [address], 04/19/2023 07:17:33 04/18/2004/19/2023 CBC WITH DIFFE RENTI AL/PL ATELE T eos (absolute) 0.2 x10e3 /uL 0.0-0. 4 Not Available [facility] ([facility]) [address] [facility], [place], [address], 04/19/2023 07:17:33 04/18/2004/19/2023 CBC WITH DIFFE RENTI AL/PL ATELE T baso (absolute) 0.1 x10e3 /uL 0.0-0. 2 Not Available [facility] ([facility]) [address] [facility], [place], [address], 04/19/2023 07:17:33 04/18/20 23 04/19/2023 CBC WITH DIFFE RENTI AL/PL ATELE T immature granulocytes 0 % notest ab. Not Available [facility] ([facility]) [address] [facility], [place], [address], 04/19/2023 07:17:33 04/18/2004/19/2023 CBC WITH DIFFE RENTI AL/PL ATELE T immature grans (abs) 0.0 x10e3 /uL 0.0-0. 1 Not Available [facility] ([facility]) [address] [facility], [place], [address], 04/19/2023 07:17:33 04/18/2004/19/2023 HEMOG LOBIN A1C hemoglobin A1C 5.8 % 4.8-5. 6 above high normal Predi abete s: 5.7 - 6.4 Diabe wilfrido: >6.4 Glyce ciro contr ol for adult s with diabe wilfrido: <7.0 Not Available [facility] ([facility]) [address] [facility], [place], [address], 04/19/2023 07:17:32 04/27/2004/28/2023 LIPID PANEL cholesterol, total 129 mg/dL 100-19 9 Not Available [facility] ([facility]) [address] [place], [address], 04/28/2023 06:14:38 04/27/2004/28/2023 LIPID PANEL triglyceride s 310 mg/dL 0-149 above high normal Not Available [facility] ([facility]) [address] [place], [address], 04/28/2023 06:14:38 04/27/20 23 04/28/2023 LIPID PANEL HDL cholesterol 28 mg/dL >39 below low normal Not Available [facility] ([facility]) [address] [facility], [place], [address], 04/28/2023 06:14:38 04/27/20 23 04/28/2023 LIPID PANEL VLDL cholesterol breann 48 mg/dL 5-40 above high normal Not Available [facility] ([facility]) [address] [facility], [place], [address], 04/28/2023 06:14:38 04/27/2004/28/2023 LIPID PANEL LDL chol calc ([facility]) 53 mg/dL 0-99 Not Available [facility] ([facility]) [address] [facility], [place], [address], 04/28/2023 06:14:38 09/02/19 24 09/02/2023 COLOG UARD cologuard result reportable NEGATI VE negati ve normal NEGAT GEOFF TEST RESUL T. A negat geoff Colog uard resul t indic ates a low likel ihood that a color ectal cance r (CRC) or advan jodee adeno ma (piper omato us polyp s with more advan jodee pre-m align ant featu res) is prese nt. The chanc e that a perso n with a negat geoff Colog uard test has a color ectal cance r is less than 1 in 1500 (nega tive predi ctive value >99.9 %) or has an advan jodee adeno ma is less than 5.3% (nega tive predi ctive value 94.7% ). These data are based on a prosp ectiv e cross -sect ional study of ,00 0 indiv idual s at [facility] [facility] risk for color ectal cance r who were scree anton with both Colog uard and colon oscop y. (Joseph Macias et al, N Engl J Med 2014; 370(1 4):12 86-12 97) The bethany l value (refe rence range ) for this assay is negat geoff. COLOG UARD RE-SC REENI NG RECOM MENDA TION: Perio dic color ectal cance r scree santy is an impor tant part of preve ntive healt hcare for asymp tomat ic indiv idual s at [facility] for color ectal cance r. Follo wing [...] ommen datio ns.ht ml.; Olaf LINARES, Tomas ARBOLEDA, Camacho WHITING, Color ectal Cance r Scree santy: Recom menda tions for Physi cians and Patie nts from the U.S. Multi -Soci ety Task Force on Color ectal Cance r Scree santy , Jam hdez y 2017; 112:1 016-1 030. TEST DESCR IPTIO N: [place] site algor ithmi c caryl sis of stool DNA-b iomar kers with hemog lobin immun oassa y. [...] years or older , who are at [facility] for color ectal cance r (CRC) . Colog uard has been appro masood for use by the U.[place]. FDA. The perfo rmanc e of Colog uard was estab lishe d in a cross secti onal study of [facility] adult s aged 50-84 . Colog uard [...] adeno ma (incl uding sessi le natalie jadon polyp s great er than or equal to 1cm diame ter) [20%] or non- advan jodee adeno ma [31%] ; or no color ectal neopl aidan [45%] . These estim ates are deriv ed from a prosp ectiv e cross -sect ional scree santy study of 0 indiv idual s at [facility] risk for color ectal cance r who [...] inter barbara is every 3 years . (Amer ican Cance r Socie ty and U.S. Multi -Soci ety Task Force ). Colog uard perfo rmanc e data in a 0 patie nt pivot al study using colon oscop y as the refer ence metho d can be acces sed at the follo wing locat ion: www.e xactl abs.c om/re navdeep . Addit ional descr iptio n of the Colog uard test proce ss, warni ngs and preca ution s can be found at www.c catracho munozd.c om. Not Available [facility] (Cologuard Orders Only) [address], [place], [address], 09/07/2023 20:50:23 10/23/1910/23/2023 HEMOG LOBIN A1C hemoglobin A1C 5.3 % 4.8-5. 6 Predi abete s: 5.7 - 6.4 Diabe wilfrido: >6.4 Glyce ciro contr ol for adult s with diabe wilfrido: <7.0 Not Available [facility] ([facility]) [address] [place], [address], 10/24/2023 06:17:34 10/23/19 24 10/24/2023 FE+TI BC+FE R iron bind.cap.(TI BC) 481 ug/dL 250-45 0 above high normal Not Available [facility] ([facility]) [address] [place], [address], 10/24/2023 06:17:35 10/23/19 24 10/24/2023 FE+TI BC+FE R UIBC 451 ug/dL 111-34 3 above high normal Not Available [facility] ([facility]) [address] [place], [address], 10/24/2023 06:17:35 10/23/19 24 10/24/2023 FE+TI BC+FE R iron 30 ug/dL 38-169 below low normal Not Available [facility] ([facility]) [address] [place], [address], 10/24/2023 06:17:35 10/23/1910/24/2023 FE+TI BC+FE R iron saturation 6 % 15-55 alert low Not Available [facility] ([facility]) [address] [place], [address], 10/24/2023 06:17:35 10/23/19 24 10/24/2023 FE+TI BC+FE R ferritin 34 NG/mL 30-400 Not Available [facility] ([facility]) [address] [place], [address], 10/24/2023 06:17:35 10/23/19 24 10/24/2023 LIPID PANEL cholesterol, total 143 mg/dL 100-19 9 Not Available [facility] ([facility]) [address] [place], [address], 10/24/2023 06:17:37 10/23/19 24 10/24/2023 LIPID PANEL triglyceride s 135 mg/dL 0-149 Not Available [facility] ([facility]) [address] [place], [address], 10/24/2023 06:17:37 10/23/19 24 10/24/2023 LIPID PANEL HDL cholesterol 29 mg/dL >39 below low normal Not Available [facility] ([facility]) [address] [place], [address], 10/24/2023 06:17:37 10/23/19 24 10/24/2023 LIPID PANEL VLDL cholesterol breann 24 mg/dL 5-40 Not Available [facility] ([facility]) [address] [place], [address], 10/24/2023 06:17:37 10/23/19 24 10/24/2023 LIPID PANEL LDL chol calc ([facility]) 90 mg/dL 0-99 Not Available [facility] ([facility]) [address] [place], [address], 10/24/2023 06:17:37 10/23/19 24 10/24/2023 COMP. METAB OLIC PANEL (14) glucose 110 mg/dL 70-99 above high normal Not Available [facility] ([facility]) [address] [place], [address], 10/24/2023 06:17:37 10/23/19 24 10/24/2023 COMP. METAB OLIC PANEL (14) BUN 14 mg/dL 6-24 Not Available [facility] ([facility]) [address] [place], [address], 10/24/2023 06:17:37 10/23/19 24 10/24/2023 COMP. METAB OLIC PANEL (14) creatinine 1.14 mg/dL 0.76-1 .27 Not Available [facility] ([facility]) [address] [facility], [address], 10/24/2023 06:17:37 10/23/19 24 10/24/2023 COMP. METAB OLIC PANEL (14) eGFR 77 mL/mi n/1.7 3 >59 Not Available [facility] ([facility]) [address] [facility] [place], [address], 10/24/2023 06:17:37 10/23/19 24 10/24/2023 COMP. METAB OLIC PANEL (14) BUN/creatini ne ratio 12 9-20 Not Available [facility] ([facility]) [address] [facility] [place], [address], 10/24/2023 06:17:37 10/23/19 24 10/24/2023 COMP. METAB OLIC PANEL (14) sodium 138 mmol/ L 134-14 4 Not Available [facility] ([facility]) [address] [facility] [place], [address], 10/24/2023 06:17:37 10/23/19 24 10/24/2023 COMP. METAB OLIC PANEL (14) potassium 4.4 mmol/ L 3.5-5. 2 Not Available [facility] ([facility]) [address] [facility] [place], [address], 10/24/2023 06:17:37 10/23/19 24 10/24/2023 COMP. METAB OLIC PANEL (14) chloride 102 mmol/ L 96-106 Not Available [facility] [facility] [address] [facility] [place], [address], 10/24/2023 06:17:37 10/23/19 24 10/24/2023 COMP. METAB OLIC PANEL (14) carbon dioxide, total 20 mmol/ L 20-29 Not Available [facility] ([facility]) [address], [place], [address], 10/24/2023 06:17:37 10/23/19 24 10/24/2023 COMP. METAB OLIC PANEL (14) calcium 9.4 mg/dL 8.7-10 .2 Not Available [facility] ([facility]) [address], [place], [address], 10/24/2023 06:17:37 10/23/1910/24/2023 COMP. METAB OLIC PANEL (14) protein, total 7.3 g/dL 6.0-8. 5 Not Available [facility] ([facility]) [address], [place], [address], 10/24/2023 06:17:37 10/23/19 24 10/24/2023 COMP. METAB OLIC PANEL (14) albumin 4.2 g/dL 3.8-4. 9 Not Available [facility] ([facility]) [address], [place], [address], 10/24/2023 06:17:37 10/23/19 24 10/24/2023 COMP. METAB OLIC PANEL (14) globulin, total 3.1 g/dL 1.5-4. 5 Not Available [facility] ([facility]) [address], [place], [address], 10/24/2023 06:17:37 10/23/1910/24/2023 COMP. METAB OLIC PANEL (14) A/G ratio 1.4 1.2-2. 2 Not Available [facility] ([facility]) [address], [place], [address], 10/24/2023 06:17:37 10/23/19 24 10/24/2023 COMP. METAB OLIC PANEL (14) bilirubin, total 0.3 mg/dL 0.0-1. 2 Not Available [facility] ([facility]) [address] [place], [address], 10/24/2023 06:17:37 10/23/19 24 10/24/2023 COMP. METAB OLIC PANEL (14) alkaline phosphatase 129 IU/L 44-121 above high normal Not Available [facility] ([facility]) [address] [place], [address], 10/24/2023 06:17:37 10/23/19 24 10/24/2023 COMP. METAB OLIC PANEL (14) AST (SGOT) 51 IU/L 0-40 above high normal Not Available [facility] ([facility]) [address] [place], [address], 10/24/2023 06:17:37 10/23/19 24 10/24/2023 COMP. METAB OLIC PANEL (14) ALT (SGPT) 38 IU/L 0-44 Not Available [facility] ([facility]) [address] [place], [address], 10/24/2023 06:17:37 10/23/19 24 10/23/2023 CBC WITH DIFFE RENTI AL/PL ATELE T WBC 5.9 x10e3 /uL 3.4-10 .8 Not Available [facility] ([facility]) [address] [place], [address], 10/24/2023 06:17:38 10/23/19 24 10/23/2023 CBC WITH DIFFE RENTI AL/PL ATELE T RBC 4.35 x10e6 /uL 4.14-5 .80 Not Available [facility] ([facility]) [address] [place], [address], 10/24/2023 06:17:38 10/23/19 24 10/23/2023 CBC WITH DIFFE RENTI AL/PL ATELE T hemoglobin 11.6 g/dL 13.0-1 7.7 below low normal Not Available [facility] ([facility]) [address] [place], [address], 10/24/2023 06:17:38 10/23/19 24 10/23/2023 CBC WITH DIFFE RENTI AL/PL ATELE T hematocrit 36.7 % 37.5-5 1.0 below low normal Not Available [facility] ([facility]) [address] [place], [address], 10/24/2023 06:17:38 10/23/1910/23/2023 CBC WITH DIFFE RENTI AL/PL ATELE T MCV 84 fL 79-97 Not Available [facility] ([facility]) [address] [place], [address], 10/24/2023 06:17:38 10/23/19 24 10/23/2023 CBC WITH DIFFE RENTI AL/PL ATELE T MCH 26.7 pg 26.6-3 3.0 Not Available [facility] ([facility]) [address] [place], [address], 10/24/2023 06:17:38 10/23/19 24 10/23/2023 CBC WITH DIFFE RENTI AL/PL ATELE T MCHC 31.6 g/dL 31.5-3 5.7 Not Available [facility] ([facility]) [address] [place], [address], 10/24/2023 06:17:38 10/23/19 24 10/23/2023 CBC WITH DIFFE RENTI AL/PL ATELE T RDW 13.2 % 11.6-1 5.4 Not Available [facility] ([facility]) [address] [place], [address], 10/24/2023 06:17:38 10/23/19 24 10/23/2023 CBC WITH DIFFE RENTI AL/PL ATELE T platelets 427 x10e3 /uL 150-45 0 Not Available [facility] ([facility]) [address] [facility], [place], [address], 10/24/2023 06:17:38 10/23/19 24 10/23/2023 CBC WITH DIFFE RENTI AL/PL ATELE T neutrophils 59 % notest ab. Not Available [facility] ([facility]) [address] [facility], [place], [address], 10/24/2023 06:17:38 10/23/19 24 10/23/2023 CBC WITH DIFFE RENTI AL/PL ATELE T lymphs 21 % notest ab. Not Available [facility] ([facility]) [address] [facility], [place], [address], 10/24/2023 06:17:38 10/23/19 24 10/23/2023 CBC WITH DIFFE RENTI AL/PL ATELE T monocytes 15 % notest ab. Not Available [facility] ([facility]) [address] [facility], [place], [address], 10/24/2023 06:17:38 10/23/19 24 10/23/2023 CBC WITH DIFFE RENTI AL/PL ATELE T eos 4 % notest ab. Not Available [facility] ([facility]) [address] [facility], [place], [address], 10/24/2023 06:17:38 10/23/19 24 10/23/2023 CBC WITH DIFFE RENTI AL/PL ATELE T basos 1 % notest ab. Not Available [facility] ([facility]) [address] [facility], [place], [address], 10/24/2023 06:17:38 10/23/19 24 10/23/2023 CBC WITH DIFFE RENTI AL/PL ATELE T neutrophils (absolute) 3.5 x10e3 /uL 1.4-7. 0 Not Available [facility] ([facility]) [address] [facility], [place], [address], 10/24/2023 06:17:38 10/23/19 24 10/23/2023 CBC WITH DIFFE RENTI AL/PL ATELE T lymphs (absolute) 1.2 x10e3 /uL 0.7-3. 1 Not Available [facility] ([facility]) [address] [facility], [place], [address], 10/24/2023 06:17:38 10/23/19 24 10/23/2023 CBC WITH DIFFE RENTI AL/PL ATELE T monocytes(ab solute) 0.9 x10e3 /uL 0.1-0. 9 Not Available [facility] ([facility]) [address] [facility], [place], [address], 10/24/2023 06:17:38 10/23/19 24 10/23/2023 CBC WITH DIFFE RENTI AL/PL ATELE T eos (absolute) 0.2 x10e3 /uL 0.0-0. 4 Not Available [facility] ([facility]) [address] [facility], [place], [address], 10/24/2023 06:17:38 10/23/19 24 10/23/2023 CBC WITH DIFFE RENTI AL/PL ATELE T baso (absolute) 0.0 x10e3 /uL 0.0-0. 2 Not Available [facility] ([facility]) [address] [place], [address], 10/24/2023 06:17:38 10/23/19 24 10/23/2023 CBC WITH DIFFE RENTI AL/PL ATELE T immature granulocytes 0 % notest ab. Not Available [facility] ([facility]) [address] [facility], [place], [address], 10/24/2023 06:17:38 10/23/19 24 10/23/2023 CBC WITH DIFFE RENTI AL/PL ATELE T immature grans (abs) 0.0 x10e3 /uL 0.0-0. 1 Not Available [facility] ([facility]) [address] [facility], [place], [address], 10/24/2023 06:17:38 05/13/20 24 05/15/2024 Hepat itis C virus RNA [Unit s/vol ume] (garrett l load) in Serum or Plasm a by ANGELICA with probe detec tion hepatitis C virus quant by PCR, blood [id number] text: not detect ed IU/mL high Hepat itis C Virus Quant by PCR, Blood 823,8 26 (H) Not detec jadon IU/mL 05/15 10:46 AM [facility] Not Available Not Available 09/11/2024 03:35:50 05/13/20 24 05/15/2024 Hepat itis C virus RNA [Unit s/vol ume] (garrett l load) in Serum or Plasm a by ANGELICA with probe detec tion hepatitis C RNA PCR, interp DETECT ED text: not detect ed abnormal Hepat itis C RNA PCR, Inter p Detec jadon (A) Not detec jadon 05/15 10:46 AM [facility] Not Available Not Available 09/11/2024 03:35:50 05/13/20 24 05/15/2024 Hepat itis C virus RNA [Unit s/vol ume] (garrett l load) in Serum or Plasm a by ANGELICA with probe detec tion hepatitis C quant by PCR, log 5.9 text: log IU/mL Hepat itis C Quant by PCR, Log 5.9 log IU/mL 05/15 10:46 AM [facility] Not Available Not Available 09/11/2024 03:35:50 05/13/20 24 05/15/2024 Hepat itis C virus RNA [Unit s/vol ume] (garrett l load) in Serum or Plasm a by ANGELICA with probe detec tion Unknown Analyte THE HEPATI TIS C VIRAL (HCV) RNA ANALYS IS UTILIZ ED A SERUM SAMPLE , REAL-T TACHO REVERS E TRANSC RIPTIO N PCR, AND IS REPORT ED NOT DETECT ED, DETECT ED (<12 IU/ML) , QUANTI TY (IU/ML ) OR >30,00 0,000 IU/ML. THE LIMIT OF QUANTI TATION OF THE ASSAY IS 12 IU/ML (100% OF SAMPLE S WITH THIS HCV RNA LEVEL WERE DETECT ED). THE LINEAR RANGE IS FROM 12 IU/ML TO 30,000 ,000 IU/ML. VALUES LESS THAN 12 IU/ML ARE REPORT ED DETECT ED (<12 IU/ML) . VALUES GREATE R THAN 30,000 ,000 IU/ML ARE REPORT ED >30,00 0,000 IU/ML. THE DETECT ION/QU ANTITA TION OF HCV RNA IN SERUM IS BASED ON THE ISOLAT ION OF HCV RNA WITH REVERS E TRANSC RIPTIO N OF GENOMI C HCV RNA FOLLOW ED BY REAL-T TACHO PCR IN THE PRESEN CE OF AN UNRELA JADON RNA [employer] BASIS CONSULTANT AL CONTRO L. THE SAP BASIS CONSULTANT AL CONTRO L ENSURE S THAT RNA IS ISOLAT ED, AND THAT NO GENERA L SIGNIF ICANT INHIBI TORS OF THE RT-PCR PROCES S ARE PRESEN T. THE ANALYS IS WAS PERFOR MED USING A U.S. FDA APPROV ED TEST METHOD OLOGY. The Hepat itis C viral (HCV) RNA caryl sis utili zed a serum sampl e, real- time rever se trans cript ion PCR, and is repor jadon as Not Detec jadon, Detec jadon (<12 IU/mL ), Quant ity (IU/m L) or >30,0 00,00 0 IU/mL . The limit of quant itati on of the assay is 12 IU/mL (100% of sampl es with this HCV RNA level were detec jadon). The linea r range is from 12 IU/mL to 30,00 0,000 IU/mL . Value s less than 12 IU/mL are repor jadon as Detec jadon (<12 IU/mL ). Value s great er than 30,00 0,000 IU/mL are repor jadon as >30,0 00,00 0 IU/mL . The detec tion/ quant itati on of HCV RNA in serum is based on the isola tion of HCV RNA with rever se trans cript ion of genom ic HCV RNA follo wed by real- time PCR in the prese nce of an unrel ated RNA inter nal contr ol. The inter nal contr ol ensur es that RNA is isola jadon, and that no gener al signi fican t inhib itors of the RT-PC R proce ss are prese nt. The caryl sis was perfo rmed using a U.S. FDA appro masood test metho dolog y. Not Available Not Available 09/11/2024 03:35:50 05/13/2005/15/2024 Hepat itis C virus RNA [Unit s/vol ume] (garrett l load) in Serum or Plasm a by ANGELICA with probe detec tion interpretati on and review of laboratory results ABNORM AL Not Available Not Available 03:35:50 05/13/2005/13/2024 Compr ehens geoff metab olic 1999 panel - Serum or Plasm a urea nitrogen [mass/volume ] in serum or plasma 15 mg/dL low: 7mg/dL high: 26mg/d L BUN 15 7 - 26 mg/dL 05/13 3:44 PM [facility] Not Available Not Available 09/11/2024 03:35:50 05/13/20 24 05/13/2024 Compr ehens geoff metab olic 1999 panel - Serum or Plasm a creatinine [mass/volume ] in serum or plasma 1.14 mg/dL low: 0.71mg /dLhig h: 1.16mg /dL Creat inine 1.14 0.71 - 1.16 mg/dL 05/13 3:44 PM [facility] Not Available Not Available 09/11/2024 03:35:50 05/13/20 24 05/13/2024 Compr ehens geoff metab olic 2000 panel - Serum or Plasm a sodium [moles/volum e] in serum or plasma 141 mmol/ L low: 136mmo l/Lhig h: 145mmo l/L Sodiu m 141 136 - 145 mmol/ L 05/13 3:44 PM [facility] Not Available Not Available 09/11/2024 03:35:50 05/13/20 24 05/13/2024 Compr ehens geoff metab olic 2000 panel - Serum or Plasm a potassium [moles/volum e] in serum or plasma 4.1 mmol/ L low: 3.5mmo l/Lhig h: 4.5mmo l/L Potas sium 4.1 3.5 - 4.5 mmol/ L 05/13 3:44 PM [facility] Not Available Not Available 09/11/2024 03:35:50 05/13/20 24 05/13/2024 Compr ehens geoff metab olic 1999 panel - Serum or Plasm a chloride [moles/volum e] in serum or plasma 103 mmol/ L low: 98mmol /Lhigh : 107mmo l/L Chlor pete 103 98 - 107 mmol/ L 05/13 3:44 PM [facility] Not Available Not Available 09/11/2024 03:35:50 05/13/20 24 05/13/2024 Compr ehens geoff metab olic 1999 panel - Serum or Plasm a carbon dioxide, total [moles/volum e] in serum or plasma 27 mmol/ L low: 22mmol /Lhigh : 29mmol /L CO2 27 22 - 29 mmol/ L 05/13 3:44 PM [facility] Not Available Not Available 09/11/2024 03:35:50 05/13/20 24 05/13/2024 Compr ehens geoff metab olic 1999 panel - Serum or Plasm a glucose [mass/volume ] in serum or plasma 140 mg/dL low: 70mg/d Lhigh: 99mg/d L high Gluco se 140 (H) 70 - 99 mg/dL 05/13 3:44 PM [facility] Not Available Not Available 09/11/2024 03:35:50 05/13/20 24 05/13/2024 Compr ehens geoff metab olic 2000 panel - Serum or Plasm a calcium [moles/volum e] in serum or plasma 10 mg/dL low: 8.4mg/ dLhigh : 10.2mg /dL Calci um 10.0 8.4 - 10.2 mg/dL 05/13 3:44 PM [facility] Not Available Not Available 09/11/2024 03:35:50 05/13/20 24 05/13/2024 Compr ehens geoff metab olic 2000 panel - Serum or Plasm a protein [mass/volume ] in serum or plasma 8.2 g/dL low: 6g/dLh igh: 8.3g/d L Prote in Total 8.2 6.0 - 8.3 g/dL 05/13 3:44 PM [facility] Not Available Not Available 09/11/2024 03:35:50 05/13/20 24 05/13/2024 Compr ehens geoff metab olic 2000 panel - Serum or Plasm a albumin [mass/volume ] in serum or plasma by bromocresol green (bcg) dye binding method 4 g/dL low: 3.4g/d Lhigh: 5g/dL Album in 4.0 3.4 - 5.0 g/dL 05/13 3:44 PM [facility] Not Available Not Available 09/11/2024 03:35:50 05/13/20 24 05/13/2024 Compr ens geoff metab olic 2000 panel - Serum or Plasm a bilirubin.to ely [mass/volume ] in serum or plasma 0.7 mg/dL low: 0.2mg/ dLhigh : 1.2mg/ dL Bilir ubin Total 0.7 0.2 - 1.2 mg/dL 05/13 3:44 PM [facility] Not Available Not Available 09/11/2024 03:35:50 05/13/20 24 05/13/2024 Compr ehens geoff metab olic 2000 panel - Serum or Plasm a alkaline phosphatase [enzymatic activity/vol ume] in serum or plasma 83 U/L low: 40U/Lh igh: 150U/L Alkal ine Phosp hatas e 83 40 - 150 U/L 05/13 3:44 PM [facility] Not Available Not Available 09/11/2024 03:35:50 05/13/20 24 05/13/2024 Compr ehens geoff metab olic 2000 panel - Serum or Plasm a alanine aminotransfe rase [enzymatic activity/vol ume] in serum or plasma by no addition of P-5'-P 54 U/L low: 5U/Lhi gh: 55U/L ALT 54 5 - 55 U/L 05/13 3:44 PM [facility] Not Available Not Available 09/11/2024 03:35:50 05/13/20 24 05/13/2024 Compr ehens geoff metab olic 2000 panel - Serum or Plasm a aspartate aminotransfe rase [enzymatic activity/vol ume] in serum or plasma 50 U/L low: 5U/Lhi gh: 34U/L high AST 50 (H) 5 - 34 U/L 05/13 3:44 PM [facility] Not Available Not Available 09/11/2024 03:35:50 05/13/20 24 05/13/2024 Compr ehens geoff metab olic 2000 panel - Serum or Plasm a anion gap 11 low: 6high: 16 Anion Gap 11 6 - 16 05/13 3:44 PM [facility] Not Available Not Available 09/11/2024 03:35:50 05/13/20 24 05/13/2024 Compr ehens geoff metab olic 2000 panel - Serum or Plasm a urea nitrogen/cre atinine [mass ratio] in serum or plasma 13 low: 7high: 23 BUN/C reati nine Ratio 13 7 - 23 05/13 3:44 PM [facility] Not Available Not Available 09/11/2024 03:35:50 05/13/20 24 05/13/2024 Compr ehens geoff metab olic 2000 panel - Serum or Plasm a osmolality calculated 295 text: 275 - 295 mOsm/k g Osmol ality Calcu lated 295 275 - 295 mOsm/ kg 05/13 3:44 PM [facility] Not Available Not Available 09/11/2024 03:35:50 05/13/20 24 05/13/2024 Compr ehens geoff metab olic 2000 panel - Serum or Plasm a albumin/glob ulin ratio 1 low: 1.1hig h: 2.3 low Album in/Gl obuli n Ratio 1.0 (L) 1.1 - 2.3 05/13 3:44 PM [facility] Not Available Not Available 09/11/2024 03:35:50 05/13/20 24 05/13/2024 Compr ehens geoff metab olic 2000 panel - Serum or Plasm a glomerular filtration rate/1.73 sq M.predicted [volume rate/area] in serum, plasma or blood by creatinine-b ased formula (CKD-epi 2020) 77 text: >=90 mL/min /1.73 m2 low eGFR by CKD-E PI 77 (L) >=90 mL/mi n/1.7 3 m2 05/13 3:44 PM [facility] Not Available Not Available 09/11/2024 03:35:50 05/13/20 24 05/13/2024 Compr ehens geoff metab olic 2000 panel - Serum or Plasm a interpretati on and review of laboratory results ABNORM AL Not Available Not Available 03:35:50 05/13/2005/13/2024 CBC W Auto Diffe renti al panel - Blood leukocytes [#/volume] in blood by automated count 4.7 text: 4.0 - 10.7 x10e9/ L WBC 4.7 4.0 - 10.7 x10E9 /L 05/13 3:19 PM [facility] Not Available Not Available 09/11/2024 03:35:50 05/13/20 24 05/13/2024 CBC W Auto Diffe renti al panel - Blood erythrocytes [#/volume] in blood by automated count 4.73 text: 4.30 - 5.80 x10e12 /L RBC Count 4.73 4.30 - 5.80 x10E1 2/L 05/13 3:19 PM [facility] Not Available Not Available 09/11/2024 03:35:50 05/13/20 24 05/13/2024 CBC W Auto Diffe renti al panel - Blood hemoglobin [mass/volume ] in blood 13.6 g/dL low: 13.3g/ dLhigh : 17.5g/ dL Hemog lobin 13.6 13.3 - 17.5 g/dL 05/13 3:19 PM [facility] Not Available Not Available 09/11/2024 03:35:50 05/13/20 24 05/13/2024 CBC W Auto Diffe renti al panel - Blood hematocrit [volume fraction] of blood by automated count 41.2 % low: 38.7%h igh: 51.1% Hemat ocrit 41.2 38.7 - 51.1 % 05/13 3:19 PM [facility] Not Available Not Available 09/11/2024 03:35:50 05/13/20 24 05/13/2024 CBC W Auto Diffe renti al panel - Blood MCV [entitic volume] by automated count 87.1 fL low: 80fLhi gh: 98fL MCV 87.1 80.0 - 98.0 fL 05/13 3:19 PM [facility] Not Available Not Available 09/11/2024 03:35:50 05/13/20 24 05/13/2024 CBC W Auto Diffe kamlati al panel - Blood MCH [entitic mass] by automated count 28.8 pg low: 26.7pg high: 33.6pg MCH 28.8 26.7 - 33.6 pg 05/13 3:19 PM [facility] Not Available Not Available 09/11/2024 03:35:50 05/13/20 24 05/13/2024 CBC W Auto Diffe renti al panel - Blood MCHC [mass/volume ] by automated count 33 g/dL low: 31.7g/ dLhigh : 36.3g/ dL MCHC 33.0 31.7 - 36.3 g/dL 05/13 3:19 PM [facility] Not Available Not Available 09/11/2024 03:35:50 05/13/20 24 05/13/2024 CBC W Auto Diffe renti al panel - Blood erythrocyte distribution width [ratio] by automated count 13.8 % low: 11.3%h igh: 14.8% RDW-C V 13.8 11.3 - 14.8 % 05/13 3:19 PM [facility] Not Available Not Available 09/11/2024 03:35:50 05/13/20 24 05/13/2024 CBC W Auto Diffe renti al panel - Blood platelets [#/volume] in blood by automated count 293 text: 150 - 420 x10e9/ L Plate let Count 293 150 - 420 x10E9 /L 05/13 3:19 PM [facility] Not Available Not Available 09/11/2024 03:35:50 05/13/20 24 05/13/2024 CBC W Auto Diffe renti al panel - Blood platelet mean volume [entitic volume] in blood by automated count 8.6 fL low: 7.8fLh igh: 11.4fL MPV 8.6 7.8 - 11.4 fL 05/13 3:19 PM [facility] Not Available Not Available 09/11/2024 03:35:50 05/13/20 24 05/13/2024 CBC W Auto Diffe renti al panel - Blood neutrophils/ 100 leukocytes in blood by automated count 62.2 % low: 41%hig h: 74% Neutr ophil % 62.2 41.0 - 74.0 % 05/13 3:19 PM [facility] Not Available Not Available 09/11/2024 03:35:50 05/13/20 24 05/13/2024 CBC W Auto Diffe renti al panel - Blood lymphocytes/ 100 leukocytes in blood by automated count 21.5 % low: 17%hig h: 47% Lymph ocyte % 21.5 17.0 - 47.0 % 05/13 3:19 PM [facility] Not Available Not Available 09/11/2024 03:35:50 05/13/20 24 05/13/2024 CBC W Auto Diffe renti al panel - Blood monocytes/10 0 leukocytes in blood by automated count 11.8 % low: 3%high : 11% high Monoc yte % 11.8 (H) 3.0 - 11.0 % 05/13 3:19 PM [facility] Not Available Not Available 09/11/2024 03:35:50 11/12/05/13/2024 CBC W Auto Diffe renti al panel - Blood eosinophils/ 100 leukocytes in blood by automated count 3.4 % low: 0%high : 7% Eosin ophil % 3.4 0.0 - 7.0 % 05/13 3:19 PM [facility] Not Available Not Available 09/11/2024 03:35:50 05/13/20 24 05/13/2024 CBC W Auto Diffe renti al panel - Blood basophils/10 0 leukocytes in blood by automated count 0.9 % low: 0%high : 1.6% Basop hil % 0.9 0.0 - 1.6 % 05/13 3:19 PM [facility] Not Available Not Available 09/11/2024 03:35:50 05/13/20 24 05/13/2024 CBC W Auto Diffe renti al panel - Blood immature granulocytes /100 leukocytes in blood by automated count 0.2 % low: 0%high : 1% Immat ure Granu locyt es % 0.2 0.0 - 1.0 % 05/13 3:19 PM [facility] Not Available Not Available 09/11/2024 03:35:50 05/13/20 24 05/13/2024 CBC W Auto Diffe renti al panel - Blood neutrophils [#/volume] in blood by automated count 2.89 text: 1.60 - 7.50 x10e9/ L Neutr ophil Absol sioux 2.89 1.60 - 7.50 x10E9 /L 05/13 3:19 PM [facility] Not Available Not Available 09/11/2024 03:35:50 05/13/20 24 05/13/2024 CBC W Auto Diffe renti al panel - Blood lymphocytes [#/volume] in blood by automated count 1 text: 1.00 - 4.40 x10e9/ L Lymph ocyte Absol sioux 1.00 1.00 - 4.40 x10E9 /L 05/13 3:19 PM [facility] Not Available Not Available 09/11/2024 03:35:50 05/13/20 24 05/13/2024 CBC W Auto Diffe renti al panel - Blood monocytes [#/volume] in blood by automated count 0.55 text: 0.15 - 1.00 x10e9/ L Monoc yte Absol [place] 0.55 0.15 - 1.00 x10E9 /L 05/13 3:19 PM [facility] Not Available Not Available 09/11/2024 03:35:50 05/13/20 24 05/13/2024 CBC W Auto Diffe renti al panel - Blood eosinophils [#/volume] in blood 0.16 text: 0.00 - 0.60 x10e9/ L Eosin ophil Absol [place] 0.16 0.00 - 0.60 x10E9 /L 05/13 3:19 PM [facility] Not Available Not Available 09/11/2024 03:35:50 05/13/20 24 05/13/2024 CBC W Auto Diffe renti al panel - Blood basophils [#/volume] in blood by automated count 0.04 text: 0.00 - 0.13 x10e9/ L Basop hil Absol [place] 0.04 0.00 - 0.13 x10E9 /L 05/13 3:19 PM [facility] Not Available Not Available 09/11/2024 03:35:50 05/13/20 24 05/13/2024 CBC W Auto Diffe renti al panel - Blood interpretati on and review of laboratory results ABNORM AL Not Available Not Available 03:35:50 05/13/20 24 05/13/2024 Digox in [Mass /volu me] in Serum or Plasm a digoxin [mass/volume ] in serum or plasma 0.8 NG/mL low: 0.5NG/ mLhigh : 1.2NG/ mL Digox in 0.8 0.5 - 1.2 ng/mL 05/13 3:36 PM [facility] Not Available Not Available 09/11/2024 03:35:50 05/13/20 24 05/13/2024 Digox in [Mass /volu me] in Serum or Plasm a Unknown Analyte THERAP EUTIC REFERE NCE RANGE FOR HEART FAILUR E IS 0.5-0. 9 NG/ML. FOR ATRIAL FIBRIL LATION , IT IS 0.8-1. 2 NG/ML. THE MANUFA CTURER OF DIGOXI N IMMUNE SHAYY HAS STATED THAT NO IMMUNO ASSAY TECHNI QUE IS SUITAB LE FOR QUANTI TATING DIGOXI N IN PLASMA /SERUM FROM PATIEN TS ON ANTIBO DY FRAGME NT THERAP Y. Thera peuti c refer ence range for heart failu re is 0.5-0 .9 ng/mL . For atria l fibri llati on, it is 0.8-1 .2 ng/mL . The manuf actur er of Digox in Immun e Shayy has state d that no immun oassa y techn ique is suita ble for quant itati ng digox in in plasm a/ser um from patie nts on antib rhys fragm ent thera py. Not Available Not Available 09/11/2024 03:35:50 05/13/20 24 05/13/2024 Digox in [Mass /volu me] in Serum or Plasm a interpretati on and review of laboratory results NORMAL Not Available Not Available 08/30 03:35:50 04/27/20 23 04/27/2023 CT, mook y, w/wo contr ast No observ ation record ed. [facility] [address] [place], [address], 05/09/2023 14:19:20 05/15/20 23 05/10/2023 rhyth m strip * No observ ation record ed. [facility] [address], [place], [address], 10/22/2023 09:22:47 02/27/20 24 02/27/2024 trans -thor acic echoc ardio gram (TTE) (PROC ) No observ ation record ed. [facility] [address], [place], [address], 04/30/2024 13:27:15 09/30/19 09/29/2024 CT, abdom en + pelvi s, w/ contr ast No observ ation record ed. [facility] [address], [place], [address], 09/29/2024 16:28:40 Result Notes None recorded. Problems Name Problem SNOMED Code Status Onset Date Resolution Date Notes Provider Name and Address Organization Details Recorded Time Tobacco dependence in remission 535813281 Active 2019 Дмитрий Hennessy MD Attn: Venkat magaña,[address] [facility], [place], [address], [place] [facility] 3 13:56:49 Chronic hepatitis C 966809697 Active 2019 Дмитрий Hennessy MD Attn: Venkat magaña,[address] [facility], [place], [address], [place] [facility] 3 13:56:49 History of supraventri cular tachycardia 9716518487974 4101 Active 2019 Дмитрий Hennessy MD Attn: Stephaniein g,[address] [facility], [place], [address], [place] [facility] 3 13:56:49 History of atrial fibrillatio n 281430813 Active 2019 Дмитрий Hennessy MD Attn: Venkat g,[address] [facility], [place], [address], [place] [facility] 3 13:56:50 Left foot drop 6798339046842 05 Active 2019 Дмитрий Hennessy MD Attn: Venkat g,[address] [facility], [place], [address], [place] [facility] 3 13:56:50 Hyperlipide ollie 98414625 Active 2019 Дмитрий Hennessy MD Attn: Venkat g,[address] [facility], [place], [address], [place] [facility] 3 13:56:50 Impaired fasting glycemia 287846991 Active 2019 Дмитрий Hennessy MD Attn: Venkat g,[address] [facility], [place], [address], [place] [facility] 3 13:56:50 Poor short-term memory 374865640 Active 2019 Дмитрий Hennessy MD Attn: Venkat g,[address] [facility], [place], [address], [place] [facility] 3 13:56:50 Degeneratio n of lumbar interverteb ral disc 16063256 Active 2019 Дмитрий Hennessy MD Attn: Accountin g,[address] [facility], [place], [address], [place] [facility] 3 13:56:50 Body mass index 30+ - obesity 963721474 Active 2020 Дмитрий Hennessy MD Attn: Stephaniein g,[address] [facility], [place], [address], [place] [facility] 3 13:56:49 Amphetamine or psychostimu lant dependence in remission 505719854 Active 2020 Дмитрий Hennessy MD Attn: Accountmikayla g,[address] [facility], [place], [address], [place] [facility] 3 13:56:49 Steatosis of liver 397990434 Active 2020 Дмитрий Hennessy MD Attn: Accountin g,[address] [facility], [place], [address], [place] [facility] 3 13:56:49 Chronic obstructive pulmonary disease 59934613 Active 2020 Дмитрий Hennessy MD Attn: Stephaniein g,[address] [facility], [place], [address], [place] [facility] 3 13:56:49 Congestive heart failure 79022810 Active 2020 Дмитрий Hennessy MD Attn: Stephaniein g,[address] [facility], [place], [address], [place] [facility] 3 13:56:50 Paresis of lower extremity 533260282 Active 2020 Дмитрий Hennessy MD Attn: Accountin g,[address] [facility], [place], [address], [place] [facility] 3 13:56:49 Intestinal obstruction 94007451 Active Дмитрий Hennessy MD Attn: Accountin g,[address] [facility], [place], [address], [place] [facility] 3 13:56:50 Suicidal thoughts 4676248 Active Дмитрий Hennessy MD Attn: Accountin g,[address] [facility], [place], [address], [place] [facility] 3 13:56:50 Recurrent major depression 50310032 Active Дмитрий Hennessy MD Attn: Accountin g,[address] [facility], [place], [address] [place] [address], [place] [facility] 3 13:56:50 COVID-19 818968706 Active Дмитрий Hennessy MD Attn: Accountin g,[address] [facility], [place], [address], [place] [facility] 3 13:56:50 Schizoaffec tive disorder 58613490 Active Дмитрий Hennessy MD Attn: Accountin g,[address] [facility], [place], [address], [place] [facility] 3 13:56:50 Viral hepatitis C 67509933 Active Дмитрий Hennessy MD Attn: Accountin g,[address] [facility], [place], [address], [place] [facility] 3 13:56:50 Substance abuse 90852908 Active Дмитрий Hennessy MD Attn: Accountin g,[address] [facility], [place], [address], [place] [facility] 3 13:56:50 Atrial fibrillatio n 70106625 Active Дмитрий Hennessy MD Attn: Accountin g,[address] [facility], [place], [address], [place] [facility] 3 13:56:50 Major depressive disorder 267105144 Active Дмитрий Hennessy MD Attn: Accountin g,[address] [facility], [place], [address], [place] [facility] 3 13:56:50 Systolic heart failure 232595944 Active Дмитрий Hennessy MD Attn: Accountin g,[address] [facility], [place], [address], [place] [facility] 3 13:56:50 Chest pain 42220684 Active Дмитрий Hennessy MD Attn: Accountin g,[address] [facility], [place], [address], [place] [facility] 3 13:56:50 Cocaine adverse reaction 335680566 Active Дмитрий Hennessy MD Attn: Accountin g,[address] [facility], [place], [address], [place] [facility] 3 13:56:50 Generalized anxiety disorder 23077929 Active Дмитрий Hennessy MD Attn: Stephaniein g,[address] [facility], [place], [address], [place] [facility] 3 13:56:49 Schizoaffec tive disorder, bipolar type 06391210 Active Дмитрий Hennessy MD Attn: Accountin g,[address] [facility], [place], [address], [place] [facility] 3 13:56:50 Lesion of tongue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
--- OUTSIDE RECORDS SUMMARY | 2024-09-29 16:23 | XMS_ITS | Clinical Summary ---
Author Organization [facility] Address [address] [place] [address] Care Team Providers Care Cloud Security Architect Name Role Phone Дмитрий Hennessy MD Primary Care Provider Mireya Rubi NP Unavailable [phone] Vignesh Hoffmann MD Unavailable [phone] Allergies No known active allergies Medications [...] times a day with meals 180 tablet 09/03/19 026 Active rosuvastatin (CRESTOR) 20 mg tablet Take 1 tablet (20 mg total) by mouth nightly 90 tablet 3 09/03/19 25 026 Active omeprazole (PriLOSEC) 20 mg capsuleIndications :Treatment of Non-Bleeding Gastric Disorder Take 1 capsule (20 mg total) by mouth nightly 90 capsule 3 09/03/19 026 Active magnesium oxide (MAG-OX) 400 mg (241.3 mg elemental magnesium) tabletIndications: hypomagnesemia Take 1 tablet (400 mg total) by mouth daily 90 tablet 3 09/03/19 026 Active atorvastatin (LIPITOR) 40 mg tablet [...] total) by mouth nightly as needed 04/28/20 025 Discontin ued(Reord er) gemfibroziL (LOPID) 600 mg tabletIndications: hypertriglyceridem ia Take 1 tablet (600 mg total) by mouth 2 (two) times a day before breakfast and lunch 025 Discontin ued(Alter yogesh therapy) PreviDent 1.1 % gel Take 1 Application by mouth daily as needed 06/01/20 025 Discontin ued(Patie nt Reported) carvediloL (Coreg) 12.5 mg tablet Take 3.125 mg by mouth 2 (two) times a day with meals 09/12/19 025 Discontin ued(Reord er) sotagliflozin (Inpefa) 200 mg tablet 09/14/19 24 025 Discontin ued(Patie nt Reported) OLANZapine (ZyPREXA) 10 mg tablet TAKE 1 TABLET BY MOUTH ONCE A DAY AT BEDTIME 09/18/19 025 Discontin ued(Patie nt Reported) FeroSuL 325 mg (65 mg iron) tablet Take 1 tablet (325 mg total) by mouth 2 (two) times a day 10/24/19 24 025 Discontin ued(Thera py completed ) rosuvastatin (CRESTOR) 20 mg tablet 11/19/19 24 025 Discontin ued(Patie nt Reported) nicotine polacrilex (NICORETTE) 4 mg gum 11/14/19 025 Discontin ued(Patie nt Reported) nicotine (NICODERM [...] (12/27/2021): Added automatically from request for surgery [id number] Paresis of lower extremity 02/24/2021 Contact with and (suspected) exposure to other communicable diseases 12/08/2020 Encounter for health-related screening Prediabetes 11/04/2020 Psychostimulant dependence in remission 11/03/19 21 Obesity with body mass index 30 or greater 11/02 Primary osteoarthritis of left hip 10/28/2020 Overview (10/28/2020): Added automatically from request for surgery [id number] Renal cyst 10/09/2020 Fatty liver 10/09/2020 Hypotension [...] Overview (10/28/2020): Biotronik Lumax 340 Model # [id number] SER# [id number] implanted 08-12-[address] [place] [address] Abreu for dilated CM RV lead Biotronik Linox 65-18 SER# [id number] Supraventricular tachycardia 06/03/2009 Personal history of nicotine dependence 01/22/20 09 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 08/13/2008 Unspecified atrial fibrillation 05/18/2008 Cardiomyopathy 12/20/1993 Overview (10/28/2020): lowest 20 no cad or ai Resolved Problems Problem Noted Date Diagnosed Date Resolved Date Oral cancer 12/02/2021 12/13/2021 Overview (12/02/2021): Added automatically from request for surgery [id number] Encounters Date Type Department Care Team Description 09/19/2024 10:00 AM CDT Office Visit [facility] Orthopaedic Surgery [address] [place] [address] Medical Office Building [address] [place] [address] Lalit Orta MD Primary osteoarthritis of right hip (Primary Dx); Right hip pain; Orthopedic aftercare 09/19/2024 9:21 AM CDT - 09/19/2024 11:59 PM CDT Hospital Encounter [facility] [address] [facility] [address] [place] [address] Orthopedic aftercare; Right hip pain Discharge Disposition: Discharge to home or self care 09/03/2024 Orders Only [facility] Cardiology [address] [facility] 8th [place] [address] [place] [phone] Dev Cain MD ICD (implantable cardioverter-defibril lator) in place (Primary Dx) 09/02/2024 9:30 AM ENERGY CONSERVATION SPECIALIST Office Visit [facility] Cardiology [address] [place] [address] Clifford Montero MD [place] (ventricular tachycardia) (HCC) (Primary Dx) 09/02/2024 Telephone [facility] Cardiology [address] [facility] 8th [place] [address] [place] [phone] Brnado Gould New Patient from Last 3 Months Immunizations Immunization Administration Dates Next Due Influenza, Quadrivalent, Spl it, Intramuscular 04/20/2021,05/03/2020,04/01/2019 Influenza, Quadrivalent, Spl it, Preservative Free, Intramuscular 06/26/2023,04/03/2023,05/14/2022 Umer (J&J) SARS-CoV-2 Vaccination 09/07/2020 Tdap 04/03/2023,09/24/2019 ZOSTER Recombinant 04/03/2023 Surgical History Surgery Date Site/Laterality Comments INSERT / REPLACE AICD LEAD 07/02/2008 - 07/01/2009 Biotronik Lumax 340 VR-T with serial #[id number]. COLECTOMY 07/02/1990 - 07/01/1991 Colon resection for Crohn's TENDON REPAIR 07/02/1990 - 07/01/1991 Right hand SUBDURAL HEMATOMA EVACUATION VIA CRANIOTOMY 01/30/1990 - 03/01/1990 Evacuation of subdural hematoma FOOT SURGERY CARDIAC DEFIBRILLATOR PLACEMENT 07/02/2013 - 07/01/2014 Oris4 ICD E141 BIOPSY 10/30/2021 - 11/29/2021 Tongue APPENDECTOMY 07/02/1990 - 07/01/1991 Medical History Medical History Date Comments Obesity Tongue cancer (HCC) SCCA Tongue dxd 10/2021 Chewing tobacco use History of hepatitis C Dxd 2003- - Followed by [facility] hepatology History of methamphetamine use l ast smoked/snorted meth 04/2021 History of Crohn's disease Dxd 1 991 s/p colectomy-- pt denies any further flare ups Heart failure (HCC) s/p Biotroni k ICD 2008 and changed to Oris4 ICD 2013 Allergic rhinitis GERD (gastroesophageal reflux [...] on file Legal Sex Male 11:03 PM ENERGY CONSERVATION SPECIALIST Gender Identity Male 05/12/2022 9:05 AM ENERGY CONSERVATION SPECIALIST Sexual Orientation Straight 10/27/2020 7: 55 PM CDT Obstetrics History Last Filed Vital Signs Vital Sign Reading Time Taken Comments Blood Pressure 110/70 09/02/2024 9:31 AM ENERGY CONSERVATION SPECIALIST Pulse 72 09/02/2024 9:31 AM ENERGY CONSERVATION SPECIALIST Temperature 35.9 C (96.7 F) 09/10/2023 3:21 PM CDT Respiratory Rate 18 09/10/2023 3:21 PM CDT Oxygen Saturation 95% 09/02/2024 9:31 AM ENERGY CONSERVATION SPECIALIST Inhaled Oxygen Concentration - - Weight 93.9 kg (207 lb) 09/02/2024 9:31 AM ENERGY CONSERVATION SPECIALIST Height 175.3 cm (5' 9 ) 09/02/2024 9:31 AM ENERGY CONSERVATION SPECIALIST Body Mass Index 30.57 09/02/2024 9:31 AM ENERGY CONSERVATION SPECIALIST Plan of Treatment Upcoming Encounters Date Type Department Care Team (Latest Contact Info) Description 10/14/2024 8:00 AM CDT Hospital Encounter [facility] Operating Room [address] [place] [address] Lalit Orta MD [address] [place] [address] 10/14/2024 8:00 AM CDT - 10/14/2024 10:40 AM CDT Surgery [facility] Operating Room [address] [place] [address] Lalit Orta MD [address] [place] [address] ARTHROPLASTY TOTAL HIP Scheduled Procedures Name Priority Associated Diagnoses Date/Ti me ARTHROPLASTY TOTAL HIP Primary osteoarthritis of right hip 10/14/2024 8:00 AM CDT Health Maintenance Due Date Last Done Comments Albumin Creatinine Ratio, Urine 1971 Colon Cancer Screening-Colonoscopy 1971 Depression Screening 1971 Prostate Cancer Screening-PSA 1971 Dilated Eye Exam 1971 Foot Exam 1971 Lipid Panel 1971 Hepatitis B Screening 10/07/1989 Regular Well Visit/Exam 18-64 10/07/1989 Pneumococcal vaccine <65 (1 of 2 - PCV) 10/07/1990 Zoster Vaccine (2 of 2) 05/29/2023 04/03/2023 Hemoglobin A1C 02/04/2024 08/06/2023, 11/02/2020 Covid-19 Vaccine (4 - 2023-2 5 season) 2024 05/01/2021, 09/07/2020, 08/31/2020 eGFR 08/21/2024 08/21/2023, 10/2023, 12/23/2021 DTaP/Tdap/Td Vaccine (3 - Td or Tdap) 04/03/2033 04/03/2023, 09/24/2019 Hepatitis C Screening Completed 01/19/2020 Influenza Vaccine Completed 04/10/2024, , 04/03/2023, Additional history exists Medical Devices Implanted Type Area Cpht Device Identifier Shelf Expiration Date Model / Serial / Lot Icd Implanted:10/22 by Matthew Hoffmann MD (Quantity not on file) Pacemaker Heart [employer] [id number] / [id number] / [employer] Graft Tissue Accelular Matrix Dermis Regn Medium Alloderm Select 4x7cm [id number] [id number] - [id number] Implanted:Qty: 1 on 02/10/2022 by Roland Christensen MD PhD at [facility] Right: Neck [employer] 10/30/2023 [id number] / / [id number] [employer] Cup 55mm Acetabular Bi Mentum Femoral Proximal Press Fit [id number] - [id number] Implanted:Qty: 1 on 08/21/2023 by Lalit Orta MD at [facility] Left: Hip [employer] 08/29/2024 [id number] / / [id number] [employer] Liner Acet Hip Size 28 Poly Bi Mentum Altrx 55mm [id number] - [id number] Implanted:Qty: 1 on 08/21/2023 by Lalit Orta MD at [facility] Left: Hip [employer] [id number] 09/29/2026 [id number] / / [id number] [employer] Actis Collar Hip 4 High Offset Stem Femoral [id number] - [id number] Implanted:Qty: 1 on 08/21/2023 by Lalit Orta MD at [facility] Left: Hip [employer] [id number] 03/31/2033 [id number] / / [id number] [employer] Articul/Cameron 28mm Cementless Hip +8.5mm /14 Taper Head Femoral Latex Free [id number] - [id number] Implanted:Qty: 1 on 08/21/2023 by Lailt Orta MD at [facility] Left: Hip [employer] [id number] 01/30/2028 [id number] / / [id number] Procedures Procedure Name Priority Date/Time Associated Diagnosis Comments XR HIPS BILATERAL W PELVIS 5 OR MORE VIEWS Schedule Routine, Read Routine (OP Routine) 09/19/2024 10:03 AM CDT Right hip pain XR SCOLIOSIS AP LAT Schedule Routine, Read Routine (OP Routine) 09/19/2024 10:03 AM CDT Right hip pain ELECTROCARDIOGRAM REPORT Routine 025 2:36 PM ENERGY CONSERVATION SPECIALIST [place] (ventricular tachycardia) (HCC) EGFR Timed 08/21/2023 2:42 PM ENERGY CONSERVATION SPECIALIST POCT HEMOGLOBIN A1C Routine 08/06/2023 2 :12 PM ENERGY CONSERVATION SPECIALIST from Last 3 Months or Most Recently [...] Result * Electrocardiogram Report (09/02/2024 2:36 PM ENERGY CONSERVATION SPECIALIST) Clifford Montero MD ECG ORDERABLES Final Result * eGFR (08/21/2023 2:42 PM ENERGY CONSERVATION SPECIALIST) eGFR 77 >=60 mL/min/1. 73 m2 [facility] Comment: Interpretive Data Reference Interval Normal >/= [...] of Race in Diagnosing Kidney Disease, JASN 202). The CKD-EPI equation should not be used for patients with unstable renal function and has not been validated in children and those over 70. Current interpretive data was last reviewed 2021. Blood 08/21/2023 2:42 PM ENERGY CONSERVATION SPECIALIST 08/21/2023 2:59 PM ENERGY CONSERVATION SPECIALIST Garfield Bowman MD LAB BLOOD ORDERABLES Erika l Result Performing Organization Address City/State/[facility] de Phone Number [facility] Department [place] [address] * (ABNORMAL) POCT hemoglobin A1c (08/06/2023 2:12 PM ENERGY CONSERVATION SPECIALIST) Hgb A1C, POC 5.9(H) 4.0 - 5.6 % [facility] Est Average Gluc POC 123 mg/dL [facility] Comment: The ADA recommends reporting an estimated Average Glucose (eAG) with all Hemoglobin A1c results using the equation derived from a study of 507 normal and diabetic adults. Minority populations were underrepresented and children were not included. (Diabetes Care 31:5076-2000, 2008). The eAG is not equivalent to a fasting glucose. Blood 08/06/2023 2:12 PM ENERGY CONSERVATION SPECIALIST 08/06/2023 2:12 PM ENERGY CONSERVATION SPECIALIST Lalit Orta MD POINT OF CARE TEST ORDERABLES Fi nal Result Performing Organization Address [facility] de Phone Number [facility] [place] [address] from Last 3 Months or Most Recently Relevant to Health [place] [address] [facility] UHC CHOICE PLUS [facility] Advance Directives For more information, please contact: [phone] Documents on File Type Date Recorded Patient Implementation Director Expl anation ADVANCE DIRECTIVE 02/10/2022 1:24 PM Power of Chargeback Analyst-Medical ADVANCE DIRECTIVE 11/05/2020 10:02 AM Power of Chargeback Analyst-Medical * Full Code (Latest Code Status on File) Date Activated Date Inactivated Comments 08/21/2023 11:18 AM 08/22/2023 6:04 PM * Full Code Date Activated Date Inactivated Comments 02/10/2022 5:21 PM 02/11/2022 7:46 PM Care Teams Cloud Security Architect Relationship Specialty Start Date End Date Дмитрий Hennessy MD [address] [address] PCP - General Internal Medicine 08/11/20 Mireya Rubi NP [address] [facility] [address] [place] [address] Nurse Practitioner Nurse Practitioner 03/15/22 Vignesh Hoffmann MD [address] [facility] [address] [place] [address] Radiation Oncologist Radiation Oncology 03/30/22
--- OUTSIDE RECORDS SUMMARY | 2024-09-29 16:23 | XMS_ITS | Clinical Summary ---
Author Organization [facility] Address [address] [place] [address] Care Team Providers Care Supply Tech Name Role Phone Дмитрий Hennessy MD Primary Care Provider Stefano Sheikh MD Unavailable [phone] Source Comments [facility],non-owned Affiliates and Associated Physician Practices is amultiple site organization consisting of ambulatory clinics and hospital sitesin [place], [place], [place] and [place]. This disclosure is being madepursuant to the Care Everywhere program and may not contain all information available regarding this patient. Last updated 18.[facility] Allergies No known active allergies Medications * [...] (one) capsule by mouth once daily Active glecaprevir-pibrenta svir (Mavyret) 100-40 MG tablet Take 3 (three) [...] into muscle every 30 days 06/20/2024 Active Active Problems Problem Noted Date Diagnosed Date Stage 2 chronic kidney disease 05/08/2024 Cellulitis of left lower limb 01/18/2024 Cellulitis of right lower limb 01/18/2024 Clostridioides difficile infection 01/18/2024 Colitis 01/18/2024 Edema 01/18/2024 History of total left [...] (07/18/2024): Added automatically from request for surgery [id number] Paresis of lower extremity 02/24/2021 Exposure to SARS-associated coronavirus 12/09/19 21 Prediabetes 11/04/2020 Encounter for health-related screening Overview (07/18/2024): did not want breann socre, eng psa Psychostimulant dependence in remission 11/03/19 Primary osteoarthritis of left hip 10/28/2020 Overview (03/03/2021): Added automatically from request for surgery [id number] Fatty liver 10/09/2020 Renal cyst 10/09/2020 Hypotension [...] Overview (03/03/2021): Biotronik Lumax 340 Model # [id number] SER# [id number] implanted 08-12-08 in [place] per Dr. Abreu for dilated CM RV lead Biotronik Linox 65-18 SER# [id number] Biotronik Lumax 340 Model # [id number] SER# [id number] implanted 08-12-08 in [place] per Dr. Abreu for dilated CM RV lead Biotronik Linox 65-18 SER# [id number] Supraventricular tachycardia 05/18/2008 Other primary cardiomyopathies 12/20/1993 Overview (03/03/2021): lowest 20 no cad or ai lowest 20 no cad or ai Resolved Problems Problem Noted Date Diagnosed Date Resolved Date Dehydration 01/18/2024 08/01/2024 Diarrhea 01/18/2024 08/15/2024 Acute upper respiratory infection 09/18/2023 08/01/2024 Encounters Date Type Department Care Team Description 07/21/2024 Telephone [facility] [address] [place] [address] Pam Rain APRN-CNP Results 07/18/2024 2:00 PM MARKETING ANALYTICS SPECIALIST Office Visit [facility] - [facility] [address] [place] [address] Pam Rain APRN-SELLING UNDERWRITER Chronic hepatitis C without hepatic coma (Primary Dx) 07/18/2024 Travel 07/07/[address] [facility] - [address] [place] [address] Pam Rain, DEVULCANIZER OPERATOR-SELLING UNDERWRITER Chronic hepatitis C without hepatic coma from Last 3 Months Family History Medical [...] Sex Assigned at Male 06/27/2021 3:16 PM MARKETING ANALYTICS SPECIALIST Gender Identity Male 06/27/2021 3:16 PM MARKETING ANALYTICS SPECIALIST Sexual Orientation Not on file Last Filed Vital Signs Vital Sign Reading Time Taken Comments Blood Pressure 112/73 07/18/2024 2:34 PM MARKETING ANALYTICS SPECIALIST Pulse 99 07/18/2024 2:34 PM MARKETING ANALYTICS SPECIALIST Temperature 36.7 C (98 F) 07/18/2024 2:34 PM MARKETING ANALYTICS SPECIALIST Respiratory Rate - - Oxygen Saturation 96% 07/18/2024 2:34 PM MARKETING ANALYTICS SPECIALIST Inhaled Oxygen Concentration - - Weight 92.8 kg (204 lb 9.6 oz) 07/18/2024 2:34 P M MARKETING ANALYTICS SPECIALIST Height 175.3 cm (5' 9 ) 07/18/2024 2:34 PM MARKETING ANALYTICS SPECIALIST Body Mass Index 30.21 07/18/2024 2:34 PM MARKETING ANALYTICS SPECIALIST Plan of Treatment Health Maintenance Due Date Last Done Comments COLON MONITORING 1971 COLONOSCOPY - COLON CA SCREENING 1971 CT COLONOGRAPHY - COLON CA SCREENING 1971 FIT - COLON CA SCREENING 1971 FLEX SIG - COLON CA SCREENING 1971 DTAP/TDAP/TD VACCINES (1 - Tdap) 10/07/1990 HEPATITIS B VACCINE (1 of 3 - 19+ 3-dose series) 10/07/1990 PNEUMOCOCCAL VACCINE 50+ (1 of 2 - PCV) 10/07/1990 DIABETES-STATIN 2011 ZOSTER VACCINE (1 of 2) 10/07/2021 COVID-19 VACCINE (2 - 2023- season) 2024 09/07/2020 INFLUENZA VACCINE (#1) 2024 , 04/03/2023, 05/14/2022, Additional history exists DIABETES - URINE PROTEIN SCREENING 07/02/2024 DIABETES RETINOPATHY SCREENING 07/18/2024 DIABETES-FOOT EXAM WITH MONOFILAMENT 07/18/2024 DIABETES-HGB A1C 07/18/2024 08/06/2023 DIABETES-SERUM CREATININE 07/17/20252024, 07/17/2024, 05/13/2024, Additional history exists COLOGUARD (AGES 45-75) - COLON CA SCREENING 09/01/2026 09/02/2023 Colorectal Cancer Screening 09/01/2026 HIV SCREENING Completed 03/03/2021 HEPATITIS C SCREENING Completed 07/18/2024 , 07/17/2024, 07/17/2024, Additional history exists HIB VACCINE Aged Out No longer eligi ble based on patient's age to complete this topic HPV VACCINE Aged Out No longer eligi ble based on patient's age to complete this topic MENINGOCOCCAL (Group B) VACCINE SHARED DECISION-MAKING Aged Out No longer eligible based on patient's age to complete this topic MENINGOCOCCAL GROUPS A/C/Y/W VACCINE Aged Out No longer eligible based on patient's age to complete this topic Goals Goal Patient Goal Type Associated Problems Recent Progress Patient-Stated? Author Medication Management General On track( 025 3:15 PM MARKETING ANALYTICS SPECIALIST) Jessica Young, RN Note: Expected end date: ongoing Interventions: Take all medications as prescribed Procedures Procedure Name Priority Date/Time Associated Diagnosis Comments HEPATITIS C RNA QUANTITATIVE Routine 07/17/2024 1:44 PM MARKETING ANALYTICS SPECIALIST Chronic hepatitis C without hepatic coma COMPREHENSIVE METABOLIC PANEL Routine 07/17/2024 1:44 PM MARKETING ANALYTICS SPECIALIST Chronic hepatitis C without hepatic coma CBC W AUTO DIFFERENTIAL Routine 07/17/2024 1:44 PM MARKETING ANALYTICS SPECIALIST Chronic hepatitis C without hepatic coma HEPATITIS C RNA QUANTITATIVE Routine 07/17/2024 1:44 PM MARKETING ANALYTICS SPECIALIST Chronic hepatitis C without hepatic coma COMPREHENSIVE METABOLIC PANEL Routine 07/17/2024 1:44 PM MARKETING ANALYTICS SPECIALIST Chronic hepatitis C without hepatic coma CBC W AUTO DIFFERENTIAL Routine 07/17/2024 1:44 PM MARKETING ANALYTICS SPECIALIST Chronic hepatitis C without hepatic coma HIV-1 HIV-2 ANTIBODY + HIV P24 AG PANEL Routine 03/03/2021 1:12 PM CDT Chronic hepatitis C without hepatic coma from Last 3 Months or Most Recently Relevant to Health Maintenance Results * HEPATITIS C RNA QUANTITATIVE (07/17/2024 1:44 PM MARKETING ANALYTICS SPECIALIST) [facility] Hepatitis C Virus RNA, Quantitative Real Time PCR <15 NOT DETECTED NOT DETECTED IU/mL [facility] Hepatitis C Virus RNA, Quantitative Real Time PCR <1.18 NOT DETECTED NOT DETECTED Log IU/mL [facility] Comment: For additional information, please refer to http://education.[employer]/faq/PIM75n6 (This link is being provided for informational/ educational purposes only.) Test Performed at: [facility] [address] [place] [address] TARIK NICHOLSON MD Blood BLOOD SPECIMEN / Unknown 07/17/2024 1:44 PM MARKETING ANALYTICS SPECIALIST 07/17/2024 1:44 PM MARKETING ANALYTICS SPECIALIST Pam Rain DEVULCANIZER OPERATOR-SELLING UNDERWRITER LAB - CHEMIS TRY ORDERABLES Performing Organization Address City/State/[facility] Co de Phone Number [facility] [address] [place] [address] * (ABNORMAL) CBC WITH DIFFERENTIAL (07/17/2024 1:44 PM MARKETING ANALYTICS SPECIALIST) Only the most recent of2 resultswithin the time period is included. [facility] White Blood Cell Count 8.0 3.8 [...] 0.5 % [facility] Comment: Test Performed at: [facility] [address] [facility] [place] [address] TARIK NICHOLSON MD Blood BLOOD SPECIMEN / Unknown 07/17/2024 1:44 PM MARKETING ANALYTICS SPECIALIST 07/17/2024 1:44 PM MARKETING ANALYTICS SPECIALIST Pam Rain DEVULCANIZER OPERATOR-SELLING UNDERWRITER LAB - HEMATO LOGY ORDERABLES [facility] [address] [place] [address] * (ABNORMAL) COMPREHENSIVE METABOLIC PANEL (07/17/2024 1:44 PM MARKETING ANALYTICS SPECIALIST) Only the most recent of2 resultswithin the time period is included. Glucose [...] 46 U/L [facility] Comment: Test Performed at: [facility] [employer] [facility] [facility] [address] [facility] [place] [address] TARIK NICHOLSON MD Blood BLOOD SPECIMEN / Unknown 07/17/2024 1:44 PM MARKETING ANALYTICS SPECIALIST 07/17/2024 1:44 PM MARKETING ANALYTICS SPECIALIST Pam Rain DEVULCANIZER OPERATOR-SELLING UNDERWRITER LAB - CHEMIS TRY ORDERABLES Performing Organization Address City/[facility]/ZIP Co de Phone Number [facility] [address] [place] [address] * HIV-1 HIV-2 ANTIBODY + HIV P24 AG PANEL (03/03/2021 1:12 PM CDT) HIV Antigen/Antibod y 1 & 2 Non-reacti ve Non-react paris 03/03/2021 5:02 PM CDT [facility] Comment:Neither HIV-1 p24 An tigen nor HIV-1/HIV-2 Antibodies are detected. Blood BLOOD SPECIMEN / Unknown Lab Venipuncture / Unknown 03/03/2021 1:12 PM CDT 03/03/2021 1:39 PM CDT Pam Rain DEVULCANIZER OPERATOR-SELLING UNDERWRITER LAB - CHEMIS TRY ORDERABLES Performing Organization Address City/[facility]/ZIP Co de Phone Number [facility] [address] [place] [address], [facility] [phone] from Last 3 Months or Most Recently Relevant to Health Maintenance Care Teams Supply Tech Relationship Specialty Start Date End Date Дмитрий Hennessy MD [address] [place], [place] [id number] PCP - General 03/03/21 Stefano Sheikh MD [address] [address] [facility] 05/13/24
[2024-09-29] MEDS: HYDROmorphone HCL INJ (*CRX) 1 MG/ML SYR IV PUSH (17:22)
[2024-09-29] MEDS: ONDANSETRON INJ 4 MG/2 ML VIAL IV PUSH (17:22)
[2024-09-29 17:24] LABS: Influenza A QL RT-PCR Negative (Negative); Influenza B QL RT-PCR Negative (Negative); SARS-CoV-2 RNA PCR Negative (Negative)
[2024-09-29 17:25] LABS: Lactic Acid Reflex 1.6 mmol/L (0.7-2.0)
[2024-09-29 17:30] LABS: Magnesium 1.9 mg/dL (1.6-2.3); Phosphorus 3.2 mg/dL (2.5-4.5)
[2024-09-29 17:31] VITALS: BP 125/86; PULSE 87; RESP 20; O2SAT 96
--- OUTSIDE RECORDS SUMMARY | 2024-09-29 17:36 | XMS_ITS | Encounter Summary ---
Author Organization [facility] Address [address] [place] [address] Phone Care Team Providers Care Log Roller Name Role Phone Дмитирй Hennessy MD Primary Care Provider Mireya Rubi NURSE'S AIDES TEACHER Unavailable [phone] Vignesh Hoffmann MD Unavailable [phone] Reason for Visit * Reason Onset Date Comments New Patient 09/02/2024 Encounter Details Date Type Department Care Team (Late st Contact Info) Description 09/02/2024 Telephone 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 Have you ever seen a Waste Duster in an office setting? [x] [] ANNA [...] where and when was device put in? 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 ([employer], [employer], [facility]) 2013, [employer] Acquisition Appointment Date: Provider: Location: [] Confirm appt date, time, provider and location. [] Advise pt to arrive 15-20 min early. [] Advise patient to bring medications/list, photo ID and insurance card [] Advise of New Patient Packet being mailed to them. NG COILING MACHINE SETTER documented in this encounter Plan of Treatment Upcoming Encounters Date Type Department Care Team (Latest Contact Info) Description 10/14/2024 8:00 AM CDT Hospital Encounter [facility] Operating Room [address] [place] [address] Lalit Orta MD [address] [facility] [place] [address] 10/14/2024 8:00 AM CDT - 10/14/2024 10:40 AM CDT Surgery [facility] Operating Room [address] [place] [address] Lalit Orta MD [address] [facility] [place] [address] ARTHROPLASTY TOTAL HIP Scheduled Procedures Name Priority Associated Diagnoses Date/Ti me ARTHROPLASTY TOTAL HIP Primary osteoarthritis of right hip 10/14/2024 8:00 AM CDT documented as of this encounter Visit Diagnoses Not on filedocumented in this encounter Care Teams Log Roller Relationship Specialty Start Date [place] [address] [place] [id number] PCP - General Internal Medicine 08/11/20 Mireya Rubi NP [address] [place] [address] Nurse Practitioner Nurse Practitioner 03/15/22 Vignesh Hoffmann MD [address] [place] [address] Radiation Oncologist Radiation Oncology 03/30/22 documented as of this encounter
--- OUTSIDE RECORDS SUMMARY | 2024-09-29 17:36 | XMS_ITS | CONTINUITY OF CARE DOCUMENT ---
Author Name amanda amarissharif Address Unknown Organization [facility] Address [address] [address] [place] [address] Phone [phone] Care Team Providers Care Pipeline Executive Name Role Phone Aguilar OWENS, Stefano Unavailable GILBERTO GEORGE MD Unavailable GILBERTO GEORGE MD Unavailable [phone] PROBLEMS Condition Status Date Provider Notes Lacunar [...] Sheikh MD Tongue cancer active Shiela Parada PILOT [employer] DECKHAND 2021 covid 19;22 after vaccine active Stefano swenson MD Pulmonary nodules active Stefano Sheikh MD Pre op cardiovascular exam completed 12/14 - Stefano Sheikh MD Arthritis of hip active Stefano Sheikh MD Depression, chronic active Stefano Sheikh MD S/P ICD Gen change Pin digital 10/22/13 ( NOT MRI SAFE/ Biotronik Lead) active Stefano Sheikh MD Erectile dysfunction active Shiela Parada NP Renal disease, chronic, mild completed 10/10/06 - Stefano Sheikh MD Sinus tachycardia completed - Stefano Sheikh MD Ventricular tachycardia, unspecified active Stefano Sheikh MD ENCOUNTERS Date Type Provider Location Encounter Diag nosis - In-person encounter Office Visit Stefano Sheikh MD [place] [facility] Hepatitis COverweightScreeningS/P ICD Gen change Pin digital 10/22/13 ( NOT MRI SAFE/ Biotronik Lead)Renal disease, chronic, mildSinus tachycardiaVentricular tachycardia, unspecified - In-person encounter Office Visit Coral Fernando MD [place] [facility] - In-person encounter Office Visit Coral Fernando MD [place] [facility] - In-person encounter Office Visit Stefano Sheikh MD [place] [facility] - In-person encounter Office Visit Stefano Sheikh MD [place] [facility] Diastolic CHF;did not want rpm - In-person encounter Office Visit Stefano Sheikh MD [place] [facility] Erectile dysfunction - In-person encounter Office Visit Stefano Shiekh MD [place] [facility] ScreeningExposure to SARS-associated coronavirus;had vaccine and neg swabcovid 19;22 after vaccine - In-person encounter Office Visit Stefano Sheikh MD [place] [facility] Hyperlipidemia;with high crp and low lpaVentricular tachycardiaPre op cardiovascular examArthritis of hipDepression, chronic - In-person encounter Office Visit Stefano Sheikh MD [place] [facility] Tongue cancer - In-person encounter Office Visit Stefano Sheikh MD [place] [facility] Diastolic CHF;did not want rpmHyperlipidemia;with high crp and low lpa - In-person encounter Office Visit Stefano Sheikh MD [facility] Diastolic CHF;did not want rpmScreening - In-person encounter Office Visit Stefano Sheikh MD [place] [facility] CARDIOMYOPATHYOverweightCOPDExposure to SARS-associated coronavirus;had vaccine and neg swabcovid 19;22 after vaccinePulmonary nodules - In-person encounter Office Visit Stefano Sheikh MD [place] [facility] Methamphetamine abuseRBBB - In-person encounter Office Visit Stefano Sheikh MD [facility] Office - In-person encounter Office Visit Stefano Sheikh MD [place] [facility] - In-person encounter Office Visit Stefano Sheikh MD [facility] - In-person encounter Office Visit Stefano Sheikh MD [place] [facility] - In-person encounter Office Visit Stefano Sheikh MD [place] [facility] Hepatitis CHypotensionExposure to SARS-associated coronavirus;had vaccine and neg swab - In-person encounter Office Visit Stefano Sheikh MD [place] [facility] - In-person encounter Office Visit Juancarlos Mcduffie MD [place] [facility] - In-person encounter Office Visit Stefano Sheikh MD [place] [facility] Hyperlipidemia;with high crp and low lpaPreop examMitral insufficiency, mildAbnormal liver function testsDyspnea on exertionCOPD - In-person encounter Office Visit Coral Fernando MD [place] [facility] - In-person encounter Office Visit Stefano Sheikh MD [place] [facility] HTNHyperlipidemia;with high crp and low lpaShortness of breathAnemia, iron deficiencyOverweight - In-person encounter Office Visit Coral Fernando MD [place] [facility] Tobacco use chewing. Stopped smoking. - In-person encounter Office Visit Misael Sanford MD [place] [facility] Chest pain - In-person encounter Office Visit Misael Sanford MD [place] [facility] Hepatitis C - In-person encounter Office Visit Misael Sanford MD [place] [facility] Hypertriglyceridemia - In-person encounter Office Visit Misael Sanford MD [place] [facility] - In-person encounter Office Visit Misael Sanford MD [place] [facility] CARDIOMYOPATHYTobacco use chewing. Stopped smoking.CAD;NEG ANGIO 07Diastolic CHF;did not want rpm - In-person encounter Office Visit Stefano Sheikh MD [place] [facility] HTNTobacco use chewing. Stopped smoking.SVT;DURING A BRAWL 05/10 - In-person encounter Office Visit Stefano Sheikh MD [place] [facility] ATRIAL FIB PAROXSMAL:AFRAID OF COUMIDIN, NML [id number];DURING A BRAWL 05/10 - In-person encounter Office Visit Stefano Sheikh MD [place] [facility] ATRIAL FIB PAROXSMAL:AFRAID OF COUMIDIN, NML [id number] VALVE PROLAPSETobacco use chewing. Stopped smoking. - In-person encounter Office Visit Stefano Sheikh MD [place] [facility] CARDIOMYOPATHY-10/06 ECHO SEV DECREASE GLOBAL LVFCARDIOMYOPATHY - In-person encounter Office Visit Stefano Sheikh MD [place] [facility] ATRIAL FIB PAROXSMAL:AFRAID OF COUMIDIN, NML T7 VITAL SIGNS Date Observation Value Provider Body Mass Index (Ratio) 29.55 kg/m2 Juan Daniel Sheikh MD blood pressure, diastolic 87 mm[Hg] Lynn Damon blood pressure, systolic 118 mm[Hg] Nazia Damon oxygen saturation, oximetry 96 % Genesis Damon pulse rate 88 /min Genesis Damon respiratory rate E&M 12 /min Genesis Damon weight E&M 206 [lb_av] [facility] E&M 70 [in_i] [facility] blood pressure, cuff size regular Lynn narayan [...] Garza blood pressure, diastolic 81 mm[Hg] [facility], systolic 107 mm[Hg] Nohemi [facility], oximetry 95 % [facility]la [facility] pulse rate 100 /min [facility] weight E&M 196 [lb_av] Mikayla [facility] height E&M 70 [in_i] Mikayla [facility] Body Mass Index (Ratio) 28.64 kg/m2 Juan Daniel Sheikh MD blood pressure, cuff size regular [facility], diastolic 84 mm[Hg] Ta [facility] blood pressure, systolic 116 mm[Hg] Tab brennona [facility] oxygen saturation, oximetry 96 % Reena [facility] pulse rate 85 /min Reena [facility] weight E&M 199.6 [lb_av] Reena [facility] respiratory rate E&M 12 /min Reena [facility] height E&M 70 [in_i] Reena [facility] blood pressure, diastolic 64 mm[Hg] nkLog blood pressure, systolic 94 mm[Hg] Lenore kLog pulse rate 130 /min [facility] blood pressure, cuff size regular [facility] blood pressure, diastolic 64 mm[Hg] [facility] blood pressure, systolic 94 mm[Hg] [facility] oxygen saturation, oximetry 97 % [facility] respiratory rate E&M 14 /min Maty connorr Body Mass Index (Ratio) 27.26 kg/m2 [facility] weight in kilograms E&M 86.18 kg [facility] weight E&M 190 [lb_av] Maty [facility] height E&M 70 [in_i] Maty [facility] height in centimeters E&M 177.80 cm Harley [...] [place] oxygen saturation, oximetry 95 % Elba [place] respiratory rate E&M 16 /min Catheri ne [place] pulse rate 85 /min Elba [place] weight E&M 205 [lb_av] Elba [place] blood pressure, cuff size regular Ca therine [place] height E&M 70 [in_i] Elba [place] [...] blood pressure, cuff size regular Pa ris Byron blood pressure, diastolic 87 mm[Hg] Pa ris [...] ruenenfelder pulse rate 114 /min Katy [facility] weight E&M 225 [lb_av] Katy [facility] height E&M 70 [in_i] Katy [facility] Body Mass Index (Ratio) 31.99 kg/m2 Taraleigh anna marie Hoffmann blood pressure, cuff size large Ke rri Gruenenfelder blood pressure, diastolic 80 mm[Hg] Ke rri [place]der blood pressure, systolic 102 mm[Hg] Ker ri [place] oxygen saturation, oximetry 97 % Katy Grueneyolandaelder respiratory rate E&M 16 /min Katy G ruenenfelder pulse rate 94 /min Katy Grrolannenfe [facility] weight E&M 223 [lb_av] Katy Gruenenfe [facility] height E&M 70 [in_i] Katy Gruenenfe [facility] Body Mass Index (Ratio) 31.42 kg/m2 Leoncio [...] Mass Index (Ratio) 30.56 kg/m2 Leoncio grullon [facility] blood pressure, diastolic, left arm 81 [...] pressure, diastolic, left arm 86 mm [Hg] [facility] blood pressure, systolic, left arm 130 mm [Hg] [facility] blood pressure, diastolic, right arm 89 m m[Hg] [facility] blood pressure, systolic, right arm 117 m m[Hg] [facility] blood pressure, diastolic 86 mm[Hg] To [facility] blood pressure, systolic 130 mm[Hg] [facility] oxygen saturation, oximetry 97 % [facility] respiratory rate E&M 18 /min [facility] pulse rate 76 /min [facility] weight E&M 25.38 [lb_av] [facility] blood pressure, resting Yes [facility] height E&M 70 [in_i] [facility] blood pressure, diastolic 64 mm[Hg] Tawnya Martinezshaun [...] blood pressure, systolic 102 mm[Hg] Masoud samaniego [facility] pulse rate 60 /min [facility] oxygen saturation, oximetry 96 % [facility] respiratory rate E&M 16 /min [facility] weight E&M 183 [lb_av] [facility] ALLERGIES No Known Drug Allergies RESULTS [...] 0-149 High cholesterol, serum 158 mg/dL [facility] [phone]/01/ 30 platelet count 329 X10E3/UL [facility] [phone]/01/ 30 red blood cell distribution width 12.2 [...] [facility] 3.5-5.2 sodium, serum 142 mmol/L [facility] [phone]/01/ 30 urea nitrogen/creatinine ratio, serum 9 [facility] 9-20 eGFR if 62 mL/min/{1 .73_m2} [facility] >59 eGFR if not 54 mL/min/{1 .73_m2} [facility] >59 Low creatinine, serum 1.51 mg/dL [facility] 0.76-1.27 High urea nitrogen, blood 14 mg/dL [facility] 6-24 blood glucose, random 57 mg/dL [facility] 65-99 Low ferritin, serum 612 ng/mL [facility] 30-400 High pro brain natriuretic peptide 187 pg/mL [facility] 0-121 High iron saturation percent, serum 43 % [facility] 15-55 iron, serum 191 ug/dL [facility] 38-169 High iron binding capacity, unsaturated 250 ug/dL [facility] 516-213 5137/07/ 25 iron binding capacity, total 441 ug/dL [facility] 692-230 0807/06/ 16 LDL cholesterol, serum 75 mg/dL [facility] LDL cholesterol, serum 94 mg/dL [facility] lipoprotein, beta, serum, point, quantitative, calculated 94 mg/dL [facility] 0-99 very low density lipoproteins 52 mg/dL [facility] 5-40 High HDL cholesterol, serum 35 mg/dL [facility] >39 Low triglyceride, serum, random 258 mg/dL [facility] 0-149 High cholesterol, serum 181 mg/dL [facility] [phone]/02/ 29 LDL cholesterol, serum 103 mg/dL [facility] pro brain natriuretic peptide 104 pg/mL [facility] 0-121 digoxin level, serum 1.7 ng/mL [facility] 0.5-0.9 High lipoprotein, beta, serum, point, quantitative, calculated 103 mg/dL [facility] 0-99 High very low density lipoproteins 28 mg/dL [facility] 5-40 HDL cholesterol, serum 32 mg/dL [facility] >39 Low triglyceride, serum, random 138 mg/dL [facility] 0-149 cholesterol, serum 163 mg/dL [facility] [phone]/02/ 29 basophil count, absolute 0.0 x10E3/uL [facility] [...] Not Estab. platelet count 312 X10E3/UL [facility] 536-214 0404/02/ 29 red blood cell distribution width 12.6 [...] olanzapine 15 mg tablet active Mela Ventimiglia ECOTHERAPIST chlorpromazine 50 mg tablet active take one [...] by mouth once daily - Mela Shaikh ECOTHERAPIST Lopid 600 mg tablet completed 1 tablet [...] ation, patient education and counseling yes Tanner Gazra RN chewing tobacco use Current Tanner aranda RN smoking status Former smoker Tanner Johnson N personal history of marijuana use no Mela Ventimiglia [facility] drug use no Mela Ventimig adams [employer]OTHER[employer] alcohol use no Mela Ventimig adams [employer]OTHER[employer] smoking/tobacco cess ation, patient education and counseling yes Mela Ventimiglia [facility] chewing tobacco use Current Mela avelargljose [facility] smoking status Former smoker Mela mckenzie [facility] personal history of marijuana use no Shiela Henrykings [employer] drug use no [facility] alcohol use no [facility] smoking/tobacco cess ation, patient education and counseling yes [facility] chewing tobacco use Current [facility] smoking status Former smoker [facility] drug use yes Stefano Monae alcohol [...] Juancarlos Mcduffie MD drug use yes Juancarlos Mcudffie MD social history E&M Marital Statu s: [...] use, averag e drinks per day yes [facility] alcohol use, average drinks per day social basis only [facility] number of years as a smoker 10 years or m ore [facility] smoking status Quit [facility] MENTAL STATUS Date Observation Value Provider assessment [...] Payer name Policy type / Coverage type [place] red libertarian [employer] MEDICA[employer] Medicaid [id number] ADVANCE DIRECTIVES Name Date DISCUSSED - NO DECISION MADE TREATMENT PLAN Date Name Performer [id number],C,elevated lft Stefano Sheikh MD [id number],C,5.8 Stefano aguirre MD [id number],B, h ad surgery and rad rx Stefano Sheikh MD [id number],C,stable Stefano Sheikh MD [id number],S, p ro 103, ef 55% Stefano Sheikh MD [id number],S, L ast A1c 5.9. Will recheck A1c. Stefano Sheikh MD [id number],B, Stefano duncan MD [id number],S, Stefanoriley Olivares dakota OWENS [id number],B, Stefanoriley Olivares dakota OWENS [id number],S, e fgr 84 n eg carotid n eg b 12 n eg rpr, nml d n eg vd n ormal coronaries cath 2008 Stefano Sheikh MD [id number],S, Stefano duncan MD [id number],S, Stefano Marshall duncan MD [id number],S, N ormal functioning v vi 40 Stefano Sheikh MD [id number],SJuan Danieley Marshall duncan MD [id number],C,P atient is set to get L hip replacement. He is cleared for [facility] surgery. Phunatasha Tal SILVA [id number],C,P atient states strugglin to quit tobacco chewing [...] the past 15 years. Shiela Parada NP [id number],C,S sanam for low dose CT lung this weeekend at [place]. Shiela Parada NP [id number],C, L ast A1c 5.9. Will recheck A1c. Shiela Parada NP [id number],C, H is updated medication list for this problem includes: Rosuvastatin 20 Mg Tablet (Rosuvastatin) ..... Take 1 tablet by mouth every day Shiela Parada NP [id number],C, H is updated medication list for this problem includes: Digoxin 125 Mcg (0.125 Mg) Tablet (Digoxin) ..... Take 1 tablet by mouth every day Carvedilol 25 Mg Tablet (Carvedilol) ..... Take 1 tablet by mouth at bedtime Shiela Parada RICARDO [id number],C,Normal functi oning Shiela Parada RICARDO [id number],C, p ro 103, ef 55% H ad repeat echo today. Will follow up on results. H is updated medication list for this problem includes: Carvedilol 25 Mg Tablet (Carvedilol) ..... Take 1 tablet by mouth at bedtime Digoxin 125 Mcg (0.125 Mg) Tablet (Digoxin) ..... Take 1 tablet by mouth every day Shiela Henrykings SILVA [id number],S, Stefano duncan MD [id number],S, Stefano duncan MD [id number],S, T he patient is between 55-77 years [...] undergo diagnosis and treatment. Stefano Sheikh MD [id number],S, h ad surgery and rad rx Stefano Sheikh MD [id number],S, Stefano duncan MD [id number],S, 5 .9 Stefano Sheikh MD [id number],B, Stefano duncan MD [id number],S, H is updated medication list for this problem includes: Simvastatin 40 Mg Tablet (Simvastatin) C HOL: 216 (01/14/2021) HDL: 36 (01/14/2021) Stefano Sheikh MD [id number],S, p ro 103, ef 55% Stefano Sheikh MD [id number],S,e fgr 84 n eg carotid n eg b 12 n eg rpr, nml d n eg vd n ormal coronaries cath 2008 Stefano Sheikh MD [id number],S, w as shocked severl jaleesa n ot pacing vvi Stefano Sheikh MD [id number],B, Stefano Sheikh MD [id number],S, T he patient is between 55-77 years [...] undergo diagnosis and treatment. Stefano Sheikh MD [id number],BStefano MD [id number],S, H is updated medication list for this problem includes: Simvastatin 40 Mg Tablet (Simvastatin) C HOL: 216 (01/14/2021) HDL: 36 (01/14/2021) Stefano Sheikh MD [id number],SStefano MD [id number],SStefano MD [id number],S, h ad surgery and rad rx Stefano Sheikh MD [id number],SStefano MD [id number],S, 5 .9 Stefano Sheikh MD [id number],S, p ro 103, ef 55% Stefano Serota [id number],S, Stefano Serota [id number],S,e fgr 84 n eg carotid n eg b 12 n eg rpr, nml d n eg vd n ormal coronaries cath 2008 Stefano Serota [id number],S, w as shocked severl jaleesa n ot pacing vvi Stefano Serota [id number],S, Stefano Serot a [id number],S, Stefano Serot a [id number],B, Stefano Serot a [id number],S, Stefano Serot a [id number],S, 5 .9 Stefano Serota [id number],S, Stefano Serot a [id number],C,w as shocked severl jaleesa n ot pacing vvi Stefano Serota [id number],S, p ro 103, ef 55% Stefano Serota [id number],S, n eg carotid n eg b 12 n eg rpr, nml d n eg vd n ormal coronaries cath 2008 Stefano Serota [id number],S, Stefano Serot a [id number],S,had surgery t o get rad rx Stefano Serota [id number],C,not treated y et Stefano Serota [id number],B, Stefano Serot a [id number],S, Stefano Serot a [id number],S,T he patient is between 55-77 years old [...] undergo diagnosis and treatment. Stefano Sheikh MD [id number],S, n eg carotid n eg b 12 n eg rpr, nml d normal coronaries cath 2008 Stefano Sheikh MD [id number],SStefano MD [id number],SStefano MD [id number],S, Stefano duncan MD [id number],B, p ro 103, ef 55% Stefano Sheikh MD [id number],S,not pacing Vasques alexis Sheikh MD [id number],C,pro 103, ef 5 5% Stefano Sheikh MD [id number],S, BNP 103 2 0 on echo 08/2020, s /p AICD Stefano Sheikh MD [id number],SStefano MD [id number],BStefano MD [id number],SStefano MD [id number],B, H is updated medication list for this problem includes: Crestor 20 Mg Tablet (Rosuvastatin) ..... Take 1 tablet by mouth every day C HOL: 216 (01/14/2021) HDL: 36 (01/14/2021) Stefano Sheikh MD [id number],SStefano MD [id number],S, Stefano Serot a [id number],S, 5 .9 Stefano Serota [id number],S, n eg carotid n eg rpr, nml d n ml b12 n ormal coronaries cath 2008 Stefano Sheikh MD [id number],S, Stefano Serot a [id number],S, 1 03 Stefano Serotdakota OWENS [id number],N, Stefano Serot a [id number],S, Stefano Serot a [id number],B, Stefano Serot a [id number],B, Stefano Serot a [id number],B, l ast remote ICD check: 04/27/21 chowed 04/26/21 VT at 221 with ATP x1. 04/20/21 NSVT at 202. no shocks. continue bb and digoxin Stefano Sheikh MD [id number],S, Stefano Serot a [id number],S,103 Stefano Se rota [id number],S, BNP 103 2 0 on echo 08/2020, was up to 40% in 2019 s /p AICD Stefano Sheikh MD [id number],S, Stefano Serot a [id number],C,5.9 Stefano Se rota [id number],S, n eg carotid n eg rpr, nml d n ml b12 n ormal coronaries cath 2008 Stefano Sheikh MD [id number],B,C HOL: 216 (01/14/2021) HDL: 36 (01/14/2021) H is updated medication list for this problem includes: Crestor 20 Mg Tablet (Rosuvastatin) ..... Take 1 tablet by mouth every day Stefano Sheikh MD [id number],S, 1 1 VF zone event ( duration 20sec - Ventricular rate 221bpm/ ATP x 1 was successful) 1 1 NS -V events ( longest duration 15sec - fastest Ventricular rate 202bpm) , 3 E GM available Respiratory rate is stable at 17rpm b [id number] and 6 months. 6 years remaining 1 1 NSVT epiosdes, ICM stable 0 % pacing Stefano Sheikh MD [id number],C,1 1 VF zone event ( duration 20sec - Ventricular rate 221bpm/ ATP x 1 was successful) 1 1 NS -V events ( longest duration 15sec - fastest Ventricular rate 202bpm) , 3 E GM available Respiratory rate is stable at 17rpm b [id number] and 6 months. 6 years remaining 1 1 NSVT epiosdes, ICM stable 0 % pacing Karmen Lakeisha SILVA [id number],C, E CHO 08/2020 EF 20%m NICMP, normal coronaries cath 2008. has ICD. Karmen Lakeisha SILVA [id number],C,l ast remote ICD check: 04/27/21 chowed 04/26/21 VT at 221 with ATP x1. 04/20/21 NSVT at 202. no shocks. continue bb and digoxin Karmen Suazo NP [id number],C, o n crestor, cannot afford calcium score, normal coronaries on cath 2008 Karmen Suazo NP [id number],S, n ot on statin, cannot afford calcium score, normal coronaries on cath 2008 Pema Luis NP [id number],S,no Afib on de vice interrogation Pema Luis NP [id number],S,6 years remaining 1 1 NSVT epiosdes, ICM stable 0 % pacing Pema Luis NP [id number],S,1 1 NSVT on device interrogation, ICM trend stable continue BB, digoxin Pema Luis [employer] [id number],S, BNP 103 2 0 on echo 08/2020, was up to 40% in 2019 s /p AICD r ecently started on verquvo, continue corlanor, entrsto, farxiga, aldactone, coreg Pema Luis [employer] [id number],S, n eg carotid n eg rpr, nml d n ml b12 n ormal coronaries cath 2008 Pema Luis [employer] [id number],S,n eg carotid n eg rpr, nml d [...] 1 tablet by mouth twice a day [facility] Cardiology:device ch patrizia will be done in [...] Take 1 tablet by mouth every day [facility] Cardiology:LDL 90 on last labs H is updated medication list for this problem includes: Lopid 600 Mg Tablet (Gemfibrozil) ..... 1 tablet by mouth twice a day [facility] Cardiology:Last know n EF normal. No [...] by mouth every day Melalia Shaikh [facility] Cardiology:up to armaan e on upper and lower GI c ontinues on oral replacement therapy Melalia Shaikh [facility] :nml b12 Stefano Sheikh MD Cardiology: [...] MD Cardiology Stefano Sheikh MD Cardiology-seen with PIL[employer]:Patient is set to get L hip replacement. He is cleared for nathalia surgery. Shiela Parada NP Cardiology-seen with PILOT BO[employer] DECKHAND:Patient states strugglin to quit tobacco chewing T [...] 15 years. Shiela Glaserjavad SILVA Cardiology-seen with PILOT [employer] DECKH[employer]:Schedule for low dose CT lung this weeekend at [place]. Shiela Glaserjavad SILVA Cardiology-seen with PIL[employer]KH[employer]: L ast A1c 5.9. Will recheck A1c. Shiela Parada RICARDO Cardiology-seen with P[employer]KH[employer]: H is updated medication list for this problem includes: Rosuvastatin 20 Mg Tablet (Rosuvastatin) ..... Take 1 tablet by mouth every day Shiela Parada RICARDO Cardiology-seen with P[employer]KH[employer]: H is updated medication list for this problem includes: Digoxin 125 Mcg (0.125 Mg) Tablet (Digoxin) ..... Take 1 tablet by mouth every day Carvedilol 25 Mg Tablet (Carvedilol) ..... Take 1 tablet by mouth at bedtime Shiela Glaseraz RICARDO Cardiology-seen with PIL[employer] DECKHAND:Normal f unctioning Shiela Glaseraz RICARDO Cardiology-seen with PIL[employer] DECKH[employer]: p ro 103, ef 55% H ad [...] Respiratory rate is stable at 17rpm b [id number] and 6 months. 6 years remaining 1 1 NSVT epiosdes, ICM stable 0 % pacing Stefano Sheikh MD Cardiology:04/27/21 1 VF zone event ( duration 20sec - Ventricular rate 221bpm/ ATP x 1 was successful) 1 1 NS -V events ( longest duration 15sec - fastest Ventricular rate 202bpm) , 3 E GM available Respiratory rate is stable at 17rpm b [id number] and 6 months. 6 years remaining 1 1 NSVT epiosdes, ICM stable 0 % pacing Karmen Suazo NP Cardiology: E CHO 08/2020 EF 20%m NICMP, normal coronaries cath 2008. has ICD. Karmen De La Cruzmoo [employer] Cardiology:last mirza te ICD check: 04/27/21 chowed 04/26/21 VT at 221 with ATP x1. 04/20/21 NSVT at 202. no shocks. continue bb and digoxin Karmen De La Cruzmoo [employer] Cardiology: o n crestor, cannot afford calcium score, normal coronaries on cath 2008 Karmen Caputocarl [employer] Cardiology: n ot on statin, cannot afford calcium score, normal coronaries on cath 2008 Pematerrance Ruizmo [employer] Cardiology:no Afib on device int errogation Pema Saramo [employer] Cardiology:6 years r emaining 1 1 NSVT epiosdes, ICM stable 0 % pacing Pema Saramo [employer] Cardiology:11 NSVT o n device interrogation, ICM trend stable continue BB, digoxin Pema Saramo [employer] Cardiology: BNP 103 2 0 on echo 08/2020, was up to 40% in 2019 s /p AICD r ecently started on verquvo, continue corlanor, entrsto, farxiga, aldactone, coreg Pema Saramo [employer] Cardiology: n eg carotid n eg rpr, nml d n ml b12 n ormal coronaries cath 2008 Pema Saramo [employer] Cardiology:neg carot id n eg rpr, nml [...] T he FVC, FEV1, FEV1/FVC ratio and PHV84-07% are reduced indicating airway obstruction. The MVV [...] rx sent Maryann Hoffmann Cardiology follow up ;.echopien gs:does not want rx Stefano Sheikh MD Cardiology follow up ;.echopiengs:did meth and aicd wnet off Stefano Sheikh MD Cardiology follow up ;.echopieng s:40 Stefano Sheikh MD Cardiology follow up ;.echopieng s:nml pro Stefano Sheikh MD Electrophysiology: O rders: T obacco cessation counseling, 3-10minutes ([id number]) Maryann Hoffmann Electrophysiology: O rders: F VC - 02127 (32996) F RC - 35457 (92590) D LCO - 58050 (50920) His updated medication list for this problem [...] (Aspirin) ..... One tab by mouth daily [facility] Electrophysiology: H is updated medication list [...] by mouth daily Orders: C omplete Echo (CPT-69644) P ISAI, N TERMINAL (29243) [facility] Electrophysiology: H is updated medication list for this problem includes: Coreg 12.5 Mg Oral Tablet (Carvedilol) ..... One tab. twice daily Lisinopril 10mg Tablets (Lisinopril) ..... Take 1 tablet by mouth every day Aspirin Adult Low Dose 81 Mg Oral Tablet Delayed Release (Aspirin) ..... One tab by mouth daily [facility] Electrophysiology: H is updated medication list [...] by mouth daily Orders: C omplete Echo (CPT-56398) P ISAI, N TERMINAL (03397) C OMPREHENSIVE METABOLIC PANEL, W/EGFR (16832) C BC (H/H, RBC, INDICES, WBC, PLT) (0367) 5 9215 HIGH 40-54min (CPT-79763) Echo 08/2019: C ONCLUSIONS: 1 . Frequent [...] (Aspirin) ..... One tab by mouth daily [facility] Cardiology:His updat ed medication list for this problem includes: Lopid 600 Mg Oral Tablet (Gemfibrozil) ..... One tab twice daily [facility] Cardiology:His updat ed medication list for this problem includes: Lopid 600 Mg Oral Tablet (Gemfibrozil) ..... One tab twice daily [facility] Cardiology:BP today: 101/74 P rior BP: 117/81 (01/19/2020) His updated medication list for this problem includes: Coreg 12.5 Mg Oral Tablet (Carvedilol) ..... One tab. twice daily Lisinopril 10mg Tablets (Lisinopril) ..... Take 1 tablet by mouth every day [facility] Cardiology:Being monitored remjarad [place]. Nikolas [facility] Cardiology:Pt is a c andidate for hip surgery. His last echo in August 2019 showed EF of 40%. Overall feeling well now. He can proceed to surgery from cardiovascular perspective. [facility] Cardiology:His last echo in August 2019 [...] .... One tab by mouth twice daily [facility] Cardiology:His last echo in August [...] .... One tab by mouth twice daily [facility] Cardiology:Most rece nt triglycerides from [facility] in November were 91. [facility] Cardiology:CHOL: 137 (12/16/2019) HDL: 44 (12/16/2019) LDL: 75 (12/16/2019) TRI (12/16/2019) [facility] Cardiology:He had an admission to [facility] last month for chest pain related to methamphetamine use. [facility] Cardiology:He says h e got shocked last month. We will schedule a device check and re-connect his home monitoring. [facility] Cardiology:He compla ins of dizziness upon standing [...] Take 1 tablet by mouth every day [facility] Cardiology:Orders: F ERRITIN (457) I MO AND TOTAL IRON BINDING CAPACITY (7573) [facility] Cardiology:Pt compla ins of SOB. HR is [...] .... One tab by mouth twice daily [facility] Cardiology:Pt compla ins of SOB. He also says he got shocked last month. We will schedule a device check and re-connect his home monitoring. He also had an admission to [facility] last month for chest pain related to [...] .... One tab by mouth twice daily [facility] Cardiology:Pt compla ins of SOB. He also says he got shocked last month. He also had an admission to [facility] last month for chest pain related to methamphetamine use. He complains of dizziness upon standing up (BP today is 117/81). HR is 93. We will keep him on the current doses of Coreg and Lisinopril and start Corlanor 5mg BID. Will check proBNP, iron studies and PFT's. [facility] Cardiology:BP today: 118/81 P rior BP: 130/86 (08/18/2019) His updated medication list for this problem includes: Coreg 12.5 Mg Oral Tablet (Carvedilol) ..... One tab. twice daily Lisinopril 10 Mg Oral Tablet (Lisinopril) ..... One tab. daily [facility] Cardiology:Triglycer ides were down to 138 however pt states they used to be >700 and used to be on Lopid which was stopped just before the bloodwork. Recommending to check lipid panel in a month. C HOL: 163 (08/30/2019) HDL: 32 (08/30/2019) LDL: 103 (08/30/2019) TRI (08/30/2019) [facility] Cardiology:Triglycer ides were down to 138 however pt states they used to be >700 and used to be on Lopid which was stopped just before the bloodwork. Recommending to check lipid panel in a month. [facility] Cardiology:Echo show ed EF of 40%. The following medications were stopped: Digoxin 250 Mcg Oral Tablet (Digoxin) ..... One tab daily His updated medication list for this problem includes: Coreg 12.5 Mg Oral Tablet (Carvedilol) ..... One tab. twice daily Lisinopril 10 Mg Oral Tablet (Lisinopril) ..... One tab. daily [facility] Cardiology:Continues to have SOB with minimal exertion, [...] is currently in a half way house. Jluio Maguirejay Cardiology: B P today: 130/86 P [...] hx of non-ischemic cardiomyopathy. He has a Pin digital AICD. Echo in 06/2011 showed EF of [...] hx of non-ischemic cardiomyopathy. He has a Pin digital AICD. Echo in 2010 showed EF of 50%. Misael Sanford MD : O rders: C omplete Echo (CPT-27192) H olter Monitor 24 Hr (CPT-25932) Stefano Sheikh MD : H is updated medication list for this problem includes: Coreg 12.5 Mg Tabs (Carvedilol) ..... One tab. twice daily Vasotec 5 Mg Tabs (Enalapril maleate) ..... One tab.twice daily Aspirin 325 Mg Tabs (Aspirin) ..... One tab daily Digoxin 0.25 Mg Tabs (Digoxin) ..... One tab daily Orders: C omplete Echo (CPT-09881) H olter Monitor 24 Hr (CPT-12247) Stefano Sheikh MD : H is updated medication list for this problem includes: Coreg 12.5 Mg Tabs (Carvedilol) ..... One tab. twice daily Vasotec 5 Mg Tabs (Enalapril maleate) ..... One tab.twice daily Aspirin 325 Mg Tabs (Aspirin) ..... One tab daily Orders: C omplete Echo (CPT-88262) H olter Monitor 24 Hr (CPT-40369) Stefano Sheikh MD : H is updated medication list for this problem includes: Coreg 12.5 Mg Tabs (Carvedilol) ..... One tab. twice daily Vasotec 5 Mg Tabs (Enalapril maleate) ..... One tab.twice daily Aspirin 325 Mg Tabs (Aspirin) ..... One tab daily Digoxin 0.25 Mg Tabs (Digoxin) ..... One tab daily Orders: C omplete Echo (CPT-49473) H olter Monitor 24 Hr (CPT-45925) Stefano Sheikh MD : H is updated medication list for this problem includes: Coreg 12.5 Mg Tabs (Carvedilol) ..... One tab. twice daily Vasotec 5 Mg Tabs (Enalapril maleate) ..... One tab.twice daily Aspirin 325 Mg Tabs (Aspirin) ..... One tab daily Orders: C omplete Echo (CPT-72218) H olter Monitor 24 Hr (CPT-67706) Stefano Sheikh MD : O rders: C omplete Echo (CPT-63077) H olter Monitor 24 Hr (CPT-90201) Stefano Sheikh MD stable nicm: H is [...] prolapse without regurgitation. S evere nonischemic cardiiomyopathy. [facility] (08/06/2008) Orders: S pirometry (CPT-36852) Stefano Sheikh MD stable nicm Stefano Sheikh MD stable nicm: H is updated medication list for this problem includes: Coreg 12.5 Mg Tabs (Carvedilol) ..... (higher dose) one tab. twice daily Vasotec 5 Mg Tabs (Enalapril maleate) ..... One tab.twice daily Aspirin 325 Mg Tabs (Aspirin) ..... One tab daily BP today: 100/65 P rior BP: 113/84 (01/21/2009) Orders: C omplete Echo (CPT-06840) S pirometry (CPT-18252) Stefano Sheikh MD stable nicm: O rders: C omplete Echo (CPT-83444) S pirometry (CPT-93062) Stefano Sheikh MD stable nicm: H is [...] prolapse without regurgitation. S evere nonischemic cardiiomyopathy. [facility] (08/06/2008) Orders: C omplete Echo (CPT-34019) S pirometry (CPT-70766) Stefano Sheikh MD wiil increase coref for [...] One tab. daily Orders: C omplete Echo (CPT-34771) BP today: 113/84 Prior BP: 110/68 (09/17/2008) C ardiac Cath: EF - 20% N ormal coronary arteries. N ormal aorta without regurgitation. N ormal left heart hemodynamics. M itral valve prolapse without regurgitation. S evere nonischemic cardiiomyopathy. [facility] (08/06/2008) Stefano Sheikh MD severe nicm, [...] prolapse without regurgitation. S evere nonischemic cardiiomyopathy. [facility] (08/06/2008) Stefano Sheikh MD severe [...] prolapse without regurgitation. S evere nonischemic cardiiomyopathy. [facility] (08/06/2008) Stefano Sheikh MD routine [...] Echo RPM (remote patient monitoring) DLCO - 69682 FRC - 89506 FVC - [address], Coronary Calcium Score CT, Coronary Calcium Score DLCO - 06745 FRC - 37410 FVC - 19781 Holter Monitor 24 Hr Complete Echo Complete Echo PROBNP, N TERMINAL BASIC METABOLIC PANE L W/EGFR Carotid Duplex Bilat eral CT, Coronary Calcium Score DLCO - 25994 FRC - 56829 FVC - 18325 Complete Echo Holter Monitor 24 Hr Holter Monitor 24 Hr Complete Echo C-REACTIVE PROTEIN C-REACTIVE PROTEIN LIPID PANEL Abdominal US Holter Monitor [address], Coronary Calcium Score Complete Echo DLCO - 86985 FRC - 78056 FVC - 45134 CT, Coronary Calcium Score HEPATIC FUNCTION DEVI EL DLCO - 46518 FRC - 81926 FVC - 95860 LIPID PANEL TSH, free T4, total T3 CBC (H/H, RBC, INDIC ES, WBC, PLT) COMPREHENSIVE METABO LIC PANEL, W/EGFR PROBNP, N TERMINAL Complete Echo DLCO - 33689 FRC - 43026 FVC - 34108 IRON AND TOTAL IRON BINDING CAPACITY FERRITIN [...] mpleted FVC / MVV with bronchodilator - 80071 Coral Fernando MD completed BLOOD COUNT HEMOGLOBIN Coral barnes MD completed FRC - 10588 Coral russell MD completed SpO2 w/o 6min walk/titration Coral Fernando MD completed DLCO - 06841 Coral russell MD completed Schedule Followup ulius Dylan chawla MD s/p testing completed EKG Coral russell MD completed EKG Misael Sanford MD completed EKG Misael Sanford MD completed EKG Misael Sanford MD completed AICD Interrogation, Remote (Tech) Misael Sanford MD INTERROGATION REMOTE </90 D SOCK KNITTING MACHINE OPERATOR REVIEW completed AICD Interrogation, Remote (Prof) Misael Sanford MD INTERROGATION EVAL REMOTE </90 D 1/2/> LD CVDFB completed AICD Interrogation, Remote (Tech) Misael Sanford MD INTERROGATION REMOTE </90 D SOCK KNITTING MACHINE OPERATOR REVIEW completed AICD Interrogation, Remote (Prof) Misael Sanford MD INTERROGATION EVAL REMOTE </90 D 1/2/> LD CVDFB completed AICD Interrogation, Remote (Tech) Misael Sanford MD INTERROGATION REMOTE </90 D SOCK KNITTING MACHINE OPERATOR REVIEW completed AICD Interrogation, Remote (Prof) Misael Sanford MD INTERROGATION EVAL REMOTE </90 D 1/2/> LD CVDFB completed Schedule ICD Check Misael Sanford MD co mpleted EKG Misael Sanford MD completed SNOMED-CT: [id number] Current Medications Documented Misael Sanford MD completed EKG Stefano Sheikh MD complete d
--- OUTSIDE RECORDS SUMMARY | 2024-09-29 17:36 | XMS_ITS | Clinical Summary ---
Author Organization [facility] Address [address] [place] [address] Care Team Providers Care Teletype Clerk Name Role Phone Дмитрий Hennessy MD Primary Care Provider Stefano Sheikh MD Unavailable [phone] Source Comments [facility],non-owned Affiliates and Associated Physician Practices is amultiple site organization consisting of ambulatory clinics and hospital sitesin [place], [place], [place] and [place]. This disclosure is being madepursuant to the Care Everywhere program and may not contain all information available regarding this patient. 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 Abreu for dilated CM RV lead Biotronik Linox 65-18 SER# [id number] Biotronik Lumax 340 Model # 450306 SER# [id number] implanted 08-12-[address] [place] [address] Abreu for dilated CM RV lead Biotronik Linox 65-18 SER# [id number] Supraventricular tachycardia 05/18/2008 Other primary cardiomyopathies 12/20/1993 Overview (03/03/2021): lowest 20 no cad or ai lowest 20 no cad or ai Resolved Problems Problem Noted Date Diagnosed Date Resolved Date Dehydration 01/18/2024 08/01/2024 Diarrhea 01/18/2024 08/15/2024 Acute upper respiratory infection 09/18/2023 08/01/2024 Encounters Date Type Department Care Team Description 07/21/2024 Telephone [facility] [address] [place] [address] Pam Rain APRN-CNP Results 07/18/2024 2:00 PM HAND FUR CLEANER Office Visit [facility] - GI [address] [place] [address] Pam Rain APRN-FOOD SERVICE COUNTER CLERK Chronic hepatitis C without hepatic coma (Primary Dx) 07/18/2024 Travel 07/07/2024 Orders Only [facility] - [address] [place] [address] Pam Rain, DIE CUTTER APPRENTICE-FOOD SERVICE COUNTER CLERK Chronic hepatitis C without hepatic coma from [...] Sex Assigned at Male 06/27/2021 3:16 PM HAND FUR CLEANER Gender Identity Male 06/27/2021 3:16 PM HAND FUR CLEANER Sexual Orientation Not on file Last Filed Vital Signs Vital Sign Reading Time Taken Comments Blood Pressure 112/73 07/18/2024 2:34 PM HAND FUR CLEANER Pulse 99 07/18/2024 2:34 PM HAND FUR CLEANER Temperature 36.7 C (98 F) 07/18/2024 2:34 PM HAND FUR CLEANER Respiratory Rate - - Oxygen Saturation 96% 07/18/2024 2:34 PM HAND FUR CLEANER Inhaled Oxygen Concentration - - Weight 92.8 kg (204 lb 9.6 oz) 07/18/2024 2:34 P M HAND FUR CLEANER Height 175.3 cm (5' 9 ) 07/18/2024 2:34 PM HAND FUR CLEANER Body Mass Index 30.21 07/18/2024 2:34 PM HAND FUR CLEANER Plan of Treatment Health Maintenance Due Date [...] Management General On track( 025 3:15 PM HAND FUR CLEANER) Jessica Young, RN Note: Expected end date: ongoing Interventions: Take all medications as prescribed Procedures Procedure Name Priority Date/Time Associated Diagnosis Comments HEPATITIS C RNA QUANTITATIVE Routine 07/17/2024 1:44 PM HAND FUR CLEANER Chronic hepatitis C without hepatic coma COMPREHENSIVE METABOLIC PANEL Routine 07/17/2024 1:44 PM HAND FUR CLEANER Chronic hepatitis C without hepatic coma CBC W AUTO DIFFERENTIAL Routine 07/17/2024 1:44 PM HAND FUR CLEANER Chronic hepatitis C without hepatic coma HEPATITIS C RNA QUANTITATIVE Routine 07/17/2024 1:44 PM HAND FUR CLEANER Chronic hepatitis C without hepatic coma COMPREHENSIVE METABOLIC PANEL Routine 07/17/2024 1:44 PM HAND FUR CLEANER Chronic hepatitis C without hepatic coma CBC W AUTO DIFFERENTIAL Routine 07/17/2024 1:44 PM HAND FUR CLEANER Chronic hepatitis C without hepatic coma HIV-1 HIV-2 ANTIBODY + HIV P24 AG PANEL Routine 03/03/2021 1:12 PM CDT Chronic hepatitis C without hepatic coma from Last 3 Months or Most Recently Relevant to Health Maintenance Results * HEPATITIS C RNA QUANTITATIVE (07/17/2024 1:44 PM HAND FUR CLEANER) [facility] Hepatitis C Virus RNA, Quantitative Real Time PCR <15 NOT DETECTED NOT DETECTED IU/mL [facility] Hepatitis C Virus RNA, Quantitative Real Time PCR <1.18 NOT DETECTED NOT DETECTED Log IU/mL [facility] Comment: For additional information, please refer to http://education.Rapid7/faq/SVI76y2 (This link is being provided for informational/ educational purposes only.) Test Performed at: [facility] [address] [place] [address] TARIK NICHOLSON MD Blood BLOOD SPECIMEN / Unknown 07/17/2024 1:44 PM HAND FUR CLEANER 07/17/2024 1:44 PM HAND FUR CLEANER Pam Rain DIE CUTTER APPRENTICE-FOOD SERVICE COUNTER CLERK LAB - CHEMIS TRY ORDERABLES Performing Organization Address City/State/[facility] Co de Phone Number [facility] [address] [place] [address] * (ABNORMAL) CBC WITH DIFFERENTIAL (07/17/2024 1:44 PM HAND FUR CLEANER) Only the most recent of2 resultswithin the time period is included. [facility] White Blood Cell Count 8.0 3.8 - [...] 0.5 % [facility] Comment: Test Performed at: [facility] [address] [facility] [place] [address] TARIK NICHOLSON MD Blood BLOOD SPECIMEN / Unknown 07/17/2024 1:44 PM HAND FUR CLEANER 07/17/2024 1:44 PM HAND FUR CLEANER Pam Rain DIE CUTTER APPRENTICE-FOOD SERVICE COUNTER CLERK LAB - HEMATO LOGY ORDERABLES [facility] [address] [place] [address] * (ABNORMAL) COMPREHENSIVE METABOLIC PANEL (07/17/2024 1:44 PM HAND FUR CLEANER) Only the most recent of2 resultswithin the [...] 46 U/L [facility] Comment: Test Performed at: [facility] [address] [facility] [place] [place] [address] TARIK NICHOLSON MD Blood BLOOD SPECIMEN / Unknown 07/17/2024 1:44 PM HAND FUR CLEANER 07/17/2024 1:44 PM HAND FUR CLEANER Pam Rain DIE CUTTER APPRENTICE-FOOD SERVICE COUNTER CLERK LAB - CHEMIS TRY ORDERABLES Performing Organization Address City/[facility]/ZIP Co de Phone Number [facility] [address] [place] [address] * HIV-1 HIV-2 ANTIBODY + HIV P24 AG PANEL (03/03/2021 1:12 PM CDT) HIV Antigen/Antibod y 1 & 2 Non-reacti ve Non-react paris 03/03/2021 5:02 PM CDT [facility] Comment:Neither HIV-1 p24 An tigen nor HIV-1/HIV-2 Antibodies are detected. Blood BLOOD SPECIMEN / Unknown Lab Venipuncture / Unknown 03/03/2021 1:12 PM CDT 03/03/2021 1:39 PM CDT Pam Rain DIE CUTTER APPRENTICE-FOOD SERVICE COUNTER CLERK LAB - CHEMIS TRY ORDERABLES Performing Organization Address City/[facility]/ZIP Co de Phone Number [facility] [address] [place] [address], [facility] [phone] from Last 3 Months or Most Recently Relevant to Health Maintenance Care Teams Teletype Clerk Relationship Specialty Start Date End Date Дмитрий Hennessy MD [address] [place], [place] [id number] PCP - General 03/03/21 Stefano Sheikh MD [address] [address] Manager Metrology Cardiology 05/13/24
--- OUTSIDE RECORDS SUMMARY | 2024-09-29 17:36 | XMS_ITS | Encounter Summary ---
Author Organization [facility] Address [address] [place] [address] Phone Care Team Providers Care Software Developer Name Role Phone Дмитрий Hennessy MD Primary Care Provider Mireya Rubi NURSES SUPERINTENDENT Unavailable [phone] Vignesh Hoffmann MD Unavailable [phone] Encounter Details Date Type Department Care Team (Late st Contact Info) Description 01/30/2024 Telephone [facility] Otolaryngology [address] [place] [id number] Juju Badillo, Social History Tobacco Use Types [...] on file Legal Sex Male 11:03 PM ALTERNATIVE MEDICINE PRACTITIONER Gender Identity Male 05/12/2022 9:05 AM ALTERNATIVE MEDICINE PRACTITIONER Sexual Orientation Straight 10/27/2020 7: 55 PM CDT documented as of this encounter Plan of Treatment Upcoming Encounters Date Type Department Care Team (Latest Contact Info) Description 10/14/2024 8:00 AM CDT Hospital Encounter [facility] Operating Room [address] [place] [address] Lalit Orta MD [address] [place] [address] 10/14/2024 8:00 AM CDT - 10/14/2024 10:40 AM CDT Surgery [facility] Operating Room [address] [place] [address] Llait Orta MD [address] [place] [address] ARTHROPLASTY TOTAL HIP Scheduled Procedures Name Priority Associated Diagnoses Date/Ti me ARTHROPLASTY TOTAL HIP Primary osteoarthritis of right hip 10/14/2024 8:00 AM CDT documented as of this encounter Visit Diagnoses Not on filedocumented in this encounter Care Teams Software Developer Relationship Specialty Start Date [place] [address] [place] [address] PCP - General Internal Medicine 08/11/20 Mireya Rubi NP [address] [facility] [address] [facility] [address] [place] [address] Nurse Practitioner Nurse Practitioner 03/15/22 Vignesh Hoffmann MD [address] [facility] [address] [place] [address] Radiation Oncologist Radiation Oncology 03/30/22 documented as of this encounter
--- OUTSIDE RECORDS SUMMARY | 2024-09-29 17:36 | XMS_ITS | Referral Summary ---
Author Organization [facility] Address [address] [place] [address] Care Team Providers Care Generator Operator Name Role Phone Дмитрий Hennessy MD Primary Care Provider Mireya Rubi NP Unavailable [phone] Vignesh Hoffmann MD Unavailable [phone] Encounters Date Type Department Care Team Description 09/19/2024 9:21 AM CDT - 09/19/2024 11:59 PM CDT Hospital Encounter [facility] [address] [place] [phone] Orthopedic aftercare; Right hip pain Discharge Disposition: Discharge to home or self care 09/19/2024 10:00 AM CDT Office Visit [facility] Orthopaedic Surgery [address] [facility] Medical Office Building 4 [address] [place] [address] Lalit Orta MD Primary osteoarthritis of right hip (Primary Dx); Right hip pain; Orthopedic aftercare 09/03/2024 Orders Only [facility] Cardiology [address] [facility] 8th [place] [address] [place] [address] Dev Cain MD ICD (implantable cardioverter-defibril lator) in place (Primary Dx) 09/02/2024 Telephone [facility] Cardiology [address] 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 Abreu for dilated CM RV lead Biotronik Linox 65-18 SER# [id number] Supraventricular tachycardia 06/03/2009 Personal history of nicotine dependence 01/22/20 09 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 08/13/2008 Unspecified atrial fibrillation 05/18/2008 Cardiomyopathy 12/20/1993 Overview (10/28/2020): lowest 20 no cad or ai Resolved Problems Problem Noted Date Diagnosed Date Resolved Date Oral cancer 12/02/2021 12/13/2021 Overview (12/02/2021): Added automatically from request for surgery [id number] Immunizations Immunization Administration Dates Next Due Influenza, [...] on file Legal Sex Male 11:03 PM RN CASE MANAGER Gender Identity Male 05/12/2022 9:05 AM RN CASE MANAGER Sexual Orientation Straight 10/27/2020 7: 55 PM CDT Last Filed Vital Signs Vital Sign Reading Time Taken Comments Blood Pressure 110/70 09/02/2024 9:31 AM RN CASE MANAGER Pulse 72 09/02/2024 9:31 AM RN CASE MANAGER Temperature 35.9 C (96.7 F) 09/10/2023 3:21 PM CDT Respiratory Rate 18 09/10/2023 3:21 PM CDT Oxygen Saturation 95% 09/02/2024 9:31 AM RN CASE MANAGER Inhaled Oxygen Concentration - - Weight 93.9 kg (207 lb) 09/02/2024 9:31 AM RN CASE MANAGER Height 175.3 cm (5' 9 ) 09/02/2024 9:31 AM RN CASE MANAGER Body Mass Index 30.57 09/02/2024 9:31 AM RN CASE MANAGER Plan of Treatment Upcoming Encounters Date Type Department Care Team (Latest Contact Info) Description 10/14/2024 8:00 AM CDT Hospital Encounter [facility] Operating Room 1 [place] [address] Lalit Orta MD [address] [facility] [address] [place] [address] 10/14/2024 8:00 AM CDT - 10/14/2024 10:40 AM CDT Surgery [facility] Operating Room 1 [place] [address] Lalit Orta MD [address] [facility] 6A[address]6B/12A [place] [address] ARTHROPLASTY TOTAL HIP Scheduled Procedures Name Priority Associated Diagnoses Date/Ti me ARTHROPLASTY TOTAL HIP Primary osteoarthritis of right hip 10/14/2024 8:00 AM CDT Medical Devices Implanted Type Area Diversified Crops I Farmworker Device Identifier Shelf Expiration Date Model / Serial / Lot Icd Implanted:10/22 by Matthew Hoffmann MD (Quantity not on file) Pacemaker Heart [employer] [id number] / [id number] / [employer] Graft Tissue Accelular Matrix Dermis Regn Medium Alloderm Select 4x7cm Rtu [id number] - [id number] Implanted:Qty: 1 on 02/10/2022 by Roland Christensen MD PhD at [facility] Right: Neck [employer] 10/30/2023 [id number] / / [id number] [employer]uy Orthopaed[employer] Cup 55mm Acetabular Bi Mentum Femoral Proximal Press Fit [id number] - [id number] Implanted:Qty: 1 on 08/21/2023 by Lalit Orta MD at [facility] Left: Hip [employer] 08/29/2024 [id number] / / [id number] [employer] Liner Acet Hip Size 28 Poly Bi Mentum Altrx 55mm [id number] - [id number] Implanted:Qty: 1 on 08/21/2023 by Lalit Orta MD at [facility] Left: Hip [employer] [id number] 09/29/2026 [id number] / / [id number] [employer] Actis Collar Hip 4 High Offset Stem Femoral [id number] - [id number] Implanted:Qty: 1 on 08/21/2023 by Lalit Orta MD at [facility] Left: Hip [employer] [id number] 03/31/2033 [id number] / / [id number] [employer] Articul/Cameron 28mm Cementless Hip +8.5mm 06/14 Taper Head Femoral Latex Free [id number] - [id number] Implanted:Qty: 1 on 08/21/2023 by Lalit Orta MD at [facility] Left: Hip [employer] [id number] 01/30/2028 [id number] / / [id number] Procedures Procedure Name Priority Date/Time Associated Diagnosis Comments XR HIPS BILATERAL W PELVIS 5 OR MORE VIEWS Schedule Routine, Read Routine (OP Routine) 09/19/2024 10:03 AM CDT Right hip pain XR SCOLIOSIS AP LAT Schedule Routine, Read Routine (OP Routine) 09/19/2024 10:03 AM CDT Right hip pain ELECTROCARDIOGRAM REPORT Routine 025 2:36 PM RN CASE MANAGER [place] (ventricular tachycardia) (HCC) EGFR Timed 08/21/2023 2:42 PM RN CASE MANAGER POCT HEMOGLOBIN A1C Routine 08/06/2023 2 :12 PM RN CASE MANAGER from Last 3 Months or Most Recently [...] and agrees with it. Electronically signed by: Brijehs O'Noe, D.O. Lalit Orta MD IMG XR PROCEDURES Final Result * Electrocardiogram Report (09/02/2024 2:36 PM RN CASE MANAGER) us Clfiford Montero MD ECG ORDERABLES Final Result * eGFR (08/21/2023 2:42 PM RN CASE MANAGER) eGFR 77 >=60 mL/min/1. 73 m2 [facility] Comment: Interpretive Data Reference Interval Normal >/= [...] last reviewed 2021. Blood 08/21/2023 2:42 PM RN CASE MANAGER 08/21/2023 2:59 PM RN CASE MANAGER Garfield Bowman MD LAB BLOOD ORDERABLES Erika l Result [facility] Department [place] [address] * (ABNORMAL) POCT hemoglobin A1c (08/06/2023 2:12 PM RN CASE MANAGER) Hgb A1C, POC 5.9(H) 4.0 - 5.6 % [facility] Est Average Gluc POC 123 mg/dL [facility] Comment: The ADA recommends reporting an estimated Average Glucose (eAG) with all Hemoglobin A1c results using the equation derived from a study of 507 normal and diabetic adults. Minority populations were underrepresented and children were not included. (Diabetes Care 31:2525-3377, 2008). The eAG is not equivalent to a fasting glucose. Blood 08/06/2023 2:12 PM RN CASE MANAGER 08/06/2023 2:12 PM RN CASE MANAGER us Lalit Orta MD POINT OF CARE TEST ORDERABLES Fi nal Result Performing Organization Address City/State/[facility] Co de Phone Number [facility] Department [place] [address] from Last 3 Months or Most Recently Relevant to Health Maintenance [place] [address] [facility] [place] [address] [facility] [place] [address] [facility] Advance Directives For more information, please contact: [phone] Documents on File Type Date Recorded Patient Tree Wrapper Expl anation ADVANCE DIRECTIVE 02/10/2022 1:24 PM Power of Motion Picture Printer-Medical ADVANCE DIRECTIVE 11/05/2020 10:02 AM Power of Motion Picture Printer-Medical * Full Code (Latest Code Status on File) Date Activated Date Inactivated Comments 08/21/2023 11:18 AM 08/22/2023 6:04 PM * Full Code Date Activated Date Inactivated Comments 02/10/2022 5:21 PM 02/11/2022 7:46 PM Care Teams Generator Operator Relationship Specialty Start Date [place] Дмит[place] [address] [place] [address] PCP - General Internal Medicine 08/11/20 Mireya Rubi NP [address] [facility] [address] [place] [address] Nurse Practitioner Nurse Practitioner 03/15/22 Vignesh Hoffmann MD [address] [facility] [address] [place] [address] Radiation Oncologist Radiation Oncology 03/30/22
--- OUTSIDE RECORDS SUMMARY | 2024-09-29 17:36 | XMS_ITS | Clinical Summary ---
Author Organization [facility] Address [address] [place] [address] Care Team Providers Care Gwot Ia/Ilo Intelligence Support Name Role Phone Дмитрий Hennessy MD Primary [...] Overview (11/10/2010): Biotronik Lumax 340 Model # [id number] SER# [id number] implanted 08-12-[address] [place] [address] Abreu for dilated CM RV lead Biotronik Linox 65-18 SER# [id number] Family History Medical History Relation Name Comments [...] on file Legal Sex Male 3:58 AM PROTECTIVE SIGNAL INSTALLER HELPER Gender Identity Not on file Sexual Orientation Not on file Last Filed Vital Signs Vital Sign Reading Time Taken Comments Blood Pressure 116/76 07/19/2020 1:01 PM PROTECTIVE SIGNAL INSTALLER HELPER Pulse 105 07/19/2020 1:01 PM PROTECTIVE SIGNAL INSTALLER HELPER Temperature 36.1 C (97 F) 07/19/2020 1:01 PM PROTECTIVE SIGNAL INSTALLER HELPER Respiratory Rate 18 07/19/2020 1:01 PM PROTECTIVE SIGNAL INSTALLER HELPER Oxygen Saturation 95% 07/19/2020 1:01 PM PROTECTIVE SIGNAL INSTALLER HELPER Inhaled Oxygen Concentration - - Weight 99.5 kg (219 lb 6.4 oz) 07/19/2020 1:01 P M PROTECTIVE SIGNAL INSTALLER HELPER Height 175.3 cm (5' 9 ) 07/19/2020 1:01 PM PROTECTIVE SIGNAL INSTALLER HELPER Body Mass Index 32.4 07/19/2020 1:01 PM PROTECTIVE SIGNAL INSTALLER HELPER Plan of Treatment Health Maintenance Due Date [...] to complete this topic Insurance MEDICAID [facility] [place] [address] Care Teams Gwot Ia/Ilo Intelligence Support Relationship Specialty Start Date End Date Дмитрий Hennessy MD [address] [place] [address] PCP - General Internal Medicine 01/09/20
--- OUTSIDE RECORDS SUMMARY | 2024-09-29 17:36 | XMS_ITS | Clinical Summary ---
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 Abreu for dilated CM RV lead Biotronik Linox 65-18 SER# [id number] Supraventricular tachycardia 06/03/2009 Personal history of nicotine dependence 01/22/20 09 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 08/13/2008 Unspecified atrial fibrillation 05/18/2008 Cardiomyopathy 12/20/1993 Overview (10/28/2020): lowest 20 no cad or ai Resolved Problems Problem Noted Date Diagnosed Date Resolved Date Oral cancer 12/02/2021 12/13/2021 Overview (12/02/2021): Added automatically from request for surgery [id number] Encounters Date Type Department Care Team Description 09/19/2024 10:00 AM CDT Office Visit [facility] Orthopaedic Surgery [address] [place] [address] Medical Office Building [address] [place] [address] Lalit Orta MD Primary osteoarthritis of right hip (Primary Dx); Right hip pain; Orthopedic aftercare 09/19/2024 9:21 AM CDT - 09/19/2024 11:59 PM CDT Hospital Encounter [facility] Radiology [address] [facility] [address] [place] [address] Orthopedic aftercare; Right hip pain Discharge Disposition: Discharge to home or self care 09/03/2024 Orders Only [facility] Cardiology [address] [facility] Medicine 8th [place] [address] [place] [phone] Dve Cain MD ICD (implantable cardioverter-defibril lator) in place (Primary Dx) 09/02/2024 9:30 AM CABLE TELEVISION TECHNICIAN Office Visit [facility] Cardiology [address] [facility] [address] [place] [address] Clifford Montero MD [place] (ventricular tachycardia) (HCC) (Primary Dx) 09/02/2024 Telephone [facility] Cardiology [address] [facility] 8th [place] [address] [place] [phone] Brando Gould New Patient from Last 3 Months Immunizations Immunization Administration Dates Next Due Influenza, Quadrivalent, Spl it, Intramuscular 04/20/2021,05/03/2020,04/01/2019 Influenza, Quadrivalent, Spl it, Preservative Free, Intramuscular 06/26/2023,04/03/2023,05/14/2022 Umer (J&J) SARS-CoV-2 Vaccination 09/07/2020 Tdap 04/03/2023,09/24/2019 ZOSTER Recombinant 04/03/2023 Surgical History Surgery Date Site/Laterality Comments INSERT / REPLACE AICD LEAD 07/02/2008 - 07/01/2009 Biotronik Lumax 340 VR-T with serial #[id number]. COLECTOMY 07/02/1990 - 07/01/1991 Colon resection for Crohn's TENDON REPAIR 07/02/1990 - 07/01/1991 Right hand SUBDURAL HEMATOMA EVACUATION VIA CRANIOTOMY 01/30/1990 - 03/01/1990 Evacuation of subdural hematoma FOOT SURGERY CARDIAC DEFIBRILLATOR PLACEMENT 07/02/2013 - 07/01/2014 Pantry ICD E141 BIOPSY 10/30/2021 - 11/29/2021 Tongue APPENDECTOMY 07/02/1990 - 07/01/1991 Medical History Medical History Date Comments Obesity Tongue cancer (HCC) SCCA Tongue dxd 10/2021 Chewing tobacco use History of hepatitis C Dxd 2003- - Followed by [facility] hepatology History of methamphetamine use l ast smoked/snorted meth 04/2021 History of Crohn's disease Dxd 1 991 s/p colectomy-- pt denies any further flare ups Heart failure (HCC) s/p Biotroni k ICD 2008 and changed to Pantry ICD 2013 Allergic rhinitis GERD (gastroesophageal reflux [...] on file Legal Sex Male 11:03 PM CABLE TELEVISION TECHNICIAN Gender Identity Male 05/12/2022 9:05 AM CABLE TELEVISION TECHNICIAN Sexual Orientation Straight 10/27/2020 7: 55 PM CDT Obstetrics History Last Filed Vital Signs Vital Sign Reading Time Taken Comments Blood Pressure 110/70 09/02/2024 9:31 AM CABLE TELEVISION TECHNICIAN Pulse 72 09/02/2024 9:31 AM CABLE TELEVISION TECHNICIAN Temperature 35.9 C (96.7 F) 09/10/2023 3:21 PM CDT Respiratory Rate 18 09/10/2023 3:21 PM CDT Oxygen Saturation 95% 09/02/2024 9:31 AM CABLE TELEVISION TECHNICIAN Inhaled Oxygen Concentration - - Weight 93.9 kg (207 lb) 09/02/2024 9:31 AM CABLE TELEVISION TECHNICIAN Height 175.3 cm (5' 9 ) 09/02/2024 9:31 AM CABLE TELEVISION TECHNICIAN Body Mass Index 30.57 09/02/2024 9:31 AM CABLE TELEVISION TECHNICIAN Plan of Treatment Upcoming Encounters Date Type Department Care Team (Latest Contact Info) Description 10/14/2024 8:00 AM CDT Hospital Encounter [facility] Operating Room 1 [place] [address] Lalit Orta MD [address] [email or web address] [address] 10/14/2024 8:00 AM CDT - 10/14/2024 10:40 AM CDT Surgery [facility] Operating Room [address] [place] [address] Lalit Orta MD [address] [email or web address] [address] ARTHROPLASTY TOTAL HIP Scheduled Procedures Name Priority [...] history exists Medical Devices Implanted Type Area Melter Supervisor Device Identifier Shelf Expiration Date Model / Serial / Lot Icd Implanted:10/22 by Matthew Hoffmann MD (Quantity not on file) Pacemaker Heart [employer] E141 / [id number] / [employer] Graft Tissue Accelular Matrix Dermis Regn Medium Alloderm Select 4x7cm Rtu [id number] - [id number] Implanted:Qty: 1 on 02/10/2022 by Roland Christensen MD PhD at [facility] Right: Neck [employer] 10/30/2023 [id number] / / [id number] Depuy Orthopaed[employer] Cup 55mm Acetabular Bi Mentum Femoral Proximal Press Fit [id number] - [id number] Implanted:Qty: 1 on 08/21/2023 by Lalit Orta MD at [facility] Left: Hip [employer]ed[employer] 08/29/2024 [id number] / / [id number] Depuy [employer] Liner Acet Hip Size 28 Poly Bi Mentum Altrx 55mm [id number] - [id number] Implanted:Qty: 1 on 08/21/2023 by Lalit Orta MD at [facility] Left: Hip [employer] [id number] 09/29/2026 [id number] / / [id number] Dep[employer] Actis Collar Hip 4 High Offset Stem Femoral [id number] - [id number] Implanted:Qty: 1 on 08/21/2023 by Lalit Orta MD at [facility] Left: Hip [employer] [id number] 03/31/2033 [id number] / / [id number] [employer]uy [employer] Inc Articul/Cameron 28mm Cementless Hip +8.5mm /14 Taper Head Femoral Latex Free [id number] - [id number] Implanted:Qty: 1 on 08/21/2023 by Lalit Orta MD at [facility] Left: Hip [employer]opaed[employer] Inc [id number] 01/30/2028 [id number] / / [id number] Procedures Procedure Name Priority Date/Time Associated Diagnosis Comments XR HIPS BILATERAL W PELVIS 5 OR MORE VIEWS Schedule Routine, Read Routine (OP Routine) 09/19/2024 10:03 AM CDT Right hip pain XR SCOLIOSIS AP LAT Schedule Routine, Read Routine (OP Routine) 09/19/2024 10:03 AM CDT Right hip pain ELECTROCARDIOGRAM REPORT Routine 025 2:36 PM CABLE TELEVISION TECHNICIAN VT (ventricular tachycardia) (HCC) EGFR Timed 08/21/2023 2:42 PM CABLE TELEVISION TECHNICIAN POCT HEMOGLOBIN A1C Routine 08/06/2023 2 :12 PM CABLE TELEVISION TECHNICIAN from Last 3 Months or Most Recently [...] Result * Electrocardiogram Report (09/02/2024 2:36 PM CABLE TELEVISION TECHNICIAN) Clifford Montero MD ECG ORDERABLES Final Result * eGFR (08/21/2023 2:42 PM CABLE TELEVISION TECHNICIAN) eGFR 77 >=60 mL/min/1. 73 m2 [facility] Comment: Interpretive Data Reference Interval [...] last reviewed 2021. Blood 08/21/2023 2:42 PM CABLE TELEVISION TECHNICIAN 08/21/2023 2:59 PM CABLE TELEVISION TECHNICIAN Garfield Bowman MD LAB BLOOD ORDERABLES Erika l Result Performing Organization Address City/State/[facility] de Phone Number [facility] Department [place] [address] * (ABNORMAL) POCT hemoglobin A1c (08/06/2023 2:12 PM CABLE TELEVISION TECHNICIAN) Hgb A1C, POC 5.9(H) 4.0 - 5.6 % [facility] Est Average Gluc POC 123 mg/dL [facility] Comment: The ADA recommends reporting an estimated Average Glucose (eAG) with all Hemoglobin A1c results using the equation derived from a study of 507 normal and diabetic adults. Minority populations were underrepresented and children were not included. (Diabetes Care 31:3192-8608, 2008). The eAG is not equivalent to a fasting glucose. Blood 08/06/2023 2:12 PM CABLE TELEVISION TECHNICIAN 08/06/2023 2:12 PM CABLE TELEVISION TECHNICIAN Lalit Orta MD POINT OF CARE TEST ORDERABLES Fi nal Result Performing Organization Address [facility] de Phone Number [facility] [place] [address] from Last 3 Months or Most Recently Relevant to [place] [address] [facility] UHC CHOICE PLUS [facility] HMO/PPO Address: [address] [address] [place] [address] [facility] Advance Directives For more information, please contact: [phone] Documents on File Type Date Recorded Patient Commission Broker Expl anation ADVANCE DIRECTIVE 02/10/2022 1:24 PM Power of Stockroom Selector-Medical ADVANCE DIRECTIVE 11/05/2020 10:02 AM Power of Stockroom Selector-Medical * Full Code (Latest Code Status on File) Date Activated Date Inactivated Comments 08/21/2023 11:18 AM 08/22/2023 6:04 PM * Full Code Date Activated Date Inactivated Comments 02/10/2022 5:21 PM 02/11/2022 7:46 PM Care Teams Vice President Of Contracts Relationship Specialty Start Date End Date Дмитрий Hennessy MD [address] [address] PCP - General Internal Medicine 08/11/20 Mireya Rubi NP [address] [facility] [address] [place] [address] Nurse Practitioner Nurse Practitioner 03/15/22 Vignesh Hoffmann MD [address] [facility] [address] [place] [address] Radiation Oncologist Radiation Oncology 03/30/22
--- OUTSIDE RECORDS SUMMARY | 2024-09-29 17:36 | XMS_ITS | Clinical Summary ---
Author Organization [facility] Address [address] [place] [address] Care Team Providers Care Pharmacy Retail Support Specialist Name Role Phone Suresh Gay MD Unavailable Unavailable Дмитрий Hennessy MD Primary Care Provider [phone] Allergies No known active allergies Medications aspirin [...] Problem Noted Date Diagnosed Date Nonischemic cardiomyopathy ([facility]) Atrial fibrillation ([facility]) Family History Medical History Relation Comments No [...] [employer] [place] MEDICAID UHC Care Teams Pharmacy Retail Support Specialist Relationship Specialty Start Date End Date Дмитрий Hennessy MD [address] [place] [phone] PCP - General INTERNAL MEDICINE 03/25/22 Suresh Gay MD [place] Therapist Rrt CARDIOVASCULAR DISEASE 12/01/15
--- OUTSIDE RECORDS SUMMARY | 2024-09-29 17:36 | XMS_ITS ---
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 Abreu for dilated CM RV lead Biotronik Linox 65-18 SER# [id number] Supraventricular tachycardia 06/03/2009 Personal history of nicotine [...] (12/02/2021): Added automatically from request for surgery [id number]
[2024-09-29 18:31] VITALS: BMI 29.7
--- NOTE | 2024-09-29 18:31 | ADMGEN ---
This patient, Aashish Darby, was admitted to Medical Room 241-. Patient/family oriented to hospital policies and general routines including ID bracelet, bed and alarms, visiting hours, pain management, procedures, bathroom and other care routines, personal items, smoking policy, room service/diet, and visiting hours. Information on how to activate the Rapid Response Team has been discussed. Patient/Family are encouraged to report perceived risks to care and to ask questions if they do not understand what they are told or what they should do.
--- NOTE | 2024-09-29 18:40 | PM.IMHP ---
H&P: HPI History of Present Illness Date/Time: 09/29/24 18:40 Chief Complaint: Abdominal pain. Narrative: This is a 53-year-old with history of Crohn's disease status post partial bowel resection with history of bowel obstruction, cardiomegaly, ventricular fibrillation/tachycardia status post PM/ICD implantation, paroxysmal atrial fibrillation, tongue cancer status post partial resection, gastroesophageal reflux disease, hypertension, traumatic brain injury, bipolar disorder, and schizophrenia who presented to the emergency department via private vehicle with complaints of abdominal pain. Yesterday his abdomen was a bit distended and bloated and he was having what he thought was gas pains related to the Pepsi he had to drink. He was able to belch several times without much benefit and the abdomen continued to distend. He had pain throughout the night and was unable to get comfortable in slept poorly because of that. Sometime overnight he developed severe nausea and reports having 10 to 15 episodes of emesis which he describes as ?black and chalky.? He had to 3 loose, dark stools overnight as well. He denies fever, chills, sweats, chest pain, shortness of breath, and dysuria. In the ED: Vital signs were stable on arrival. Labs are significant for WBC count of 7.7, hemoglobin 15.0, sodium 136, chloride 96, anion gap 14, BUN 20, creatinine 1.01, lactic acid 1.6. CT of the abdomen and pelvis showed small-bowel obstruction with transition point in the right lower quadrant. NG tube was inserted and he is being admitted in this setting for close monitoring and surgery consultation. Review of Systems Review of Systems: 12 systems were reviewed and are negative except for as per HPI. [facility] Past Medical History Medical History (Updated 09/29/24 @ 20:05 by Leona Solomon PA-C) Osteoarthritis Ventricular tachycardia Tongue cancer Crohn's disease Hypertension Pacemaker Cardiomyopathy Bipolar 1 disorder Schizophrenia Surgical History Surgical History (Updated 09/29/24 @ 20:05 by Leona Solomon PA-C) Presence of combination internal cardiac defibrillator (ICD) and pacemaker History of total left hip arthroplasty History of partial colectomy History of appendectomy Family History Family History Father Heart disease Hypertension Social History Social History (Updated 09/29/24 @ 20:06 by Leona Solomon PA-C) Social History: Surrogate medical decision maker: Elba Galdamez, aunt ([phone]). Code status: Full code. 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 Substance use: former Substance use type: methamphetamine Do You Feel Safe in your Home?: Yes Lack of Transportation: No Lack of Food: Never True Current Housing: I Have Housing Concerned About Future Housing: No Difficulty Paying Gas/Electric Bills: No Difficulty Paying for Meds: No Currently Unemployed: No Education: High School Diploma/GED Difficulty w/ Childcare or Family Care: No Spiritual care concerns: No Meds Home Medications and Allergies Home Medications ?Medication ?Instructions ?Recorded ?Confirmed ?Type lamotrigine 100 mg tablet 100 mg PO QHS 08/09/20 09/29/24 History (Lamictal) trazodone 50 mg tablet 50 mg PO HS Pain 08/09/20 09/29/24 History Invega injection 09/29/24 History Lactobacillus acidophilus 10 100 mmu cells PO DAILY 09/29/24 09/29/24 History billion cell capsule (NewFlora) acetaminophen 500 mg tablet 1,000 mg PO Q6H PRN pain 09/29/24 09/29/24 History (Tylenol Extra Strength) buspirone 10 mg tablet 10 mg PO BID 09/29/24 09/29/24 History carvedilol 3.125 mg tablet 3.125 mg PO Q12H 09/29/24 09/29/24 History cetirizine 10 mg tablet (24Hour 10 mg PO DAILY PRN allergy symptoms 09/29/24 09/29/24 History Allergy) duloxetine 60 mg capsule,delayed 60 mg PO DAILY 09/29/24 09/29/24 History release ferrous sulfate 325 mg (65 mg 325 mg PO DAILY 09/29/24 09/29/24 History iron) tablet (FeroSul) magnesium oxide 400 mg (241.3 mg 400 mg PO QPM 09/29/24 09/29/24 History magnesium) tablet melatonin 10 mg capsule 10 mg PO HS PRN sleep 09/29/24 09/29/24 History omeprazole 20 mg capsule,delayed 20 mg PO DAILY 09/29/24 09/29/24 History release rosuvastatin 20 mg tablet 20 mg PO QPM 09/29/24 09/29/24 History Allergies Allergy/AdvReac Type Severity Reaction Status Date / Time No Known Allergies Allergy Verified 08/10/24 22:54 Vital Signs Vital Signs - 24 hr 09/29/24 14:54 09/29/24 15:51 09/29/24 17:31 Temperature 97.9 F Pulse Rate 100 100 87 Respiratory Rate 16 20 20 Blood Pressure 130/77 139/95 H 125/86 Pulse Oximetry 98 97 96 Oxygen Delivery Room Air Exam Narrative: General: Nontoxic-appearing male sitting up in bed in no acute distress. He is in mild discomfort from the NG tube. Weight: 91.3 kg. BMI: 29.7. HEENT: PERRL, EOMI. Sclera anicteric. NG tube in right naris straining cloudy opaque yellowish fluid. Neck: Supple. Respiratory: Lungs are clear to auscultation bilaterally. Cardiovascular: Regular rate and rhythm with S1-S2. Gastrointestinal: Abdomen is slightly distended but soft with hypoactive bowel sounds in the right lower quadrant. He is a bit tender to palpation and percussion throughout. No guarding or rebound tenderness. Skin: Warm and dry. Extremities: No cyanosis, clubbing, or edema. Radial and pedal pulses intact. Neurological: Alert. Cranial nerves 2-12 are grossly intact. No gross focal deficits to casual conversation. Psychiatric: Pleasant and cooperative with appropriate mood. H&P: Results Labs Labs: Short CBC 09/29/24 Range/Units 15:06 WBC 7.7 (4.5-10.0) K/mm3 Hgb 15.0 (14.0-18.0) g/dL Hct 43.7 (42.0-52.0) % Plt Count 258 (150-375) k/mm3 BMP 09/29/24 15:06 Sodium 136 L Potassium 4.2 Chloride 96 L Carbon Dioxide 26 BUN 20 Creatinine 1.01 Glucose 127 H Calcium 9.4 Liver Function 09/29/24 Range/Units 15:06 Total Bilirubin 1.2 (0.2-1.3) mg/dL AST 27 (17-59) U/L ALT 19 (6-50) U/L Alkaline Phosphatase 77 (38-126) U/L Albumin 5.0 (3.5-5.1) g/dL Impressions Abdomen/Pelvis CT 09/29/24 15:19 IMPRESSION: 1. Small bowel obstruction with transition point in the right lower quadrant. Abdomen X-Ray 09/29/24 18:07 IMPRESSION: 1. Nasogastric tube in good position and ready for immediate use. Assessment and Plan Assessment and plan (1) Small bowel obstruction: Code(s): K56.609 - Unspecified intestinal obstruction, unspecified as to partial versus complete obstruction Status: Acute (2) Crohn's disease: Code(s): K50.90 - Crohn's disease, unspecified, without complications Status: Acute (3) Hypertension: Code(s): I10 - Essential (primary) hypertension Status: Acute Plan The patient presented to the emergency department for evaluation abdominal pain distention since yesterday as detailed in HPI. Labs, imaging, EKG, and all reports were personally reviewed. He has evidence of a small-bowel obstruction with transition point in right lower quadrant. NG tube has been placed for decompression. Analgesics and antiemetics are available as needed. Surgery was consulted by the ED physician and their input is appreciated. No evidence of active Crohn's disease noted on CT scan. The patient does report having dark stools and dark emesis which will be checked occult blood. Blood pressures are stable and will be monitored. His home medications will be reviewed and resumed as appropriate. Findings and treatment plan were discussed with the patient. Questions were solicited and answered to satisfaction. The patient's medical management will be taken over by the hospitalist team in a.m. Quality VTE Prophylaxis VTE prophylaxis: mechanical ordered If No VTE Prophylaxis Answer both mechanical and pharmacologic: Reason no pharmacologic proph: medical contraindication (reports of dark stool and emesis) Hospitalist MIPS Advance Care Plan I have confirmed that the patient's Advanced Care Plan is present, code status is documented, or surrogate decision maker is listed in patient medical record.: Yes Medication Reconciliation I have utilized all available resources to obtain, update and review the patients current medications (includes all prescriptions, OTC, herbals, cannabis, and nutritional supplements).: Yes
[2024-09-29] MEDS: LACTATED RINGERS 1,000 ML 125 ML IV CONT (18:42)
[2024-09-29 19:07] VITALS: BP 135/91; PULSE 87; RESP 18; TEMP 35.8; O2SAT 94
[2024-09-29 19:26] VITALS: BP 123/87; PULSE 87; RESP 17; TEMP 36.5; O2SAT 94
[2024-09-29] MEDS: PANTOPRAZOLE SODIUM IV 40 MG VIAL IV PUSH (20:31)
[2024-09-29] MEDS: MORPHINE SULFATE (*CRX) 2 MG/ML INJ IV PUSH (20:35)
[2024-09-29 22:01] LABS: Hematocrit 39.2 % (42.0-52.0); Hemoglobin 13.5 g/dL (14.0-18.0)
[2024-09-30 04:32] VITALS: BP 126/84; PULSE 87; RESP 18; TEMP 36.7; O2SAT 94
[2024-09-30 05:24] LABS: Hematocrit 39.6 % (42.0-52.0); Hemoglobin 13.2 g/dL (14.0-18.0); Mean Corpuscular HGB Conc 33.3 g/dl (32-36); Mean Corpuscular Hemoglobin 29.4 pg (26-34); Mean Corpuscular Volume 88.2 fl (80-100); Mean Platelet Volume 9.2 fl (7.4-10.4); Platelet Count Result 237 k/mm3 (150-375); Red Blood Count 4.49 M/mm3 (4.6-6.20); Red Cell Distribution Width 12.6 % (11.5-14.5)
[2024-09-30 05:39] LABS: Anion Gap 10 mmol/L (4-12); Blood Urea Nitrogen 21 mg/dL (9-20); Calcium 8.6 mg/dL (8.4-10.2); Carbon Dioxide 27 mmol/L (22-30); Chloride 99 mmol/L (98-107); Estimated CRCL calculation 79 ml/min; Estimated Glomerular Filt Rate > 60; Glucose 108 mg/dL (65-110); Potassium 3.9 mmol/L (3.4-5.0); Sodium 136 mmol/L (137-145)
[2024-09-30] MEDS: LACTATED RINGERS 1,000 ML 90 ML IV CONT ×2 (05:39→22:31)
--- NOTE | 2024-09-30 07:19 | P.PNIM_ITS ---
Progress Note: A&P Assessment and Plan (1) Small bowel obstruction: Code(s): K56.609 - Unspecified intestinal obstruction, unspecified as to partial versus complete obstruction Status: Acute Assessment and Plan: * Abdomen/pelvis CT shown small bowel obstruction with transition point in the right lower quadrant * Abdomen x-ray shown NG tube in good position * General surgery consulted * Continue NPO status * Plan for small bowel follow through today * Continue pain and nausea control (2) Crohn's disease: Code(s): K50.90 - Crohn's disease, unspecified, without complications Status: Acute Assessment and Plan: * s/p partial bowel resection in the past (3) Hypertension: Code(s): I10 - Essential (primary) hypertension Status: Acute Assessment and Plan: * blood pressures ranging 126/84-135/91 * Medications on hold due to NPO status. Time Spent With Patient Time with patient: 25 - 35 minutes Subjective Date/time seen: 09/30/24 07:19 Interval history: Interval summary: This is a 53 year old male with a significant past medical history of Crohn's disease s/p partial bowel resection from history of bowel obstruction, V- fib/tachycardia s/p AICD, paroxysmal atrial fibrillation, tongue cancer s/p resection, GERD, HTN, TBI, bipolar disorder, schizophrenia, former smoker who presented to the hospital with complaints of abdominal pain with associated nausea and vomiting. Work up in the hospital included small bowel obstruction with transition point in the right lower quadrant. NG tube was inserted and x- ray shown good position. Initial labs shown Hgb 13.2, Na+ 136, otherwise unremarkable. Subjective: Patient denies any new complaints today. NG tube to LIS. Labs and imaging reviewed. Review of Systems Review of Systems: 12 systems were reviewed and are negativ e except for as per HPI. Exam Narrative: General: In no acute distress, well nourished Head: atraumatic, no encephalopathy Eyes: EOMI, PERRLA, sclera clear ENT: moist mucous membranes, nasal passages clear Neck: supple, no JVD, no adenopathy, trachea midline Cardiac: Normal S1 and S2. RRR, No murmur, gallops or friction rubs, peripheral pulses intact. Respiratory: Lungs clear to auscultation, no adventitious lung sounds, currently on room air Gastrointestinal: soft,mildly distended, non-tender, normoactive bowel sounds. He is not passing gas : voiding without difficulty. Extremities: moves all extremities well, no edema Skin: clean, dry, intact. No wounds or lesions. Neuro: Alert and oriented x4, cranial nerves intact, no neuro deficits. Psych: normal mood, normal affect, interactive Objective Data Vital Signs Vital Signs: Vital Signs - 24 hr 09/29/24 14:54 09/29/24 15:51 09/29/24 17:31 Temperature 97.9 F Pulse Rate 100 100 87 Respiratory Rate 16 20 20 Blood Pressure 130/77 139/95 H 125/86 Pulse Oximetry 98 97 96 Oxygen Delivery Room Air 09/29/24 19:07 09/29/24 19:26 09/29/24 20:00 Temperature 96.5 F L 97.7 F Pulse Rate 87 87 Respiratory Rate 18 17 Blood Pressure 135/91 H 123/87 Pulse Oximetry 94 94 Oxygen Delivery Room Air 09/30/24 04:32 Temperature 98.1 F Pulse Rate 87 Respiratory Rate 18 Blood Pressure 126/84 Pulse Oximetry 94 Oxygen Delivery Intake/Output Intake/Output: Intake & Output 09/27/24 09/28/24 09/29/24 09/30/24 23:59 23:59 23:59 23:59 Intake Total 227.1 772.9 Output Total 650 Balance 227.1 122.9 Meds/Results Medications: Active Medications Generic Name Dose Route Start Last Admin Trade Name Freq PRN Reason Stop Dose Admin Acetaminophen 650 mg 09/29/24 17:24 Acetaminophen 650 Mg Suppository RECTAL Q6H PRN Mild Pain (1-3) or Fever Lactated Ringer's 1,000 mls @ 90 mls/hr 09/29/24 17:25 09/30/24 05:39 Lr - Lactated Ringers Iv IV CONT 90 mls/hr .[id number] URIEL Administration Morphine Sulfate 4 mg 09/29/24 17:24 Morphine Sulfate (*Crx) 4 Mg/Ml Inj IV PUSH Q2H PRN Pain Rated 7-10 Morphine Sulfate 2 mg 09/29/24 23:19 Morphine Sulfate (*Crx) 2 Mg/Ml Inj IV PUSH Q2H PRN Pain Rated 4-6 Ondansetron HCl 4 mg 09/29/24 17:24 Ondansetron Inj 4 Mg/2 Ml Vial IV PUSH Q4H PRN Nausea Pantoprazole Sodium 40 mg 09/29/24 21:00 09/29/24 20:31 Pantoprazole Sodium Iv 40 Mg Vial IV PUSH 40 mg Q12HR URIEL Administration Radiology Results: ITS Impressions Abdomen/Pelvis CT 09/29/24 15:19 IMPRESSION: 1. Small bowel obstruction with transition point in the right lower quadrant. Abdomen X-Ray 09/29/24 18:07 IMPRESSION: Nasogastric tube in good position and ready for immediate use. Labs Labs: Laboratory Results - last 24 hr 09/29/24 09/29/24 09/29/24 15:06 16:43 17:09 WBC 7.7 RBC 5.08 Hgb 15.0 Hct 43.7 MCV 86.0 MCH 29.5 MCHC 34.3 RDW 12.5 Plt Count 258 MPV 8.7 Immature Gran % (Auto) 0.4 Neut % (Auto) 83.8 H Lymph % (Auto) 6.6 L Sebastian % (Auto) 9.1 H Eos % (Auto) 0.0 Baso % (Auto) 0.1 L Lymph # (Auto) 0.51 L Sebastian # (Auto) 0.7 H Eos # (Auto) 0.0 Baso # (Auto) 0.0 Abs Immat Gran (auto) 0.03 Absolute Neuts (auto) 6.4 Absolute Nucleated RBC 0.000 Nucleated RBC % 0.0 PT 14.2 INR 1.1 APTT 27.9 Sodium 136 L Potassium 4.2 Chloride 96 L Carbon Dioxide 26 Anion Gap 14 H BUN 20 Creatinine 1.01 Estim Creat Clear Calc 86 Estimated GFR > 60 Glucose 127 H Lactic Acid 1.6 Calcium 9.4 Phosphorus 3.2 Magnesium 1.7 1.9 Total Bilirubin 1.2 AST 27 ALT 19 Alkaline Phosphatase 77 Total Protein 8.0 Albumin 5.0 Lipase 41 Influenza A (RT-PCR) Negative Influenza B (RT-PCR) Negative SARS-CoV-2 RNA (RT-PCR) Negative Blood Type B Positive Antibody Screen Negative 09/29/24 09/30/24 21:57 04:27 WBC 7.0 RBC 4.49 L Hgb 13.5 L 13.2 L Hct 39.2 L 39.6 L MCV 88.2 MCH 29.4 MCHC 33.3 RDW 12.6 Plt Count 237 MPV 9.2 Immature Gran % (Auto) Neut % (Auto) Lymph % (Auto) Sebastian % (Auto) Eos % (Auto) Baso % (Auto) Lymph # (Auto) Sebastian # (Auto) Eos # (Auto) Baso # (Auto) Abs Immat Gran (auto) Absolute Neuts (auto) Absolute Nucleated RBC Nucleated RBC % PT INR APTT Sodium 136 L Potassium 3.9 Chloride 99 Carbon Dioxide 27 Anion Gap 10 BUN 21 H Creatinine 0.96 Estim Creat Clear Calc 79 Estimated GFR > 60 Glucose 108 Lactic Acid Calcium 8.6 Phosphorus Magnesium 2.0 Total Bilirubin AST ALT Alkaline Phosphatase Total Protein Albumin Lipase Influenza A (RT-PCR) Influenza B (RT-PCR) SARS-CoV-2 RNA (RT-PCR) Blood Type Antibody Screen Quality VTE Prophylaxis VTE prophylaxis: mechanical ordered
[2024-09-30] MEDS: MORPHINE SULFATE (*CRX) 2 MG/ML INJ IV PUSH ×3 (08:30→17:03)
[2024-09-30] MEDS: PANTOPRAZOLE SODIUM IV 40 MG VIAL IV PUSH (08:31)
--- NOTE | 2024-09-30 09:48 | P.CONGS_ITS ---
Assessment and Plan Assessment and plan (1) Small bowel obstruction: Code(s): K56.609 - Unspecified intestinal obstruction, unspecified as to partial versus complete obstruction Status: Acute Assessment and Plan: CT showed evidence of a SBO with transition point in the RLQ. This could be related to intraabdominal adhesions from his previous surgery. The other consideration is a stricture at the anastomosis from the ileocolic resection. He has no peritoneal signs on exam and is clinically improving with NG decompression. Continue NG tube, bowel rest, and IV fluids for now. Will order a water-soluble small bowel follow through to further evaluate. Discussed with the patient that if there is evidence of a high-grade SBO, then he would require surgical exploration. Will continue to follow with serial abdominal exams and labs. (2) Crohn's disease: Code(s): K50.90 - Crohn's disease, unspecified, without complications Status: Acute Assessment and Plan: Diagnosed with Crohn's disease at age 20 and had a flare-up with perforated appendicitis requiring laparotomy with ileocolic resection. He denies any issues since that time. He had a colonoscopy at [facility] reportedly in the past 1-2 years that was unremarkable. There is no evidence of Crohn's disease on imaging. See plan above. (3) Coffee ground emesis: Code(s): K92.0 - Hematemesis Status: Acute Assessment and Plan: Coffee-ground emesis and melanotic stools 2 days ago. He reports dark emesis and dark stools two nights ago and his NG output appears dark this morning. He is already on Protonix IV Q12H. He denies history of GI bleed or ulcers. Stool occult was ordered but he is not having any bowel function with the bowel obstruction. Hemoglobin normal on admission and dropped from 15 to 13, which could be partially dilutional. Continue to trend H/H. If signs of active bleeding, then will consult GI more urgently, but he likely needs to be evaluated by Gastroenterology at some point. Will initially further evaluate the bowel obstruction. (4) Hypertension: Code(s): I10 - Essential (primary) hypertension Status: Acute (5) Pacemaker: Code(s): Z95.0 - Presence of cardiac pacemaker Status: Chronic Plan I have discussed the patient's case and plan of care with Dr. Mchugh. History of Present Illness Consult details Consult date: 09/30/24 Reason for consult: other (Small bowel obstruction) Requesting physician: Frances Neal MD Narrative: This is a 53-year-old with history of Crohn's disease s/p ileocolic resection at age 20, cardiomegaly, ventricular fibrillation/tachycardia status post PM/ICD implantation, paroxysmal atrial fibrillation, tongue cancer s/p partial resection, gastroesophageal reflux disease, hypertension, traumatic brain injury, bipolar disorder, and schizophrenia, who consultation for a small-bowel obstruction. He presented to the ED with complaints of right lower quadrant abdominal pain. He reports 2 nights ago he fell distended and developed diarrhea. He had slight nausea, and eventually forced himself to vomit. He reports forcing emesis about 15 times. He reports his stools were dark black and reports coffee-ground emesis. He is on iron. After the bloating and diarrhea began, he developed right lower quadrant abdominal pain. This persisted into the next day. His diarrhea slowed and nausea improved. Although, yesterday his abdominal pain continued. Therefore he came into the ED for evaluation. He was hemodynamically stable in the ED. Labs showed a normal white blood cell count, hemoglobin 15.0, sodium 136, chloride 96, anion gap 14, BUN 20, creatinine 1.01, lactic acid 1.6. CT of the abdomen and pelvis showed small- bowel obstruction with transition point in the right lower quadrant. NG tube was inserted and he was admitted to the hospitalist service. He is seen this morning. Denies any flatus or any bowel movements since his episode of diarrhea 2 nights ago. His abdominal pain has improved with morphine, but continues to increase as the medication wears off. He denies any other abdominal surgeries. He has not had any issues with his Crohn's disease since he was 20. He does report a history of methamphetamine use, but has been sober for 8 months. He denies any alcohol use or tobacco use. He denies any recent steroid use or NSAID use. Review of Systems 2 Review of Systems: All systems reviewed & are unremarkable except as noted in HPI and below PMFSH Past Medical History Medical History (Updated 09/30/24 @ 10:03 by JADE Renteria) Osteoarthritis Ventricular tachycardia Tongue cancer Crohn's disease Hypertension Pacemaker Cardiomyopathy Bipolar 1 disorder Schizophrenia Surgical History Surgical History Presence of combination internal cardiac defibrillator (ICD) and pacemaker History of total left hip arthroplasty History of partial colectomy History of appendectomy Family History Family History Father Heart disease Hypertension Social History Social History Social History: Surrogate medical decision maker: Elba Galdamez, bamt ([phone]). Code status: Full code. 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 Substance use: former Substance use type: methamphetamine Do You Feel Safe in your Home?: Yes Lack of Transportation: No Lack of Food: Never True Current Housing: I Have Housing Concerned About Future Housing: No Difficulty Paying Gas/Electric Bills: No Difficulty Paying for Meds: No Currently Unemployed: No Education: High School Diploma/GED Difficulty w/ Childcare or Family Care: No Spiritual care concerns: No Meds Home Medications and Allergies Home Medications ?Medication ?Instructions ?Recorded ?Confirmed ?Type lamotrigine 100 mg tablet 100 mg PO QHS 08/09/20 09/29/24 History (Lamictal) trazodone 50 mg tablet 50 mg PO HS Pain 08/09/20 09/29/24 History Invega injection 09/29/24 History Lactobacillus acidophilus 10 100 mmu cells PO DAILY 09/29/24 09/29/24 History billion cell capsule (NewFlora) acetaminophen 500 mg tablet 1,000 mg PO Q6H PRN pain 09/29/24 09/29/24 History (Tylenol Extra Strength) buspirone 10 mg tablet 10 mg PO BID 09/29/24 09/29/24 History carvedilol 3.125 mg tablet 3.125 mg PO Q12H 09/29/24 09/29/24 History cetirizine 10 mg tablet (24Hour 10 mg PO DAILY PRN allergy symptoms 09/29/24 09/29/24 History Allergy) duloxetine 60 mg capsule,delayed 60 mg PO DAILY 09/29/24 09/29/24 History release ferrous sulfate 325 mg (65 mg 325 mg PO DAILY 09/29/24 09/29/24 History iron) tablet (FeroSul) magnesium oxide 400 mg (241.3 mg 400 mg PO QPM 09/29/24 09/29/24 History magnesium) tablet melatonin 10 mg capsule 10 mg PO HS PRN sleep 09/29/24 09/29/24 History omeprazole 20 mg capsule,delayed 20 mg PO DAILY 09/29/24 09/29/24 History release rosuvastatin 20 mg tablet 20 mg PO QPM 09/29/24 09/29/24 History Allergies Allergy/AdvReac Type Severity Reaction Status Date / Time No Known Allergies Allergy Verified 08/10/24 22:54 Vital Signs Vital Signs - 24 hr 09/29/24 14:54 09/29/24 15:51 09/29/24 17:31 Temperature 97.9 F Pulse Rate 100 100 87 Respiratory Rate 16 20 20 Blood Pressure 130/77 139/95 H 125/86 Pulse Oximetry 98 97 96 Oxygen Delivery Room Air 09/29/24 19:07 09/29/24 19:26 09/29/24 20:00 Temperature 96.5 F L 97.7 F Pulse Rate 87 87 Respiratory Rate 18 17 Blood Pressure 135/91 H 123/87 Pulse Oximetry 94 94 Oxygen Delivery Room Air 09/30/24 04:32 Temperature 98.1 F Pulse Rate 87 Respiratory Rate 18 Blood Pressure 126/84 Pulse Oximetry 94 Oxygen Delivery Exam 2 Const: General: comfortable and no acute distress Nutritional Appearance: a verage body habitus Orientation/consciousness: patient oriented x3 HENMT: Head: normocephalic and atraumatic Ears: hearing grossly normal bilaterally Mouth: Yes moist mucous membranes Eyes: General: appearance normal, both eyes and all related structures P upils: Equal, round and reactive pupils present Neck: Neck: normal visual inspection and full ROM Resp: Effort & Inspection: no respiratory distress Auscultation: clear to auscultation bilaterally Cardio: Rate: regular rate Rhythm: regular rhythm Peripheral pulses: P eripheral pulses 2+ throughout GI: Inspection: scar (large transverse RLQ scar), no visible herniation and other (mildly distended) GI Palp: Yes Soft to palpation, Yes Tenderness to palpation present (GI) (RLQ), No Guarding due to palpation present (GI), Yes No hepatosplenomegaly present and No Rebound tenderness present Auscultation: H ypoactive bowel sounds present Rectal Exam: deferred Skin: General skin exam: normal color Neuro: General: moves all extremities and no focal motor deficits Speech: n ormal speech Motor exam (neuro): 5/5 motor strength present throughout Extrem: General: normal to inspection and no edema Psych: Mental Status: mental status grossly normal Attitude: cooperative Insight: Good insight present (Psych) Judgement: Good judgement present (Psych) Results Labs 09/30/24 04:27 09/30/24 04:27 Labs: Abnormal lab results 09/29/24 09/29/24 09/30/24 Range/Units 15:06 21:57 04:27 RBC 4.49 L (4.6-6.20) M/mm3 Hgb 13.5 L 13.2 L (14.0-18.0) g/dL Hct 39.2 L 39.6 L (42.0-52.0) % Neut % (Auto) 83.8 H (45.5-73.1) % Lymph % (Auto) 6.6 L (18.3-44.2) % York % (Auto) 9.1 H (2.6-8.5) % Baso % (Auto) 0.1 L (0.2-1.2) % Lymph # (Auto) 0.51 L (0.9-3.2) K/mm3 York # (Auto) 0.7 H (0.1-0.6) K/mm3 Sodium 136 L 136 L (137-145) mmol/L Chloride 96 L (98-107) mmol/L Anion Gap 14 H (4-12) mmol/L BUN 21 H (9-20) mg/dL Glucose 127 H (65-110) mg/dL Diabetes panel 09/29/24 09/30/24 Range/Units 15:06 04:27 Sodium 136 L 136 L (137-145) mmol/L Potassium 4.2 3.9 (3.4-5.0) mmol/L Chloride 96 L 99 (98-107) mmol/L Carbon Dioxide 26 27 (22-30) mmol/L BUN 20 21 H (9-20) mg/dL Creatinine 1.01 0.96 (0.7-1.3) mg/dL Glucose 127 H 108 (65-110) mg/dL Calcium 9.4 8.6 (8.4-10.2) mg/dL AST 27 (17-59) U/L ALT 19 (6-50) U/L Alkaline Phosphatase 77 (38-126) U/L Total Protein 8.0 (6.3-8.2) g/dL Albumin 5.0 (3.5-5.1) g/dL Calcium panel 09/29/24 09/29/24 09/30/24 Range/Units 15:06 17:09 04:27 Calcium 9.4 8.6 (8.4-10.2) mg/dL Phosphorus 3.2 (2.5-4.5) mg/dL Albumin 5.0 (3.5-5.1) g/dL Pituitary panel 09/29/24 09/30/24 Range/Units 15:06 04:27 Sodium 136 L 136 L (137-145) mmol/L Potassium 4.2 3.9 (3.4-5.0) mmol/L Chloride 96 L 99 (98-107) mmol/L Carbon Dioxide 26 27 (22-30) mmol/L BUN 20 21 H (9-20) mg/dL Creatinine 1.01 0.96 (0.7-1.3) mg/dL Glucose 127 H 108 (65-110) mg/dL Calcium 9.4 8.6 (8.4-10.2) mg/dL Adrenal panel 09/29/24 09/30/24 Range/Units 15:06 04:27 Sodium 136 L 136 L (137-145) mmol/L Potassium 4.2 3.9 (3.4-5.0) mmol/L Chloride 96 L 99 (98-107) mmol/L Carbon Dioxide 26 27 (22-30) mmol/L BUN 20 21 H (9-20) mg/dL Creatinine 1.01 0.96 (0.7-1.3) mg/dL Glucose 127 H 108 (65-110) mg/dL Calcium 9.4 8.6 (8.4-10.2) mg/dL Total Bilirubin 1.2 (0.2-1.3) mg/dL AST 27 (17-59) U/L ALT 19 (6-50) U/L Alkaline Phosphatase 77 (38-126) U/L Total Protein 8.0 (6.3-8.2) g/dL Albumin 5.0 (3.5-5.1) g/dL All other labs normal. Imaging Additional studies: ITS Impressions Abdomen/Pelvis CT 09/29/24 15:19 IMPRESSION: 1. Small bowel obstruction with transition point in the right lower quadrant. Abdomen X-Ray 09/29/24 18:07 IMPRESSION: Nasogastric tube in good position and ready for immediate use.
[2024-09-30] MEDS: ONDANSETRON INJ 4 MG/2 ML VIAL IV PUSH ×2 (13:11→17:03)
[2024-09-30 13:35] LABS: IFOB Positive Control Positive; Immunochemical Fecal Occult Bl Positive (N)
[2024-09-30 14:00] VITALS: BP 143/99; PULSE 101; RESP 20; TEMP 35.7; O2SAT 95
--- NOTE | 2024-09-30 18:08 | P.CONGI_ITS ---
Assessment and Plan Assessment and plan (1) Small bowel obstruction: Code(s): K56.609 - Unspecified intestinal obstruction, unspecified as to partial versus complete obstruction Status: Acute Assessment and Plan: The patient's distant history of Crohn's disease shows no recent activity. However, his reported iron supplementation suggests possible recent anemia, posing the question of chronic GI blood losses. While he attributes the black stools to iron intake, making melena less likely, we must still investigate the underlying cause of the anemia. The patient does not show signs of GI bleeding. The small bowel obstruction is likely due to post-surgical adhesions, but active Crohn's disease cannot be ruled out. To evaluate this, a colonoscopy is scheduled in 48 hours, allowing further resolution of the obstruction. The nasogastric tube will remain in place to aid in colon preparation . In anticipation of potential biologic therapy, standard baseline labs have been ordered: HBsAg, TPMT activity, QuantiFERON, and CRP. GI Consult Note Consult date/time: 09/30/24 18:08 Reason for consult: small bowel obstruction HPI: Aashish Darby, a 53-year-old male with a history of Crohn's disease diagnosed at age 20 and treated with partial colonic resection and ileal colonic anastomosis (with no reported subsequent complications), schizophrenia, and intermittent methamphetamine use, was admitted on 09/29/2024 for protracted nausea and vomiting of dark brown material, preceded by loose, black stools. Admission laboratory findings were notable for a hemoglobin of 15 g/dL, platelet count of 258 creatinine of 1.01,, normal AST and ALT, albumin of 5.0 ., and an INR of 1.1. A CT scan revealed a small bowel obstruction with a transition point in the right lower quadrant. A nasogastric tube was placed, and today's small bowel follow-through showed passage from the stomach to the colon in 2 hours, with no evidence of complete obstruction. Currently, the patient reports feeling well and denies abdominal pain. FORMERLY [facility] Past Medical History Medical History (Updated 09/30/24 @ 10:03 by JADE Renteria) Osteoarthritis Ventricular tachycardia Tongue cancer Crohn's disease Hypertension Pacemaker Cardiomyopathy Bipolar 1 disorder Schizophrenia Surgical History Surgical History Presence of combination internal cardiac defibrillator (ICD) and pacemaker History of total left hip arthroplasty History of partial colectomy History of appendectomy Family History Family History Father Heart disease Hypertension Social History Social History Social History: Surrogate medical decision maker: Elba Galdamez, aunt ([phone]). Code status: Full code. 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 Substance use: former Substance use type: methamphetamine Do You Feel Safe in your Home?: Yes Lack of Transportation: No Lack of Food: Never True Current Housing: I Have Housing Concerned About Future Housing: No Difficulty Paying Gas/Electric Bills: No Difficulty Paying for Meds: No Currently Unemployed: No Education: High School Diploma/GED Difficulty w/ Childcare or Family Care: No Spiritual care concerns: No Meds Home Medications and Allergies Home Medications ?Medication ?Instructions ?Recorded ?Confirmed ?Type lamotrigine 100 mg tablet 100 mg PO QHS 08/09/20 09/29/24 History (Lamictal) trazodone 50 mg tablet 50 mg PO HS Pain 08/09/20 09/29/24 History Invega injection 09/29/24 History Lactobacillus acidophilus 10 100 mmu cells PO DAILY 09/29/24 09/29/24 History billion cell capsule (NewFlora) acetaminophen 500 mg tablet 1,000 mg PO Q6H PRN pain 09/29/24 09/29/24 History (Tylenol Extra Strength) buspirone 10 mg tablet 10 mg PO BID 09/29/24 09/29/24 History carvedilol 3.125 mg tablet 3.125 mg PO Q12H 09/29/24 09/29/24 History cetirizine 10 mg tablet (24Hour 10 mg PO DAILY PRN allergy symptoms 09/29/24 09/29/24 History Allergy) duloxetine 60 mg capsule,delayed 60 mg PO DAILY 09/29/24 09/29/24 History release ferrous sulfate 325 mg (65 mg 325 mg PO DAILY 09/29/24 09/29/24 History iron) tablet (FeroSul) magnesium oxide 400 mg (241.3 mg 400 mg PO QPM 09/29/24 09/29/24 History magnesium) tablet melatonin 10 mg capsule 10 mg PO HS PRN sleep 09/29/24 09/29/24 History omeprazole 20 mg capsule,delayed 20 mg PO DAILY 09/29/24 09/29/24 History release rosuvastatin 20 mg tablet 20 mg PO QPM 09/29/24 09/29/24 History Allergies Allergy/AdvReac Type Severity Reaction Status Date / Time No Known Allergies Allergy Verified 08/10/24 22:54 Vital Signs Vital Signs - 24 hr 09/29/24 19:07 09/29/24 19:26 09/29/24 20:00 Temperature 96.5 F L 97.7 F Pulse Rate 87 87 Respiratory Rate 18 17 Blood Pressure 135/91 H 123/87 Pulse Oximetry 94 94 Oxygen Delivery Room Air 09/30/24 04:32 09/30/24 08:00 09/30/24 14:00 Temperature 98.1 F 96.3 F L Pulse Rate 87 101 H Respiratory Rate 18 20 Blood Pressure 126/84 143/99 H Pulse Oximetry 94 95 Oxygen Delivery Room Air Exam 2 Narrative: Awake alert, oriented x3. Lungs and chest: Clear abdomen: Soft, nontender, slightly distended, no rebound, no hepatosplenomegaly. Bowel sounds present. Results Labs 09/30/24 04:27 09/30/24 04:27 Labs: Short CBC 09/29/24 09/30/24 Range/Units 21:57 04:27 WBC 7.0 (4.5-10.0) K/mm3 Hgb 13.5 L 13.2 L (14.0-18.0) g/dL Hct 39.2 L 39.6 L (42.0-52.0) % Plt Count 237 (150-375) k/mm3 BMP 09/30/24 04:27 Sodium 136 L Potassium 3.9 Chloride 99 Carbon Dioxide 27 BUN 21 H Creatinine 0.96 Glucose 108 Calcium 8.6
[2024-09-30 20:08] VITALS: BP 123/75; PULSE 73; RESP 16; TEMP 36.7; O2SAT 96
[2024-09-30 20:50] LABS: CRP 4.5 mg/dL (<1.0)
[2024-09-30 21:19] LABS: Iron 38 ug/dL (49-181)
[2024-09-30 21:28] LABS: Percent Iron Saturation 11 % (20-50)
[2024-09-30 21:36] LABS: Hepatitis B Surface Antigen Negative (Negative)
[2024-10-01 05:21] VITALS: BP 110/62; PULSE 82; RESP 16; TEMP 36.7; O2SAT 96
--- NOTE | 2024-10-01 07:27 | WPDGIPROGNO ---
Progress Note: A&P Assessment and Plan (1) Crohn's disease: Code(s): K50.90 - Crohn's disease, unspecified, without complications Status: Acute Assessment and Plan: Patient with resolving partial small bowel obstruction, presumably due to adhesions versus Crohn's disease, although less likely. Will perform colonoscopy tomorrow. Prep instructions provided. (2) Small bowel obstruction: Code(s): K56.609 - Unspecified intestinal obstruction, unspecified as to partial versus complete obstruction Status: Acute Subjective Date/time seen: 10/01/24 07:27 Interval history: Patient is doing much better today. He passed some gas last night. No abdominal pain. Exam Narrative: Abdomen soft, bowel sounds present, nontender, slightly distended. Objective Data Vital Signs Vital Signs: Vital Signs - 24 hr 09/30/24 08:00 09/30/24 14:00 09/30/24 19:54 Temperature 96.3 F L Pulse Rate 101 H Respiratory Rate 20 Blood Pressure 143/99 H Pulse Oximetry 95 Oxygen Delivery Room Air Room Air 09/30/24 20:08 10/01/24 05:21 Temperature 98.1 F 98.0 F Pulse Rate 73 82 Respiratory Rate 16 16 Blood Pressure 123/75 110/62 Pulse Oximetry 96 96 Oxygen Delivery Intake/Output Intake/Output: Intake & Output 09/28/24 09/29/24 09/30/24 10/01/24 23:59 23:59 23:59 23:59 Intake Total 227.1 1772.9 0 Output Total 1450 Balance 227.1 322.9 0 Meds/Results Medications: Active Medications Generic Name Dose Route Start Last Admin Trade Name Freq PRN Reason Stop Dose Admin Acetaminophen 650 mg 09/29/24 17:24 Acetaminophen 650 Mg Suppository RECTAL Q6H PRN Mild Pain (1-3) or Fever Lactated Ringer's 1,000 mls @ 90 mls/hr 09/29/24 17:25 09/30/24 22:31 Lr - Lactated Ringers Iv IV CONT 90 mls/hr .[id number] URIEL Administration Morphine Sulfate 4 mg 09/29/24 17:24 Morphine Sulfate (*Crx) 4 Mg/Ml Inj IV PUSH Q2H PRN Pain Rated 7-10 Morphine Sulfate 2 mg 09/29/24 23:19 09/30/24 17:03 Morphine Sulfate (*Crx) 2 Mg/Ml Inj IV PUSH 2 mg Q2H PRN Administration Pain Rated 4-6 Ondansetron HCl 4 mg 09/29/24 17:24 09/30/24 17:03 Ondansetron Inj 4 Mg/2 Ml Vial IV PUSH 4 mg Q4H PRN Administration Nausea Polyethylene Glycol 119 gm 10/01/24 20:00 Polyethylene Glycol 3350 238 Gm Bottle FEED TUBE 10/02/24 05:01 BID@0500,2000 [facility] Radiology Results: ITS Impressions Abdomen/Pelvis CT 09/29/24 15:19 IMPRESSION: 1. Small bowel obstruction with transition point in the right lower quadrant. Abdomen X-Ray 09/29/24 18:07 IMPRESSION: Nasogastric tube in good position and ready for immediate use. Small Bowel X-Ray 09/30/24 14:04 IMPRESSION: 1. Unchanged transient mild dilation of varying segments of proximal small bowel with no persistently dilated bowel in a discrete transition point or delayed transit to the colon to suggest a fixed obstruction in this could be related to or a mild ileus or resolving obstruction. Labs Labs: Laboratory Results - last 24 hr 09/30/24 09/30/24 09/30/24 13:10 20:30 20:31 Iron 38 L TIBC 355 % Saturation 11 L C-Reactive Protein 4.5 H Stl Occult Blood (IFOB) Positive H Hep Bs Antigen Negative
[2024-10-01] MEDS: LACTATED RINGERS 1,000 ML 90 ML IV CONT ×2 (09:40→19:57)
--- NOTE | 2024-10-01 10:41 | P.PNGS_ITS ---
Progress Note: A&P Assessment and Plan (1) Small bowel obstruction: Code(s): K56.609 - Unspecified intestinal obstruction, unspecified as to partial versus complete obstruction Status: Acute Assessment and Plan: * Resolving. Bowels are moving. SBS showed no high grade SBO. * Will allow GI to manage his diet and NG tube today as they want it in place for his colonoscopy prep. (2) Crohn's disease: Code(s): K50.90 - Crohn's disease, unspecified, without complications Status: Acute Assessment and Plan: * GI planning colonoscopy (3) Coffee ground emesis: Code(s): K92.0 - Hematemesis Status: Acute (4) Pacemaker: Code(s): Z95.0 - Presence of cardiac pacemaker Status: Chronic Plan I have discussed the patient's case and plan of care with Dr. Mchugh. Subjective Subjective Date/Time Seen: 10/01/24 10:41 Patient reports: no new complaints, feels better, pain is less, flatus and bowel movement (multiple since SBS) Interval history: Patient feeling better today. No abdominal pain this morning. No nausea or bloating. NG tube still in place per GI for colonoscopy prep. Exam GI: Inspection: non-distended GI Palp: Yes Soft to palpation, No Tenderness to palpation present (GI), No Guarding due to palpation present (GI) and No Rebound tenderness present Auscultation: normal bowel sounds Objective Data Vital Signs Vital Signs: Vital Signs - 24 hr 09/30/24 14:00 09/30/24 19:54 09/30/24 20:08 Temperature 96.3 F L 98.1 F Pulse Rate 101 H 73 Respiratory Rate 20 16 Blood Pressure 143/99 H 123/75 Pulse Oximetry 95 96 Oxygen Delivery Room Air 10/01/24 05:21 Temperature 98.0 F Pulse Rate 82 Respiratory Rate 16 Blood Pressure 110/62 Pulse Oximetry 96 Oxygen Delivery Intake/Output Intake/Output: Intake & Output 09/28/24 09/29/24 09/30/24 10/01/24 23:59 23:59 23:59 23:59 Intake Total 227.1 1772.9 1000 Output Total 1450 Balance 227.1 322.9 1000 Meds/Results Medications: Active Medications Generic Name Dose Route Start Last Admin Trade Name Freq PRN Reason Stop Dose Admin Acetaminophen 650 mg 09/29/24 17:24 Acetaminophen 650 Mg Suppository RECTAL Q6H PRN Mild Pain (1-3) or Fever Lactated Ringer's 1,000 mls @ 90 mls/hr 09/29/24 17:25 10/01/24 09:40 Lr - Lactated Ringers Iv IV CONT 90 mls/hr .Q11H7M URIEL Administration Morphine Sulfate 4 mg 09/29/24 17:24 Morphine Sulfate (*Crx) 4 Mg/Ml Inj IV PUSH Q2H PRN Pain Rated 7-10 Morphine Sulfate 2 mg 09/29/24 23:19 09/30/24 17:03 Morphine Sulfate (*Crx) 2 Mg/Ml Inj IV PUSH 2 mg Q2H PRN Administration Pain Rated 4-6 Ondansetron HCl 4 mg 09/29/24 17:24 09/30/24 17:03 Ondansetron Inj 4 Mg/2 Ml Vial IV PUSH 4 mg Q4H PRN Administration Nausea Polyethylene Glycol 119 gm 10/01/24 20:00 Polyethylene Glycol 3350 238 Gm Bottle FEED TUBE 10/02/24 05:01 BID@0500,2000 [facility] Radiology Results: ITS Impressions Abdomen/Pelvis CT 09/29/24 15:19 IMPRESSION: 1. Small bowel obstruction with transition point in the right lower quadrant. Abdomen X-Ray 09/29/24 18:07 IMPRESSION: Nasogastric tube in good position and ready for immediate use. Small Bowel X-Ray 09/30/24 14:04 IMPRESSION: 1. Unchanged transient mild dilation of varying segments of proximal small bowel with no persistently dilated bowel in a discrete transition point or delayed transit to the colon to suggest a fixed obstruction in this could be related to or a mild ileus or resolving obstruction. Labs Labs: Laboratory Results - last 24 hr 09/30/24 09/30/24 09/30/24 13:10 20:30 20:31 Iron 38 L TIBC 355 % Saturation 11 L C-Reactive Protein 4.5 H Stl Occult Blood (IFOB) Positive H Hep Bs Antigen Negative
--- NOTE | 2024-10-01 11:47 | PM.IMPN ---
Progress Note: A&P Assessment and Plan (1) Small bowel obstruction: Code(s): K56.609 - Unspecified intestinal obstruction, unspecified as to partial versus complete obstruction Status: Acute Assessment and Plan: Abdomen/pelvis CT shown small bowel obstruction with transition point in the right lower quadrant Abdomen x-ray shown NG tube in good position General surgery consulted Continue NPO status Plan for small bowel follow through today Continue pain and nausea control 4/2 Continue CLD today Small bowel follow through shown unchanged transient mild dilation of varying segments of proximal small bowel with no persistently dilated bowel in a discrete transition point or delayed transit to the colon to suggest a fixed obstruction in this could be related to a mid ileus or resolving obstruction. General surgery following GI consulted and will take patient for colonoscopy tomorrow. (2) Crohn's disease: Code(s): K50.90 - Crohn's disease, unspecified, without complications Status: Acute Assessment and Plan: s/p partial bowel resection in the past (3) Hypertension: Code(s): I10 - Essential (primary) hypertension Status: Acute Assessment and Plan: blood pressures ranging 126/84-135/91 Medications on hold due to NPO status. Time Spent With Patient Time with patient: Greater than 35 minutes Subjective Date/time seen: 10/01/24 11:47 Interval history: Interval summary: This is a 53 year old male with a significant past medical history of Crohn's disease s/p partial bowel resection from history of bowel obstruction, V-fib/tachycardia s/p AICD, paroxysmal atrial fibrillation, tongue cancer s/p resection, GERD, HTN, TBI, bipolar disorder, schizophrenia, former smoker who presented to the hospital with complaints of abdominal pain with associated nausea and vomiting. Work up in the hospital included small bowel obstruction with transition point in the right lower quadrant. NG tube was inserted and x-ray shown good position. Initial labs shown Hgb 13.2, Na+ 136, otherwise unremarkable. Subjective: Patient states he is having bowel movements today. He is tolerating clear liquids. Labs reviewed. Review of Systems Review of Systems: 12 systems were reviewed and are negative except for as per HPI. Exam Narrative: General: In no acute distress, well nourished Cardiac: Normal S1 and S2. RRR, No murmur, gallops or friction rubs, peripheral pulses intact. Respiratory: Lungs clear to auscultation, no adventitious lung sounds, currently on room air Gastrointestinal: soft,mildly distended, non-tender, normoactive bowel sounds. He is having BMs and passing gas today. NG tube clamped : voiding without difficulty. Neuro: Alert and oriented x4 Objective Data Vital Signs Vital Signs: Vital Signs - 24 hr 09/30/24 14:00 09/30/24 19:54 09/30/24 20:08 Temperature 96.3 F L 98.1 F Pulse Rate 101 H 73 Respiratory Rate 20 16 Blood Pressure 143/99 H 123/75 Pulse Oximetry 95 96 Oxygen Delivery Room Air 10/01/24 05:21 Temperature 98.0 F Pulse Rate 82 Respiratory Rate 16 Blood Pressure 110/62 Pulse Oximetry 96 Oxygen Delivery Intake/Output Intake/Output: Intake & Output 09/28/24 09/29/24 09/30/24 10/01/24 23:59 23:59 23:59 23:59 Intake Total 227.1 1772.9 1000 Output Total 1450 Balance 227.1 322.9 1000 Meds/Results Medications: Active Medications Generic Name Dose Route Start Last Admin Trade Name Freq PRN Reason Stop Dose Admin Acetaminophen 650 mg 09/29/24 17:24 Acetaminophen 650 Mg Suppository RECTAL Q6H PRN Mild Pain (1-3) or Fever Lactated Ringer's 1,000 mls @ 90 mls/hr 09/29/24 17:25 10/01/24 09:40 Lr - Lactated Ringers Iv IV CONT 90 mls/hr .Q11H7M [facility] Administration Morphine Sulfate 4 mg 09/29/24 17:24 Morphine Sulfate (*Crx) 4 Mg/Ml Inj IV PUSH Q2H PRN Pain Rated 7-10 Morphine Sulfate 2 mg 09/29/24 23:19 09/30/24 17:03 Morphine Sulfate (*Crx) 2 Mg/Ml Inj IV PUSH 2 mg Q2H PRN Administration Pain Rated 4-6 Ondansetron HCl 4 mg 09/29/24 17:24 09/30/24 17:03 Ondansetron Inj 4 Mg/2 Ml Vial IV PUSH 4 mg Q4H PRN Administration Nausea Polyethylene Glycol 119 gm 10/01/24 20:00 Polyethylene Glycol 3350 238 Gm Bottle FEED TUBE 10/02/24 05:01 BID@[id number],2000 [facility] Radiology Results: ITS Impressions Abdomen/Pelvis CT 09/29/24 15:19 IMPRESSION: 1. Small bowel obstruction with transition point in the right lower quadrant. Abdomen X-Ray 09/29/24 18:07 IMPRESSION: Nasogastric tube in good position and ready for immediate use. Small Bowel X-Ray 09/30/24 14:04 IMPRESSION: 1. Unchanged transient mild dilation of varying segments of proximal small bowel with no persistently dilated bowel in a discrete transition point or delayed transit to the colon to suggest a fixed obstruction in this could be related to or a mild ileus or resolving obstruction. Labs Labs: Laboratory Results - last 24 hr 09/30/24 09/30/24 09/30/24 13:10 20:30 20:31 Iron 38 L TIBC 355 % Saturation 11 L C-Reactive Protein 4.5 H Stl Occult Blood (IFOB) Positive H Hep Bs Antigen Negative Quality VTE Prophylaxis VTE prophylaxis: mechanical ordered
[2024-10-01 12:52] LABS: Basophils Percent Auto 0.3 % (0.2-1.2); Eosinophils Absolute Auto 0.1 K/mm3 (0-0.3); Eosinophils Percent Auto 0.9 % (0-4.4); Hematocrit 37.2 % (42.0-52.0); Hemoglobin 12.4 g/dL (14.0-18.0); Immature Granulocyte Absolute 0.02 K/mm3 (0.00-0.031); Immature Granulocyte Percent A 0.3 % (0-0.5); Lymphocytes Absolute Auto 1.22 K/mm3 (0.9-3.2); Lymphocytes Percent Auto 18.5 % (18.3-44.2); Mean Corpuscular HGB Conc 33.3 g/dl (32-36); Mean Corpuscular Hemoglobin 29.6 pg (26-34); Mean Corpuscular Volume 88.8 fl (80-100); Mean Platelet Volume 8.7 fl (7.4-10.4); Monocytes Absolute Auto 0.9 K/mm3 (0.1-0.6); Monocytes Percent Auto 14.1 % (2.6-8.5); Neutrophils Absolute Auto 4.4 K/mm3 (1.3-6.7); Neutrophils Percent Auto 65.9 % (45.5-73.1); Platelet Count Result 216 k/mm3 (150-375); Red Blood Count 4.19 M/mm3 (4.6-6.20); Red Cell Distribution Width 12.6 % (11.5-14.5); White Blood Count 6.6 K/mm3 (4.5-10.0)
[2024-10-01 13:06] LABS: Alanine Aminotransferase 16 U/L (6-50); Alkaline Phosphatase 71 U/L (38-126); Anion Gap 10 mmol/L (4-12); Aspartate Amino Transferase 25 U/L (17-59); Bilirubin,Total 0.8 mg/dL (0.2-1.3); Blood Urea Nitrogen 17 mg/dL (9-20); Calcium 8.8 mg/dL (8.4-10.2); Carbon Dioxide 27 mmol/L (22-30); Chloride 103 mmol/L (98-107); Estimated CRCL calculation 78 ml/min; Estimated Glomerular Filt Rate > 60; Glucose 92 mg/dL (65-110); Potassium 3.6 mmol/L (3.4-5.0); Sodium 140 mmol/L (137-145)
[2024-10-01 13:18] VITALS: O2SAT 96
[2024-10-01 14:00] VITALS: BP 143/86; PULSE 93; RESP 18; TEMP 36.3; O2SAT 96
[2024-10-01] MEDS: polyethylene glycoL 3350 238 GM BOTTLE 119 GM FEED TUBE (19:49)
[2024-10-01 20:18] VITALS: BP 106/70; PULSE 88; RESP 16; TEMP 36.5; O2SAT 96
[2024-10-02] MEDS: polyethylene glycoL 3350 238 GM BOTTLE 119 GM FEED TUBE (04:40)
[2024-10-02 04:58] VITALS: BP 122/76; PULSE 80; RESP 18; TEMP 36.7; O2SAT 95
[2024-10-02 05:12] LABS: Basophils Percent Auto 0.4 % (0.2-1.2); Eosinophils Absolute Auto 0.1 K/mm3 (0-0.3); Eosinophils Percent Auto 1.8 % (0-4.4); Hematocrit 34.3 % (42.0-52.0); Hemoglobin 11.4 g/dL (14.0-18.0); Immature Granulocyte Absolute 0.03 K/mm3 (0.00-0.031); Immature Granulocyte Percent A 0.4 % (0-0.5); Lymphocytes Absolute Auto 1.63 K/mm3 (0.9-3.2); Lymphocytes Percent Auto 22.1 % (18.3-44.2); Mean Corpuscular HGB Conc 33.2 g/dl (32-36); Mean Corpuscular Volume 87.3 fl (80-100); Mean Platelet Volume 8.7 fl (7.4-10.4); Monocytes Percent Auto 13.1 % (2.6-8.5); Neutrophils Absolute Auto 4.6 K/mm3 (1.3-6.7); Neutrophils Percent Auto 62.2 % (45.5-73.1); Platelet Count Result 232 k/mm3 (150-375); Red Blood Count 3.93 M/mm3 (4.6-6.20); Red Cell Distribution Width 12.2 % (11.5-14.5); White Blood Count 7.4 K/mm3 (4.5-10.0)
[2024-10-02 05:21] LABS: Alanine Aminotransferase 13 U/L (6-50); Albumin Level 3.5 g/dL (3.5-5.1); Alkaline Phosphatase 61 U/L (38-126); Anion Gap 7 mmol/L (4-12); Aspartate Amino Transferase 22 U/L (17-59); Blood Urea Nitrogen 9 mg/dL (9-20); Calcium 8.4 mg/dL (8.4-10.2); Carbon Dioxide 27 mmol/L (22-30); Chloride 102 mmol/L (98-107); Estimated CRCL calculation 93 ml/min; Estimated Glomerular Filt Rate > 60; Glucose 103 mg/dL (65-110); Potassium 3.3 mmol/L (3.4-5.0); Sodium 136 mmol/L (137-145)
--- NOTE | 2024-10-02 06:44 | P.PNIM_ITS ---
Progress Note: A&P Assessment and Plan (1) Small bowel obstruction: Code(s): K56.609 - Unspecified intestinal obstruction, unspecified as to partial versus complete obstruction Status: Acute Assessment and Plan: * Abdomen/pelvis CT shown small bowel obstruction with transition point in the right lower quadrant * Abdomen x-ray shown NG tube in good position * General surgery consulted * Continue pain and nausea control * Continue CLD today * Small bowel follow through shown unchanged transient mild dilation of varying segments of proximal small bowel with no persistently dilated bowel in a discrete transition point or delayed transit to the colon to suggest a fixed obstruction in this could be related to a mid ileus or resolving obstruction. * GI consulted * Colonoscope planned for today * Diet advancement per gen surgery (2) Crohn's disease: Code(s): K50.90 - Crohn's disease, unspecified, without complications Status: Acute Assessment and Plan: * s/p partial bowel resection in the past * Could be could be in exacerbation * Colonoscopy planned for today (3) Hypertension: Code(s): I10 - Essential (primary) hypertension Status: Acute Assessment and Plan: * blood pressures ranging 126/84-135/91 * Medications on hold due to NPO status. * Restart home medications when appropriate * Trend BP * Adjust therapy as indicated Time Spent With Patient Time: 52 minutes Time with patient: Greater than 35 minutes Subjective Date/time seen: 10/02/24 06:44 Interval history: 2 day patient is lying in bed patient states that he had decent bowel movements and does not have any complaints currently. colonoscopy was performed and did not show any acute findings recommendations to continue regular diet and normal life and discharged home. Will advance his diet as it has been advanced tolerated per General surgery. Interval summary: This is a 53 year old male with a significant past medical history of Crohn's disease s/p partial bowel resection from history of bowel obstruction, V- fib/tachycardia s/p AICD, paroxysmal atrial fibrillation, tongue cancer s/p resection, GERD, HTN, TBI, bipolar disorder, schizophrenia, former smoker who presented to the hospital with complaints of abdominal pain with associated nausea and vomiting. Work up in the hospital included small bowel obstruction with transition point in the right lower quadrant. NG tube was inserted and x- ray shown good position. Initial labs shown Hgb 13.2, Na+ 136, otherwise unremarkable. Subjective: Patient states he is having bowel movements today. He is tolerating clear liquids. Labs reviewed. Review of Systems Review of Systems: All systems reviewed & are unremarkable except as noted in HPI and below Exam Narrative: General: well-nourished, ill-appearing 53-year-old male, sitting up in bed, comfortable, NARD Neuro: awake, alert and oriented x4, speech clear, no focal neuro deficits noted HEENMT: normocephalic, atraumatic, EOMI, sclerae anicteric, moist oral mucosa Respiratory: Clear to auscultation bilaterally without crackles, rhonchi or wheezes, nonlabored breathing Cardio: regular rate, regular rhythm with S1-S2 Abdomen: nondistended, normoactive bowel sounds, soft, nontender to palpation Extremities: no edema, erythema, or tenderness to palpation, DP pulses 2+ bila terally Skin: no rashes or lesions, warm and dry Psych: appropriate mood and affect, judgment and insight intact Objective Data Vital Signs Vital Signs: Vital Signs - 24 hr 10/01/24 08:00 10/01/24 13:18 10/01/24 14:00 Temperature 97.4 F L Pulse Rate 93 Respiratory Rate 18 Blood Pressure 143/86 H Pulse Oximetry 96 96 Oxygen Delivery Room Air Room Air 10/01/24 20:18 10/02/24 04:58 Temperature 97.7 F 98.0 F Pulse Rate 88 80 Respiratory Rate 16 18 Blood Pressure 106/70 122/76 Pulse Oximetry 96 95 Oxygen Delivery Intake/Output Intake/Output: Intake & Output 09/29/24 09/30/24 10/01/24 10/02/24 23:59 23:59 23:59 23:59 Intake Total 227.1 1772.9 3005.5 150 Output Total 1450 150 Balance 227.1 322.9 2855.5 150 Meds/Results Medications: Active Medications Generic Name Dose Route Start Last Admin Trade Name Freq PRN Reason Stop Dose Admin Acetaminophen 650 mg 09/29/24 17:24 Acetaminophen 650 Mg Suppository RECTAL Q6H PRN Mild Pain (1-3) or Fever Lactated Ringer's 1,000 mls @ 90 mls/hr 09/29/24 17:25 10/02/24 04:42 Lr - Lactated Ringers Iv IV CONT Not Given .Q11H7M [facility] Morphine Sulfate 4 mg 09/29/24 17:24 Morphine Sulfate (*Crx) 4 Mg/Ml Inj IV PUSH Q2H PRN Pain Rated 7-10 Morphine Sulfate 2 mg 09/29/24 23:19 09/30/24 17:03 Morphine Sulfate (*Crx) 2 Mg/Ml Inj IV PUSH 2 mg Q2H PRN Administration Pain Rated 4-6 Ondansetron HCl 4 mg 09/29/24 17:24 09/30/24 17:03 Ondansetron Inj 4 Mg/2 Ml Vial IV PUSH 4 mg Q4H PRN Administration Nausea Radiology Results: ITS Impressions Abdomen/Pelvis CT 09/29/24 15:19 IMPRESSION: 1. Small bowel obstruction with transition point in the right lower quadrant. Abdomen X-Ray 09/29/24 18:07 IMPRESSION: Nasogastric tube in good position and ready for immediate use. Small Bowel X-Ray 09/30/24 14:04 IMPRESSION: 1. Unchanged transient mild dilation of varying segments of proximal small bowel with no persistently dilated bowel in a discrete transition point or delayed transit to the colon to suggest a fixed obstruction in this could be related to or a mild ileus or resolving obstruction. Labs Labs: Laboratory Results - last 24 hr 10/01/24 10/02/24 12:44 04:35 WBC 6.6 7.4 RBC 4.19 L 3.93 L Hgb 12.4 L 11.4 L Hct 37.2 L 34.3 L MCV 88.8 87.3 MCH 29.6 29.0 MCHC 33.3 33.2 RDW 12.6 12.2 Plt Count 216 232 MPV 8.7 8.7 Immature Gran % (Auto) 0.3 0.4 Neut % (Auto) 65.9 62.2 Lymph % (Auto) 18.5 22.1 [place] % (Auto) 14.1 H 13.1 H Eos % (Auto) 0.9 1.8 Baso % (Auto) 0.3 0.4 Lymph # (Auto) 1.22 1.63 [place] # (Auto) 0.9 H 1.0 H Eos # (Auto) 0.1 0.1 Baso # (Auto) 0.0 0.0 Abs Immat Gran (auto) 0.02 0.03 Absolute Neuts (auto) 4.4 4.6 Absolute Nucleated RBC 0.000 0.000 Nucleated RBC % 0.0 0.0 Sodium 140 136 L Potassium 3.6 3.3 L Chloride 103 102 Carbon Dioxide 27 27 Anion Gap 10 7 BUN 17 9 D Creatinine 0.98 0.81 Estim Creat Clear Calc 78 93 Estimated GFR > 60 > 60 Glucose 92 103 Calcium 8.8 8.4 Total Bilirubin 0.8 1.0 AST 25 22 ALT 16 13 Alkaline Phosphatase 71 61 Total Protein 7.0 7.0 Albumin 4.0 3.5 Quality VTE Prophylaxis VTE prophylaxis: mechanical ordered Hospitalist [facility] Advance Care Plan I have confirmed that the patient's Advanced Care Plan is present, code status is documented, or surrogate decision maker is listed in patient medical record.: Yes Medication Reconciliation I have utilized all available resources to obtain, update and review the patients current medications (includes all prescriptions, OTC, herbals, cannabis, and nutritional supplements).: Yes The patient is not eligible for med reconciliation; the patient is in a emergent medical situation where delaying treatment would jeopardize the patients [facility] Yes
[2024-10-02] MEDS: LACTATED RINGERS 1,000 ML 90 ML IV CONT (08:27)
--- NOTE | 2024-10-02 09:51 | P.PNGS_ITS ---
Progress Note: A&P Assessment and Plan (1) Small bowel obstruction: Code(s): K56.609 - Unspecified intestinal obstruction, unspecified as to partial versus complete obstruction Status: Acute Assessment and Plan: * Resolved. Bowels are moving. He tolerated clear liquids yesterday, but NPO for colonoscopy today. * Okay to advance his diet as tolerated from our standpoint after the colonoscopy. (2) Crohn's disease: Code(s): K50.90 - Crohn's disease, unspecified, without complications Status: Acute Assessment and Plan: * Scheduled for colonoscopy today. Tolerated the bowel prep. (3) Coffee ground emesis: Code(s): K92.0 - Hematemesis Status: Acute (4) Pacemaker: Code(s): Z95.0 - Presence of cardiac pacemaker Status: Chronic Plan I have discussed the patient's case and plan of care with Dr. Mchugh. Subjective Subjective Date/Time Seen: 10/02/24 09:51 Patient reports: no new complaints, feels better, tolerating liquids well, flatus and bowel movement Interval history: Patient tolerated clear liquids yesterday and the bowel prep. No abdominal pain, nausea, or vomiting. He does feel bloated this morning. He continues to have multiple bowel movements with the bowel prep. NG tube was removed this morning as well. He is on the schedule for a colonoscopy today. Exam GI: Inspection: other (mildly distended) GI Palp: Yes Soft to palpation, No Tenderness to palpation present (GI), No Guarding due to palpation present (GI) and No Rebound tenderness present Auscultation: normal bowel sounds Objective Data Vital Signs Vital Signs: Vital Signs - 24 hr 10/01/24 13:18 10/01/24 14:00 10/01/24 20:18 Temperature 97.4 F L 97.7 F Pulse Rate 93 88 Respiratory Rate 18 16 Blood Pressure 143/86 H 106/70 Pulse Oximetry 96 96 96 Oxygen Delivery Room Air 10/02/24 04:58 Temperature 98.0 F Pulse Rate 80 Respiratory Rate 18 Blood Pressure 122/76 Pulse Oximetry 95 Oxygen Delivery Intake/Output Intake/Output: Intake & Output 09/29/24 09/30/24 10/01/24 10/02/24 23:59 23:59 23:59 23:59 Intake Total 227.1 1772.9 3005.5 1150 Output Total 1450 150 Balance 227.1 322.9 2855.5 1150 Meds/Results Medications: Active Medications Generic Name Dose Route Start Last Admin Trade Name Freq PRN Reason Stop Dose Admin Acetaminophen 650 mg 09/29/24 17:24 Acetaminophen 650 Mg Suppository RECTAL Q6H PRN Mild Pain (1-3) or Fever Lactated Ringer's 1,000 mls @ 90 mls/hr 09/29/24 17:25 10/02/24 08:27 Lr - Lactated Ringers Iv IV CONT 90 mls/hr .Q11H7M [facility] Administration Morphine Sulfate 4 mg 09/29/24 17:24 Morphine Sulfate (*Crx) 4 Mg/Ml Inj IV PUSH Q2H PRN Pain Rated 7-10 Morphine Sulfate 2 mg 09/29/24 23:19 09/30/24 17:03 Morphine Sulfate (*Crx) 2 Mg/Ml Inj IV PUSH 2 mg Q2H PRN Administration Pain Rated 4-6 Ondansetron HCl 4 mg 09/29/24 17:24 09/30/24 17:03 Ondansetron Inj 4 Mg/2 Ml Vial IV PUSH 4 mg Q4H PRN Administration Nausea Radiology Results: ITS Impressions Abdomen/Pelvis CT 09/29/24 15:19 IMPRESSION: 1. Small bowel obstruction with transition point in the right lower quadrant. Abdomen X-Ray 09/29/24 18:07 IMPRESSION: Nasogastric tube in good position and ready for immediate use. Small Bowel X-Ray 09/30/24 14:04 IMPRESSION: 1. Unchanged transient mild dilation of varying segments of proximal small bowel with no persistently dilated bowel in a discrete transition point or delayed transit to the colon to suggest a fixed obstruction in this could be related to or a mild ileus or resolving obstruction. Labs Labs: Laboratory Results - last 24 hr 10/01/24 10/02/24 12:44 04:35 WBC 6.6 7.4 RBC 4.19 L 3.93 L Hgb 12.4 L 11.4 L Hct 37.2 L 34.3 L MCV 88.8 87.3 MCH 29.6 29.0 MCHC 33.3 33.2 RDW 12.6 12.2 Plt Count 216 232 MPV 8.7 8.7 Immature Gran % (Auto) 0.3 0.4 Neut % (Auto) 65.9 62.2 Lymph % (Auto) 18.5 22.1 [place] % (Auto) 14.1 H 13.1 H Eos % (Auto) 0.9 1.8 Baso % (Auto) 0.3 0.4 Lymph # (Auto) 1.22 1.63 [place] # (Auto) 0.9 H 1.0 H Eos # (Auto) 0.1 0.1 Baso # (Auto) 0.0 0.0 Abs Immat Gran (auto) 0.02 0.03 Absolute Neuts (auto) 4.4 4.6 Absolute Nucleated RBC 0.000 0.000 Nucleated RBC % 0.0 0.0 Sodium 140 136 L Potassium 3.6 3.3 L Chloride 103 102 Carbon Dioxide 27 27 Anion Gap 10 7 BUN 17 9 D Creatinine 0.98 0.81 Estim Creat Clear Calc 78 93 Estimated GFR > 60 > 60 Glucose 92 103 Calcium 8.8 8.4 Total Bilirubin 0.8 1.0 AST 25 22 ALT 16 13 Alkaline Phosphatase 71 61 Total Protein 7.0 7.0 Albumin 4.0 3.5
[2024-10-02 11:54] VITALS: BP 124/74; PULSE 85; RESP 18; TEMP 36.8; O2SAT 96
[2024-10-02] MEDS: LACTATED RINGERS 1,000 ML 150 ML IV CONT (11:55)
--- NOTE | 2024-10-02 12:45 | P.PNAN_ITS ---
Anes - Initial Pre Proc Eval Procedure: Operation Date: 10/02/24 14:45 Proposed Procedures p Colonoscopy - James Glover MD Date/Time: 10/02/24 12:45 Surgeon: Estela Lehman APRN Pre Op Diagnosis: Small bowel obstruction Patient Data Age: 53 Gender: M Height: 1.75 m Weight: 90.6 kg Last Vital Signs Temp 98.2 F 10/02/24 11:54 Pulse 85 10/02/24 11:54 Resp 18 10/02/24 11:54 BP 124/74 10/02/24 11:54 Pulse Ox 96 10/02/24 11:54 O2 Del Method Room Air 10/02/24 11:54 Allergies Allergy/AdvReac Type Severity Reaction Status Date / Time No Known Allergies Allergy Verified 10/02/24 11:49 Home Medications ?Medication ?Instructions ?Recorded ?Confirmed ?Type lamotrigine 100 mg tablet 100 mg PO QHS 08/09/20 09/29/24 History (Lamictal) trazodone 50 mg tablet 50 mg PO HS Pain 08/09/20 09/29/24 History Invega injection 09/29/24 History Lactobacillus acidophilus 10 100 mmu cells PO DAILY 09/29/24 09/29/24 History billion cell capsule (NewFlora) acetaminophen 500 mg tablet 1,000 mg PO Q6H PRN pain 09/29/24 09/29/24 History (Tylenol Extra Strength) buspirone 10 mg tablet 10 mg PO BID 09/29/24 09/29/24 History carvedilol 3.125 mg tablet 3.125 mg PO Q12H 09/29/24 09/29/24 History cetirizine 10 mg tablet (24Hour 10 mg PO DAILY PRN allergy symptoms 09/29/24 09/29/24 History Allergy) duloxetine 60 mg capsule,delayed 60 mg PO DAILY 09/29/24 09/29/24 History release ferrous sulfate 325 mg (65 mg 325 mg PO DAILY 09/29/24 09/29/24 History iron) tablet (FeroSul) magnesium oxide 400 mg (241.3 mg 400 mg PO QPM 09/29/24 09/29/24 History magnesium) tablet melatonin 10 mg capsule 10 mg PO HS PRN sleep 09/29/24 09/29/24 History omeprazole 20 mg capsule,delayed 20 mg PO DAILY 09/29/24 09/29/24 History release rosuvastatin 20 mg tablet 20 mg PO QPM 09/29/24 09/29/24 History Laboratory Tests 10/01/24 10/02/24 12:44 04:35 WBC 6.6 K/mm3 7.4 K/mm3 (4.5-10.0) (4.5-10.0) RBC 4.19 L M/mm3 3.93 L M/mm3 (4.6-6.20) (4.6-6.20) Hgb 12.4 L g/dL 11.4 L g/dL (14.0-18.0) (14.0-18.0) Hct 37.2 L % 34.3 L % (42.0-52.0) (42.0-52.0) MCV 88.8 fl 87.3 fl (80-100) (80-100) MCH 29.6 pg 29.0 pg (26-34) (26-34) MCHC 33.3 g/dl 33.2 g/dl (32-36) (32-36) RDW 12.6 % 12.2 % (11.5-14.5) (11.5-14.5) Plt Count 216 k/mm3 232 k/mm3 (150-375) (150-375) MPV 8.7 fl 8.7 fl (7.4-10.4) (7.4-10.4) Immature Gran % (Auto) 0.3 % 0.4 % (0-0.5) (0-0.5) Neut % (Auto) 65.9 % 62.2 % (45.5-73.1) (45.5-73.1) Lymph % (Auto) 18.5 % 22.1 % (18.3-44.2) (18.3-44.2) [place] % (Auto) 14.1 H % 13.1 H % (2.6-8.5) (2.6-8.5) Eos % (Auto) 0.9 % 1.8 % (0-4.4) (0-4.4) Baso % (Auto) 0.3 % 0.4 % (0.2-1.2) (0.2-1.2) Lymph # (Auto) 1.22 K/mm3 1.63 K/mm3 (0.9-3.2) (0.9-3.2) [place] # (Auto) 0.9 H K/mm3 1.0 H K/mm3 (0.1-0.6) (0.1-0.6) Eos # (Auto) 0.1 K/mm3 0.1 K/mm3 (0-0.3) (0-0.3) Baso # (Auto) 0.0 K/mm3 0.0 K/mm3 (0.0-0.1) (0.0-0.1) Abs Immat Gran (auto) 0.02 K/mm3 0.03 K/mm3 (0.00-0.031) (0.00-0.031) Absolute Neuts (auto) 4.4 K/mm3 4.6 K/mm3 (1.3-6.7) (1.3-6.7) Absolute Nucleated RBC 0.000 K/mm3 0.000 K/mm3 (0.0-0.012) (0.0-0.012) Nucleated RBC % 0.0 % 0.0 % (0.0-0.2) (0.0-0.2) Sodium 140 mmol/L 136 L mmol/L (137-145) (137-145) Potassium 3.6 mmol/L 3.3 L mmol/L (3.4-5.0) (3.4-5.0) Chloride 103 mmol/L 102 mmol/L (98-107) (98-107) Carbon Dioxide 27 mmol/L 27 mmol/L (22-30) (22-30) Anion Gap 10 mmol/L 7 mmol/L (4-12) (4-12) BUN 17 mg/dL 9 D mg/dL (9-20) (9-20) Creatinine 0.98 mg/dL 0.81 mg/dL (0.7-1.3) (0.7-1.3) Estim Creat Clear Calc 78 ml/min 93 ml/min Estimated GFR > 60 > 60 (59 - ) (59 - ) Glucose 92 mg/dL 103 mg/dL (65-110) (65-110) Calcium 8.8 mg/dL 8.4 mg/dL (8.4-10.2) (8.4-10.2) Total Bilirubin 0.8 mg/dL 1.0 mg/dL (0.2-1.3) (0.2-1.3) AST 25 U/L 22 U/L (17-59) (17-59) ALT 16 U/L 13 U/L (6-50) (6-50) Alkaline Phosphatase 71 U/L 61 U/L (38-126) (38-126) Total Protein 7.0 g/dL 7.0 g/dL (6.3-8.2) (6.3-8.2) Albumin 4.0 g/dL 3.5 g/dL (3.5-5.1) (3.5-5.1) Patient hx anesthesia problems: none Family hx anesthesia problems: none Results Review: All pre-operative results and documents have been reviewed as part of the pre- operative evaluation. [facility] Past Medical History Medical History (Updated 09/30/24 @ 10:03 by JADE Renteria) Osteoarthritis Ventricular tachycardia Tongue cancer Crohn's disease Hypertension Pacemaker Cardiomyopathy Bipolar 1 disorder Schizophrenia Surgical History Surgical History (Updated 10/01/24 @ 06:17 by Frances Neal MD) Presence of combination internal cardiac defibrillator (ICD) and pacemaker History of total left hip arthroplasty [place] History of partial colectomy History of appendectomy Family History Family History Father Heart disease Hypertension Social History Social History Social History: Surrogate medical decision maker: Elba Galdamez, aunt ([phone]). Code status: Full code. 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 Substance use: former Substance use type: methamphetamine Do You Feel Safe in your Home?: Yes Lack of Transportation: No Lack of Food: Never True Current Housing: I Have Housing Concerned About Future Housing: No Difficulty Paying Gas/Electric Bills: No Difficulty Paying for Meds: No Currently Unemployed: No Education: High School Diploma/GED Difficulty w/ Childcare or Family Care: No Spiritual care concerns: No Anes - Eval Final PreProcedure Day of Procedure 10/02/24 12:45 Patient weight: normal Heart: regular rate and rhythm Lungs: clear to auscultation Airway: Mallampati scale class III Neurological: alert and oriented Last oral intake: >/= 8 hours ASA classification: IV Emergent: no Anesthetic plan: proceed Anesthesia type and monitoring: general GIVS and standard monitoring Other findings: AICD; HCM states EF 50-55 per cent Results Review: All pre-operative results and documents have been reviewed as part of the pre-op erative evaluation. Informed Consent: The patient's anesthetic plan and its attendant risks and benefits were discussed with the patient/family/POA. Questions were solicited and answers provided to the satisfaction of the patient/family/POA.
[2024-10-02] MEDS: SIMETHICONE ORAL SUSPENSION 20 MG/0.3 ML 30 ML BOTTLE 0.6 ML PO (13:37)
[2024-10-02 13:49] VITALS: BP 93/62; PULSE 71; RESP 17; O2SAT 96
--- NOTE | 2024-10-02 13:51 | WPDGIPROGNO ---
Progress Note: A&P Assessment and Plan (1) Small bowel obstruction: Code(s): K56.609 - Unspecified intestinal obstruction, unspecified as to partial versus complete obstruction Status: Acute Assessment and Plan: The patient demonstrates no current evidence of inflammatory bowel disease. His transient partial small bowel obstruction is most likely attributable to adhesions from prior surgery. Currently, the patient is asymptomatic and shows no signs of obstruction. Therefore, he can be discharged home on a regular diet. Unfortunately, there is no definitive treatment or preventative measure for future small bowel obstruction events caused by adhesions Subjective Date/time seen: 10/02/24 13:51 Interval history: See colonoscopy report - no evidence of Crohn's disease. Objective Data Vital Signs Vital Signs: Vital Signs - 24 hr 10/01/24 14:00 10/01/24 20:18 10/02/24 04:58 Temperature 97.4 F L 97.7 F 98.0 F Pulse Rate 93 88 80 Respiratory Rate 18 16 18 Blood Pressure 143/86 H 106/70 122/76 Pulse Oximetry 96 96 95 Oxygen Delivery 10/02/24 08:00 10/02/24 11:54 Temperature 98.2 F Pulse Rate 85 Respiratory Rate 18 Blood Pressure 124/74 Pulse Oximetry 96 Oxygen Delivery Room Air Room Air Intake/Output Intake/Output: Intake & Output 09/29/24 09/30/24 10/01/24 10/02/24 23:59 23:59 23:59 23:59 Intake Total 227.1 1772.9 3005.5 1150 Output Total 1450 150 Balance 227.1 322.9 2855.5 1150 Meds/Results Medications: Active Medications Generic Name Dose Route Start Last Admin Trade Name Freq PRN Reason Stop Dose Admin Acetaminophen 650 mg 09/29/24 17:24 Acetaminophen 650 Mg Suppository RECTAL Q6H PRN Mild Pain (1-3) or Fever Lactated Ringer's 1,000 mls @ 90 mls/hr 09/29/24 17:25 10/02/24 08:27 Lr - Lactated Ringers Iv IV CONT 90 mls/hr .Q11H7M URIEL Administration Lactated Ringer's 1,000 mls @ 150 mls/hr 10/02/24 11:55 10/02/24 13:47 Lr - Lactated Ringers Iv IV CONT 150 mls/hr .Q6H40M URIEL Infusion Morphine Sulfate 4 mg 09/29/24 17:24 Morphine Sulfate (*Crx) 4 Mg/Ml Inj IV PUSH Q2H PRN Pain Rated 7-10 Morphine Sulfate 2 mg 09/29/24 23:19 09/30/24 17:03 Morphine Sulfate (*Crx) 2 Mg/Ml Inj IV PUSH 2 mg Q2H PRN Administration Pain Rated 4-6 Ondansetron HCl 4 mg 09/29/24 17:24 09/30/24 17:03 Ondansetron Inj 4 Mg/2 Ml Vial IV PUSH 4 mg Q4H PRN Administration Nausea Simethicone 0.6 ml 10/02/24 13:36 10/02/24 13:37 Simethicone Oral Suspension 20 Mg/0.3 Ml 30 Ml Bottle PO 0.6 ml ONCE PRN Administration Gas Discomfort Radiology Results: ITS Impressions Abdomen/Pelvis CT 09/29/24 15:19 IMPRESSION: 1. Small bowel obstruction with transition point in the right lower quadrant. Abdomen X-Ray 09/29/24 18:07 IMPRESSION: Nasogastric tube in good position and ready for immediate use. Small Bowel X-Ray 09/30/24 14:04 IMPRESSION: 1. Unchanged transient mild dilation of varying segments of proximal small bowel with no persistently dilated bowel in a discrete transition point or delayed transit to the colon to suggest a fixed obstruction in this could be related to or a mild ileus or resolving obstruction. Labs Labs: Laboratory Results - last 24 hr 10/02/24 04:35 WBC 7.4 RBC 3.93 L Hgb 11.4 L Hct 34.3 L MCV 87.3 MCH 29.0 MCHC 33.2 RDW 12.2 Plt Count 232 MPV 8.7 Immature Gran % (Auto) 0.4 Neut % (Auto) 62.2 Lymph % (Auto) 22.1 [place] % (Auto) 13.1 H Eos % (Auto) 1.8 Baso % (Auto) 0.4 Lymph # (Auto) 1.63 [place] # (Auto) 1.0 H Eos # (Auto) 0.1 Baso # (Auto) 0.0 Abs Immat Gran (auto) 0.03 Absolute Neuts (auto) 4.6 Absolute Nucleated RBC 0.000 Nucleated RBC % 0.0 Sodium 136 L Potassium 3.3 L Chloride 102 Carbon Dioxide 27 Anion Gap 7 BUN 9 D Creatinine 0.81 Estim Creat Clear Calc 93 Estimated GFR > 60 Glucose 103 Calcium 8.4 Total Bilirubin 1.0 AST 22 ALT 13 Alkaline Phosphatase 61 Total Protein 7.0 Albumin 3.5
[2024-10-02 13:59] VITALS: BP 108/77; PULSE 85; RESP 17; O2SAT 98
[2024-10-02 14:00] VITALS: BP 115/79; PULSE 74; RESP 18; TEMP 36.1; O2SAT 100
[2024-10-02 14:09] VITALS: BP 113/76; PULSE 77; RESP 12; O2SAT 99
--- NOTE | 2024-10-02 14:11 | P.DS_ITS ---
DS: Admitting Diagnosis Discharge Date 10/02/2024 Admitting Diagnosis Small-bowel obstruction with colitis DS: Discharge Diagnosis Discharge Diagnosis (1) Small bowel obstruction: Code(s): K56.609 - Unspecified intestinal obstruction, unspecified as to partial versus complete obstruction Status: Acute Assessment and Plan: * Abdomen/pelvis CT shown small bowel obstruction with transition point in the right lower quadrant * Abdomen x-ray shown NG tube in good position * General surgery consulted * Continue pain and nausea control * Continue CLD today * Small bowel follow through shown unchanged transient mild dilation of varying segments of proximal small bowel with no persistently dilated bowel in a discrete transition point or delayed transit to the colon to suggest a fixed obstruction in this could be related to a mid ileus or resolving obstruction. * GI consulted * Colonoscope planned for today * Diet advancement per gen surgery (2) Crohn's disease: Code(s): K50.90 - Crohn's disease, unspecified, without complications Status: Acute Assessment and Plan: * s/p partial bowel resection in the past * Could be could be in exacerbation * Colonoscopy planned for today (3) Hypertension: Code(s): I10 - Essential (primary) hypertension Status: Acute Assessment and Plan: * blood pressures ranging 126/84-135/91 * Medications on hold due to NPO status. * Restart home medications when appropriate * Trend BP * Adjust therapy as indicated DS: Summary Hospital Course Hospital Course: patient is a 53-year-old male with a past medical history Crohn's disease with partial bowel resection with history of bowel obstruction cardiomegaly VFib with ICD placement, atrial fibrillation tongue cancer schizophrenia who presented the ED with complaints of abdominal pain. At the time of arrival was noted by CT the patient has small-bowel obstruction. Patient was started on clear liquids in general surgery was consulted along with GI. NG tube was placed for decompression patient went for colonoscopy which showed normal bowel. General surgery did follow on the case and did advance patient's to as tolerated. Small-bowel follow-through was performed showed unchanged transit mild dilatation of the varying segments of the proximal small-bowel with though persistent dilated bowel in a discrete transition point or delayed transit in the colon to suggest if is obstruction. Currently patient is doing well he denies any chest pain, shortness a breath, nausea, vomiting, diarrhea constipation. Patient has been able to tolerate p.o. intake and is stable for discharge for labs and vital signs. Discussed the case with General surgery who agrees with the advancing diet as tolerated. Awaiting colonoscopy results. At this time patient is stable for discharge for labs and vital signs. Status at Discharge Functional status at discharge: independent ambulation Overall status at discharge: patient is progressing back to baseline Time Spent with Patient Time attestation: Total time spent providing and/or coordinating discharge services: 48 minutes Time spent: Greater than 30 minutes Specific discharge activities: Diagnostic testing, chart review, developing a treatment plan, education, care coordination documentation, physical exam, result review Exam Narrative: General: well-nourished, well-appearing 53-year-old male, sitting up in bed, comfortable, NARD Neuro: awake, alert and oriented x4, speech clear, no focal neuro deficits noted HEENMT: normocephalic, atraumatic, EOMI, sclerae anicteric, moist oral mucosa Respiratory: Clear to auscultation bilaterally without crackles, rhonchi or wheezes, nonlabored breathing Cardio: regular rate, regular rhythm with S1-S2 Abdomen: nondistended, normoactive bowel sounds, soft, nontender to palpation Extremities: no edema, erythema, or tenderness to palpation, DP pulses 2+ bilaterally Skin: no rashes or lesions, warm and dry Psych: appropriate mood and affect, judgment and insight intact DS: Data Data Completed and Pending Labs on day of discharge: Labs from last 24 hours 10/02/24 04:35 WBC 7.4 RBC 3.93 L Hgb 11.4 L Hct 34.3 L MCV 87.3 MCH 29.0 MCHC 33.2 RDW 12.2 Plt Count 232 MPV 8.7 Immature Gran % (Auto) 0.4 Neut % (Auto) 62.2 Lymph % (Auto) 22.1 [place] % (Auto) 13.1 H Eos % (Auto) 1.8 Baso % (Auto) 0.4 Lymph # (Auto) 1.63 [place] # (Auto) 1.0 H Eos # (Auto) 0.1 Baso # (Auto) 0.0 Abs Immat Gran (auto) 0.03 Absolute Neuts (auto) 4.6 Absolute Nucleated RBC 0.000 Nucleated RBC % 0.0 Sodium 136 L Potassium 3.3 L Chloride 102 Carbon Dioxide 27 Anion Gap 7 BUN 9 D Creatinine 0.81 Estim Creat Clear Calc 93 Estimated GFR > 60 Glucose 103 Calcium 8.4 Total Bilirubin 1.0 AST 22 ALT 13 Alkaline Phosphatase 61 Total Protein 7.0 Albumin 3.5 Discharge Plan Discharge Attending physician on discharge: Michael Rubin Consulting providers: Nilda Mchugh Discharging Clinician: Lázaro Sow Patient Disposition: Home, Self-Care Activity: may shower, unlimited and as tolerated Diet: regular Discharge Instructions: * Take all medications as prescribed even if feeling better * Eat well balanced meals and do not over hydrate * Keep active * Keep an eye on your stool, should your stool be black or dark purple, you should come back to the hospital * Change positions slowly, take a break between each position change * Get labs in one week * If you should experience any chest pain, shortness of breath, temps >100.4 or any other worrisome symptoms please follow up with your PCP come back to the hospital * Follow up with your primary in 1 weeks * It has been a pleasure taking care of you thank you for using our services Patient Instructions: Antibiotic Form Patient Language: Sen[place]alese Stand Alone Forms: General Discharge Information Follow-up/Referrals: Gerhard,Pastora Choe [Primary Care Provider] - 1 Week Nilda Mchugh MD [Physician] - Call for Appointment Discharge Medications: Continued trazodone 50 mg Tablet 50 mg PO HS lamotrigine [Lamictal] 100 mg Tablet 100 mg PO QHS buspirone 10 mg tablet 10 mg PO BID carvedilol 3.125 mg tablet 3.125 mg PO Q12H ferrous sulfate [FeroSul] 325 mg (65 mg iron) tablet 325 mg PO DAILY magnesium oxide 400 mg (241.3 mg magnesium) tablet 400 mg PO QPM omeprazole 20 mg capsule,delayed release(DR/EC) 20 mg PO DAILY rosuvastatin 20 mg tablet 20 mg PO QPM duloxetine 60 mg capsule,delayed release(DR/EC) 60 mg PO DAILY acetaminophen [Tylenol Extra Strength] 500 mg tablet 1,000 mg PO Q6H PRN (Reason: pain) cetirizine [24Hour Allergy] 10 mg tablet 10 mg PO DAILY PRN (Reason: allergy symptoms) melatonin 10 mg capsule 10 mg PO HS PRN (Reason: sleep) NewFlora 10 billion cell capsule 100 mmu cells PO DAILY Invega injection Patient Comments: unknown dose Date of admission: 09/29/24 18:40 Primary Care Provider: GerhardДмитрий Admitting Provider: Marcus Bowers Attending physician on admission: Estela Lehman Condition: Stable Quality VTE Prophylaxis VTE prophylaxis: mechanical ordered Hospitalist MIPS Heart Failure (Exclusion) Patient has history of Heart Transplant or Left Ventricular Assistive Device?: No IF YES, STOP HERE Heart Failure (Qualifier) Patient has current or prior documentation of LVEF less than or equal to 40%, or mod/servere depressed LVSF?: No IF NO, STOP HERE
[2024-10-04 18:58] LABS: TPMT Activity 13
== END 2024-10-02 16:40 | disposition home or self-care (01) | DRG 247 ==
LOC: ANHED 16:32 → ANH2MED 18:19
PROVIDERS: Internal Medicine Gastroenterology; Nurse Practitioner Acute Care; Physician Assistant; Registered Nurse; Admitting Provider Internal Medicine; Emergency Provider Student in an Organized Health Care Education/Training Program; PCP Internal Medicine Infectious Disease; Visit Provider Nurse Practitioner
PROC: 0DJD8ZZ Inspection of Lower Intestinal Tract, Via Natural or Artificial Opening Endoscopic (ICD-10-PCS; CPT 45378; principal; 2024-10-02 14:45)
DX: K56.609 Unspecified intestinal obstruction, unspecified as to partial versus complete obstruction (principal); K50.90 Crohn's disease, unspecified, without complications; K63.89 Other specified diseases of intestine; K92.0 Hematemesis; I48.0 Paroxysmal atrial fibrillation; F31.9 Bipolar disorder, unspecified; I10 Essential (primary) hypertension; I42.9 Cardiomyopathy, unspecified; K21.9 Gastro-esophageal reflux disease without esophagitis; Z95.810 Presence of automatic (implantable) cardiac defibrillator; Z96.642 Presence of left artificial hip joint; Z85.810 Personal history of malignant neoplasm of tongue; Z87.820 Personal history of traumatic brain injury; Z90.49 Acquired absence of other specified parts of digestive tract; Z87.891 Personal history of nicotine dependence
CPT/HCPCS: 36415; 74176; 74250; 80048; 80053; 82274; 82657; 83540; 83550; 83605; 83690; 83735; 84100; 85014; 85018; 85025; 85027; 85610; 85730; 86140; 86850; 86900; 86901; 87340; 87636; 96374; 96375; 96376; 99285; A9270; G0378; J1171; J2003; J2270; J2371; J2405; J2470; J2704; J7120

== ENCOUNTER 2025-05-14 12:30 | Outpatient (RCR) | payer OTHER, SELFPAY ==
--- NOTE | 2025-03-04 16:49 | OPREHPOC ---
Outpatient Therapy Plan of Care This is a Multidisciplinary Plan of Care that may contain components documented by all disciplines (PT, OT, and ST.) PT Problem 1 PT Problem #1 Knowledge Deficit PT Goal 1 Goal / Goal Update Pt. will demo good understanding of diagnosis and prognosis, HEPs. PT Problem 2 PT Problem #2 Pain PT Goal 1 Goal / Goal Update Pt will report pain levels of 1-2/10 at worst during dynamic standing tasks. Target Visit 10 PT Problem 3 PT Problem #3 Impaired Range of Motion PT Goal 1 Goal / Goal Update 1. Pt will demo WFL ROM to BLEs. 2. Pt will demo B hip 90-90 of 20 deg or less indicating improved hamstrings flexibility. Target Visit 12 PT Problem 4 PT Problem #4 Impaired Gait PT Goal 1 Goal / Goal Update Pt will demo a normalized gait pattern with appropriate orthosis to allow for safe and independent ambulation in the community. Target Visit 14 PT Problem 5 PT Problem #5 Impaired Strength PT Goal 1 Goal / Goal Update Pt will perform single leg standing (SLS) upto 10 seconds each LE or more without pain indicating improved hip stability and improved balance. Target Visit 14
--- NOTE | 2025-03-04 16:49 | PTOPEVAL1 ---
Assessment and note entered by Reena Montero, PT Evaluation Information Assessment Status Evaluation Onset January 13 2025 Subjective Information Pt reports some pain with standing on RLE, pressure when standing on RLE; stopped using walker 5 days post op. walking up down stairs with approx 15 steps with 1 railing. Going up the stairs is difficult. Pt wants to be able to move and use LLE and be able to stand and walk better. Reported Pain Level Pain Score 0: Self Report Assessment PT Clinical Summary Pt is a s/p R TKR (01/13/2025) presents with decreased WB on LLE, ROM deficits, muscle shortening (guarding) and tightness, postural deficits and gait impairments. He will benefit from skilled PT to reduce pain, improve RLE ROM and strength, postural awareness and correction, improve gait mechanics and safety to improve functional mobility and indep ambulation at home and in community without AD. Plan of Care Interventions Check Out for Orthotic/Prosthetic,Electrical Stimulation,Gait Training,Hot Pack/Cold Pack, Manual Therapy,Neuro Re-education,Patient/ Caregiver Education,Therapeutic Activities, Therapeutic Exercise,Other Other Interventions [facility] Indicated Yes Treatment Frequency and 2x/wk x 10 sessions Duration These treatments will address the objective and functional deficits as defined above. The patient will be advanced safely and appropriately in order for the patient to progress towards his/her prior level of function. Additional exercises will be introduced and as well as a comprehensive home exercise program upon discharge, if needed, ?to ensure carryover of functional gains achieved in the clinic. This treatment plan has been reviewed and agreement upon by the patient.
--- NOTE | 2025-03-06 15:20 | PTOPEVAL1 ---
Assessment and note entered by Reena Montero, PT Evaluation Information Assessment Status Evaluation Diagnosis Z47.89 ICD-10 Condition Codes (PT) Pain in right hip M25.551,Difficulty Walking R26.2 ,Abnormalities of gait and mobility R26.9,Weakness R53.1 Onset January 13 2025 Subjective Information Pt reports some pain with standing on RLE, pressure when standing on RLE; stopped using walker 5 days post op. walking up down stairs with approx 15 steps with 1 railing. Going up the stairs is difficult. Pt wants to be able to use RLE and be able to move, stand and walk better. Reported Pain Level Pain Score 5: Self Report Assessment PT Clinical Summary Pt is a s/p R THR (01/13/2025) presents with decreased WB on RLE, ROM deficits, muscle shortening (guarding) and tightness, postural deficits and gait impairments. He will benefit from skilled PT to reduce pain, improve RLE ROM and strength, postural awareness and correction, improve gait mechanics and safety to improve functional mobility and indep ambulation at home and in community without AD. Plan of Care Interventions Check Out for Orthotic/Prosthetic,Electrical Stimulation,Gait Training,Hot Pack/Cold Pack, Manual Therapy,Neuro Re-education,Patient/ Caregiver Education,Therapeutic Activities, Therapeutic Exercise,Other Other Interventions [place], BRIAN PT Services Indicated Yes Treatment Frequency and 2x/wk x 10 sessions Duration These treatments will address the objective and functional deficits as defined above. The patient will be advanced safely and appropriately in order for the patient to progress towards his/her prior level of function. Additional exercises will be introduced and as well as a comprehensive home exercise program upon discharge, if needed, ?to ensure carryover of functional gains achieved in the clinic. This treatment plan has been reviewed and agreement upon by the patient.
--- NOTE | 2025-04-09 16:10 | PTOPPROG ---
Assessment and note entered by Reena Montero, PT Re-Evaluation Information Assessment Status Progress Diagnosis Z47.89 ICD-10 Condition Codes (PT) Pain in right hip M25.551,Difficulty Walking R26.2 ,Abnormalities of gait and mobility R26.9,Weakness R53.1 Onset January 13 2025 Subjective Information Pt reports he is feeling better and walking better , the roller massager helped and he is compliant with exercises. His R thigh hurts when going up/ down the stairs, not so much going down. He is trying to get a job at [employer] which will do more standing. Assessment PT Clinical Summary Pt received a total of 11 treatment sessions. He demos good progress with skilled PT, with improvements noted in his BLE strength, balance, endurance and gait without AD, wearing orthosis. 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 He will see his Ortho on 05/10 and will get updates on the order. Pt continue to demo ROM deficits, flexibility, coordination and balance. He will benefit from continued therapy to address said deficits and further improve safety with indep community navigation. Plan of Care Interventions Check Out for Orthotic/Prosthetic,Electrical Stimulation,Gait Training,Hot Pack/Cold Pack, Manual Therapy,Neuro Re-education,Patient/ Caregiver Education,Therapeutic Activities, Therapeutic Exercise,Other Other Interventions [facility] Indicated Yes Treatment Frequency and 1-2x/wk x 8 sessions Duration These treatments will address the objective and functional deficits as defined above. The patient will be advanced safely and appropriately in order for the patient to progress towards his/her prior level of function. Additional exercises will be introduced and as well as a comprehensive home exercise program upon discharge, if needed, ?to ensure carryover of functional gains achieved in the clinic. This treatment plan has been reviewed and agreement upon by the patient.
--- NOTE | 2025-04-09 16:11 | OPREHPOC ---
Outpatient Therapy Plan of Care This is a Multidisciplinary Plan of Care that may contain components documented by all disciplines (PT, OT, and ST.) PT Problem 1 PT Problem #1 Knowledge Deficit PT Goal 1 Goal / Goal Update Pt. will demo good understanding of diagnosis and prognosis, HEPs. Progress Met PT Problem 2 PT Problem #2 Pain PT Goal 1 Goal / Goal Update Pt will report pain levels of 1-2/10 at worst during dynamic standing tasks. - pt reports 4-5/10 RLE pain when navigating stairs. continue on this goal Target Visit 10 Progress Not Met PT Problem 3 PT Problem #3 Impaired Range of Motion PT Goal 1 Goal / Goal Update 1. Pt will demo WFL ROM to BLEs. 2. Pt will demo B hip 90-90 of 20 deg or less indicating improved hamstrings flexibility. continue on this goal Target Visit 12 Progress Partially Met PT Problem 4 PT Problem #4 Impaired Gait PT Goal 1 Goal / Goal Update Pt will demo a normalized gait pattern with appropriate orthosis to allow for safe and independent ambulation in the community. cont working on this goal Target Visit 14 Progress Partially Met PT Problem 5 PT Problem #5 Impaired Strength PT Goal 1 Goal / Goal Update Pt will perform single leg standing (SLS) upto 10 seconds each LE or more without pain indicating improved hip stability and improved balance. -5 seconds on the LLE and 10 seconds on the RLE cont on this goal Target Visit 14 Progress Partially Met PT Goal 2 Goal / Goal Update New Goal (04/09/2025) Pt will demo Dynamic Standing Balance score of GOOD (able to stand indep, unsupported, cross midline moderately x 10 minutes ) Target Visit 8
== END 2025-06-02 23:59 | disposition home or self-care (01) ==
LOC: ANHPT 12:30
PROVIDERS: PCP Internal Medicine Infectious Disease
DX: Z47.1 Aftercare following joint replacement surgery (principal); Z96.641 Presence of right artificial hip joint
CPT/HCPCS: 97110; 97112; 97116; 97140; 97161; 97530; 97750